=== PATIENT | female | born 1980 | race Caucasian/White ===

== ENCOUNTER 2017-08-13 17:07 | Emergency (ER) | payer OTHER ==
[2017-08-13] MEDS ORDERED: ONDANSETRON ODT 8 MG TAB.RAPDIS PO STA (18:54)
[2017-08-13] MEDS ORDERED: HYDROmorphone 0.5 MG/0.5 ML SYRINGE IVP STA (18:54)
[2017-08-13] MEDS ORDERED: KETOROLAC 30 MG/ML 1 ML VIAL IVP STA (18:54)
[2017-08-13] MEDS ORDERED: SODIUM CHLORIDE 0.9% 1,000 ML IV STA (18:54)
--- NOTE | 2017-08-13 19:00 | ED ---
Abdominal Pain HPI - General Chief Complaint: Abdominal Pain Stated Complaint: Left Flank Pain Time Seen by Provider: 08/13/17 18:44 Source: patient, RN notes reviewed, old records reviewed Mode of arrival: ambulatory Limitations: no limitations - History of Present Illness Initial Comments: This 37-year-old female presents emergency Department chief complaint of left flank pain. Patient ports that last week she was diagnosed with a right-sided kidney stone, she reports that the pain never seemed totally diminish over her right side, she reports that she did not ever catch the right ureteral stone while straining her urine. She reports that she's not noticed any changes in her urine, she states this seems to be clear. She states that she has no nausea or vomiting. She reports no specific abdominal pain. Denies any fever or chills. She's been taking the medication as previous a prescribed. Patient states that she try to follow-up with a primary care provider but was unable to obtain one. She did make an appointment with urologist but is unable to see him for a few weeks. - Related Data Home Medications Medication Instructions Recorded Confirmed Acetaminophen [Tylenol Extra 1,000 mg PO BID PRN 08/13/17 08/13/17 Strength] guaiFENesin [Mucinex] 1,200 mg PO BID PRN 08/13/17 08/13/17 Previous Rx's Medication Instructions Recorded Acetaminophen-Codeine 300-30mg 1 tab PO Q8H PRN #12 tablet 08/13/17 [Tylenol #3] Ketorolac [Toradol] 10 mg PO Q6HR #15 tab 08/13/17 Tamsulosin [Flomax] 0.4 mg PO DAILY #7 cap 08/13/17 Allergies Allergy/AdvReac Type Severity Reaction Status Date / Time tramadol AdvReac SEIZURE Verified 08/13/17 19:19 Review of Systems ROS Statement: Those systems with pertinent positive or pertinent negative responses have been documented in the HPI. ROS Other: All systems not noted in ROS Statement are negative. Past Medical History Past Medical History: No Reported History Additional Past Medical History / Comment(s): migraines, kidney stones History of Any Multi-Drug Resistant Organisms: None Reported Past Surgical History: Section, Hysterectomy, Orthopedic Surgery Additional Past Surgical History / Comment(s): laproscopy Past Psychological History: Anxiety Smoking Status: Current every day smoker Past Alcohol Use History: None Reported Past Drug Use History: None Reported General Exam - General Exam Comments Initial Comments: This is a 37-year-old female. Patient does not appear to be in any acute distress. She does appear to be somewhat anxious. Limitations: no limitations General appearance: alert, in no apparent distress Head exam: Present: atraumatic, normocephalic, normal inspection Eye exam: Present: normal appearance, PERRL, EOMI. Absent: scleral icterus, conjunctival injection, periorbital swelling ENT exam: Present: normal exam, mucous membranes moist Neck exam: Present: normal inspection. Absent: tenderness, meningismus, lymphadenopathy Respiratory exam: Present: normal lung sounds bilaterally. Absent: respiratory distress, wheezes, rales, rhonchi, stridor Cardiovascular Exam: Present: regular rate, normal rhythm, normal heart sounds. Absent: systolic murmur, diastolic murmur, rubs, gallop, clicks GI/Abdominal exam: Present: soft, tenderness (Left-sided flank and CVA tenderness.), normal bowel sounds. Absent: distended, guarding, rebound, rigid Extremities exam: Present: normal inspection, full ROM, normal capillary refill. Absent: tenderness, pedal edema, joint swelling, calf tenderness Back exam: Present: normal inspection Neurological exam: Present: alert, oriented X3, CN II-XII intact Psychiatric exam: Present: normal affect, normal mood Skin exam: Present: warm, dry, intact, normal color. Absent: rash Course Vital Signs 08/13/17 08/13/17 08/13/17 18:10 19:26 20:28 Temperature 97.8 F 97.3 F L Pulse Rate 87 78 69 Respiratory 20 18 18 Rate Blood Pressure 121/83 132/76 135/83 O2 Sat by Pulse 98 98 100 Oximetry Medical Decision Making - Medical Decision Making Patient refused computed tomography scan. All her lab work was reviewed and within normal limits. KUB chest x-ray showed no abnormalities. Patient continues to complain of pain. Scars that her previous CAT scan did show some signs of left-sided flank stones. All measuring less than 0.4 cm. Patient elects to not have a CT at this time. Discussed risks and benefits. Discussed close follow-up with primary care provider Reddy discharged with Toradol and Flomax for questionable further case to him. Patient agrees to treatment plan will comply. Return parameters were discussed. - Lab Data Result diagrams: 08/13/17 19:10 08/13/17 19:10 Lab Results 08/13/17 08/13/17 08/13/17 Range/Units 19:10 19:10 19:10 WBC 10.0 (3.8-10.6) k/uL RBC 4.86 (3.80-5.40) m/uL Hgb 14.4 (11.4-16.0) gm/dL Hct 43.6 (34.0-46.0) % MCV 89.8 (80.0-100.0) fL MCH 29.6 (25.0-35.0) pg MCHC 33.0 (31.0-37.0) g/dL RDW 12.8 (11.5-15.5) % Plt Count 321 (150-450) k/uL Neutrophils % 60 % Lymphocytes % 35 % Monocytes % 3 % Eosinophils % 1 % Basophils % 1 % Neutrophils # 6.0 (1.3-7.7) k/uL Lymphocytes # 3.5 (1.0-4.8) k/uL Monocytes # 0.3 (0-1.0) k/uL Eosinophils # 0.1 (0-0.7) k/uL Basophils # 0.1 (0-0.2) k/uL Sodium 142 (137-145) mmol/L Potassium 4.5 (3.5-5.1) mmol/L Chloride 107 (98-107) mmol/L Carbon Dioxide 27 (22-30) mmol/L Anion Gap 8 mmol/L BUN 16 (7-17) mg/dL Creatinine 0.65 (0.52-1.04) mg/dL Est GFR (MDRD) Af Amer >60 (>60 ml/min/1.73 sqM) Est GFR (MDRD) Non-Af >60 (>60 ml/min/1.73 sqM) Glucose 80 (74-99) mg/dL Calcium 9.6 (8.4-10.2) mg/dL Total Bilirubin 0.2 (0.2-1.3) mg/dL AST 44 H (14-36) U/L ALT 79 H (9-52) U/L Alkaline Phosphatase 68 (38-126) U/L Total Protein 7.3 (6.3-8.2) g/dL Albumin 4.2 (3.5-5.0) g/dL Amylase 36 (30-110) U/L Lipase 90 (23-300) U/L Urine Color Yellow Urine Appearance Clear (Clear) Urine pH 7.0 (5.0-8.0) Ur Specific [place] 1.009 (1.001-1.035) Urine Protein Negative (Negative) Urine Glucose (UA) Negative (Negative) Urine Ketones Negative (Negative) Urine Blood Negative (Negative) Urine Nitrite Negative (Negative) Urine Bilirubin Negative (Negative) Urine Urobilinogen <2.0 (<2.0) mg/dL Ur Leukocyte Esterase Negative (Negative) Urine Opiates Screen (NotDetected) Ur Oxycodone Screen (NotDetected) Urine Methadone Screen (NotDetected) Ur Propoxyphene Screen (NotDetected) Ur Barbiturates Screen (NotDetected) U Tricyclic Antidepress (NotDetected) Ur Phencyclidine Scrn (NotDetected) Ur Amphetamines Screen (NotDetected) U Methamphetamines Scrn (NotDetected) U Benzodiazepines Scrn (NotDetected) Urine Cocaine Screen (NotDetected) U Marijuana (THC) Screen (NotDetected) 08/13/17 Range/Units 19:10 WBC (3.8-10.6) k/uL RBC (3.80-5.40) m/uL Hgb (11.4-16.0) gm/dL Hct (34.0-46.0) % MCV (80.0-100.0) fL MCH (25.0-35.0) pg MCHC (31.0-37.0) g/dL RDW (11.5-15.5) % Plt Count (150-450) k/uL Neutrophils % % Lymphocytes % % Monocytes % % Eosinophils % % Basophils % % Neutrophils # (1.3-7.7) k/uL Lymphocytes # (1.0-4.8) k/uL Monocytes # (0-1.0) k/uL Eosinophils # (0-0.7) k/uL Basophils # (0-0.2) k/uL Sodium (137-145) mmol/L Potassium (3.5-5.1) mmol/L Chloride (98-107) mmol/L Carbon Dioxide (22-30) mmol/L Anion Gap mmol/L BUN (7-17) mg/dL Creatinine (0.52-1.04) mg/dL Est GFR (MDRD) Af Amer (>60 ml/min/1.73 sqM) Est GFR (MDRD) Non-Af (>60 ml/min/1.73 sqM) Glucose (74-99) mg/dL Calcium (8.4-10.2) mg/dL Total Bilirubin (0.2-1.3) mg/dL AST (14-36) U/L ALT (9-52) U/L Alkaline Phosphatase (38-126) U/L Total Protein (6.3-8.2) g/dL Albumin (3.5-5.0) g/dL Amylase (30-110) U/L Lipase (23-300) U/L Urine Color Urine Appearance (Clear) Urine pH (5.0-8.0) Ur Specific [place] (1.001-1.035) Urine Protein (Negative) Urine Glucose (UA) (Negative) Urine Ketones (Negative) Urine Blood (Negative) Urine Nitrite (Negative) Urine Bilirubin (Negative) Urine Urobilinogen (<2.0) mg/dL Ur Leukocyte Esterase (Negative) Urine Opiates Screen Not Detected (NotDetected) Ur Oxycodone Screen Not Detected (NotDetected) Urine Methadone Screen Not Detected (NotDetected) Ur Propoxyphene Screen Not Detected (NotDetected) Ur Barbiturates Screen Detected H (NotDetected) U Tricyclic Antidepress Not Detected (NotDetected) Ur Phencyclidine Scrn Not Detected (NotDetected) Ur Amphetamines Screen Detected H (NotDetected) U Methamphetamines Scrn Not Detected (NotDetected) U Benzodiazepines Scrn Not Detected (NotDetected) Urine Cocaine Screen Not Detected (NotDetected) U Marijuana (THC) Screen Not Detected (NotDetected) - Radiology Data Radiology results: report reviewed Chest x-ray and KUB x-ray negative for any acute abdomen or maladies. Disposition Clinical Impression: Left flank pain Disposition: HOME SELF-CARE Condition: Good Instructions: Abdominal Pain (ED) Additional Instructions: Patient advised to take stool softeners associated with taking pain medication. Recommended follow-up with primary care provider and urologist. Take the medicines as prescribed. Return to emergency department if any alarming signs or symptoms occur. Prescriptions: Acetaminophen-Codeine 300-30mg [Tylenol #3] 1 tab PO Q8H PRN #12 tablet PRN Reason: Pain Ketorolac [Toradol] 10 mg PO Q6HR #15 tab Tamsulosin [Flomax] 0.4 mg PO DAILY #7 cap Referrals: None,Stated [Primary Care Provider] - 1-2 days Lin Serrato MD [STAFF PHYSICIAN] - 1-2 days Time of Disposition: 20:30
[2017-08-13 19:20] LABS: Basophils # (A) 0.1 k/uL (0-0.2); Basophils % (A) 1 %; CH 29.8; CHCM 33.4; Eosinophils # (A) 0.1 k/uL (0-0.7); Eosinophils % (A) 1 %; HCT 43.6 % (34.0-46.0); HDW 2.54; HGB 14.4 gm/dL (11.4-16.0); Luc # (Auto) 0.12; Luc % (Auto) 1; Lymphocytes # (A) 3.5 k/uL (1.0-4.8); Lymphocytes % (A) 35 %; MCH 29.6 pg (25.0-35.0); MCV 89.8 fL (80.0-100.0); Mean Platelet Volume 6.6; Monocytes # (A) 0.3 k/uL (0-1.0); Monocytes % (A) 3 %; Neutrophils % (A) 60 %; RBC 4.86 m/uL (3.80-5.40); RDW 12.8 % (11.5-15.5); WBC (Perox) 9.92
[2017-08-13 19:21] LABS: Appearance,Urine Clear (Clear); Bilirubin,Urine Negative (Negative); Glucose,Urine (UA) Negative (Negative); Ketones,Urine Negative (Negative); Leukocyte Esterase,Urine Negative (Negative); Nitrite,Urine Negative (Negative); Protein,Urine Negative (Negative); Specific Gravity,Urine 1.009 (1.001-1.035); UA Billing (MACRO vs. MICRO) CHEM; Urobilinogen,Urine <2.0 mg/dL (<2.0)
[2017-08-13 19:29] VITALS: RESP 18
[2017-08-13 19:31] LABS: ALT 79 U/L (9-52); AST 44 U/L (14-36); Alkaline Phosphatase 68 U/L (38-126); Amylase 36 U/L (30-110); Anion Gap 8 mmol/L; Blood Urea Nitrogen 16 mg/dL (7-17); Calcium 9.6 mg/dL (8.4-10.2); Carbon Dioxide 27 mmol/L (22-30); Chloride 107 mmol/L (98-107); Glucose 80 mg/dL (74-99); Non-African American GFR(MDRD) >60 (>60 ml/min/1.73 sqM); Potassium 4.5 mmol/L (3.5-5.1); Sodium 142 mmol/L (137-145); Total Bilirubin 0.2 mg/dL (0.2-1.3); Total Protein 7.3 g/dL (6.3-8.2)
--- NOTE | 2017-08-13 19:50 | XR ---
EXAMINATION TYPE: XR chest 2V DATE OF EXAM: 08/13/2017 COMPARISON: 06/27/2014 HISTORY: Flank pain TECHNIQUE: Frontal and lateral views of the chest are obtained. FINDINGS: Heart and mediastinum are normal. Lungs are clear. Diaphragm is normal. Bony thorax is int act. IMPRESSION: Normal chest. No change.
--- NOTE | 2017-08-13 19:52 | XR ---
EXAMINATION TYPE: XR KUB DATE OF EXAM: 08/13/2017 COMPARISON: 07/06/2014 HISTORY: Flank pain 2 views Bowel gas pattern is normal. There is no sign of intestinal obstruction or pneumoperitoneum. Fecal pa ttern is normal. There are no pathologic calcifications over the kidneys. There is no sign of a mass. Conclusion Nonacute abdomen
[2017-08-13 20:29] VITALS: BP 135/83; PULSE 69; TEMP 97.3
[2017-08-13] MEDS ORDERED: ORPHENADRINE 30 MG/ML 2 ML VIAL IVP STA (20:46)
[2017-08-13] MEDS ORDERED: ACET/COD 300 MG/30 MG STARTER PACK 6 TAB BTL PO STA (20:52)
== END 2017-08-13 21:03 | disposition home or self-care (01) ==
LOC: EC 17:07
DX: R10.9 Unspecified abdominal pain (principal); F17.200 Nicotine dependence, unspecified, uncomplicated; Z53.20 Procedure and treatment not carried out because of patient's decision for unspecified reasons; Z87.442 Personal history of urinary calculi; Z88.6 Allergy status to analgesic agent
CPT/HCPCS: 36415; 80053; 82150; 83690; 85025; 81003; 80306; 71020; 74000; 99284; 96374; 96375; 96361 ×2; J1885; J1170

== ENCOUNTER → 2017-08-25 | Outpatient (CLI) | payer OTHER ==
--- NOTE | 2017-08-25 18:06 | XR ---
EXAMINATION TYPE: XR KUB DATE OF EXAM: 08/25/2017 COMPARISON: 08/13/2017 HISTORY: Bilateral stones TECHNIQUE: 2 views FINDINGS: There is no sign of intestinal obstruction or pneumoperitoneum. Fecal pattern is normal. Th ere are no pathologic calcifications over the kidneys. Lung bases are clear. IMPRESSION: Nonacute abdomen. No definite renal calcification seen.
== END | disposition home or self-care (01) ==
LOC: RADXRMAIN 17:02
PROVIDERS: ATTEND Urology
DX: N20.0 Calculus of kidney (principal)
CPT/HCPCS: 74000

== ENCOUNTER 2018-10-08 21:16 | Emergency (ER) | payer OTHER ==
[2018-10-08] MEDS ORDERED: SODIUM CHLORIDE 0.9% 1,000 ML IV STA (21:36)
[2018-10-08] MEDS ORDERED: ONDANSETRON 4 MG/2 ML VIAL IVP STA (21:36)
[2018-10-08] MEDS ORDERED: KETOROLAC 30 MG/ML 1 ML VIAL IVP STA (21:36)
--- NOTE | 2018-10-08 21:39 | ED ---
Abdominal Pain HPI - General Chief Complaint: Abdominal Pain Stated Complaint: R side pain Time Seen by Provider: 10/08/18 21:35 Source: patient, RN notes reviewed, old records reviewed Mode of arrival: ambulatory Limitations: no limitations - History of Present Illness Initial Comments: This is a 38-year-old female the ER for evaluation. She presents today for evaluation of abdominal pain significant right flank, right upper quadrant abdominal pain, history of a palpation. Patient has significant symptoms. Started tonight and progressively worsening. Denies fever. Mild nausea no vomiting, no recent diarrheal illness. No significant injury medical history. Patient has had a hysterectomy. Patient also has a history of kidney stones patient does admit to pain radiates for back MD Complaint: abdominal pain, flank pain (right-sided) -: hour(s) Location: RUQ Radiation: R flank, back Migration to: R flank Severity: moderate Severity scale (1-10): 7 Quality: stabbing, aching Consistency: constant Improves With: nothing Worsens With: nothing Associated Symptoms: nausea Treatments Prior to Arrival: other - Related Data Home Medications Medication Instructions Recorded Confirmed Ibuprofen [Motrin] 800 mg PO Q6HR PRN 09/19/17 10/08/18 Acetaminophen Tab [Tylenol Tab] 650 mg PO Q6H PRN 10/08/18 10/08/18 Cider Vinegar [Apple Cider Vinegar] 300 mg PO DAILY 10/08/18 10/08/18 Cranberry Fruit Extract [Cranberry] 200 mg PO DAILY 10/08/18 10/08/18 Cyanocobalamin [Vitamin B-12] 500 mcg PO DAILY 10/08/18 10/08/18 Allergies Allergy/AdvReac Type Severity Reaction Status Date / Time tramadol AdvReac SEIZURE Verified 10/08/18 21:59 Review of Systems ROS Statement: Those systems with pertinent positive or pertinent negative responses have been documented in the HPI. ROS Other: All systems not noted in ROS Statement are negative. Past Medical History Past Medical History: No Reported History Additional Past Medical History / Comment(s): migraines, kidney stones History of Any Multi-Drug Resistant Organisms: None Reported Past Surgical History: Section, Hysterectomy, Orthopedic Surgery Additional Past Surgical History / Comment(s): laproscopy Past Psychological History: Anxiety Smoking Status: Current every day smoker Past Alcohol Use History: None Reported Past Drug Use History: None Reported General Exam Limitations: no limitations General appearance: alert, in no apparent distress Head exam: Present: atraumatic, normocephalic, normal inspection Eye exam: Present: normal appearance, PERRL, EOMI. Absent: scleral icterus, conjunctival injection, periorbital swelling ENT exam: Present: normal exam, mucous membranes moist Neck exam: Present: normal inspection. Absent: tenderness, meningismus, lymphadenopathy Respiratory exam: Present: normal lung sounds bilaterally. Absent: respiratory distress, wheezes, rales, rhonchi, stridor Cardiovascular Exam: Present: regular rate, normal rhythm, normal heart sounds. Absent: systolic murmur, diastolic murmur, rubs, gallop, clicks GI/Abdominal exam: Present: soft, tenderness (ruq), normal bowel sounds. Absent : distended, guarding, rebound, rigid Extremities exam: Present: normal inspection, full ROM, normal capillary refill. Absent: tenderness, pedal edema, joint swelling, calf tenderness Back exam: Present: normal inspection Neurological exam: Present: alert, oriented X3, CN II-XII intact Psychiatric exam: Present: normal affect, normal mood Skin exam: Present: warm, dry, intact, normal color. Absent: rash Course Vital Signs 10/08/18 10/08/18 10/09/18 21:29 23:03 00:15 Temperature 98.3 F Pulse Rate 106 H 93 93 Respiratory 16 19 19 Rate Blood Pressure 141/84 121/68 136/58 O2 Sat by Pulse 100 98 96 Oximetry 10/09/18 00:59 Temperature 98.5 F Pulse Rate 95 Respiratory 16 Rate Blood Pressure 135/76 O2 Sat by Pulse 96 Oximetry - Reevaluation(s) Reevaluation #1: 10/08/18 23:40 Medical records reviewed Reevaluation #2: 10/08/18 23:40 Patient does have pain control Medical Decision Making - Medical Decision Making 38 female the ER for evaluation for nonspecific bowel pain, CT and ultrasound gallbladder negative labwork is normal patient has pain control can be discharged home - Lab Data Result diagrams: 10/08/18 21:55 10/08/18 21:55 Lab Results 10/08/18 10/08/18 10/08/18 Range/Units 21:55 21:55 21:55 WBC 9.0 (3.8-10.6) k/uL RBC 4.61 (3.80-5.40) m/uL Hgb 13.0 (11.4-16.0) gm/dL Hct 40.4 (34.0-46.0) % MCV 87.7 (80.0-100.0) fL MCH 28.2 (25.0-35.0) pg MCHC 32.1 (31.0-37.0) g/dL RDW 13.4 (11.5-15.5) % Plt Count 353 (150-450) k/uL Neutrophils % 47 % Lymphocytes % 43 % Monocytes % 5 % Eosinophils % 1 % Basophils % 1 % Neutrophils # 4.3 (1.3-7.7) k/uL Lymphocytes # 3.9 (1.0-4.8) k/uL Monocytes # 0.4 (0-1.0) k/uL Eosinophils # 0.1 (0-0.7) k/uL Basophils # 0.1 (0-0.2) k/uL Sodium 144 (137-145) mmol/L Potassium 4.3 (3.5-5.1) mmol/L Chloride 111 H (98-107) mmol/L Carbon Dioxide 26 (22-30) mmol/L Anion Gap 7 mmol/L BUN 25 H (7-17) mg/dL Creatinine 0.79 (0.52-1.04) mg/dL Est GFR (CKD-EPI)AfAm >90 (>60 ml/min/1.73 sqM) Est GFR (CKD-EPI)NonAf >90 (>60 ml/min/1.73 sqM) Glucose 100 H (74-99) mg/dL Calcium 10.1 (8.4-10.2) mg/dL Total Bilirubin 0.5 (0.2-1.3) mg/dL AST 28 (14-36) U/L ALT 70 H (9-52) U/L Alkaline Phosphatase 49 (38-126) U/L Total Protein 7.5 (6.3-8.2) g/dL Albumin 4.4 (3.5-5.0) g/dL Amylase 52 (30-110) U/L Lipase 85 (23-300) U/L Urine Color Urine Appearance (Clear) Urine pH (5.0-8.0) Ur Specific [place] (1.001-1.035) Urine Protein (Negative) Urine Glucose (UA) (Negative) Urine Ketones (Negative) Urine Blood (Negative) Urine Nitrite (Negative) Urine Bilirubin (Negative) Urine Urobilinogen (<2.0) mg/dL Ur Leukocyte Esterase (Negative) Urine RBC (0-5) /hpf Urine WBC (0-5) /hpf Ur Squamous Epith Cells (0-4) /hpf Urine Mucus (None) /hpf Urine Yeast (Budding) (None) /hpf Urine HCG, Qual Not Detected (Not Detectd) 10/08/18 Range/Units 21:55 WBC (3.8-10.6) k/uL RBC (3.80-5.40) m/uL Hgb (11.4-16.0) gm/dL Hct (34.0-46.0) % MCV (80.0-100.0) fL MCH (25.0-35.0) pg MCHC (31.0-37.0) g/dL RDW (11.5-15.5) % Plt Count (150-450) k/uL Neutrophils % % Lymphocytes % % Monocytes % % Eosinophils % % Basophils % % Neutrophils # (1.3-7.7) k/uL Lymphocytes # (1.0-4.8) k/uL Monocytes # (0-1.0) k/uL Eosinophils # (0-0.7) k/uL Basophils # (0-0.2) k/uL Sodium (137-145) mmol/L Potassium (3.5-5.1) mmol/L Chloride (98-107) mmol/L Carbon Dioxide (22-30) mmol/L Anion Gap mmol/L BUN (7-17) mg/dL Creatinine (0.52-1.04) mg/dL Est GFR (CKD-EPI)AfAm (>60 ml/min/1.73 sqM) Est GFR (CKD-EPI)NonAf (>60 ml/min/1.73 sqM) Glucose (74-99) mg/dL Calcium (8.4-10.2) mg/dL Total Bilirubin (0.2-1.3) mg/dL AST (14-36) U/L ALT (9-52) U/L Alkaline Phosphatase (38-126) U/L Total Protein (6.3-8.2) g/dL Albumin (3.5-5.0) g/dL Amylase (30-110) U/L Lipase (23-300) U/L Urine Color Yellow Urine Appearance Clear (Clear) Urine pH 6.5 (5.0-8.0) Ur Specific [place] 1.021 (1.001-1.035) Urine Protein Negative (Negative) Urine Glucose (UA) Negative (Negative) Urine Ketones Negative (Negative) Urine Blood Negative (Negative) Urine Nitrite Negative (Negative) Urine Bilirubin Negative (Negative) Urine Urobilinogen 2.0 (<2.0) mg/dL Ur Leukocyte Esterase Trace H (Negative) Urine RBC 4 (0-5) /hpf Urine WBC 2 (0-5) /hpf Ur Squamous Epith Cells 2 (0-4) /hpf Urine Mucus Rare H (None) /hpf Urine Yeast (Budding) Occasional H (None) /hpf Urine HCG, Qual (Not Detectd) - Radiology Data Radiology results: report reviewed (Ultrasound gallbladder is negative for acute disease), image reviewed Disposition Clinical Impression: Abdominal pain Disposition: HOME SELF-CARE Condition: Good Instructions: Abdominal Pain (ED) Is patient prescribed a controlled substance at d/c from ED?: No Referrals: None,Stated [Primary Care Provider] - 1-2 days
[2018-10-08] MEDS ORDERED: MORPHINE SULFATE 4 MG/ML SYRINGE IVP STA (22:08)
[2018-10-08 22:23] LABS: ALT 70 U/L (9-52); AST 28 U/L (14-36); Albumin 4.4 g/dL (3.5-5.0); Alkaline Phosphatase 49 U/L (38-126); Amylase 52 U/L (30-110); Anion Gap 7 mmol/L; Appearance,Urine Clear (Clear); Bilirubin,Urine Negative (Negative); Blood Urea Nitrogen 25 mg/dL (7-17); Blood,Urine Negative (Negative); Budding Yeast,Urine Occasional /hpf; Calcium 10.1 mg/dL (8.4-10.2); Carbon Dioxide 26 mmol/L (22-30); Chloride 111 mmol/L (98-107); Color,Urine Yellow; Glucose 100 mg/dL (74-99); Glucose,Urine (UA) Negative (Negative); Ketones,Urine Negative (Negative); Leukocyte Esterase,Urine Trace (Negative); Lipase 85 U/L (23-300); Mucus,Urine Rare /hpf; Nitrite,Urine Negative (Negative); PH, Urine 6.5 (5.0-8.0); Potassium 4.3 mmol/L (3.5-5.1); Protein,Urine Negative (Negative); RBC,Urine 4 /hpf (0-5); Sodium 144 mmol/L (137-145); Specific Gravity,Urine 1.021 (1.001-1.035); Squamous Epithelial Cell,Urine 2 /hpf (0-4); Total Bilirubin 0.5 mg/dL (0.2-1.3); Total Protein 7.5 g/dL (6.3-8.2); WBC,Urine 2 /hpf (0-5)
[2018-10-08 22:33] LABS: Basophils # (A) 0.1 k/uL (0-0.2); Basophils % (A) 1 %; Eosinophils # (A) 0.1 k/uL (0-0.7); Eosinophils % (A) 1 %; HCT 40.4 % (34.0-46.0); Lymphocytes # (A) 3.9 k/uL (1.0-4.8); Lymphocytes % (A) 43 %; MCH 28.2 pg (25.0-35.0); MCHC 32.1 g/dL (31.0-37.0); MCV 87.7 fL (80.0-100.0); Mean Platelet Volume 6.6; Monocytes # (A) 0.4 k/uL (0-1.0); Monocytes % (A) 5 %; Neutrophils # (A) 4.3 k/uL (1.3-7.7); Neutrophils % (A) 47 %; Platelet Count 353 k/uL (150-450); RBC 4.61 m/uL (3.80-5.40); RDW 13.4 % (11.5-15.5)
--- NOTE | 2018-10-08 23:33 | US ---
EXAMINATION TYPE: US gallbladder DATE OF EXAM: 10/08/2018 COMPARISON: NONE CLINICAL HISTORY: Pain. Pain EXAM MEASUREMENTS: Liver Length: 15.3 cm Gallbladder Wall: 0.2 cm CBD: 0.9 cm Right Kidney: 9.5 x 4.3 x 4.2 cm Pancreas: Obscured by bowel gas Liver: wnl Gallbladder: wnl Evidence for sonographic Jones's sign: No CBD: Dilated Right Kidney: wnl IMPRESSION: No gallstones seen. Common bile duct is enlarged but no dilation of the intrahepatic bile ducts. This could relate to gallbladder dysfunction.
[2018-10-09] MEDS ORDERED: MORPHINE SULFATE 4 MG/ML SYRINGE IVP STA (00:21)
--- NOTE | 2018-10-09 00:51 | CT ---
EXAMINATION TYPE: CT abdomen pelvis w con DATE OF EXAM: 10/09/2018 COMPARISON: 09/19/2017 HISTORY: Patient presents with right sided abdominal/flank pain. Prior on pacs. CT DLP: 590.8 mGycm Automated exposure control for dose reduction was used. TECHNIQUE: Helical acquisition of images was performed from the lung bases through the pelvis. CONTRAST: Performed without Oral Contrast and with IV Contrast, patient injected with 100mL mL of Isovue 300. FINDINGS: The lung bases are clear. There is no pleural effusion. Heart size is normal. There is no pericardial effusion. Liver spleen pancreas gallbladder appear normal. Bile ducts are not dilated. There is no adrenal mass . There is 4 mm calculus lateral left kidney. There is 5 mm calculus lower pole left kidney. There is no hydronephrosis. There is no retroperitoneal adenopathy. Ureters are not dilated. The bladder dist ends smoothly. There is no inguinal hernia. There is no free fluid in the pelvis. There is no mesente corey edema. There is no evidence of free air in the abdomen. There are loops of jejunum with wall thic kening. The distal ileum appears normal. There is no evidence of a bowel obstruction. Lumbar spine is intact. I see no bony destructive process. IMPRESSION: COMPARED TO LAST EXAM THERE ARE SOME JEJUNAL LOOPS WITH MILD WALL THICKENING THAT COULD RELATE TO GAS TROENTERITIS. NONOBSTRUCTING LEFT RENAL CALCULI. Unchanged.
[2018-10-09 01:00] VITALS: BP 135/76; PULSE 95; RESP 16; TEMP 98.5
== END 2018-10-09 01:25 | disposition home or self-care (01) ==
LOC: EC 21:16
DX: R10.11 Right upper quadrant pain (principal); R11.0 Nausea; Z32.02 Encounter for pregnancy test, result negative; F17.200 Nicotine dependence, unspecified, uncomplicated; Z88.5 Allergy status to narcotic agent; Z90.710 Acquired absence of both cervix and uterus
CPT/HCPCS: 36415; 80053; 82150; 83690; 85025; 81001; 81025; 87086; 76705; 74177; 99284; 96374; 96375 ×2; 96376; 96361; J2270 ×2; J2405; J1885; Q9967

== ENCOUNTER 2018-11-22 11:59 | Emergency (ER) | payer OTHER ==
[2018-11-22 12:23] VITALS: BP 145/78; PULSE 92; RESP 18; TEMP 98.5
--- NOTE | 2018-11-22 12:38 | ED ---
Wound/Laceration HPI - General Chief Complaint: Wound/Laceration Stated Complaint: fall/knee lac Time Seen by Provider: 11/22/18 12:19 Source: patient Mode of arrival: ambulatory Limitations: no limitations - History of Present Illness Initial Comments: 38-year-old female presenting today for chief complaint of right knee laceration. Patient states she was walking on ice just prior to arrival when she slipped kneeling at her right knee into a sharp piece of ice. She denies noting any pieces ice stuck in the wound. She states she was able to fully ambulate and weight-bear, ranging fully at the right knee. She states it only hurts to palpation of the laceration. Patient thought that the laceration was deep enough for repair and presented [facility] Nguyen for evaluation. She denies any numbness, tingling, loss sensation of the right lower extremity, she denies a fall head injury or injury to the back or neck. Remaining review of systems negative, patient denies any recent fever, chills, shortness of breath, chest pain, back pain, abdominal pain, nausea or vomiting, numbness or tingling, dysuria or hematuria, constipation or diarrhea, headaches or visual changes, or any other complaints. Patient appears well, she is smiling and pleasant. Vital signs within normal limits. - Related Data Previous Rx's Medication Instructions Recorded Cephalexin [Keflex] 500 mg PO Q8HR 5 Days #15 cap 11/22/18 Allergies Allergy/AdvReac Type Severity Reaction Status Date / Time tramadol AdvReac SEIZURE Verified 11/22/18 12:23 Review of Systems ROS Statement: Those systems with pertinent positive or pertinent negative responses have been documented in the HPI. ROS Other: All systems not noted in ROS Statement are negative. Past Medical History Past Medical History: No Reported History Additional Past Medical History / Comment(s): migraines, kidney stones History of Any Multi-Drug Resistant Organisms: None Reported Past Surgical History: Section, Hysterectomy, Orthopedic Surgery Additional Past Surgical History / Comment(s): laproscopy Past Psychological History: Anxiety Smoking Status: Current every day smoker Past Alcohol Use History: None Reported Past Drug Use History: None Reported General Exam - General Exam Comments Initial Comments: General: The patient is awake and alert, in no distress, and does not appear acutely ill. Eye: Pupils are equal, round and reactive to light, extra-ocular movements are intact. No nystagmus. There is normal conjunctiva bilaterally. No signs of icterus. Ears, nose, mouth and throat: There are moist mucous membranes and no oral lesions. Neck: The neck is supple, there is no tenderness or JVD. Cardiovascular: There is a regular rate and rhythm. No murmur, rub or gallop is appreciated. Respiratory: Lungs are clear to auscultation, respirations are non-labored, breath sounds are equal. No wheezes, stridor, rales, or rhonchi. Musculoskeletal: Upon inspection of the right knee there is obvious laceration. There is no soft tissue swelling or ecchymosis. Patient is able to fully range at the right knee without difficulty or complaints of pain. Extensor mechanism intact Strength 5/5. Sensation intact. DP pulses equal bilaterally 2+. Neurological: A&O x 3. CN II-XII intact, There are no obvious motor or sensory deficits. Coordination appears grossly intact. Speech is normal. Skin: Skin is warm and dry and no rashes. Semicircular laceration involving full dermis, of the right anterior knee. No evidence of foreign body, no evidence of exposure of underlying structures. No evidence of tendon injury. Psychiatric: Cooperative, appropriate mood & affect, normal judgment. Limitations: no limitations Course Vital Signs 11/22/18 12:20 Temperature 98.5 F Pulse Rate 92 Respiratory 18 Rate Blood Pressure 145/78 O2 Sat by Pulse 97 Oximetry Procedures - Laceration Laceration #1 Consent Obtained: verbal consent Indication: laceration Site: lower extremity (anterior right knee) Size (cm): 2 Description: linear Depth: simple, single layer Anesthetic Used: lidocaine 1% Anesthesia Technique: local infiltration Amount (mls): 2 Pre-repair: wound explored, irrigated extensively, deep structures intact Type of Sutures: nylon Size of Sutures: 4-0 Number of Sutures: 3 Technique: simple, interrupted Patient Tolerated Procedure: well, no complications Additional Comments: No pain, extensively irrigated, wound edges approximated well, these were done in partial flexion given area of hypertension. Patient had a procedure well. Patient given suture care instructions. Sterile bandage applied with bacitracin. Patient given prophylactic antibiotic. Medical Decision Making - Medical Decision Making 2-year-old female presenting today for knee laceration, wound was appeared, patient high procedure well. Suture care as well as return for suture removal was discussed with patient. She verbalizes understanding. The patient was discharged to condition appearing well. Primary is discussed with patient who verbalized understanding. Disposition Clinical Impression: Laceration of right knee Disposition: HOME SELF-CARE Condition: Good Instructions (If sedation given, give patient instructions): Care For Your Stitches (ED), Laceration (ED) Additional Instructions: Please use medication as discussed. Please follow-up here in the emergency department for suture removal in 7-10 days. Please return to emergency room if the symptoms increase or worsen or for any other concerns. Prescriptions: Cephalexin [Keflex] 500 mg PO Q8HR 5 Days #15 cap Is patient prescribed a controlled substance at d/c from ED?: No Referrals: None,Stated [Primary Care Provider] - 1-2 days Time of Disposition: 12:46
[2018-11-22] MEDS ORDERED: LIDOCAINE 1% INJ 10MG/ML (20 ML MDV) SQ ONE (12:41)
[2018-11-22] MEDS ORDERED: DIPH,PERTUS(ACELL)TETVAC-LF 0.5 ML VIAL IM ONE (12:41)
== END 2018-11-22 13:52 | disposition home or self-care (01) ==
LOC: EC 11:59
DX: S81.011A Laceration without foreign body, right knee, initial encounter (principal); F17.200 Nicotine dependence, unspecified, uncomplicated; Z88.5 Allergy status to narcotic agent; Z23 Encounter for immunization; W00.0XXA Fall on same level due to ice and snow, initial encounter; Y93.01 Activity, walking, marching and hiking
CPT/HCPCS: 90715; 99282; 12001; 90471; J2001

== ENCOUNTER 2018-12-16 13:41 | Emergency (ER) | payer OTHER ==
[2018-12-16 13:45] VITALS: RESP 16
[2018-12-16] MEDS ORDERED: KETOROLAC 30 MG/ML 1 ML VIAL IVP STA (14:02)
[2018-12-16] MEDS ORDERED: ONDANSETRON 4 MG/2 ML VIAL IVP STA (14:02)
[2018-12-16] MEDS ORDERED: SODIUM CHLORIDE 0.9% 1,000 ML IV STA (14:02)
--- NOTE | 2018-12-16 14:03 | ED ---
General Adult HPI - General Chief complaint: Abdominal Pain Stated complaint: side & back pain Time Seen by Provider: 12/16/18 13:47 Source: patient, RN notes reviewed Mode of arrival: ambulatory Limitations: no limitations - History of Present Illness Initial comments: 38-year-old female presents to the emergency department for a chief complaint of left-sided lower back pain for the past 2-3 weeks. Patient states she is concerned she may have a kidney stone as she has had these before. She also admits to some radiating pain to the left lower quadrant as well as the left lower leg. Patient does believe she saw blood in her urine when she wiped. Patient denies fevers or chills. Patient is having normal bowel movements. No dysuria. Patient has no other complaints at this time including shortness of breath, chest pain, nausea or vomiting, headache, or visual changes. - Related Data Home Medications Medication Instructions Recorded Confirmed Aspirin 325 mg PO DAILY 12/16/18 12/16/18 Cider Vinegar [Apple Cider Vinegar] 300 mg PO DAILY 12/16/18 12/16/18 Cranberry Fruit Extract [Cranberry] 500 mg PO DAILY 12/16/18 12/16/18 Ibuprofen [Motrin Ib] 600 mg PO Q8H 12/16/18 12/16/18 Previous Rx's Medication Instructions Recorded Ibuprofen [Motrin] 600 mg PO Q8HR PRN #20 tab 12/16/18 predniSONE 50 mg PO DAILY #5 tablet 12/16/18 Allergies Allergy/AdvReac Type Severity Reaction Status Date / Time tramadol AdvReac SEIZURE Verified 12/16/18 13:52 Review of Systems ROS Statement: Those systems with pertinent positive or pertinent negative responses have been documented in the HPI. ROS Other: All systems not noted in ROS Statement are negative. Past Medical History Past Medical History: No Reported History Additional Past Medical History / Comment(s): migraines, kidney stones History of Any Multi-Drug Resistant Organisms: None Reported Past Surgical History: Section, Hysterectomy, Orthopedic Surgery Additional Past Surgical History / Comment(s): laproscopy Past Psychological History: Anxiety Smoking Status: Current every day smoker Past Alcohol Use History: None Reported Past Drug Use History: None Reported General Exam Limitations: no limitations General appearance: alert, in no apparent distress Head exam: Present: atraumatic, normocephalic, normal inspection Eye exam: Present: normal appearance, PERRL, EOMI. Absent: scleral icterus, conjunctival injection, periorbital swelling ENT exam: Present: normal exam, mucous membranes moist Neck exam: Present: normal inspection, full ROM. Absent: tenderness, meningismus, lymphadenopathy Respiratory exam: Present: normal lung sounds bilaterally. Absent: respiratory distress, wheezes, rales, rhonchi, stridor Cardiovascular Exam: Present: regular rate, normal rhythm, normal heart sounds. Absent: systolic murmur, diastolic murmur, rubs, gallop, clicks GI/Abdominal exam: Present: soft, tenderness (Mild tenderness noted in the left lower quadrant without guarding), normal bowel sounds. Absent: distended, guarding, rebound, rigid Extremities exam: Present: full ROM (in BLE), normal capillary refill (Capillary refill less than 2 seconds in lower extremities bilaterally, DP pulse 2+.), other (sensation intact in BLE). Absent: tenderness, calf tenderness (neg [place], no erythema or edema noted) Back exam: Present: tenderness (mild left sided Si joint tenderness). Absent: CVA tenderness (R), CVA tenderness (L), vertebral tenderness (no lumbar psine tendenress) Neurological exam: Present: alert, oriented X3, CN II-XII intact Psychiatric exam: Present: normal affect, normal mood Course Vital Signs 12/16/18 12/16/18 13:42 15:23 Temperature 99 F Pulse Rate 90 81 Respiratory 16 16 Rate Blood Pressure 175/101 122/87 O2 Sat by Pulse 100 99 Oximetry Medical Decision Making - Medical Decision Making 38-year-old female presents to the emergency department for a chief complaint of left-sided low back pain for 2-3 weeks. Patient states this feels a kidney stone. Patient has had kidney stones before. However she is also linear some left lower quadrant abdominal pain. She does have some tenderness noted of the low back. Also some pain radiating into the left thigh. CBC CMP unremarkable. Mild elevations in AST ALT which are consistent with patient's past lab work. Urine is negative. CT with contrast shows stable to left-sided renal calculi without hydronephrosis or obstructing calculi identified. There is stable mild to moderate disc space narrowing of the lumbosacral junction which could be contributing to patient's pain. It is likely that the symptoms are more musculoskeletal in nature. The fact the patient is also complaining of left lower extremity pain could be related to sciatic pain. Patient will be started on steroids for this. No numbness in the groin or buttock. No difficulty urinating or changes in bowel movements. Patient is to follow up with primary care and orthopedics and return here if she has any worsening symptoms. - Lab Data Result diagrams: 12/16/18 14:38 12/16/18 14:38 Lab Results 12/16/18 12/16/18 12/16/18 Range/Units 13:55 13:55 14:38 WBC (3.8-10.6) k/uL RBC (3.80-5.40) m/uL Hgb (11.4-16.0) gm/dL Hct (34.0-46.0) % MCV (80.0-100.0) fL MCH (25.0-35.0) pg MCHC (31.0-37.0) g/dL RDW (11.5-15.5) % Plt Count (150-450) k/uL Neutrophils % % Lymphocytes % % Monocytes % % Eosinophils % % Basophils % % Neutrophils # (1.3-7.7) k/uL Lymphocytes # (1.0-4.8) k/uL Monocytes # (0-1.0) k/uL Eosinophils # (0-0.7) k/uL Basophils # (0-0.2) k/uL Sodium 140 (137-145) mmol/L Potassium 4.0 (3.5-5.1) mmol/L Chloride 108 H (98-107) mmol/L Carbon Dioxide 26 (22-30) mmol/L Anion Gap 6 mmol/L BUN 18 H (7-17) mg/dL Creatinine 0.63 (0.52-1.04) mg/dL Est GFR (CKD-EPI)AfAm >90 (>60 ml/min/1.73 sqM) Est GFR (CKD-EPI)NonAf >90 (>60 ml/min/1.73 sqM) Glucose 91 (74-99) mg/dL Calcium 9.8 (8.4-10.2) mg/dL Total Bilirubin 0.4 (0.2-1.3) mg/dL AST 43 H (14-36) U/L ALT 62 H (9-52) U/L Alkaline Phosphatase 53 (38-126) U/L Total Protein 7.2 (6.3-8.2) g/dL Albumin 4.4 (3.5-5.0) g/dL Amylase 44 (30-110) U/L Lipase 77 (23-300) U/L Urine Color Light Yellow Urine Appearance Clear (Clear) Urine pH 7.0 (5.0-8.0) Ur Specific [place] 1.004 (1.001-1.035) Urine Protein Negative (Negative) Urine Glucose (UA) Negative (Negative) Urine Ketones Negative (Negative) Urine Blood Negative (Negative) Urine Nitrite Negative (Negative) Urine Bilirubin Negative (Negative) Urine Urobilinogen <2.0 (<2.0) mg/dL Ur Leukocyte Esterase Negative (Negative) Urine HCG, Qual Not Detected (Not Detectd) 12/16/18 Range/Units 14:38 WBC 6.2 (3.8-10.6) k/uL RBC 4.44 (3.80-5.40) m/uL Hgb 13.6 (11.4-16.0) gm/dL Hct 39.8 (34.0-46.0) % MCV 89.6 (80.0-100.0) fL MCH 30.5 (25.0-35.0) pg MCHC 34.1 (31.0-37.0) g/dL RDW 13.5 (11.5-15.5) % Plt Count 110 L (150-450) k/uL Neutrophils % 50 % Lymphocytes % 44 % Monocytes % 3 % Eosinophils % 1 % Basophils % 1 % Neutrophils # 3.1 (1.3-7.7) k/uL Lymphocytes # 2.7 (1.0-4.8) k/uL Monocytes # 0.2 (0-1.0) k/uL Eosinophils # 0.1 (0-0.7) k/uL Basophils # 0.0 (0-0.2) k/uL Sodium (137-145) mmol/L Potassium (3.5-5.1) mmol/L Chloride (98-107) mmol/L Carbon Dioxide (22-30) mmol/L Anion Gap mmol/L BUN (7-17) mg/dL Creatinine (0.52-1.04) mg/dL Est GFR (CKD-EPI)AfAm (>60 ml/min/1.73 sqM) Est GFR (CKD-EPI)NonAf (>60 ml/min/1.73 sqM) Glucose (74-99) mg/dL Calcium (8.4-10.2) mg/dL Total Bilirubin (0.2-1.3) mg/dL AST (14-36) U/L ALT (9-52) U/L Alkaline Phosphatase (38-126) U/L Total Protein (6.3-8.2) g/dL Albumin (3.5-5.0) g/dL Amylase (30-110) U/L Lipase (23-300) U/L Urine Color Urine Appearance (Clear) Urine pH (5.0-8.0) Ur Specific [place] (1.001-1.035) Urine Protein (Negative) Urine Glucose (UA) (Negative) Urine Ketones (Negative) Urine Blood (Negative) Urine Nitrite (Negative) Urine Bilirubin (Negative) Urine Urobilinogen (<2.0) mg/dL Ur Leukocyte Esterase (Negative) Urine HCG, Qual (Not Detectd) Disposition Clinical Impression: Back pain Disposition: HOME SELF-CARE Condition: Good Instructions (If sedation given, give patient instructions): Renal Colic (ED), Back Pain (ED) Additional Instructions: Please take Motrin for pain. If pain is severe take Tylenol 3. Take steroids as directed. Take these medications with food. Follow up with primary care as well as orthopedics. Return to the emergency department if you have any worsening symptoms. Prescriptions: Ibuprofen [Motrin] 600 mg PO Q8HR PRN #20 tab PRN Reason: Pain predniSONE 50 mg PO DAILY #5 tablet Is patient prescribed a controlled substance at d/c from ED?: No Referrals: Teo Dhillon MD [STAFF PHYSICIAN] - 1-2 days Time of Disposition: 15:42
[2018-12-16 14:16] LABS: Appearance,Urine Clear (Clear); Bilirubin,Urine Negative (Negative); Blood,Urine Negative (Negative); Color,Urine Light Yellow; Glucose,Urine (UA) Negative (Negative); Ketones,Urine Negative (Negative); Leukocyte Esterase,Urine Negative (Negative); Nitrite,Urine Negative (Negative); Protein,Urine Negative (Negative); Specific Gravity,Urine 1.004 (1.001-1.035); Urobilinogen,Urine <2.0 mg/dL (<2.0)
[2018-12-16 15:05] LABS: Basophils % (A) 1 %; Eosinophils # (A) 0.1 k/uL (0-0.7); Eosinophils % (A) 1 %; HCT 39.8 % (34.0-46.0); HGB 13.6 gm/dL (11.4-16.0); Lymphocytes # (A) 2.7 k/uL (1.0-4.8); Lymphocytes % (A) 44 %; MCH 30.5 pg (25.0-35.0); MCHC 34.1 g/dL (31.0-37.0); MCV 89.6 fL (80.0-100.0); Mean Platelet Volume 7.2; Monocytes # (A) 0.2 k/uL (0-1.0); Monocytes % (A) 3 %; Neutrophils # (A) 3.1 k/uL (1.3-7.7); Neutrophils % (A) 50 %; Platelet Count 110 k/uL (150-450); RBC 4.44 m/uL (3.80-5.40); RDW 13.5 % (11.5-15.5); WBC 6.2 k/uL (3.8-10.6)
[2018-12-16 15:09] LABS: ALT 62 U/L (9-52); AST 43 U/L (14-36); Albumin 4.4 g/dL (3.5-5.0); Alkaline Phosphatase 53 U/L (38-126); Amylase 44 U/L (30-110); Anion Gap 6 mmol/L; Blood Urea Nitrogen 18 mg/dL (7-17); Calcium 9.8 mg/dL (8.4-10.2); Carbon Dioxide 26 mmol/L (22-30); Chloride 108 mmol/L (98-107); Glucose 91 mg/dL (74-99); Lipase 77 U/L (23-300); Sodium 140 mmol/L (137-145); Total Bilirubin 0.4 mg/dL (0.2-1.3); Total Protein 7.2 g/dL (6.3-8.2)
--- NOTE | 2018-12-16 15:20 | CT ---
EXAMINATION TYPE: CT abdomen pelvis w con DATE OF EXAM: 12/16/2018 HISTORY: lt flank pain/hx bilateral kid stones CT DLP: 704.9mGycm Automated Exposure Control for Dose Reduction was Utilized. CONTRAST: CT scan of the abdomen and pelvis is performed without oral but with IV Contrast, patient injected wi th 100 mL of Isovue 300. COMPARISON: CT abdomen and pelvis October 09, 2018 and older [address]s. FINDINGS: LUNG BASES: No significant abnormality is appreciated. LIVER/GB: Contracted gallbladder is present. PANCREAS: No significant abnormality is seen. SPLEEN: No significant abnormality is seen. ADRENALS: Low dense thickening to left adrenal gland favors benign hyperplasia. KIDNEYS: Redemonstration of 2 calculi scattered throughout left kidney measuring up to 3 mm in size f elt stable. No right-sided nephrolithiasis on current study. There is symmetric cortical medullary up take and excretion from both kidneys without hydronephrosis seen bilaterally. No intraluminal calculu s in the bladder is present. BOWEL: Evaluation bowel suboptimal secondary to lack of enteric contrast. No suspicious small or larg e bowel dilatation seen. UTERUS/ADNEXA: Uterus is surgically absent or markedly atrophic. LYMPH NODES: No greater than 1cm abdominal or pelvic lymph nodes are appreciated. OSSEOUS STRUCTURES: Stable mild to moderate disc space narrowing lumbosacral junction with transition al L5 vertebra. Mild facet arthropathy lower lumbar spine is present. OTHER: No significant additional abnormality is seen. IMPRESSION: Stable 2 left-sided renal calculi. No hydronephrosis or obstructing ureter calculi identi fied. No new or acute finding seen to account for patient's symptoms.
[2018-12-16] MEDS ORDERED: MORPHINE SULFATE 4 MG/ML SYRINGE IVP STA (15:40)
[2018-12-16] MEDS ORDERED: ACET/COD 300 MG/30 MG STARTER PACK 6 TAB BTL PO STA (16:31)
[2018-12-16 16:49] VITALS: BP 136/84; PULSE 73; TEMP 98.8
== END 2018-12-16 16:53 | disposition home or self-care (01) ==
LOC: EC 13:41
DX: N20.0 Calculus of kidney (principal); M48.061 Spinal stenosis, lumbar region without neurogenic claudication; R74.8 Abnormal levels of other serum enzymes; F17.200 Nicotine dependence, unspecified, uncomplicated; Z79.82 Long term (current) use of aspirin; Z79.1 Long term (current) use of non-steroidal anti-inflammatories (NSAID); Z79.899 Other long term (current) drug therapy; Z88.5 Allergy status to narcotic agent
CPT/HCPCS: 36415; 80053; 82150; 83690; 85025; 81003; 81025; 74177; 99284; 96374; 96375 ×2; 96361 ×2; J2270; J2405; J1885; Q9967

== ENCOUNTER 2020-03-02 15:32 | Emergency (ER) | payer OTHER ==
[2020-03-02 15:42] VITALS: RESP 18; TEMP 98.6
[2020-03-02] MEDS ORDERED: SODIUM CHLORIDE 0.9% 1,000 ML IV STA (15:58)
[2020-03-02] MEDS ORDERED: diphenhydrAMINE 50 MG/ML 1 ML VIAL IVP STA (15:58)
[2020-03-02] MEDS ORDERED: METOCLOPRAMIDE 5 MG/ML 2 ML VIAL IVP STA (15:58)
--- NOTE | 2020-03-02 16:00 | ED ---
Headache HPI - General Chief Complaint: Headache Stated Complaint: Headache Time Seen by Provider: 03/02/20 15:51 Mode of arrival: ambulatory Limitations: no limitations - History of Present Illness Initial Comments: Patient is a 40-year-old female with history of migraines presenting to emergency Department with chief complaint of migraine. States this is an ongoing migraine for the past 4 days. Patient states she tried taking [id number] analgesics with improvement. States she also tried caffeine with no significant improvement in his symptoms. She does report nausea with one episode of nonbilious, nonbloody vomiting. She does report photophobia. Patient states there is some visual disturbances but nothing today. Denies any one-sided weakness or paresthesias. He states is not the worst headache of her life and it was a gradual onset. States the headache is located in the frontal region of her head and wraps around. She does report a family history of migraines. - Related Data Home Medications Medication Instructions Recorded Confirmed Aspirin 325 mg PO DAILY 12/16/18 12/16/18 Cider Vinegar [Apple Cider Vinegar] 300 mg PO DAILY 12/16/18 12/16/18 Cranberry Fruit Extract [Cranberry] 500 mg PO DAILY 12/16/18 12/16/18 Ibuprofen [Motrin Ib] 600 mg PO Q8H 12/16/18 12/16/18 Previous Rx's Medication Instructions Recorded Ibuprofen [Motrin] 600 mg PO Q8HR PRN #20 tab 12/16/18 predniSONE 50 mg PO DAILY #5 tablet 12/16/18 Allergies Allergy/AdvReac Type Severity Reaction Status Date / Time tramadol AdvReac SEIZURE Verified 03/02/20 15:42 Review of Systems ROS Statement: Those systems with pertinent positive or pertinent negative responses have been documented in the HPI. ROS Other: All systems not noted in ROS Statement are negative. Past Medical History Past Medical History: No Reported History Additional Past Medical History / Comment(s): migraines, kidney stones, History of Any Multi-Drug Resistant Organisms: None Reported Past Surgical History: Section, Hysterectomy, Orthopedic Surgery Additional Past Surgical History / Comment(s): laproscopy Past Psychological History: Anxiety Smoking Status: Current every day smoker Past Alcohol Use History: None Reported Past Drug Use History: None Reported General Exam Limitations: no limitations General appearance: alert, in no apparent distress Head exam: Present: atraumatic, normocephalic, normal inspection Eye exam: Present: normal appearance, PERRL, EOMI Pupils: Present: normal accommodation ENT exam: Present: normal exam, normal oropharynx, mucous membranes moist Neck exam: Present: normal inspection, full ROM Respiratory exam: Present: normal lung sounds bilaterally. Absent: respiratory distress, wheezes, rales Cardiovascular Exam: Present: regular rate, normal rhythm, normal heart sounds Extremities exam: Present: normal inspection, full ROM Back exam: Present: normal inspection, full ROM Neurological exam: Present: alert, oriented X3 Psychiatric exam: Present: normal affect, normal mood Skin exam: Present: warm, dry, intact, normal color Course Vital Signs 03/02/20 15:39 Temperature 98.6 F Pulse Rate 91 Respiratory 18 Rate Blood Pressure 124/75 O2 Sat by Pulse 100 Oximetry Medical Decision Making - Medical Decision Making patient is a 40-year-old female with history of migraines presents emergency Department with chief complaint of migraine. This is a slow onset, global headache with nausea, vomiting and photophobia. Neurological examination is unremarkable. Patient was given fluids, Benadryl, Toradol, Reglan and steroids. Reevaluation patient reports the pain continues to be persistent only with slight improvement in symptoms. Patient was given 0.5 mg of Dilaudid. On reevaluation patient reports improvement in symptoms. Patient will be discharged with Zofran. Return parameters were thoroughly discussed with patient is understanding and agreeable. She was advised to follow-up with a neurologist. Case discussed with physician. Disposition Clinical Impression: Headache, Migraine, Photophobia of both eyes, Nausea & vomiting Disposition: HOME SELF-CARE Condition: Stable Instructions (If sedation given, give patient instructions): Acute Headache (ED) Additional Instructions: Take prescribed medication as directed. Follow up with a neurologist. Return to emergency department if symptoms worsen. Is patient prescribed a controlled substance at d/c from ED?: No Referrals: Demi Godwin MD [Primary Care Provider] - 1-2 days Meghann Hernandez MD [Medical Doctor] - 1-2 days Time of Disposition: 17:24
[2020-03-02] MEDS ORDERED: KETOROLAC 30 MG/ML 1 ML VIAL IVP STA (16:03)
[2020-03-02] MEDS ORDERED: HYDROmorphone 0.5 MG/0.5 ML SYRINGE IVP STA (16:53)
[2020-03-02] MEDS ORDERED: DEXAMETHASONE SOD PHOSPHATE 10 MG/ML 1 ML VIAL IV STA (17:24)
[2020-03-02] MEDS ORDERED: ONDANSETRON 4 MG ODT STARTER PACK 2 TAB BTL PO STA (17:24)
[2020-03-02 18:06] VITALS: BP 121/82; PULSE 81
== END 2020-03-02 18:06 | disposition home or self-care (01) ==
LOC: EC 15:32
DX: G43.909 Migraine, unspecified, not intractable, without status migrainosus (principal); H53.143 Visual discomfort, bilateral; F17.200 Nicotine dependence, unspecified, uncomplicated; Z79.82 Long term (current) use of aspirin; Z88.5 Allergy status to narcotic agent
CPT/HCPCS: 99283; 96374; 96375 ×4; 96361; J1200; J1100; J2765; J1885; S0119; J1170

== ENCOUNTER 2020-03-08 16:29 | Emergency (ER) | payer OTHER ==
[2020-03-08] MEDS ORDERED: SODIUM CHLORIDE 0.9% 1,000 ML IV ONE (17:27)
[2020-03-08] MEDS ORDERED: METOCLOPRAMIDE 5 MG/ML 2 ML VIAL IVP STA (17:27)
[2020-03-08] MEDS ORDERED: diphenhydrAMINE 50 MG/ML 1 ML VIAL IVP STA (17:27)
[2020-03-08] MEDS ORDERED: KETOROLAC 30 MG/ML 1 ML VIAL IVP STA (17:27)
--- NOTE | 2020-03-08 18:02 | ED ---
Headache HPI - General Mode of arrival: ambulatory Limitations: no limitations <Sharmila Kevin - Last Filed: 03/08/20 20:11> <Karla Perez - Last Filed: 03/09/20 02:13> - General Chief Complaint: Headache Stated Complaint: headache Time Seen by Provider: 03/08/20 16:38 - History of Present Illness Initial Comments: 40-year-old female patient with past medical history significant for migraine headache presents to the emergency department today for evaluation of headache for the last 7 days. Patient states the pain has been constant. Patient states is consistent with her usual migraines was lasted longer and is more painful. She states she does have blurred vision but denies any double vision. States she does feel some dizziness like the room is spinning around her especially when she stands up. She has been nauseated but denies vomiting. States she is having some tingling in her bilateral fingertips. Denies any unilateral weakness. Denies any recent head injury. States she does take Topamax for prevention, she has taken Excedrin Migraine and has used ice packs without relief. Patient denies any recent rash, fever, chills, cough, shortness of breath, chest pain, abdominal pain, diarrhea, constipation, back pain, hematuria, dysuria, urinary urgency, urinary frequency, or any other complaints. (Sharmial Kevin) - Related Data Home Medications Medication Instructions Recorded Confirmed Aspirin 325 mg PO DAILY 12/16/18 12/16/18 Cider Vinegar [Apple Cider Vinegar] 300 mg PO DAILY 12/16/18 12/16/18 Cranberry Fruit Extract [Cranberry] 500 mg PO DAILY 12/16/18 12/16/18 Ibuprofen [Motrin Ib] 600 mg PO Q8H 12/16/18 12/16/18 Previous Rx's Medication Instructions Recorded Ibuprofen [Motrin] 600 mg PO Q8HR PRN #20 tab 12/16/18 predniSONE 50 mg PO DAILY #5 tablet 12/16/18 Allergies Allergy/AdvReac Type Severity Reaction Status Date / Time tramadol AdvReac SEIZURE Verified 03/08/20 16:32 Review of Systems ROS Other: All systems not noted in ROS Statement are negative. <Sharmila Kevin - Last Filed: 03/08/20 20:11> ROS Other: All systems not noted in ROS Statement are negative. <Karla Perez - Last Filed: 03/09/20 02:13> ROS Statement: Those systems with pertinent positive or pertinent negative responses have been documented in the HPI. Past Medical History Past Medical History: No Reported History Additional Past Medical History / Comment(s): migraines, kidney stones, History of Any Multi-Drug Resistant Organisms: None Reported Past Surgical History: Section, Hysterectomy, Orthopedic Surgery Additional Past Surgical History / Comment(s): laproscopy Past Psychological History: Anxiety Smoking Status: Current every day smoker Past Alcohol Use History: None Reported Past Drug Use History: None Reported <Sharmila Kevin - Last Filed: 03/08/20 20:11> General Exam Limitations: no limitations General appearance: alert, in no apparent distress, other (This is a well- developed, well-nourished adult female patient in no acute distress. Vital signs upon presentation are temperature 98.4F, pulse 90, respirations 18, blood pressure 122/82, pulse ox 100% on room air) Eye exam: Present: normal appearance, PERRL, EOMI. Absent: scleral icterus, conjunctival injection, nystagmus, periorbital swelling ENT exam: Present: normal exam, normal oropharynx, mucous membranes moist Neck exam: Present: normal inspection. Absent: tenderness, meningismus, lymphadenopathy Respiratory exam: Present: normal lung sounds bilaterally. Absent: respiratory distress, wheezes, rales, rhonchi, stridor Cardiovascular Exam: Present: regular rate, normal rhythm, normal heart sounds. Absent: systolic murmur, diastolic murmur, rubs, gallop, clicks GI/Abdominal exam: Present: soft, normal bowel sounds. Absent: distended, tenderness, guarding, rebound, rigid Neurological exam: Present: alert, oriented X3, CN II-XII intact, other (Strength in all 4 extremities is 5/5.) Psychiatric exam: Present: normal affect, normal mood Skin exam: Present: warm, dry, intact, normal color. Absent: rash <Sharmila Kevin - Last Filed: 03/08/20 20:11> Course <Sharmila Kevin - Last Filed: 03/08/20 20:11> Vital Signs 03/08/20 03/08/20 16:30 21:38 Temperature 98.4 F 98.2 F Pulse Rate 90 88 Respiratory 18 16 Rate Blood Pressure 122/82 124/80 O2 Sat by Pulse 100 99 Oximetry - Reevaluation(s) Reevaluation #1: 03/08/20 18:43 Upon reevaluation patient states that headache has not changed. She still reports pain and nausea. 700ml fluid remaining of bolus. We will try adding steroid and DHE 45. Will reevaluate. (Sharmila Kevin) Reevaluation #2: 03/08/20 20:12 Patient reevaluated. States that her headache is no better. Again she reports concern that this headache has lasted longer than usual. She states that Dilaudid has worked for her pain in the past. I discussed concern for rebound headache. She will be given a dose of dilaudid, we will add CT scan. Dr. Perez will take over care of patient at 2013. (Sharmila Kevin) Medical Decision Making <Karla Perez - Last Filed: 03/09/20 02:13> - Medical Decision Making The patient was signed out to me by Sharmila. The patient was sent for CT of her brain was provided with a milligram of Dilaudid. Review the CT demonstrates no acute injury or hemorrhage or midline shift. The patient is reevaluated and reports to resolution of her headache at this time. I did discuss diagnosis, differential options. At this time the patient does feel comfortable going home. She does not demonstrate any focal neurologic deficits. She is instructed to follow up with neurologist in regards to recurrent migraines. Return to the emergency room for any new or worsening symptoms. Patient was in agreement with the treatment plan she is discharged home in stable condition (Karla Perez) Disposition <Sharmila Kevin - Last Filed: 03/08/20 20:11> Is patient prescribed a controlled substance at d/c from ED?: No Time of Disposition: 21:21 <Karla Perez - Last Filed: 03/09/20 02:13> Clinical Impression: Headache Disposition: HOME SELF-CARE Condition: Stable Instructions (If sedation given, give patient instructions): Acute Headache (ED) Additional Instructions: Please follow-up with a neurologist in regards to your symptoms. I also recommended you see your primary care doctor within 2-4 days. Return to the emergency room for any new or worsening symptoms Referrals: Demi Godwin MD [Primary Care Provider] - 1-2 days
[2020-03-08] MEDS ORDERED: DIHYDROERGOTAMINE MESYLATE 1 MG/ML 1 ML AMP IVP STA (18:40)
[2020-03-08] MEDS ORDERED: DEXAMETHASONE SOD PHOSPHATE 10 MG/ML 1 ML VIAL IV STA (18:40)
[2020-03-08] MEDS ORDERED: HYDROmorphone 1 MG/ML 1 ML SYRINGE IVP STA (20:07)
--- NOTE | 2020-03-08 20:40 | CT ---
EXAMINATION TYPE: CT brain wo con DATE OF EXAM: 03/08/2020 COMPARISON: CT brain September 22, 2016 HISTORY: PEDRAAZ X7 DAYS CT DLP: 1005.4 mGycm. Automated Exposure Control for Dose Reduction was Utilized. TECHNIQUE: CT scan of the head is performed without contrast. FINDINGS: There is no acute intracranial hemorrhage, mass effect, or midline shift identified. The ventricles and sulci are within normal limits in size. Che-white matter differentiation is preserve d. The globes are intact and the visualized sinuses are clear. IMPRESSION: No acute intracranial hemorrhage or midline shift is seen. Unremarkable study.
[2020-03-08 21:40] VITALS: BP 124/80; PULSE 88; RESP 16; TEMP 98.2
== END 2020-03-08 21:39 | disposition home or self-care (01) ==
LOC: EC 16:29
DX: G43.909 Migraine, unspecified, not intractable, without status migrainosus (principal); R42 Dizziness and giddiness; F17.200 Nicotine dependence, unspecified, uncomplicated; Z88.6 Allergy status to analgesic agent; Z86.69 Personal history of other diseases of the nervous system and sense organs
CPT/HCPCS: 70450; 99284; 96374; 96375 ×5; 96361; J1110; J1200; J1100; J2765; J1885; J1170

== ENCOUNTER 2020-03-09 14:46 | Observation (INO) | payer OTHER ==
[2020-03-09] MEDS ORDERED: diphenhydrAMINE 50 MG/ML 1 ML VIAL IVP STA (16:06)
[2020-03-09] MEDS ORDERED: DEXAMETHASONE SOD PHOSPHATE 10 MG/ML 1 ML VIAL IV STA (16:06)
[2020-03-09] MEDS ORDERED: SODIUM CHLORIDE 0.9% 1,000 ML IV STA (16:06)
[2020-03-09] MEDS ORDERED: METOCLOPRAMIDE 5 MG/ML 2 ML VIAL IVP STA (16:06)
[2020-03-09] MEDS ORDERED: KETOROLAC 30 MG/ML 1 ML VIAL IVP STA (16:06)
[2020-03-09] MEDS ORDERED: MAGNESIUM SULFATE-D5W PMX 1 GM in DEXTROSE/WATER 1 100ML.BAG IVPB ONE (16:07)
[2020-03-09 16:51] LABS: Basophils % (A) 0 %; Eosinophils # (A) 0.1 k/uL (0-0.7); Eosinophils % (A) 0 %; Lymphocytes # (A) 2.6 k/uL (1.0-4.8); Lymphocytes % (A) 17 %; MCH 29.4 pg (25.0-35.0); MCHC 32.7 g/dL (31.0-37.0); Mean Platelet Volume 7.8; Monocytes # (A) 0.5 k/uL (0-1.0); Monocytes % (A) 3 %; Neutrophils # (A) 12.3 k/uL (1.3-7.7); Neutrophils % (A) 79 %; Platelet Count 262 k/uL (150-450); RBC 5.11 m/uL (3.80-5.40); RDW 12.8 % (11.5-15.5); WBC 15.6 k/uL (3.8-10.6)
[2020-03-09 17:00] LABS: Appearance,Urine Clear (Clear); Bacteria,Urine Many /hpf; Bilirubin,Urine Negative (Negative); Blood,Urine Negative (Negative); Color,Urine Light Yellow; Glucose,Urine (UA) Negative (Negative); Hyaline Casts,Urine 1 /lpf (0-2); Ketones,Urine Negative (Negative); Leukocyte Esterase,Urine Small (Negative); Mucus,Urine Rare /hpf; Nitrite,Urine Negative (Negative); PH, Urine 6.5 (5.0-8.0); Protein,Urine Negative (Negative); RBC,Urine 1 /hpf (0-5); Specific Gravity,Urine 1.014 (1.001-1.035); Squamous Epithelial Cell,Urine 5 /hpf (0-4); Urobilinogen,Urine <2.0 mg/dL (<2.0); WBC,Urine 3 /hpf (0-5)
[2020-03-09 17:01] LABS: INR 0.9 (<1.2)
[2020-03-09 17:02] LABS: Prothrombin Time 9.7 sec (9.0-12.0)
[2020-03-09 17:03] LABS: ALT 125 U/L (4-34); AST 64 U/L (14-36); African American GFR (CKD) >90 (>60 ml/min/1.73 sqM); Albumin 4.8 g/dL (3.5-5.0); Alkaline Phosphatase 62 U/L (38-126); Anion Gap 8 mmol/L; Blood Urea Nitrogen 17 mg/dL (7-17); Calcium 9.8 mg/dL (8.4-10.2); Carbon Dioxide 23 mmol/L (22-30); Chloride 111 mmol/L (98-107); Glucose 100 mg/dL (74-99); Non-African American GFR(CKD) >90 (>60 ml/min/1.73 sqM); Sodium 142 mmol/L (137-145); Total Bilirubin 0.3 mg/dL (0.2-1.3); Total Protein 7.8 g/dL (6.3-8.2)
[2020-03-09 17:16] LABS: Partial Thromboplastin Time 21.5 sec (22.0-30.0)
[2020-03-09] MEDS ORDERED: SUMAtriptan SUCCINATE 6 MG/0.5 ML VIAL SQ STA (17:40)
[2020-03-09] MEDS ORDERED: KETOROLAC 30 MG/ML 1 ML VIAL IVP PRN (17:40)
[2020-03-09] MEDS ORDERED: NALOXONE 0.4 MG/ML 1 ML VIAL IV PRN (17:48)
--- NOTE | 2020-03-09 17:48 | ED ---
Headache HPI - General Chief Complaint: Headache Stated Complaint: Headache Time Seen by Provider: 03/09/20 15:05 Mode of arrival: ambulatory Limitations: no limitations - History of Present Illness Initial Comments: Patient is a 40-year-old female past history of migraine headaches presents emergency department with continued migraine. Patient was seen in the emergency room yesterday for similar complaint. She was given a migraine cocktail. Did have improvement in her headache and therefore went home. She states that when she woke this morning pain had returned. She states it's been present for the past 8 days. Has a history of migraines however none have lasted this long. Admits to photophobia. No neck pain or stiffness. No fevers or chills. No recent blunt head trauma. She does follow with Dr. Godwin in office who has her on Topamax for her migraines. This medication is not working at all. Patient was given a migraine cocktail yesterday. She denies any chest pain, shortness of breath, nausea, vomiting. No visual changes. No unilateral numbness or weakness. No concern for . There are no other alleviating, precipitating or modifying factors - Related Data Home Medications Medication Instructions Recorded Confirmed Brexpiprazole [Rexulti] 2 mg PO DAILY 03/09/20 03/09/20 Diazepam 2 mg PO HS PRN 03/09/20 03/09/20 Pregabalin [Lyrica] 150 mg PO BID 03/09/20 03/09/20 Topiramate [Topamax] 25 mg PO BID 03/09/20 03/09/20 buPROPion HCL [Wellbutrin XL] 300 mg PO DAILY 03/09/20 03/09/20 Previous Rx's Medication Instructions Recorded Famotidine [Pepcid] 20 mg PO BID #30 tablet 03/11/20 Ibuprofen [Motrin] 400 mg PO Q6HR PRN #30 tab 03/11/20 Prochlorperazine [Compazine] 10 mg PO Q6H PRN #30 tab 03/11/20 acetaZOLAMIDE [Diamox] 250 mg PO BID #20 tablet 03/11/20 diphenhydrAMINE [Benadryl] 25 mg PO TID PRN #30 capsule 03/11/20 Allergies Allergy/AdvReac Type Severity Reaction Status Date / Time tramadol AdvReac SEIZURE Verified 03/09/20 19:40 Review of Systems ROS Statement: Those systems with pertinent positive or pertinent negative responses have been documented in the HPI. ROS Other: All systems not noted in ROS Statement are negative. Past Medical History Past Medical History: No Reported History Additional Past Medical History / Comment(s): migraines, kidney stones, History of Any Multi-Drug Resistant Organisms: None Reported Past Surgical History: Section, Hysterectomy, Orthopedic Surgery Additional Past Surgical History / Comment(s): laproscopy Past Psychological History: Anxiety Smoking Status: Current every day smoker Past Alcohol Use History: None Reported Past Drug Use History: None Reported - Past Family History Father Family Medical History: CVA/TIA, Hypertension Mother Family Medical History: Hypertension General Exam Limitations: no limitations General appearance: alert, in no apparent distress Head exam: Present: atraumatic, normocephalic, normal inspection Eye exam: Present: normal appearance, PERRL, EOMI. Absent: scleral icterus, conjunctival injection, periorbital swelling ENT exam: Present: normal exam, mucous membranes moist Neck exam: Present: normal inspection. Absent: tenderness, meningismus, lymp hadenopathy Respiratory exam: Present: normal lung sounds bilaterally. Absent: respiratory distress, wheezes, rales, rhonchi, stridor Cardiovascular Exam: Present: regular rate, normal rhythm, normal heart sounds. Absent: systolic murmur, diastolic murmur, rubs, gallop, clicks GI/Abdominal exam: Present: soft, normal bowel sounds. Absent: distended, tenderness, guarding, rebound, rigid Extremities exam: Present: normal inspection, full ROM, normal capillary refill. Absent: tenderness, pedal edema, joint swelling, calf tenderness Back exam: Present: normal inspection Neurological exam: Present: alert, oriented X3, CN II-XII intact, other (finger to nose symmetric bilaterally. No ataxia with ambulation) Psychiatric exam: Present: normal affect, normal mood Skin exam: Present: warm, dry, intact, normal color. Absent: rash Course Vital Signs 03/09/20 03/09/20 15:04 17:58 Temperature 98.5 F 98 F Pulse Rate 96 89 Respiratory 18 16 Rate Blood Pressure 138/83 139/81 O2 Sat by Pulse 99 98 Oximetry Medical Decision Making - Medical Decision Making Upon arrival the patient was placed into room 23. A thorough history and physical exam was performed. Peripheral IV was established. Laboratory studies were conducted once again. White blood count 16.6 likely secondary to steroid administration yesterday. The patient did have a CT of her brain yesterday which was reviewed. The patient was given migraine cocktail today. If reevaluated and continues to have headache. He did recommend hospital admission for intractable cephalgia for 2 patient did agree. I discussed the case with Dr. Martinez who accepted the admission. Dr. Nice will be placed on consult. Patient transferred floor in stable condition - Lab Data Result diagrams: 03/09/20 16:40 03/11/20 08:34 Lab Results 03/09/20 03/09/20 03/09/20 Range/Units 16:40 16:40 16:40 WBC 15.6 H (3.8-10.6) k/uL RBC 5.11 (3.80-5.40) m/uL Hgb 15.0 (11.4-16.0) gm/dL Hct 46.0 (34.0-46.0) % MCV 90.0 (80.0-100.0) fL MCH 29.4 (25.0-35.0) pg MCHC 32.7 (31.0-37.0) g/dL RDW 12.8 (11.5-15.5) % Plt Count 262 (150-450) k/uL Neutrophils % 79 % Lymphocytes % 17 % Monocytes % 3 % Eosinophils % 0 % Basophils % 0 % Neutrophils # 12.3 H (1.3-7.7) k/uL Lymphocytes # 2.6 (1.0-4.8) k/uL Monocytes # 0.5 (0-1.0) k/uL Eosinophils # 0.1 (0-0.7) k/uL Basophils # 0.0 (0-0.2) k/uL PT 9.7 (9.0-12.0) sec INR 0.9 (<1.2) APTT 21.5 L (22.0-30.0) sec Sodium (137-145) mmol/L Potassium (3.5-5.1) mmol/L Chloride (98-107) mmol/L Carbon Dioxide (22-30) mmol/L Anion Gap mmol/L BUN (7-17) mg/dL Creatinine (0.52-1.04) mg/dL Est GFR (CKD-EPI)AfAm (>60 ml/min/1.73 sqM) Est GFR (CKD-EPI)NonAf (>60 ml/min/1.73 sqM) Glucose (74-99) mg/dL Calcium (8.4-10.2) mg/dL Total Bilirubin (0.2-1.3) mg/dL AST (14-36) U/L ALT (4-34) U/L Alkaline Phosphatase (38-126) U/L Total Protein (6.3-8.2) g/dL Albumin (3.5-5.0) g/dL Urine Color Light Yellow Urine Appearance Clear (Clear) Urine pH 6.5 (5.0-8.0) Ur Specific Colbert 1.014 (1.001-1.035) Urine Protein Negative (Negative) Urine Glucose (UA) Negative (Negative) Urine Ketones Negative (Negative) Urine Blood Negative (Negative) Urine Nitrite Negative (Negative) Urine Bilirubin Negative (Negative) Urine Urobilinogen <2.0 (<2.0) mg/dL Ur Leukocyte Esterase Small H (Negative) Urine RBC 1 (0-5) /hpf Urine WBC 3 (0-5) /hpf Ur Squamous Epith Cells 5 H (0-4) /hpf Urine Bacteria Many H (None) /hpf Hyaline Casts 1 (0-2) /lpf Urine Mucus Rare H (None) /hpf Urine HCG, Qual (Not Detectd) 03/09/20 03/09/20 Range/Units 16:40 16:40 WBC (3.8-10.6) k/uL RBC (3.80-5.40) m/uL Hgb (11.4-16.0) gm/dL Hct (34.0-46.0) % MCV (80.0-100.0) fL MCH (25.0-35.0) pg MCHC (31.0-37.0) g/dL RDW (11.5-15.5) % Plt Count (150-450) k/uL Neutrophils % % Lymphocytes % % Monocytes % % Eosinophils % % Basophils % % Neutrophils # (1.3-7.7) k/uL Lymphocytes # (1.0-4.8) k/uL Monocytes # (0-1.0) k/uL Eosinophils # (0-0.7) k/uL Basophils # (0-0.2) k/uL PT (9.0-12.0) sec INR (<1.2) APTT (22.0-30.0) sec Sodium 142 (137-145) mmol/L Potassium 4.0 (3.5-5.1) mmol/L Chloride 111 H (98-107) mmol/L Carbon Dioxide 23 (22-30) mmol/L Anion Gap 8 mmol/L BUN 17 (7-17) mg/dL Creatinine 0.77 (0.52-1.04) mg/dL Est GFR (CKD-EPI)AfAm >90 (>60 ml/min/1.73 sqM) Est GFR (CKD-EPI)NonAf >90 (>60 ml/min/1.73 sqM) Glucose 100 H (74-99) mg/dL Calcium 9.8 (8.4-10.2) mg/dL Total Bilirubin 0.3 (0.2-1.3) mg/dL AST 64 H (14-36) U/L ALT 125 H (4-34) U/L Alkaline Phosphatase 62 (38-126) U/L Total Protein 7.8 (6.3-8.2) g/dL Albumin 4.8 (3.5-5.0) g/dL Urine Color Urine Appearance (Clear) Urine pH (5.0-8.0) Ur Specific Colbert (1.001-1.035) Urine Protein (Negative) Urine Glucose (UA) (Negative) Urine Ketones (Negative) Urine Blood (Negative) Urine Nitrite (Negative) Urine Bilirubin (Negative) Urine Urobilinogen (<2.0) mg/dL Ur Leukocyte Esterase (Negative) Urine RBC (0-5) /hpf Urine WBC (0-5) /hpf Ur Squamous Epith Cells (0-4) /hpf Urine Bacteria (None) /hpf Hyaline Casts (0-2) /lpf Urine Mucus (None) /hpf Urine HCG, Qual Not Detected (Not Detectd) Disposition Clinical Impression: Migraine Disposition: ADMITTED IP TO THIS [facility] Condition: Stable Is patient prescribed a controlled substance at d/c from ED?: No Decision to Admit Reason: Admit from EC Decision Date: 03/09/20 Decision Time: 17:48
[2020-03-09] MEDS: SODIUM CHLORIDE 0.9% 1,000 ML IV SCH (18:21)
--- NOTE | 2020-03-09 19:22 | P.HPIM ---
History of Present Illness [age]-year-old female with known history of migraine with aura without any weakness came in with complains of headache patient was seen in ER yesterday was given Fioricet was discharged home comes back again with severe headache frontal bilateral 10/10 in severity with photophobia but denied any photophobia patient is mostly visual blurred vision. Patient denied any focal weakness patient denied any seizure-like activity. Patient denied any double vision at this time. Patient headache is constant. Denied any short of breath fever chills nausea vomiting.. Patient here received Reglan Decadron, and the Toradol for pain today. Review of Systems REVIEW OF SYSTEMS: CONSTITUTIONAL: No fever, no malaise, no fatigue. HEENT: No recent visual problems or hearing problems. Denied any sore throat. CARDIOVASCULAR: No chest pain, orthopnea, PND, no palpitations, no syncope. PULMONARY: No shortness of breath, no cough, no hemoptysis. GASTROINTESTINAL: No diarrhea, no nausea, no vomiting, no abdominal pain. NEUROLOGICAL: no weakness, no numbness. HEMATOLOGICAL: Denies any bleeding or petechiae. GENITOURINARY: Denies any burning micturition, frequency, or urgency. MUSCULOSKELETAL/RHEUMATOLOGICAL: Denies any joint pain, swelling, or any muscle pain. ENDOCRINE: Denies any polyuria or polydipsia. The rest of the 14-point review of systems is negative. Past Medical History Past Medical History: No Reported History Additional Past Medical History / Comment(s): migraines, kidney stones, History of Any Multi-Drug Resistant Organisms: None Reported Past Surgical History: Section, Hysterectomy, Orthopedic Surgery Additional Past Surgical History / Comment(s): laproscopy Past Psychological History: Anxiety Smoking Status: Current every day smoker Past Alcohol Use History: None Reported Past Drug Use History: None Reported Medications and Allergies Home Medications Medication Instructions Recorded Confirmed Type Aspirin 325 mg PO DAILY 12/16/18 12/16/18 History Cider Vinegar [Apple Cider Vinegar] 300 mg PO DAILY 12/16/18 12/16/18 History Cranberry Fruit Extract [Cranberry] 500 mg PO DAILY 12/16/18 12/16/18 History Ibuprofen [Motrin Ib] 600 mg PO Q8H 12/16/18 12/16/18 History Ibuprofen [Motrin] 600 mg PO Q8HR PRN #20 tab 12/16/18 Rx predniSONE 50 mg PO DAILY #5 tablet 12/16/18 Rx Allergies Allergy/AdvReac Type Severity Reaction Status Date / Time tramadol AdvReac SEIZURE Verified 03/09/20 15:06 Physical Exam Vitals: Vital Signs Temp Pulse Pulse Resp BP BP BP 03/09/20 18:57 99.0 F 67 20 141/91 150/93 03/09/20 17:58 98 F 89 16 139/81 03/09/20 15:04 98.5 F 96 18 138/83 Pulse Ox 03/09/20 18:57 100 03/09/20 17:58 98 03/09/20 15:04 99 Intake and Output 03/09/20 03/09/20 03/09/20 06:59 14:59 22:59 Other: Weight 70.307 kg PHYSICAL EXAMINATION: GENERAL: The patient is alert and oriented x3, not in any acute distress. Well developed, well nourished. HEENT: Pupils are round and equally reacting to light. EOMI. No scleral icterus. No conjunctival pallor. Normocephalic, atraumatic. No pharyngeal erythema. No thyromegaly. CARDIOVASCULAR: S1 and S2 present. No murmurs, rubs, or gallops. PULMONARY: Chest is clear to auscultation, no wheezing or crackles. ABDOMEN: Soft, nontender, nondistended, normoactive bowel sounds. No palpable organomegaly. MUSCULOSKELETAL: No joint swelling or deformity. EXTREMITIES: No cyanosis, clubbing, or pedal edema. NEUROLOGICAL: Gross neurological examination did not reveal any focal deficits. SKIN: No rashes. Results CBC & Chem 7: 03/09/20 16:40 03/09/20 16:40 Labs: Abnormal Lab Results - Last 24 Hours (Table) 03/09/20 03/09/20 03/09/20 Range/Units 16:40 16:40 16:40 WBC 15.6 H (3.8-10.6) k/uL Neutrophils # 12.3 H (1.3-7.7) k/uL APTT 21.5 L (22.0-30.0) sec Chloride (98-107) mmol/L Glucose (74-99) mg/dL AST (14-36) U/L ALT (4-34) U/L Ur Leukocyte Esterase Small H (Negative) Ur Squamous Epith Cells 5 H (0-4) /hpf Urine Bacteria Many H (None) /hpf Urine Mucus Rare H (None) /hpf 03/09/20 Range/Units 16:40 WBC (3.8-10.6) k/uL Neutrophils # (1.3-7.7) k/uL APTT (22.0-30.0) sec Chloride 111 H (98-107) mmol/L Glucose 100 H (74-99) mg/dL AST 64 H (14-36) U/L ALT 125 H (4-34) U/L Ur Leukocyte Esterase (Negative) Ur Squamous Epith Cells (0-4) /hpf Urine Bacteria (None) /hpf Urine Mucus (None) /hpf Assessment and Plan Plan: Severe migraine: I ordered SGOT alkaloids subcutaneous 1 dose and patient will be admitted on not Decadron along with Reglan with Benadryl with each Reglan dose and Toradol for pain neurology was consulted. -Anxiety disorder -Nicotine abuse nicotine cessation counseling was provided nicotine most commonly precipitates severe migraine. -GI prophylaxis with Pepcid and DVT prophylaxis early ambulation
[2020-03-09] MEDS ORDERED: DIAZEPAM 2 MG TAB PO PRN (20:59)
[2020-03-09] MEDS: TOPIRAMATE 25 MG TAB PO SCH (21:18)
[2020-03-09] MEDS: FAMOTIDINE 20 MG TAB PO SCH (21:18)
[2020-03-09] MEDS: diphenhydrAMINE 25 MG CAP PO SCH (21:18)
[2020-03-09] MEDS: NICOTINE 14MG/24HR PATCH TRANSDERM SCH (21:18)
[2020-03-09] MEDS: PREGABALIN 75 MG CAP PO SCH (21:18)
[2020-03-09] MEDS: BUTALB/APAP/CAFF 50-325-40MG TAB PO PRN (21:48)
[2020-03-10] MEDS: METOCLOPRAMIDE 5 MG/ML 2 ML VIAL IVP SCH ×4 (00:40→17:45)
[2020-03-10] MEDS: DEXAMETHASONE SOD PHOSPHATE 4 MG/ML 1 ML VIAL IV SCH ×4 (00:40→20:28)
[2020-03-10] MEDS: SODIUM CHLORIDE 0.9% 1,000 ML IV SCH ×3 (06:04→18:03)
[2020-03-10] MEDS: BUTALB/APAP/CAFF 50-325-40MG TAB PO PRN (06:17)
[2020-03-10] MEDS: FAMOTIDINE 20 MG TAB PO SCH ×2 (08:54→20:42)
[2020-03-10] MEDS: diphenhydrAMINE 25 MG CAP PO SCH ×2 (08:55→17:45)
[2020-03-10] MEDS: TOPIRAMATE 25 MG TAB PO SCH ×2 (08:55→20:42)
[2020-03-10] MEDS: PREGABALIN 75 MG CAP PO SCH ×2 (08:55→20:42)
[2020-03-10] MEDS ORDERED: HYDROcodone/APAP 5-325MG 1 EACH TAB PO PRN (16:44)
--- NOTE | 2020-03-10 16:49 | P.CNNES ---
History of Present Illness Consult date: 03/10/20 Requesting physician: Randi Martinez Reason for Consult: Headache History of Present Illness: Patient is a 40-year-old female, who started having migraine headaches about 1- 1/2 years ago. She would get migraines couple times a week, lasting for 1-2 days. Patient would take Excedrin, or Fioricet or tough it out. Patient started having a migraine 9 days ago, which has persisted. She has been to ER couple times, and had computed tomography scan of the head which was negative. The headache is bifrontal, goes to the back. She rates it 10/10 at this time with nausea. She has vomited before but not since yesterday. She is very noise sensitive and also light sensitive. Patient denies any recent head or neck injury. Patient does not take any hormonal contraceptives. Patient states that her paternal grandfather of cerebral aneurysm in his middle ear of age. Her vitals on arrival was 138/83 pulse rate 96 temperature 98.5. Her blood pressure continues to be normal, as well as her temperature. Patient was started on Topamax 25 mg twice a day about couple weeks ago. She has tried Imitrex, Fioricet, Decadron 10 mg IV, currently on 4 mg every 6 hours without any improvement. Also while in the hospital has received Benadryl, Toradol 30 mg IV push, magnesium, Reglan as well as Imitrex 6 mg subcu without any improvement. Patient states that she did feel Dilaudid did help and took the edge off, but once the medication wore off, the headache came back. CT head showed no acute intracranial hemorrhage or midline shift. Blood tests shows WBC 15.6 with mild left shift, which could be possibly from steroids. Hemoglobin is normal 15. Chem-7 normal, liver functions with AST 64, ALT 125, UA showed small amount of leukocyte Estrace and many bacteria. Review of Systems As above in detail. Denies any chest pain shortness of breath wheezing or cough. Denies double vision. All other review of systems unremarkable. Past Medical History Past Medical History: No Reported History Additional Past Medical History / Comment(s): migraines, kidney stones, History of Any Multi-Drug Resistant Organisms: None Reported Past Surgical History: Section, Hysterectomy, Orthopedic Surgery Additional Past Surgical History / Comment(s): laproscopy Past Anesthesia/Blood Transfusion Reactions: No Reported Reaction Past Psychological History: Anxiety Smoking Status: Current every day smoker Past Alcohol Use History: None Reported Past Drug Use History: None Reported - Past Family History Father Family Medical History: CVA/TIA, Hypertension Mother Family Medical History: Hypertension Medications and Allergies Home Medications Medication Instructions Recorded Confirmed Type Brexpiprazole [Rexulti] 2 mg PO DAILY 03/09/20 03/09/20 History [place]/APAP/Caf/Cod 73-546-71-30 1 cap PO DAILY PRN 03/09/20 03/09/20 History [Fioricet w/Cod 25-380-85-30MG] Diazepam 2 mg PO HS PRN 03/09/20 03/09/20 History Pregabalin [Lyrica] 150 mg PO BID 03/09/20 03/09/20 History Topiramate [Topamax] 25 mg PO BID 03/09/20 03/09/20 History buPROPion HCL [Wellbutrin XL] 300 mg PO DAILY 03/09/20 03/09/20 History Allergies Allergy/AdvReac Type Severity Reaction Status Date / Time tramadol AdvReac SEIZURE Verified 03/09/20 19:40 Physical Examination - Vital Signs Vital Signs: Vital Signs Temp Pulse Pulse Pulse Resp BP BP 03/10/20 12:00 98.7 F 69 16 123/79 03/10/20 08:15 98.2 F 69 16 128/70 03/10/20 00:00 98.1 F 59 L 18 101/62 03/09/20 19:57 111/70 03/09/20 18:57 99.0 F 67 20 141/91 03/09/20 17:58 98 F 89 16 139/81 BP Pulse Ox 03/10/20 12:00 97 03/10/20 08:15 98 03/10/20 00:00 98 03/09/20 19:57 03/09/20 18:57 150/93 100 03/09/20 17:58 98 Intake and Output 03/10/20 03/10/20 03/10/20 06:59 14:59 22:59 Intake Total 1200 Balance 1200 Intake: Intake, IV Titration 1000 Amount Sodium Chloride 0.9% 1, 1000 000 ml @ 100 mls/hr IV . Q10H [facility], 1928–1983 Rx#:[id number] Oral 200 Other: # Voids 1 2 On examination patient is a young female, who appears obviously in distress because of headache. She is otherwise alert and awake oriented to time place and person. Speech and language functions are normal. Attention and concentration fund of knowledge is adequate. On cranial nerve examination pupils are round and reacting, visual donato appears full. Extraocular muscles are intact. She is very photosensitive. Face is symmetric, tongue protrudes the midline. Palatal elevation and sensation normal. Hearing and shoulder shrug normal. On muscle strength testing there is no pronator drift and the strength is normal in arms and legs are flaccid are 2-2+ and plantars downgoing. Sensory touch is equal. No ataxia for [id number] testing. Tone and bulk of muscles normal. Gait deferred. No obvious bruit, S1 and S2 audible. Peripheral pulses present. Abdomen soft nontender. Results - Laboratory Findings CBC and BMP: 03/09/20 16:40 03/09/20 16:40 Abnormal Lab Findings: Abnormal Labs 03/09/20 03/09/20 03/09/20 16:40 16:40 16:40 WBC 15.6 H Neutrophils # 12.3 H APTT 21.5 L Chloride Glucose AST ALT Ur Leukocyte Esterase Small H Ur Squamous Epith Cells 5 H Urine Bacteria Many H Urine Mucus Rare H 03/09/20 16:40 WBC Neutrophils # APTT Chloride 111 H Glucose 100 H AST 64 H ALT 125 H Ur Leukocyte Esterase Ur Squamous Epith Cells Urine Bacteria Urine Mucus Assessment and Plan Assessment: * 40-year-old female with recent onset of migraine headaches for the last 1-1/2 years, has presented with persistent migraine for the last 9 days. At present patient appears obviously sick, with a headache that she rates 10/10. Patient has significant vascular features. Patient has not responded to multiple medications for migraines as listed above. Rule out secondary causes. * Tobacco user * Family history of cerebral aneurysm. Plan: * MRI of the brain with and without contrast, MRA and MRV of head. * Increase Topamax to 50 mg twice a day. * Dahinda 7.5, as needed for now. Addendum: Discussed with Dr. Cervantes. MRI not able to be completed until tomorrow. We will check CTA of head to rule out cerebral aneurysm. If negative, then lumbar puncture to rule out pseudotumor cerebri/viral meningitis. Follow-up with ophthalmology as outpatient to rule out ocular cause of headache. Neurology coverage not available on the weekend. Please perfect serve if any concerns over the weeke
[2020-03-10] MEDS: HYDROcodone/APAP 7.5-325MG 1 EACH TAB PO PRN ×2 (18:01→23:21)
--- NOTE | 2020-03-10 18:40 | CT ---
EXAMINATION TYPE: CT angio head neck DATE OF EXAM: 03/10/2020 HISTORY: Headache for 9 days with leg numbness. COMPARISON: None CT DLP: 331.9 mGycm. Automated Exposure Control for Dose Reduction was Utilized. TECHNIQUE: CTA scan of the neck is performed with IV Contrast, patient injected with 65 mL of Isovue 370, axial images are obtained, coronal and sagittal reformatted images are reviewed. Three-D recons tructed images are created on an independent workstation and reviewed. Source images are reviewed. FINDINGS: Carotid/Vascular Structures: There is a three-vessel arch. Vertebral arteries are codominant. The com mon carotid arteries bifurcate normally into internal and external carotid arteries. Internal carotid arteries are patent to the level of the skull base. Cervical of [place]: Vertebral basilar system appears normal. Posterior cerebral vasculature is unrema rkable. Internal carotid arteries bifurcate normally into A1 and M1 segments. A2 segments are normal. The anterior communicating artery is patent. Left Posterior communicating artery is patent. Right po sterior communicating artery is patent. IMPRESSION: 1. No flow-limiting stenosis bilateral carotid bifurcations. 2. Normal [place] of [place]
--- NOTE | 2020-03-10 19:01 | P.PN ---
Subjective Progress Note Date: 03/10/20 Principal diagnosis: 70 pleasant 38-year-old female with known history of migraine with aura without any weakness came in with complains of headache patient was seen in ER yesterday was given Fioricet was discharged home comes back again with severe headache frontal bilateral 10/10 in severity with photophobia but denied any photophobia patient is mostly visual blurred vision. Patient denied any focal weakness patient denied any seizure-like activity. Patient denied any double vision at this time. Patient headache is constant. Denied any short of breath fever chills nausea vomiting.. Patient here received Reglan Decadron, and the Toradol for pain today. 03/10/2020 Patient is seen and evaluated in follow up today and continues to have a headache rating the pain 10/10 with no relief of current medications. Patient is requesting Dilaudid. Patient states the steroids have not helped at all. Neurology following recommending stat MRI and CTA along with lumbar puncture to rule out pseudotumor cerebri or viral meningitis. Patient has no reports of chest pain, shortness of breath, or palpitations. Patient is afebrile. Patient denies any nausea or vomiting and is tolerating diet. Objective - Vital Signs Vital signs: Vital Signs Temp 98.1 F 03/10/20 16:10 Pulse 86 03/10/20 16:10 Resp 18 03/10/20 16:10 BP 146/90 03/10/20 16:10 Pulse Ox 99 03/10/20 16:10 Intake & Output 03/09/20 03/10/20 03/10/20 18:59 06:59 18:59 Intake Total 1680 Balance 1680 Weight 70.307 kg 70.307 kg Intake: Intake, IV Titration 1000 Amount Sodium Chloride 0.9% 1, 1000 000 ml @ 100 mls/hr IV . Q10H [facility] Rx#:[id number] Oral 680 Other: # Voids 1 2 - Exam GENERAL: The patient is alert and oriented x3, not in any acute distress. Well developed, well nourished. HEENT: Pupils are round and equally reacting to light. EOMI. No scleral icterus. No conjunctival pallor. Normocephalic, atraumatic. No pharyngeal erythema. No thyromegaly. CARDIOVASCULAR: S1 and S2 present. No murmurs, rubs, or gallops. PULMONARY: Chest is clear to auscultation, no wheezing or crackles. ABDOMEN: Soft, nontender, nondistended, normoactive bowel sounds. No palpable organomegaly. MUSCULOSKELETAL: No joint swelling or deformity. EXTREMITIES: No cyanosis, clubbing, or pedal edema. NEUROLOGICAL: Gross neurological examination did not reveal any focal deficits. SKIN: No rashes. - Labs CBC & Chem 7: 03/09/20 16:40 03/09/20 16:40 Assessment and Plan Assessment: -Severe migraine: attempts at Migraine cocktail of Reglan, benadryl, decadron, and toradol with no relief. Home medications of topamax resumed. Patient contin ues to request dilaudid. Patient will be given [place]. Neurology evaluated the patient recommending MRI, MRA, CTA, along with lumbar puncture to rule out pseudotumor cerebri or viral meningitis. -Anxiety disorder -Nicotine abuse nicotine cessation counseling was provided nicotine most commonly precipitates severe migraine. Nicotine patch given. -GI prophylaxis with Pepcid -DVT prophylaxis early ambulation
[2020-03-10] MEDS: NICOTINE 14MG/24HR PATCH TRANSDERM SCH (20:41)
[2020-03-11 01:03] LABS: Glucose,CSF 78 mg/dL (40-70); Total Protein,CSF 40 mg/dL (12-60)
[2020-03-11] MEDS: DEXAMETHASONE SOD PHOSPHATE 4 MG/ML 1 ML VIAL IV SCH ×3 (01:27→15:25)
[2020-03-11] MEDS: SODIUM CHLORIDE 0.9% 1,000 ML IV SCH (01:31)
[2020-03-11 01:35] LABS: Appearance,CSF Clear; CSF Tube Number 4; CSF Tube Volume 3.5; Nucleated Cells, CSF 3 u/L (0-5); Red Blood Cell, CSF Crenated 0 %; Red Blood Cell, CSF Fresh 100 %; Red Blood Cell,CSF 11 u/L (0-10)
[2020-03-11] MEDS: HYDROcodone/APAP 7.5-325MG 1 EACH TAB PO PRN ×3 (04:16→15:42)
[2020-03-11] MEDS: diphenhydrAMINE 25 MG CAP PO SCH ×2 (06:29→10:14)
[2020-03-11] MEDS: METOCLOPRAMIDE 5 MG/ML 2 ML VIAL IVP SCH ×3 (06:29→14:42)
--- NOTE | 2020-03-11 07:19 | P.PCN ---
Date of Procedure: 03/11/20 Procedure(s) Performed: Preoperative diagnosis: Pseudotumor cerebri Post operative diagnoses: Pseudotumor cerebri Procedure= lumbar puncture Anesthesia local infiltration with lidocaine 1% 2 mL. Condition: stable Complication: none. Description of the procedure procedure risk and benefits discussed with the patient and family, consent signed. Patient and the procedure area placed in lateral position ( right side down ), back prepped with chlorhexidine 3 times been local infiltration of the skin and subcutaneous tissue with lidocaine 1% 2 mL for skin and subcu interstitial infiltration at L4 5 levels then 22-gauge Quincke-type needle advanced slowly at L4- 5 interlaminar space there was positive cerebrospinal fluid which was clear, no heme, no paresthesia ,total of 20 ML of clear cerebrospinal fluid collected in 4 different tubes , then the needle removed and a Band-Aid applied and patient tolerated the procedure well without any complications. Opening pressure 32 cm of water. Closing pressure 18 cm of water. Total volume removed 20 ML
--- NOTE | 2020-03-11 09:00 | MR ---
EXAMINATION TYPE: MR brain wo/w con DATE OF EXAM: 03/11/2020 8:49 AM COMPARISON: Previous CT scan of the brain dated 03/08/2020. HISTORY: Intractable cephalgia TECHNIQUE: Multiplanar, multiecho imaging of the brain was obtained with and without intravenous adm inistration of 7 mL intravenous Gadavist. FINDINGS: Midline structures are unremarkable. There is a normal craniocervical junction. Echoplanar diffusion imaging shows no areas of decreased diffusion. There are normal vascular flow voids. The orbits appear normal. There is no evidence of a CP angle mass lesion. There are no acute focal lesions, mass effect or midline shift identified. I do not see evidence of i ntracranial blood. Following the intravenous administration of gadolinium, I do not see evidence of abnormal enhancement . The pituitary stalk is mildly shifted towards the left but no definite pituitary lesion is seen. IMPRESSION: NORMAL MRI OF THE BRAIN.
[2020-03-11 09:05] LABS: ALT 69 U/L (4-34); AST 22 U/L (14-36); African American GFR (CKD) >90 (>60 ml/min/1.73 sqM); Albumin 4.5 g/dL (3.5-5.0); Alkaline Phosphatase 47 U/L (38-126); Anion Gap 11 mmol/L; Blood Urea Nitrogen 17 mg/dL (7-17); Calcium 9.3 mg/dL (8.4-10.2); Carbon Dioxide 19 mmol/L (22-30); Chloride 112 mmol/L (98-107); Glucose 227 mg/dL (74-99); Non-African American GFR(CKD) >90 (>60 ml/min/1.73 sqM); Potassium 3.8 mmol/L (3.5-5.1); Sodium 142 mmol/L (137-145); Total Bilirubin 0.2 mg/dL (0.2-1.3); Total Protein 7.4 g/dL (6.3-8.2)
[2020-03-11] MEDS: FAMOTIDINE 20 MG TAB PO SCH (10:10)
[2020-03-11] MEDS: TOPIRAMATE 25 MG TAB PO SCH (10:10)
[2020-03-11] MEDS: PREGABALIN 75 MG CAP PO SCH (10:10)
--- NOTE | 2020-03-11 11:41 | MR ---
EXAMINATION TYPE: MR MRA/MRV head wo con DATE OF EXAM: 03/11/2020 COMPARISON: Previous MRI of the brain from earlier today, previous CT scan of the brain from yesterda y and a previous CTA of the head and neck from yesterday. HISTORY: Intractable cephalgia, R/O venous thrombosis TECHNIQUE: Time of flight images focusing on the [place] of [place] were performed without contrast.. 2-D and 3-D postprocessing imaging is performed. FINDINGS: Left vertebral artery is dominant. Both posterior communicating arteries are patent. Both ophthalmic arteries are patent. There are 2 an terior cerebral arteries. There is normal arborization of the middle cerebral arteries. The posterior circulation is unremarkable. No sizable aneurysm is identified. MRV of the brain shows a normal sagittal sinus as well as straight sinus. The transverse sinuses and sigmoid sinuses are patent. No thrombus is identified. IMPRESSION: NORMAL MRA AND MRV OF THE BRAIN.
[2020-03-11 12:30] VITALS: BP 140/88; PULSE 57; RESP 20; TEMP 98.9
--- NOTE | 2020-03-14 12:28 | P.DS ---
Providers Date of admission: 03/09/20 17:49 Attending physician: Randi Martinez Consults: 03/09/20 17:42 Consult Physician Routine Consulting Provider: Kyle Chavez Consult Reason/Comments: headache Do you want consulting provider notified?: Yes 03/10/20 16:54 Consult to Anesthesia Routine Consulting Provider: Anesthesia,Services Consult Reason/Comments: Lumbar puncture to rule out pseudotumor cerebri, viral meningitis [facility]: 38-year-old female with known history of migraine with aura without any weakness came in with complains of headache patient was seen in ER yesterday was given Fioricet was discharged home comes back again with severe headache frontal bilateral 10/10 in severity with photophobia but denied any photophobia patient is mostly visual blurred vision. Patient denied any focal weakness patient denied any seizure-like activity. Patient denied any double vision at this time. Patient headache is constant. Denied any short of breath fever chills nausea vomiting.. Patient here received Reglan Decadron, and the Toradol for pain today. 03/10/2020 Patient is seen and evaluated in follow up today and continues to have a headache rating the pain 10/10 with no relief of current medications. Patient is requesting Dilaudid. Patient states the steroids have not helped at all. Neurology following recommending stat MRI and CTA along with lumbar puncture to rule out pseudotumor cerebri or viral meningitis. Patient has no reports of chest pain, shortness of breath, or palpitations. Patient is afebrile. Patient denies any nausea or vomiting and is tolerating diet. 03/11/2020 Patient underwent lumbar puncture showed mildly increased pressure but suspicion for pseudotumor cerebri is still low patient's opening pressure at that time was 30 mm removed about 10 mL and the closing pressure is around 18. Patient had an MRA which did not show any sinus venous thrombosis, CT angios did not show any aneurysms in the brain. Patient was subsequently discharged home for with migraine medications. Reassess is not consistent with meningitis. Referred to neurology. PHYSICAL EXAMINATION: GENERAL: The patient is alert and oriented x3, not in any acute distress. Well developed, well nourished. HEENT: Pupils are round and equally reacting to light. EOMI. No scleral icterus. No conjunctival pallor. Normocephalic, atraumatic. No pharyngeal erythema. No thyromegaly. CARDIOVASCULAR: S1 and S2 present. No murmurs, rubs, or gallops. PULMONARY: Chest is clear to auscultation, no wheezing or crackles. ABDOMEN: Soft, nontender, nondistended, normoactive bowel sounds. No palpable organomegaly. MUSCULOSKELETAL: No joint swelling or deformity. EXTREMITIES: No cyanosis, clubbing, or pedal edema. NEUROLOGICAL: Gross neurological examination did not reveal any focal deficits. SKIN: No rashes. Assessment and Plan Assessment: -Severe migraine: . -Anxiety disorder -Nicotine abuse nicotine cessation counseling was provided nicotine most commonly precipitates severe migraine. Nicotine patch given. -GI prophylaxis with Pepcid Patient Condition at Discharge: Stable Plan - Discharge Summary Discharge Rx Participant: Yes New Discharge Prescriptions: New Famotidine [Pepcid] 20 mg PO BID #30 tablet diphenhydrAMINE [Benadryl] 25 mg PO TID PRN #30 capsule PRN Reason: with compazine Prochlorperazine [Compazine] 10 mg PO Q6H PRN #30 tab PRN Reason: Migraine Headache Ibuprofen [Motrin] 400 mg PO Q6HR PRN #30 tab PRN Reason: Headache acetaZOLAMIDE [Diamox] 250 mg PO BID #20 tablet Continue Brexpiprazole [Rexulti] 2 mg PO DAILY buPROPion HCL [Wellbutrin XL] 300 mg PO DAILY Pregabalin [Lyrica] 150 mg PO BID Diazepam 2 mg PO HS PRN PRN Reason: Insomnia Topiramate [Topamax] 25 mg PO BID Discontinued [place]/APAP/Caf/Cod 22-531-71-30 [Fioricet w/Cod 58-598-15-30MG] 1 cap PO DAILY PRN PRN Reason: Headache Discharge Medication List Brexpiprazole [Rexulti] 2 mg PO DAILY 03/09/20 [History] Diazepam 2 mg PO HS PRN 03/09/20 [History] Pregabalin [Lyrica] 150 mg PO BID 03/09/20 [History] Topiramate [Topamax] 25 mg PO BID 03/09/20 [History] buPROPion HCL [Wellbutrin XL] 300 mg PO DAILY 03/09/20 [History] Famotidine [Pepcid] 20 mg PO BID #30 tablet 03/11/20 [Rx] Ibuprofen [Motrin] 400 mg PO Q6HR PRN #30 tab 03/11/20 [Rx] Prochlorperazine [Compazine] 10 mg PO Q6H PRN #30 tab 03/11/20 [Rx] acetaZOLAMIDE [Diamox] 250 mg PO BID #20 tablet 03/11/20 [Rx] diphenhydrAMINE [Benadryl] 25 mg PO TID PRN #30 capsule 03/11/20 [Rx] Follow up Appointment(s)/Referral(s): Demi Godwin MD [Primary Care Provider] - 3 Days (Please call office when open) Meghann Hernandez MD [Medical Doctor] - 1 Week (FOLLOW UP NEXT WEEK, CALL FOR APPT) Ambulatory/Diagnostic Orders: Basic Metabolic Panel [LAB.AMB] Time Frame: 3 Days, Location: None Selected Patient Instructions/Handouts: Migraine Headache (ED), Migraine Headache (GEN) Activity/Diet/Wound Care/Special Instructions: Activity Limited until follow-up Follow-up with primary care provider Continue current diet Continue to avoid tobacco use FOLLOW UP WITH [facility] NEXT WEEK. CALL FOR APPT Discharge Disposition: HOME SELF-CARE
[2020-03-15 14:38] LABS: IgG - CSF 1.3 mg/dL (0.0 - 3.4); IgG/Albumin Index (CSF) 0.45 (0.00 - 0.77); Immunoglobulin G 907 mg/dL (700 - 1600)
== END 2020-03-11 16:06 | disposition home or self-care (01) ==
LOC: EC 14:46 → 6PED 17:49
PROVIDERS: ADMIT Internal Medicine; ATTEND Internal Medicine
DX: G43.519 Persistent migraine aura without cerebral infarction, intractable, without status migrainosus (principal); F41.9 Anxiety disorder, unspecified; F17.200 Nicotine dependence, unspecified, uncomplicated; Z79.899 Other long term (current) drug therapy; Z88.5 Allergy status to narcotic agent; Z87.442 Personal history of urinary calculi; Z79.82 Long term (current) use of aspirin; Z79.1 Long term (current) use of non-steroidal anti-inflammatories (NSAID); Z90.710 Acquired absence of both cervix and uterus; Z82.49 Family history of ischemic heart disease and other diseases of the circulatory system; Z03.818 Encounter for observation for suspected exposure to other biological agents ruled out
CPT/HCPCS: 62270; 96361 ×2; 96376 ×2; 96365; 96372; 96375; 99285; 36415; 87496; 87498; 87529; 87798 ×2; 87327; 84157; 80053 ×2; 82945; 82040; 82042; 82784; 83916; 85025; 85610; 85730; 89050; 81001; 81025; 87252; 87070; 87205; 87801; 70496; 70498; 70553; 70544; G0378 ×3; U0003; S4990 ×2; J3030; J1200; J1100 ×3; J2765 ×2; J1885; J3475; A9585; Q9967

== ENCOUNTER 2020-10-28 10:02 | Emergency (ER) | payer OTHER ==
[2020-10-28 10:08] VITALS: RESP 18
--- NOTE | 2020-10-28 10:28 | ED ---
General Adult HPI - General Chief complaint: Chest Pain Stated complaint: rib pain Time Seen by Provider: 10/28/20 10:13 Source: patient Mode of arrival: ambulatory Limitations: no limitations - History of Present Illness Initial comments: Patient is a 40-year-old female presenting to the emergency Department with complaints of left-sided rib pain that started 2 days ago. Patient states she was messing with her son and her dog when her son accidentally kneed her in the left ribs. Patient states she thought it was just a small bruise at the time bu t over the past 2 days the pain has increased, she has pain when taking in a deep breath and with movement. She is concerned that her fracture. She denies any chest pain, shortness of breath, nausea or vomiting. She denies any other injuries at this time. She has no further complaints. - Related Data Home Medications Medication Instructions Recorded Confirmed Brexpiprazole [Rexulti] 2 mg PO DAILY 03/09/20 03/09/20 Pregabalin [Lyrica] 150 mg PO BID 03/09/20 03/09/20 Topiramate [Topamax] 25 mg PO BID 03/09/20 03/09/20 buPROPion HCL [Wellbutrin XL] 300 mg PO DAILY 03/09/20 03/09/20 diazePAM [Diazepam] 2 mg PO HS PRN 03/09/20 03/09/20 Previous Rx's Medication Instructions Recorded Famotidine [Pepcid] 20 mg PO BID #30 tablet 03/11/20 Ibuprofen [Motrin] 400 mg PO Q6HR PRN #30 tab 03/11/20 Prochlorperazine [Compazine] 10 mg PO Q6H PRN #30 tab 03/11/20 acetaZOLAMIDE [Diamox] 250 mg PO BID #20 tablet 03/11/20 diphenhydrAMINE [Benadryl] 25 mg PO TID PRN #30 capsule 03/11/20 Allergies Allergy/AdvReac Type Severity Reaction Status Date / Time tramadol AdvReac SEIZURE Verified 10/28/20 10:05 Review of Systems ROS Statement: Those systems with pertinent positive or pertinent negative responses have been documented in the HPI. ROS Other: All systems not noted in ROS Statement are negative. Past Medical History Past Medical History: No Reported History Additional Past Medical History / Comment(s): migraines, kidney stones, History of Any Multi-Drug Resistant Organisms: None Reported Past Surgical History: Section, Hysterectomy, Orthopedic Surgery Additional Past Surgical History / Comment(s): laproscopy Past Anesthesia/Blood Transfusion Reactions: No Reported Reaction Past Psychological History: Anxiety Smoking Status: Current some day smoker Past Alcohol Use History: None Reported Past Drug Use History: None Reported - Past Family History Father Family Medical History: CVA/TIA, Hypertension Mother Family Medical History: Hypertension General Exam - General Exam Comments Initial Comments: GENERAL: Patient is well-developed and well-nourished. Patient is nontoxic and in no acute distress. HEAD: Atraumatic, normocephalic. EYES: Pupils equal round and reactive to light, extraocular movements intact, sclera anicteric, conjunctiva are normal. Eyelids were unremarkable. ENT: TMs normal, nares patent, oropharynx clear without exudates. Moist mucous membranes. NECK: Normal range of motion, supple without lymphadenopathy or JVD. LUNGS: Unlabored respirations. Breath sounds clear to auscultation bilaterally and equal. No wheezes rales or rhonchi. HEART: Regular rate and rhythm without murmurs, rubs or gallops. ABDOMEN: Soft, nontender, normoactive bowel sounds. No guarding, no rebound. No masses appreciated. : Deferred MUSCULOSKELETAL: Normal extremities with adequate strength and normal range of motion, no pitting or edema. No clubbing or cyanosis. Patient has pain to palpation on the left anterior ribs, #7-8 rib. No obvious deformity seen or felt, no obvious bruising. NEUROLOGICAL: Patient is alert and oriented x 3. Motor and sensory are also intact. Cranial nerves II through XII grossly intact. Symmetrical smile. Normal speech, normal gait. PSYCH: Normal mood, normal affect. SKIN: Warm, Dry, normal turgor, no rashes or lesions noted. Limitations: no limitations Course Vital Signs 10/28/20 10/28/20 10:05 10:13 Temperature 98.4 F Pulse Rate 71 Respiratory 18 18 Rate Medical Decision Making - Medical Decision Making Patient is a 40-year-old female here for left rib pain after her son accidentally kneed her in the left ribs 2 days ago. Her vitals are stable, no chest pain or shortness of breath. X-rays reveal a possible occult fracture of the lateral left fifth rib. Patient is painful in this area. I discussed these findings with her. I will give her 1 tablet [place] in the ER for discomfort and Tylenol 3 to be discharged with asthma recommend continuing with ibuprofen at home for inflammatory changes. She'll follow up with her PCP. She is in agreement with this plan of care and is stable for discharge. He is discussed with Dr. Montgomery. Disposition Clinical Impression: Left rib fracture Disposition: HOME SELF-CARE Condition: Stable Instructions (If sedation given, give patient instructions): Rib Fracture (ED) Additional Instructions: Please return to the Emergency Department if symptoms worsen or any other concerns. Continue to take anti-inflammatories such as Aleve or Motrin for any discomfort. May take Tylenol threes for severe pain. Follow-up with your regular doctor. Is patient prescribed a controlled substance at d/c from ED?: No Referrals: Demi Godwin MD [Primary Care Provider] - 1-2 days
--- NOTE | 2020-10-28 11:15 | XR ---
EXAMINATION TYPE: XR chest 2V DATE OF EXAM: 10/28/2020 COMPARISON: None INDICATION: Chest pain left side TECHNIQUE: Frontal and lateral views of the chest are obtained. FINDINGS: The heart size is normal. The pulmonary vasculature is normal. The lungs are clear. No pneumothorax is evident. Displaced rib fractures are not identified. IMPRESSION: 1. No acute pulmonary process.
--- NOTE | 2020-10-28 11:17 | XR ---
EXAMINATION TYPE: XR ribs LT DATE OF EXAM: 10/28/2020 COMPARISON: Chest x-ray same date HISTORY: Pain left side ribs TECHNIQUE: Two-view left RIBS FINDINGS: Best visualized on the lower rib AP view a subtle fracture at the lateral fifth rib may be present. Vague change may be present on the upper AP view of the same level. Correlate with location of the patient's pain. Additional areas suspicious for rib fracture are not identified. No pneumothorax is evident. IMPRESSION: 1. An occult fracture of the lateral fifth rib is suspected. Correlate with location of the patient' s pain.
[2020-10-28] MEDS ORDERED: HYDROcodone/APAP 5-325MG 1 EACH TAB PO STA (11:31)
[2020-10-28] MEDS ORDERED: ACET/COD 300 MG/30 MG STARTER PACK 6 TAB BTL PO STA (11:34)
[2020-10-28 11:44] VITALS: BP 138/79; PULSE 77; TEMP 98.3
== END 2020-10-28 11:44 | disposition home or self-care (01) ==
LOC: EC 10:02
DX: S22.32XA Fracture of one rib, left side, initial encounter for closed fracture (principal); F41.9 Anxiety disorder, unspecified; F17.200 Nicotine dependence, unspecified, uncomplicated; Z90.710 Acquired absence of both cervix and uterus; Z88.5 Allergy status to narcotic agent; W51.XXXA Accidental striking against or bumped into by another person, initial encounter; Y93.89 Activity, other specified; Y92.009 Unspecified place in unspecified non-institutional (private) residence as the place of occurrence of the external cause
CPT/HCPCS: 71046; 99285

== ENCOUNTER 2021-02-08 23:44 | Emergency (ER) | payer OTHER ==
[2021-02-08 23:48] VITALS: TEMP 98.2
--- NOTE | 2021-02-09 00:27 | ED ---
Fall HPI - General Chief Complaint: Fall Stated Complaint: Fall, Head injury Time Seen by Provider: 02/08/21 23:55 Source: patient Mode of arrival: ambulatory - History of Present Illness Initial Comments: 41-year-old female presents emergency Department with a chief complaint of fall or head injury. States this occurred about 2 hours prior to arrival. Patient reports she was a work in the office when her dog wasn't tingling in her feet, she tripped and fell on the left frontotemporal region. She denies any loss of consciousness but reports feeling slightly disoriented when she got home. She denies any nausea or vomiting visual changes, one-sided weakness or paresthesias. She denies any gait instability at this time. Not on blood thinners. - Related Data Home Medications Medication Instructions Recorded Confirmed Brexpiprazole [Rexulti] 2 mg PO DAILY 03/09/20 03/09/20 Pregabalin [Lyrica] 150 mg PO BID 03/09/20 03/09/20 Topiramate [Topamax] 25 mg PO BID 03/09/20 03/09/20 buPROPion HCL [Wellbutrin XL] 300 mg PO DAILY 03/09/20 03/09/20 diazePAM [Diazepam] 2 mg PO HS PRN 03/09/20 03/09/20 Previous Rx's Medication Instructions Recorded Famotidine [Pepcid] 20 mg PO BID #30 tablet 03/11/20 Ibuprofen [Motrin] 400 mg PO Q6HR PRN #30 tab 03/11/20 Prochlorperazine [Compazine] 10 mg PO Q6H PRN #30 tab 03/11/20 acetaZOLAMIDE [Diamox] 250 mg PO BID #20 tablet 03/11/20 diphenhydrAMINE [Benadryl] 25 mg PO TID PRN #30 capsule 03/11/20 Allergies Allergy/AdvReac Type Severity Reaction Status Date / Time tramadol AdvReac SEIZURE Verified 02/08/21 23:48 Review of Systems ROS Statement: Those systems with pertinent positive or pertinent negative responses have been documented in the HPI. ROS Other: All systems not noted in ROS Statement are negative. Past Medical History Past Medical History: No Reported History Additional Past Medical History / Comment(s): migraines, kidney stones, History of Any Multi-Drug Resistant Organisms: None Reported Past Surgical History: Section, Hysterectomy, Orthopedic Surgery Additional Past Surgical History / Comment(s): laproscopy Past Anesthesia/Blood Transfusion Reactions: No Reported Reaction Past Psychological History: Anxiety Smoking Status: Current some day smoker, Vaper Past Alcohol Use History: None Reported Past Drug Use History: None Reported - Past Family History Father Family Medical History: CVA/TIA, Hypertension Mother Family Medical History: Hypertension General Exam Limitations: no limitations General appearance: alert, in no apparent distress Head exam: Present: atraumatic, normocephalic, normal inspection. Absent: other (Negative Beverly sign, raccoon eyes, and attempting.) Eye exam: Present: normal appearance, PERRL, EOMI Pupils: Present: normal accommodation ENT exam: Present: normal exam, normal oropharynx, mucous membranes moist, TM's normal bilaterally, normal external ear exam Neck exam: Present: normal inspection, full ROM. Absent: tenderness Respiratory exam: Present: normal lung sounds bilaterally. Absent: respiratory distress, wheezes, rales, rhonchi, stridor, chest wall tenderness, accessory muscle use Cardiovascular Exam: Present: regular rate, normal rhythm, normal heart sounds. Absent: systolic murmur GI/Abdominal exam: Present: soft. Absent: distended, tenderness, guarding, rebound Extremities exam: Present: normal inspection, full ROM, normal capillary refill. Absent: tenderness, pedal edema, joint swelling Back exam: Present: normal inspection, full ROM. Absent: tenderness, CVA tenderness (R), CVA tenderness (L) Neurological exam: Present: alert, oriented X3, normal gait Psychiatric exam: Present: normal affect, normal mood Skin exam: Present: warm, dry, intact, normal color Course Vital Signs 02/08/21 02/09/21 02/09/21 23:45 00:06 01:25 Temperature 98.2 F Pulse Rate 103 H 71 Respiratory 20 16 Rate Blood Pressure 161/102 166/106 155/97 O2 Sat by Pulse 98 95 Oximetry Medical Decision Making - Medical Decision Making 41-year-old female presents emergency Department with chief complaint of fall and head injury. Physical examination, no focal deficits. Patient was given Tylenol [address] imaging her brain and C-spine is unremarkable. I suspect the patient suffered a concussion from the fall. She was advised to have mental physical rest over the next couple days. Advised to follow with the primary care physician. Return parameters were discussed with patient is am sending agreeable. Case is discussed with Disposition Clinical Impression: Fall, Head injury, Concussion Disposition: HOME SELF-CARE Condition: Stable Instructions (If sedation given, give patient instructions): Fall Prevention (ED) Additional Instructions: Please return to the Emergency Department if symptoms worsen or any other concerns. Is patient prescribed a controlled substance at d/c from ED?: No Referrals: None,Stated [Primary Care Provider] - 1-2 days Time of Disposition: 00:59
--- NOTE | 2021-02-09 00:42 | CT ---
EXAMINATION TYPE: CT brain cspine wo con DATE OF EXAM: 02/09/2021 COMPARISON: CT brain 03/08/2020 HISTORY: Fall Headache. Neck pain CT DLP: 1295 mGycm Automated exposure control for dose reduction was used. Ventricles have normal size. There is no mass effect nor midline shift. There is no sign of intracran ial hemorrhage. The calvarium is intact. There is mucosal thickening right maxillary sinus. The cervical vertebra have fairly normal alignment. There is a minimal C4-5 retrolisthesis. There is slight narrowing of the C4-5 disc space. Posterior elements are intact. Facet joints are intact. The skull base is intact. There is normal aeration of the mastoid sinuses. IMPRESSION: Mild degenerative disc changes at C4-5. No fracture. Negative CT scan of the brain. No acute intracranial abnormality. Brain unchanged compared to old olivia m.
[2021-02-09] MEDS ORDERED: KETOROLAC 15 MG/ML 1 ML VIAL IM STA (01:06)
[2021-02-09] MEDS ORDERED: Acetaminophen-Codeine 300-30mg TAB PO STA (01:17)
[2021-02-09 01:27] VITALS: BP 155/97; PULSE 71; RESP 16
== END 2021-02-09 01:26 | disposition home or self-care (01) ==
LOC: EC 23:44
DX: S06.0X0A Concussion without loss of consciousness, initial encounter (principal); G43.909 Migraine, unspecified, not intractable, without status migrainosus; F41.9 Anxiety disorder, unspecified; F17.290 Nicotine dependence, other tobacco product, uncomplicated; Z79.1 Long term (current) use of non-steroidal anti-inflammatories (NSAID); W01.0XXA Fall on same level from slipping, tripping and stumbling without subsequent striking against object, initial encounter; Y99.0 Civilian activity done for income or pay
CPT/HCPCS: 70450; 72125; 99284

== ENCOUNTER → 2021-02-12 | Outpatient (CLI) | payer OTHER ==
--- NOTE | 2021-02-12 21:17 | MR ---
EXAMINATION TYPE: MR lumbar spine wo con DATE OF EXAM: 02/12/2021 COMPARISON: Plain film 11/30/2013 HISTORY: LBP, BLE radiculopathy TECHNIQUE: Multiplanar, multisequence images of the lumbar spine were acquired. There is motion on the exam. Anterolisthesis grade 1 L3-4, there is some associated loss of disc heig ht signal at L3-4. No significant spinal stenosis. L1-L2: Normal disc appearance without desiccation. No herniation, protrusion or disc bulging. No ca nal stenosis is present. Foramina are patent bilaterally. L2-L3: Normal disc appearance without desiccation. No herniation, protrusion or disc bulging. No ca nal stenosis is present. Foramina are patent bilaterally. L3-L4: Posterior broad-based disc bulge causes mild anterior mass effect on the thecal sac. There is facet arthropathy change with hypertrophy ligamentum flavum. L4-L5: Normal disc appearance without desiccation. No herniation, protrusion or disc bulging. No ca nal stenosis is present. Foramina are patent bilaterally. There is facet arthropathy change present. L5-S1: Normal disc appearance without desiccation. No herniation, protrusion or disc bulging. No ca nal stenosis is present. Foramina are patent bilaterally. Lumbar segments are intact. No paraspinal masses are identified. Conus medullaris has a normal appe arance. IMPRESSION: Motion on exam. Degenerative disc disease. Spondylolisthesis L3-4. Multilevel facet arthropathy.
== END | disposition home or self-care (01) ==
LOC: RADMRIMAIN 18:52
PROVIDERS: ATTEND Psychiatry & Neurology Neurology
DX: M51.16 Intervertebral disc disorders with radiculopathy, lumbar region (principal); M43.16 Spondylolisthesis, lumbar region; M46.96 Unspecified inflammatory spondylopathy, lumbar region
CPT/HCPCS: 72148

== ENCOUNTER 2021-04-09 19:40 | Emergency (ER) | payer OTHER ==
[2021-04-09 19:51] VITALS: TEMP 98.1
[2021-04-09] MEDS ORDERED: KETOROLAC 15 MG/ML 1 ML VIAL IVP STA (20:03)
[2021-04-09] MEDS ORDERED: MORPHINE SULFATE 4 MG/ML SYRINGE IV STA (20:03)
[2021-04-09] MEDS ORDERED: SODIUM CHLORIDE 0.9% 1,000 ML IV STA (20:03)
--- NOTE | 2021-04-09 20:09 | ED ---
General Adult HPI - General Chief complaint: Urogenital Stated complaint: Poss UTI Source: patient, RN notes reviewed, old records reviewed Mode of arrival: ambulatory Limitations: no limitations - History of Present Illness Initial comments: 41-year-old female presents to the emergency room with complaints of bilateral lower back pain, dysuria and right and left upper abdominal pain with nausea. Patient states that this is been ongoing constantly for one week. She also now has a headache. She states that she had a low-grade fever but is unable to give me a specific temperature. Patient states that she has had kidney stones in the past and she is not sure if this is a kidney stone or urinary tract infection or there is something else going on. Patient has a history of migraine headaches and kidney stones surgical history of and hysterectomy. -: week(s) (1) Location: abdomen Radiation: back Severity scale (1-10): 10 Quality: burning, sharp, constant Consistency: constant Improves with: none Worsens with: movement (Palpation), other Associated Symptoms: headaches, other (Dysuria) - Related Data Home Medications Medication Instructions Recorded Confirmed Brexpiprazole [Rexulti] 2 mg PO DAILY 03/09/20 03/09/20 Pregabalin [Lyrica] 150 mg PO BID 03/09/20 03/09/20 Topiramate [Topamax] 25 mg PO BID 03/09/20 03/09/20 buPROPion HCL [Wellbutrin XL] 300 mg PO DAILY 03/09/20 03/09/20 diazePAM [Diazepam] 2 mg PO HS PRN 03/09/20 03/09/20 Previous Rx's Medication Instructions Recorded Famotidine [Pepcid] 20 mg PO BID #30 tablet 03/11/20 Ibuprofen [Motrin] 400 mg PO Q6HR PRN #30 tab 03/11/20 Prochlorperazine [Compazine] 10 mg PO Q6H PRN #30 tab 03/11/20 acetaZOLAMIDE [Diamox] 250 mg PO BID #20 tablet 03/11/20 diphenhydrAMINE [Benadryl] 25 mg PO TID PRN #30 capsule 03/11/20 Ibuprofen [Motrin] 600 mg PO Q8HR PRN #30 tab 04/09/21 Tamsulosin [Flomax] 0.4 mg PO DAILY #7 cap 04/09/21 Allergies Allergy/AdvReac Type Severity Reaction Status Date / Time tramadol AdvReac SEIZURE Verified 04/09/21 19:51 Review of Systems ROS Statement: Those systems with pertinent positive or pertinent negative responses have been documented in the HPI. ROS Other: All systems not noted in ROS Statement are negative. Past Medical History Past Medical History: No Reported History Additional Past Medical History / Comment(s): migraines, kidney stones, History of Any Multi-Drug Resistant Organisms: None Reported Past Surgical History: Section, Hysterectomy, Orthopedic Surgery Additional Past Surgical History / Comment(s): laproscopy Past Anesthesia/Blood Transfusion Reactions: No Reported Reaction Past Psychological History: Anxiety Smoking Status: Current some day smoker, Vaper Past Alcohol Use History: None Reported Past Drug Use History: None Reported - Past Family History Father Family Medical History: CVA/TIA, Hypertension Mother Family Medical History: Hypertension General Exam Limitations: no limitations General appearance: alert, in no apparent distress Head exam: Present: atraumatic, normocephalic, normal inspection Eye exam: Present: normal appearance, PERRL, EOMI. Absent: scleral icterus, conjunctival injection, nystagmus, periorbital swelling, periorbital tenderness ENT exam: Present: normal exam, normal oropharynx, mucous membranes moist (Sticky) Neck exam: Present: normal inspection, full ROM. Absent: tenderness, meningismus, lymphadenopathy, thyromegaly Respiratory exam: Present: normal lung sounds bilaterally. Absent: respiratory distress, wheezes, rales, rhonchi, stridor, chest wall tenderness, accessory muscle use, decreased breath sounds, prolonged expiratory Cardiovascular Exam: Present: regular rate, normal heart sounds. Absent: JVD GI/Abdominal exam: Present: soft, tenderness (Right upper and lower). Absent: rigid, mass, hernia Extremities exam: Present: normal inspection, full ROM, normal capillary refill. Absent: tenderness, pedal edema, joint swelling, calf tenderness Back exam: Present: normal inspection, full ROM, tenderness (Low back), CVA tenderness (R), CVA tenderness (L). Absent: muscle spasm, paraspinal tenderness, vertebral tenderness, rash noted Neurological exam: Present: alert, oriented X3, CN II-XII intact Psychiatric exam: Present: normal affect, normal mood Skin exam: Present: warm, dry, intact, normal color. Absent: rash, cyanosis, diaphoretic, erythema, petechiae, pallor, mottled Course Vital Signs 04/09/21 04/09/21 19:48 20:34 Temperature 98.1 F Pulse Rate 86 83 Respiratory 18 20 Rate Blood Pressure 125/73 146/87 O2 Sat by Pulse 98 98 Oximetry EKG Findings - EKG Results: EKG: sinus rhythm (Ventricular rate of 79, WV interval 0.134, QRS of 0.80, QTC of 0.438) Medical Decision Making - Medical Decision Making CT the abdomen and pelvis without contrast shows an obstructing calculus at the left UPJ with mild hydronephrosis measuring 6mm. Multiple bilateral renal's calculi. Patient does have a history of renal stones. Patient will be disc harged home with Tylenol #3, Flomax and directions to follow up with urology. Case discussed with Dr Brito who is agreeable to this plan. - Lab Data Result diagrams: 04/09/21 20:12 04/09/21 20:12 Lab Results 04/09/21 04/09/21 04/09/21 Range/Units 20:12 20:12 20:12 WBC 5.9 (3.8-10.6) k/uL RBC 3.78 L (3.80-5.40) m/uL Hgb 11.8 (11.4-16.0) gm/dL Hct 33.9 L (34.0-46.0) % MCV 89.6 (80.0-100.0) fL MCH 31.1 (25.0-35.0) pg MCHC 34.7 (31.0-37.0) g/dL RDW 13.5 (11.5-15.5) % Plt Count 238 (150-450) k/uL MPV 7.7 Neutrophils % 45 % Lymphocytes % 48 % Monocytes % 3 % Eosinophils % 3 % Basophils % 1 % Neutrophils # 2.6 (1.3-7.7) k/uL Lymphocytes # 2.8 (1.0-4.8) k/uL Monocytes # 0.2 (0-1.0) k/uL Eosinophils # 0.2 (0-0.7) k/uL Basophils # 0.1 (0-0.2) k/uL PT 9.8 (9.0-12.0) sec INR 0.9 (<1.2) APTT 22.2 (22.0-30.0) sec Sodium (137-145) mmol/L Potassium (3.5-5.1) mmol/L Chloride (98-107) mmol/L Carbon Dioxide (22-30) mmol/L Anion Gap mmol/L BUN (7-17) mg/dL Creatinine (0.52-1.04) mg/dL Est GFR (CKD-EPI)AfAm (>60 ml/min/1.73 sqM) Est GFR (CKD-EPI)NonAf (>60 ml/min/1.73 sqM) Glucose (74-99) mg/dL Calcium (8.4-10.2) mg/dL Total Bilirubin (0.2-1.3) mg/dL AST (14-36) U/L ALT (4-34) U/L Alkaline Phosphatase (38-126) U/L Troponin I (0.000-0.034) ng/mL Total Protein (6.3-8.2) g/dL Albumin (3.5-5.0) g/dL Amylase (30-110) U/L Lipase (23-300) U/L Urine Color Light Yellow Urine Appearance Clear (Clear) Urine pH 6.5 (5.0-8.0) Ur Specific [place] 1.017 (1.001-1.035) Urine Protein Negative (Negative) Urine Glucose (UA) Negative (Negative) Urine Ketones Negative (Negative) Urine Blood Negative (Negative) Urine Nitrite Negative (Negative) Urine Bilirubin Negative (Negative) Urine Urobilinogen <2.0 (<2.0) mg/dL Ur Leukocyte Esterase Small H (Negative) Urine RBC 1 (0-5) /hpf Urine WBC 6 H (0-5) /hpf Ur Squamous Epith Cells <1 (0-4) /hpf Urine Mucus Rare H (None) /hpf 04/09/21 04/09/21 Range/Units 20:12 20:12 WBC (3.8-10.6) k/uL RBC (3.80-5.40) m/uL Hgb (11.4-16.0) gm/dL Hct (34.0-46.0) % MCV (80.0-100.0) fL MCH (25.0-35.0) pg MCHC (31.0-37.0) g/dL RDW (11.5-15.5) % Plt Count (150-450) k/uL MPV Neutrophils % % Lymphocytes % % Monocytes % % Eosinophils % % Basophils % % Neutrophils # (1.3-7.7) k/uL Lymphocytes # (1.0-4.8) k/uL Monocytes # (0-1.0) k/uL Eosinophils # (0-0.7) k/uL Basophils # (0-0.2) k/uL PT (9.0-12.0) sec INR (<1.2) APTT (22.0-30.0) sec Sodium 143 (137-145) mmol/L Potassium 3.9 (3.5-5.1) mmol/L Chloride 114 H (98-107) mmol/L Carbon Dioxide 22 (22-30) mmol/L Anion Gap 7 mmol/L BUN 22 H (7-17) mg/dL Creatinine 0.81 (0.52-1.04) mg/dL Est GFR (CKD-EPI)AfAm >90 (>60 ml/min/1.73 sqM) Est GFR (CKD-EPI)NonAf 90 (>60 ml/min/1.73 sqM) Glucose 106 H (74-99) mg/dL Calcium 9.0 (8.4-10.2) mg/dL Total Bilirubin <0.1 L (0.2-1.3) mg/dL AST 28 (14-36) U/L ALT 23 (4-34) U/L Alkaline Phosphatase 46 (38-126) U/L Troponin I <0.012 (0.000-0.034) ng/mL Total Protein 6.3 (6.3-8.2) g/dL Albumin 4.0 (3.5-5.0) g/dL Amylase 50 (30-110) U/L Lipase 108 (23-300) U/L Urine Color Urine Appearance (Clear) Urine pH (5.0-8.0) Ur Specific [place] (1.001-1.035) Urine Protein (Negative) Urine Glucose (UA) (Negative) Urine Ketones (Negative) Urine Blood (Negative) Urine Nitrite (Negative) Urine Bilirubin (Negative) Urine Urobilinogen (<2.0) mg/dL Ur Leukocyte Esterase (Negative) Urine RBC (0-5) /hpf Urine WBC (0-5) /hpf Ur Squamous Epith Cells (0-4) /hpf Urine Mucus (None) /hpf Disposition Clinical Impression: Kidney stones Disposition: HOME SELF-CARE Condition: Fair Instructions (If sedation given, give patient instructions): Kidney Stones (ED) Additional Instructions: Take the Flomax and Motrin in addition to Tylenol threes as needed for pain. Follow-up with urology this week. Return to the emergency room with inability urinate increasing pain or fevers. Prescriptions: Tamsulosin [Flomax] 0.4 mg PO DAILY #7 cap Ibuprofen [Motrin] 600 mg PO Q8HR PRN #30 tab PRN Reason: Pain Is patient prescribed a controlled substance at d/c from ED?: No Referrals: None,Stated [Primary Care Provider] - 1-2 days Chaparro Bro MD [STAFF PHYSICIAN] - 1-2 days Time of Disposition: 21:41
[2021-04-09 20:29] LABS: Basophils # (A) 0.1 k/uL (0-0.2); Basophils % (A) 1 %; Eosinophils # (A) 0.2 k/uL (0-0.7); Eosinophils % (A) 3 %; HCT 33.9 % (34.0-46.0); HGB 11.8 gm/dL (11.4-16.0); Lymphocytes # (A) 2.8 k/uL (1.0-4.8); Lymphocytes % (A) 48 %; MCH 31.1 pg (25.0-35.0); MCHC 34.7 g/dL (31.0-37.0); MCV 89.6 fL (80.0-100.0); Mean Platelet Volume 7.7; Monocytes # (A) 0.2 k/uL (0-1.0); Monocytes % (A) 3 %; Neutrophils # (A) 2.6 k/uL (1.3-7.7); Neutrophils % (A) 45 %; Platelet Count 238 k/uL (150-450); RBC 3.78 m/uL (3.80-5.40); RDW 13.5 % (11.5-15.5); WBC 5.9 k/uL (3.8-10.6)
[2021-04-09 20:34] LABS: Appearance,Urine Clear (Clear); Bilirubin,Urine Negative (Negative); Blood,Urine Negative (Negative); Color,Urine Light Yellow; Glucose,Urine (UA) Negative (Negative); Ketones,Urine Negative (Negative); Leukocyte Esterase,Urine Small (Negative); Mucus,Urine Rare /hpf; Nitrite,Urine Negative (Negative); PH, Urine 6.5 (5.0-8.0); Protein,Urine Negative (Negative); RBC,Urine 1 /hpf (0-5); Specific Gravity,Urine 1.017 (1.001-1.035); Squamous Epithelial Cell,Urine <1 /hpf (0-4); Urobilinogen,Urine <2.0 mg/dL (<2.0); WBC,Urine 6 /hpf (0-5)
[2021-04-09 20:35] VITALS: RESP 20
[2021-04-09 20:39] LABS: ALT 23 U/L (4-34); AST 28 U/L (14-36); African American GFR (CKD) >90 (>60 ml/min/1.73 sqM); Alkaline Phosphatase 46 U/L (38-126); Amylase 50 U/L (30-110); Anion Gap 7 mmol/L; Blood Urea Nitrogen 22 mg/dL (7-17); Carbon Dioxide 22 mmol/L (22-30); Chloride 114 mmol/L (98-107); Glucose 106 mg/dL (74-99); Lipase 108 U/L (23-300); Non-African American GFR(CKD) 90 (>60 ml/min/1.73 sqM); Potassium 3.9 mmol/L (3.5-5.1); Sodium 143 mmol/L (137-145); Total Bilirubin <0.1 mg/dL (0.2-1.3); Total Protein 6.3 g/dL (6.3-8.2)
[2021-04-09 20:41] LABS: INR 0.9 (<1.2); Partial Thromboplastin Time 22.2 sec (22.0-30.0); Prothrombin Time 9.8 sec (9.0-12.0)
--- NOTE | 2021-04-09 21:18 | CT ---
EXAMINATION TYPE: CT abdomen pelvis wo con DATE OF EXAM: 04/09/2021 COMPARISON: 12/16/2018 HISTORY: abd pain x1 week CT DLP: 514.1 mGycm Automated exposure control for dose reduction was used. Images obtained from the diaphragm to the floor the pelvis with no contrast. Lung bases are clear. There is no pleural effusion. Heart size is normal. There is no pericardial eff usion. Liver spleen stomach pancreas gallbladder appear normal. The bile ducts are not dilated. There is no adrenal mass. Kidneys have normal size. There are numerous bilateral renal calculi that m easure up to 6 mm. There is left-sided hydronephrosis. There is 6 mm obstructing calculus at the left ureteral pelvic junction. There is no sign of obstruction on the right side. The ureters are not dil ated. There is no retroperitoneal adenopathy. The bladder distends smoothly. There is no inguinal her yudelka. There is no free fluid in the pelvis. There is no mesenteric edema. There is no ascites or free air. There is no bowel obstruction. Appendi x is not seen. There is no sign of thickened appendix. The lumbar vertebra have fairly normal alignment. There is a few millimeter subluxation at L3-4. Ther e is no spondylolysis. There is no compression fracture. Disc spaces are fairly normal. Posterior lincoln ments are intact. Bony pelvis is intact. Hip joints are intact. There is apparent hysterectomy. IMPRESSION: Obstructing calculus at the left ureteropelvic junction with mild hydronephrosis. Multiple bilateral renal calculi. Obstruction is new compared to old exam. Calculi increased in size and number compared to old exam.
[2021-04-09] MEDS ORDERED: ACET/COD 300 MG/30 MG STARTER PACK 6 TAB BTL PO STA (21:47)
[2021-04-09] MEDS ORDERED: MORPHINE SULFATE 4 MG/ML SYRINGE IVP STA (21:48)
[2021-04-09 22:07] VITALS: BP 128/82; PULSE 87
== END 2021-04-09 22:05 | disposition home or self-care (01) ==
LOC: EC 19:40
DX: N13.2 Hydronephrosis with renal and ureteral calculous obstruction (principal); F41.9 Anxiety disorder, unspecified; F17.290 Nicotine dependence, other tobacco product, uncomplicated; Z82.49 Family history of ischemic heart disease and other diseases of the circulatory system
CPT/HCPCS: 36415; 93005; 80053; 82150; 83690; 84484; 85025; 85610; 85730; 81001; 74176; 96374; 96375; 96376; 96361; 99284; J2270; J1885

== ENCOUNTER 2021-04-17 12:00 | Day surgery (SDC) | payer OTHER ==
[2021-04-16 11:29] VITALS: BMI 26.4
--- NOTE | 2021-04-16 13:01 | P.GSHP ---
History of Present Illness H&P Date: 04/16/21 Chief Complaint: Left flank pain The patient is a 41-year-old white female with a history of kidney stones. In late March,, she began to experience lower back and upper abdominal pain. CT scan showed evidence of left hydronephrosis due to a 6 mm left UPJ calculus. Numerous bilateral renal calculi up to 6 mm were also seen. The patient was scheduled to undergo ureteroscopic removal of the calculus on April [address] Bro, but she has developed intractable symptoms and has thus requested that the procedure be performed sooner. - Constitutional Constitutional: Reports chills, Reports fever - Gastrointestinal Gastrointestinal: Reports nausea, Reports vomiting - Genitourinary (Female) Genitourinary: Reports flank pain, Reports kidney stones, Denies hematuria Past Medical History Past Medical History: No Reported History Additional Past Medical History / Comment(s): migraines, kidney stones, back pain. History of Any Multi-Drug Resistant Organisms: None Reported Past Surgical History: Appendectomy, Section, Hysterectomy, Orthopedic Surgery Additional Past Surgical History / Comment(s): carpal tunnel Past Anesthesia/Blood Transfusion Reactions: No Reported Reaction Smoking Status: Current every day smoker, Vaper - Past Family History Father Family Medical History: CVA/TIA, Hypertension Mother Family Medical History: Hypertension Medications and Allergies Home Medications Medication Instructions Recorded Confirmed Type Topiramate [Topamax] 25 mg PO BID 03/09/20 04/16/21 History Acetaminophen-Codeine 300-30mg 1 - 2 tab PO Q4-6H PRN 04/16/21 04/16/21 History [Tylenol w/codeine #3] Allergies Allergy/AdvReac Type Severity Reaction Status Date / Time tramadol AdvReac SEIZURE Verified 04/16/21 11:15 Surgical - Exam - General well developed, well nourished, moderate pain - Respiratory normal respiratory effort - Psychiatric oriented to time, oriented to person, oriented to place, speech is normal, memory intact Results - Imaging CT scan - abdomen: report reviewed, image reviewed Assessment and Plan (1) Calculus of ureter Status: Acute Code(s): N20.1 - CALCULUS OF URETER SNOMED Code(s): 17112812 Plan: Cystoscopy, left ureteroscopy with Holmium laser lithotripsy and possible stone basketing, left ureteral stent insertion. The procedure has been reviewed in detail with the patient. She is aware of potential risks, which include anesthesia, infection, and ureteral injury. In addition to the 6 mm left UPJ calculus, there are 3 left renal calculi and an attempt will be made to remove these as well.
[~2021-04-17 12:00] MED LIST: DEXAMETHASONE SOD PHOSPHATE 4 MG/ML 1 ML VIAL IV ONE; HYDROmorphone 0.5 MG/0.5 ML SYRINGE IVP PRN; LACTATED RINGERS 1,000 ML IV SCH; LIDOCAINE 1% (10MG/ML) FOR IV START INTRADERMA PRN; ONDANSETRON 4 MG/2 ML VIAL IVP ONE; SCOPOLAMINE 1.5MG/72HR PATCH TRANSDERM ONE
--- NOTE | 2021-04-17 12:16 | XR ---
EXAMINATION TYPE: XR KUB DATE OF EXAM: 04/17/2021 12:10 PM CLINICAL HISTORY: Surgery for left renal stone TECHNIQUE: Single supine KUB image of the abdomen is obtained. COMPARISON: 04/09/2021. FINDINGS: Scattered gas is seen in non-distended small bowel loops. Gas and fecal material is seen in non-distended colon. There are 2 radiopaque densities overlying the left renal shadow, consistent with nephrolithiasis see n to better advantage on recent CT. IMPRESSION: There are 2 radiopaque densities overlying the left renal shadow, consistent with nephrolithiasis see n to better advantage on recent CT. Overall nonobstructive bowel gas pattern.
[2021-04-17] MEDS ORDERED: PHENYLEPHRINE-0.9% NACL SYG 1,000 MCG/10 ML SYRINGE ONE (13:45)
[2021-04-17] MEDS ORDERED: PROPOFOL 10 MG/ML 20 ML VIAL IV ONE (13:45)
[2021-04-17] MEDS ORDERED: fentaNYL (PF) 50 MCG/ML 2 ML AMP ONE (13:45)
[2021-04-17] MEDS ORDERED: MIDAZOLAM 2 MG/2 ML VIAL ONE (13:45)
[2021-04-17] MEDS ORDERED: ePHEDrine SULFATE/0.9% NACL/PF 50 MG/5 ML SYRINGE IV ONE (13:45)
[2021-04-17] MEDS ORDERED: IOPAMIDOL-370 50ML BTL IRRIGATION ONE (14:39)
[2021-04-17] MEDS ORDERED: LACTATED RINGERS 1,000 ML IV ONE (15:07)
--- NOTE | 2021-04-17 15:23 | P.OP ---
Date of Procedure: 04/17/21 Preoperative Diagnosis: Left ureteral calculus, left renal calculi Postoperative Diagnosis: Same Procedure(s) Performed: Cystoscopy, left retrograde pyelogram, left ureteroscopy with Holmium laser lithotripsy, left ureteral stent insertion Anesthesia: KEVIN Surgeon: Nayan Lomeli Estimated Blood Loss (ml): 5 IV fluids (ml): 900 Pathology: none sent Condition: stable Disposition: PACU Indications for Procedure: The patient is a 41-year-old white female with a history of kidney stones. In late March,, she began to experience lower back and upper abdominal pain. CT scan showed evidence of left hydronephrosis due to a 6 mm left UPJ calculus. Numerous bilateral renal calculi up to 6 mm were also seen. The patient now comes for ureteroscopic removal of the calculi. Operative Findings: Left proximal ureteral calculus, 4 left renal calculi, all fragmented completely. Description of Procedure: The patient was taken to the operating room and placed in the dorsolithotomy position, with legs supported in Marco stirrups. The external genitalia was prepped and draped sterilely. The 30 lens was used to introduce the 21-[place] Nelson cystoscopic sheath through the urethra and into the bladder under direct vision. The bladder was examined in its entirety. Both ureteral orifices were normal anatomic location and configuration. No tumors or foreign bodies were seen. Using a 10-[place] cone-tipped catheter, a left retrograde pyelogram was performed in the standard fashion. The ureter appeared normal other than the presence of a calculus within the left proximal ureter. A 0.038 inch Glidewire was passed through the cystoscope. The ureteral orifice was cannulated, and the Glidewire was advanced up to the renal pelvis. The cystoscope was removed, and an 11/13-[place] Island[place] ureteral access catheter was passed over the wire, up to the mid-ureter. The flexible ureteroscope was then passed through the ureteral access catheter sheath, up to the stone. The 200 micron Holmium laser probe was passed through the ureteroscope, and lithotripsy was performed. The calculus refluxed into the kidney, and the ureteroscope was advanced to follow the calculus. Lithotripsy was completed within the renal pelvis. Each calyx was then examined. A calculus was identified within an upper pole calyx, and other within a lower pole calyx, and 2 immediately adjacent to one another within a mid pole calyx which could not be accessed due to a narrowed infundibulum. The laser was used to incise the infundibulum, allowing passage of the ureteroscope into that calyx, and all calculi were treated until there were no residual calculus fragments exceeding the size of the laser fiber tip. The calculi are presumed to be composed of calcium oxalate monohydrate based upon the way the fractured. The ureteroscope was slowly withdrawn under direct vision. There was evidence of edema at the site of the calculus impaction, but the ureter was otherwise normal. The cystoscope was passed into the bladder. The Glidewire was advanced up to the left renal pelvis, and a 22 cm, 6-[place] Island[place] double-J ureteral stent was placed over the wire. Proper stent positioning was verified fluoroscopically and endoscopically. The bladder was emptied and the cystoscope removed. The patient tolerated the procedure well and was taken to the recovery room in stable condition. [facility] [place] Report: Procedure Acuity: Urgent Stone Size and Location: 6 mm, left proximal ureter. Left renal calculi up to 6 mm in size. Ureteral Dilation: No Ureteral Access Sheath Used: Yes Stone Sent for Analysis: No All Stones/Fragments Were Removed with a Basket: No Complications: No Preoperative Antibiotics Given: Yes Stent Placed: Yes If Stent Placed, Was String Left Attached: No If Stent Placed, When is it to be Removed: 1 week Discharge Medications: [place], tamsulosin, oxybutynin chloride
[2021-04-17 15:31] VITALS: TEMP 96.9
--- NOTE | 2021-04-17 16:06 | FL ---
Fluoroscopy HISTORY: Stent placement 53 seconds fluoroscopy time supplied to the referring clinician. 2 intraoperative C-arm images docum ent the procedure. See dictated report from urology.
[2021-04-17 16:11] VITALS: BP 123/78; PULSE 78; RESP 18
== END 2021-04-17 16:34 | disposition home or self-care (01) ==
LOC: OR 12:00
PROVIDERS: ATTEND Urology
DX: Z87.442 Personal history of urinary calculi (principal); G43.909 Migraine, unspecified, not intractable, without status migrainosus; Z90.89 Acquired absence of other organs; Z98.891 History of uterine scar from previous surgery; Z90.710 Acquired absence of both cervix and uterus; Z98.890 Other specified postprocedural states; F17.290 Nicotine dependence, other tobacco product, uncomplicated; Z82.49 Family history of ischemic heart disease and other diseases of the circulatory system; Z82.3 Family history of stroke; Z79.899 Other long term (current) drug therapy; Z88.8 Allergy status to other drugs, medicaments and biological substances; Z88.5 Allergy status to narcotic agent
CPT/HCPCS: 52356; 74420; 74018; C1758; C1769; C2625; J2250; J1100; J0690; J2405; J3010; J2370; J2704; Q9967

== ENCOUNTER 2021-04-28 19:12 | Emergency (ER) | payer OTHER ==
[2021-04-28 19:19] VITALS: TEMP 98.3
[2021-04-28] MEDS ORDERED: SODIUM CHLORIDE 0.9% 1,000 ML IV STA (19:27)
[2021-04-28] MEDS ORDERED: MORPHINE SULFATE 2 MG/ML SYRINGE IVP STA (19:33)
--- NOTE | 2021-04-28 19:38 | ED ---
Female Urogenital HPI - General Chief complaint: Urogenital Stated complaint: post kidney surgery issue Source: patient, RN notes reviewed, old records reviewed Mode of arrival: ambulatory - History of Present Illness Initial comments: 41-year-old white female, alert and oriented 4, presents to the emergency room suprapubic and bilateral flank pain. Patient states that he had a urethral stent after kidney stone surgery 2 weeks ago. The stent was removed on Friday she has had increasing pain with urination and bilateral flank pain since. Patient states that she is nauseated at times but denies any vomiting or diarrhea. She denies any fevers. No hematuria. She states that when the stent was removed the doctor did state that he had to cut her ureter. Patient states he's been taking Toradol with no relief at home. MD Complaint: dysuria -: days(s) (5) Location: suprapubic Radiation: L flank, R flank Severity scale (1-10): 10 Quality: cramping Consistency: constant Improves with: none Worsens with: none - Related Data Home Medications Medication Instructions Recorded Confirmed Topiramate [Topamax] 25 mg PO BID 03/09/20 04/17/21 Acetaminophen-Codeine 300-30mg 1 - 2 tab PO Q4-6H PRN 04/16/21 04/17/21 [Tylenol w/codeine #3] Previous Rx's Medication Instructions Recorded HYDROcodone/APAP 5-325MG [[place] 1 - 2 tab PO Q4HR PRN #10 tab 04/17/21 5-325] Oxybutynin Chloride [Oxybutynin 10 mg PO DAILY #10 tab.er.24 04/17/21 Chloride ER] Phenazopyridine [Pyridium] 200 mg PO TID #6 tablet 04/28/21 Allergies Allergy/AdvReac Type Severity Reaction Status Date / Time tramadol AdvReac SEIZURE Verified 04/28/21 19:19 Review of Systems ROS Statement: Those systems with pertinent positive or pertinent negative responses have been documented in the HPI. ROS Other: All systems not noted in ROS Statement are negative. Past Medical History Past Medical History: No Reported History Additional Past Medical History / Comment(s): migraines, kidney stones, back pain. History of Any Multi-Drug Resistant Organisms: None Reported Past Surgical History: Appendectomy, Section, Hysterectomy, Orthopedic Surgery Additional Past Surgical History / Comment(s): carpal tunnel, stent for kidney stones which has been removed. Past Anesthesia/Blood Transfusion Reactions: No Reported Reaction Past Psychological History: Anxiety Smoking Status: Current every day smoker, Vaper Past Alcohol Use History: None Reported Past Drug Use History: None Reported - Past Family History Father Family Medical History: CVA/TIA, Hypertension Mother Family Medical History: Hypertension General Exam General appearance: alert, in no apparent distress Head exam: Present: atraumatic, normocephalic, normal inspection Eye exam: Present: normal appearance, PERRL, EOMI. Absent: scleral icterus, conjunctival injection, periorbital swelling ENT exam: Present: normal exam, normal oropharynx, mucous membranes moist Neck exam: Present: normal inspection, full ROM. Absent: tenderness, meningismus, lymphadenopathy, thyromegaly Respiratory exam: Present: normal lung sounds bilaterally. Absent: respiratory distress, wheezes, rales, rhonchi, stridor, chest wall tenderness, accessory muscle use, decreased breath sounds, prolonged expiratory Cardiovascular Exam: Present: regular rate, normal rhythm, normal heart sounds. Absent: systolic murmur, diastolic murmur, rubs, gallop, clicks GI/Abdominal exam: Present: soft, tenderness (Suprapubic), normal bowel sounds. Absent: distended, guarding, rebound, rigid Extremities exam: Present: normal inspection, full ROM, normal capillary refill. Absent: tenderness, pedal edema, joint swelling, calf tenderness Back exam: Present: full ROM, CVA tenderness (R), CVA tenderness (L). Absent: tenderness, muscle spasm, paraspinal tenderness, vertebral tenderness, rash noted Neurological exam: Present: alert, oriented X3, CN II-XII intact Psychiatric exam: Present: normal affect, normal mood Skin exam: Present: warm, dry, intact, normal color. Absent: rash, cyanosis, diaphoretic, erythema, petechiae, pallor, mottled Course Vital Signs 04/28/21 04/28/21 19:16 21:09 Temperature 98.3 F Pulse Rate 113 H 66 Respiratory 18 17 Rate Blood Pressure 164/97 133/97 O2 Sat by Pulse 98 99 Oximetry Medical Decision Making - Medical Decision Making WBC count is 8.4, BUN of 21 creatinine 0.80. Patient was given 1 L normal saline bolus. UA shows trace blood and small leukocyte esterase which is consistent with a stent removal on Friday. ultrasound of renals and bladder show no hydronephrosis or evidence of renal mass or obstruction. Patient did get some relief with IV fluids and morphine. She'll be discharged home with Pyridium and directed to avoid caffeine and to follow up with urology. Case discussed with Dr. Montgomery. - Lab Data Result diagrams: 04/28/21 19:57 04/28/21 19:57 Lab Results 04/28/21 04/28/21 04/28/21 Range/Units 19:57 19:57 19:57 WBC 8.4 (3.8-10.6) k/uL RBC 4.44 (3.80-5.40) m/uL Hgb 13.6 (11.4-16.0) gm/dL Hct 40.3 (34.0-46.0) % MCV 90.7 (80.0-100.0) fL MCH 30.5 (25.0-35.0) pg MCHC 33.6 (31.0-37.0) g/dL RDW 12.9 (11.5-15.5) % Plt Count 372 (150-450) k/uL MPV 7.8 Neutrophils % 67 % Lymphocytes % 28 % Monocytes % 2 % Eosinophils % 1 % Basophils % 1 % Neutrophils # 5.6 (1.3-7.7) k/uL Lymphocytes # 2.4 (1.0-4.8) k/uL Monocytes # 0.2 (0-1.0) k/uL Eosinophils # 0.0 (0-0.7) k/uL Basophils # 0.1 (0-0.2) k/uL Sodium (137-145) mmol/L Potassium (3.5-5.1) mmol/L Chloride (98-107) mmol/L Carbon Dioxide (22-30) mmol/L Anion Gap mmol/L BUN (7-17) mg/dL Creatinine (0.52-1.04) mg/dL Est GFR (CKD-EPI)AfAm (>60 ml/min/1.73 sqM) Est GFR (CKD-EPI)NonAf (>60 ml/min/1.73 sqM) Glucose (74-99) mg/dL Plasma Lactic Acid Omari (0.7-2.0) mmol/L Calcium (8.4-10.2) mg/dL Total Bilirubin (0.2-1.3) mg/dL AST (14-36) U/L ALT (4-34) U/L Alkaline Phosphatase (38-126) U/L Total Protein (6.3-8.2) g/dL Albumin (3.5-5.0) g/dL Amylase (30-110) U/L Lipase (23-300) U/L Urine Color Yellow Urine Appearance Clear (Clear) Urine pH 5.5 (5.0-8.0) Ur Specific Ewing 1.018 (1.001-1.035) Urine Protein Negative (Negative) Urine Glucose (UA) Negative (Negative) Urine Ketones Negative (Negative) Urine Blood Trace H (Negative) Urine Nitrite Negative (Negative) Urine Bilirubin Negative (Negative) Urine Urobilinogen <2.0 (<2.0) mg/dL Ur Leukocyte Esterase Small H (Negative) Urine RBC 7 H (0-5) /hpf Urine WBC 5 (0-5) /hpf Ur Squamous Epith Cells 1 (0-4) /hpf Urine Bacteria Rare H (None) /hpf Urine Mucus Rare H (None) /hpf Urine HCG, Qual Not Detected (Not Detectd) 04/28/21 04/28/21 Range/Units 19:57 19:57 WBC (3.8-10.6) k/uL RBC (3.80-5.40) m/uL Hgb (11.4-16.0) gm/dL Hct (34.0-46.0) % MCV (80.0-100.0) fL MCH (25.0-35.0) pg MCHC (31.0-37.0) g/dL RDW (11.5-15.5) % Plt Count (150-450) k/uL MPV Neutrophils % % Lymphocytes % % Monocytes % % Eosinophils % % Basophils % % Neutrophils # (1.3-7.7) k/uL Lymphocytes # (1.0-4.8) k/uL Monocytes # (0-1.0) k/uL Eosinophils # (0-0.7) k/uL Basophils # (0-0.2) k/uL Sodium 141 (137-145) mmol/L Potassium 3.5 (3.5-5.1) mmol/L Chloride 110 H (98-107) mmol/L Carbon Dioxide 20 L (22-30) mmol/L Anion Gap 11 mmol/L BUN 21 H (7-17) mg/dL Creatinine 0.80 (0.52-1.04) mg/dL Est GFR (CKD-EPI)AfAm >90 (>60 ml/min/1.73 sqM) Est GFR (CKD-EPI)NonAf >90 (>60 ml/min/1.73 sqM) Glucose 128 H (74-99) mg/dL Plasma Lactic Acid Omari 0.7 (0.7-2.0) mmol/L Calcium 9.8 (8.4-10.2) mg/dL Total Bilirubin 0.3 (0.2-1.3) mg/dL AST 25 (14-36) U/L ALT 22 (4-34) U/L Alkaline Phosphatase 55 (38-126) U/L Total Protein 7.3 (6.3-8.2) g/dL Albumin 4.7 (3.5-5.0) g/dL Amylase 51 (30-110) U/L Lipase 65 (23-300) U/L Urine Color Urine Appearance (Clear) Urine pH (5.0-8.0) Ur Specific Ewing (1.001-1.035) Urine Protein (Negative) Urine Glucose (UA) (Negative) Urine Ketones (Negative) Urine Blood (Negative) Urine Nitrite (Negative) Urine Bilirubin (Negative) Urine Urobilinogen (<2.0) mg/dL Ur Leukocyte Esterase (Negative) Urine RBC (0-5) /hpf Urine WBC (0-5) /hpf Ur Squamous Epith Cells (0-4) /hpf Urine Bacteria (None) /hpf Urine Mucus (None) /hpf Urine HCG, Qual (Not Detectd) Disposition Clinical Impression: Dysuria Disposition: HOME SELF-CARE Condition: Good Instructions (If sedation given, give patient instructions): Dysuria (ED) Additional Instructions: Increase your fluid intake, continue medication as prescribed. Decrease her caffeine intake. Take Pyridium as prescribed. Follow-up with urology next week. Return if worsening symptoms including fever nausea vomiting or inability to keep fluids down. Prescriptions: Phenazopyridine [Pyridium] 200 mg PO TID #6 tablet Is patient prescribed a controlled substance at d/c from ED?: No Referrals: None,Stated [Primary Care Provider] - 1-2 days Time of Disposition: 20:59
[2021-04-28 20:01] LABS: Basophils # (A) 0.1 k/uL (0-0.2); Basophils % (A) 1 %; Eosinophils % (A) 1 %; HCT 40.3 % (34.0-46.0); HGB 13.6 gm/dL (11.4-16.0); Lymphocytes # (A) 2.4 k/uL (1.0-4.8); Lymphocytes % (A) 28 %; MCH 30.5 pg (25.0-35.0); MCHC 33.6 g/dL (31.0-37.0); MCV 90.7 fL (80.0-100.0); Mean Platelet Volume 7.8; Monocytes # (A) 0.2 k/uL (0-1.0); Monocytes % (A) 2 %; Neutrophils # (A) 5.6 k/uL (1.3-7.7); Neutrophils % (A) 67 %; Platelet Count 372 k/uL (150-450); RBC 4.44 m/uL (3.80-5.40); RDW 12.9 % (11.5-15.5); WBC 8.4 k/uL (3.8-10.6)
[2021-04-28 20:10] LABS: ALT 22 U/L (4-34); AST 25 U/L (14-36); African American GFR (CKD) >90 (>60 ml/min/1.73 sqM); Albumin 4.7 g/dL (3.5-5.0); Alkaline Phosphatase 55 U/L (38-126); Amylase 51 U/L (30-110); Anion Gap 11 mmol/L; Blood Urea Nitrogen 21 mg/dL (7-17); Calcium 9.8 mg/dL (8.4-10.2); Carbon Dioxide 20 mmol/L (22-30); Chloride 110 mmol/L (98-107); Glucose 128 mg/dL (74-99); Lipase 65 U/L (23-300); Non-African American GFR(CKD) >90 (>60 ml/min/1.73 sqM); Potassium 3.5 mmol/L (3.5-5.1); Sodium 141 mmol/L (137-145); Total Bilirubin 0.3 mg/dL (0.2-1.3); Total Protein 7.3 g/dL (6.3-8.2)
[2021-04-28 20:26] LABS: Appearance,Urine Clear (Clear); Bacteria,Urine Rare /hpf; Bilirubin,Urine Negative (Negative); Blood,Urine Trace (Negative); Color,Urine Yellow; Glucose,Urine (UA) Negative (Negative); Ketones,Urine Negative (Negative); Leukocyte Esterase,Urine Small (Negative); Mucus,Urine Rare /hpf; Nitrite,Urine Negative (Negative); PH, Urine 5.5 (5.0-8.0); Protein,Urine Negative (Negative); RBC,Urine 7 /hpf (0-5); Specific Gravity,Urine 1.018 (1.001-1.035); Squamous Epithelial Cell,Urine 1 /hpf (0-4); Urobilinogen,Urine <2.0 mg/dL (<2.0); WBC,Urine 5 /hpf (0-5)
--- NOTE | 2021-04-28 20:41 | US ---
EXAMINATION TYPE: US renals and bladder DATE OF EXAM: 04/28/2021 COMPARISON: NONE CLINICAL HISTORY: uti, back pain, hx of kidney stones. left flank pain EXAM MEASUREMENTS: Right Kidney: 9.9 x 4.7 x 4.4 cm Left Kidney: 9.6 x 5.2 x 6.0 cm Right Kidney: No hydronephrosis or masses seen Left Kidney: No hydronephrosis or masses seen Bladder: wnl, anechoic, no wall thickening Bilateral Jets not seen IMPRESSION: No evidence of renal mass or obstruction. Normal urinary bladder. no ureteral jet seen during the exam.
[2021-04-28] MEDS ORDERED: PHENAZOPYRIDINE 100 MG TAB PO STA (21:09)
[2021-04-28 21:10] VITALS: BP 133/97; PULSE 66; RESP 17
== END 2021-04-28 21:39 | disposition home or self-care (01) ==
LOC: EC 19:12
DX: R30.0 Dysuria (principal); R11.0 Nausea; R10.31 Right lower quadrant pain; R10.32 Left lower quadrant pain; F41.9 Anxiety disorder, unspecified; G43.909 Migraine, unspecified, not intractable, without status migrainosus; F17.290 Nicotine dependence, other tobacco product, uncomplicated; Z87.440 Personal history of urinary (tract) infections; Z87.442 Personal history of urinary calculi; Z88.5 Allergy status to narcotic agent; Z88.8 Allergy status to other drugs, medicaments and biological substances
CPT/HCPCS: 36415; 80053; 82150; 83605; 83690; 85025; 81001; 81025; 76770; 99284; 96374; 96361; J2270

== ENCOUNTER → 2021-06-06 | Outpatient (CLI) | payer OTHER ==
[2021-06-06 09:53] VITALS: BP 163/90; PULSE 94; RESP 18; TEMP 98.7
--- NOTE | 2021-06-06 10:11 | P.PAINCN ---
History of Present Illness - Reason for Consult Consult date: 06/06/21 - History of Present Illness This is a 41 years old female with a chronic history of severe low back pain, started more than 5 years ago, intensity of the pain increased over time and currently is constant and localized in the low back area with occasional radiation to the lower extremity, he denies any motor or sensory deficit she denies any fever or night sweats but she reports some numbness and tingling sensation in the lower extremity,, has done chiropractic this without any benefit and she did physical therapy in the past without any benefit and she is currently doing home exercise, and she's been doing it for several months, any significant benefit she continue to use Motrin when necessary and Tylenol when necessary and she continued to have severe pain, and still the pain interfering with her quality of life and her ability to do activities of daily livings Past Medical History Past Medical History: No Reported History Additional Past Medical History / Comment(s): migraines, kidney stones, back pain. History of Any Multi-Drug Resistant Organisms: None Reported Past Surgical History: Appendectomy, Section, Hysterectomy, Orthopedic Surgery Additional Past Surgical History / Comment(s): carpal tunnel, stent for kidney stones which has been removed. Past Anesthesia/Blood Transfusion Reactions: No Reported Reaction Smoking Status: Current every day smoker, Vaper - Past Family History Father Family Medical History: CVA/TIA, Hypertension Mother Family Medical History: Hypertension Medications and Allergies Home Medications Medication Instructions Recorded Confirmed Type Topiramate [Topamax] 25 mg PO BID 03/09/20 06/05/21 History Ibuprofen 600 mg PO Q8H PRN 06/05/21 06/05/21 History Vortioxetine Hydrobromide 10 mg PO DAILY 06/05/21 06/05/21 History [Trintellix] lisinopriL 10 mg PO DAILY 06/05/21 06/05/21 History Allergies Allergy/AdvReac Type Severity Reaction Status Date / Time tramadol AdvReac SEIZURE Verified 06/05/21 09:26 Physical Exam Vitals: Vital Signs Temp Pulse Resp BP Pulse Ox 06/06/21 09:48 98.7 F 94 18 163/90 97 Physical Examinations : -Constitutiona : Cooperative , not in acute distress . -HEENT : nech : supple , no Lymphadenopathy , normal thyroid size . : eyes : no ptosis , no icterus, no photophobia . - neurologic : Cranial nerve II to XII intact , no focal neurological deffecit . -psychatric : alert , oriented X 3 , appropriate affect , intact judgment and insight . -Lymphatic : no Lymphadenopathy . - musculoskeltal : Lumber spine moter stegnth lower extremities ,thigh and legs 5/5 Right side , 5/5 Left side deep tendon reflexes : normal Knee Jerk , normal ankle Jerk lumber facet Loading Test =positive Right , positive Left Range of motion of the lumbar spine Flexion 30 degrees, extension 10 degrees strait leg raising test = positive at 45 degree Fabere test= positive Right , and positive LT . tenderness over the Sacroiliac joint on the Right , and Left sides Results Comments: MRI of the lumbar spine multilevel lumbar degenerative disc disease multilevel lumbar spondylosis with facet arthropathy L3 4 L4 5 Assessment and Plan Assessment: Assessment and plan=1-lumbar degenerative disc disease. 2-lumbar spondylosis with lumbar facet arthropathy she could benefit from lumbar epidural steroid injection at L4 5 x2 , and if she continued to have severe pain and consider doing diagnostic medial branch block lumbar area and possible RFA Time with Patient: Greater than 30 PQRS Measure Charge Sheet Measure #130: Documentation of Current Meds in Medical Chart: Patient's medications documented in chart Measure #226: Tobacco Use: Screen & Cessation Intervention: Pt screened for tobacco use AND intervention given Measure #111: Pneumonia Vaccination: Pneumococcal vaccine NOT administered or previously given Measure #47: Advance Care Plan: Advance care planning discussed & documented, pt chose/unable to give Measure #412: Opioid Treatment Agreement: No documentation of signed opioid treatment agreement Measure #408: Opioid Therapy Follow-up Evaluation: Patient had NO f/u eval minimum every 3 months during opioid therapy Measure #317: Preventitive Care & Scrn High Bld Press & F/U: Pre-hypertensive or hypertensive BP documented, pt will f/u with PCP Measure #128: Body Mass Index (BMI) Screening & Follow-up: BMI documented within normal parameters Measure #131: Pain Assessment & Follow-up: Pain positive & plan documented, Follow-up scheduled Measure #431: Unhealthy Alcohol Use Preventative Care & Scrn: Patient not identified as an unhealthy alcohol user PQRS Narrative: Smoking Status Current every day smoker Blood Pressure 163/90 Pain Intensity [Back] 10 Scale Used Numeric (1 - 10) Hx Alcohol Use (MH) Yes Home Medications: Ambulatory Orders Topiramate [Topamax] 25 mg PO BID 03/09/20 Ibuprofen 600 mg PO Q8H PRN 06/05/21 Vortioxetine Hydrobromide [Trintellix] 10 mg PO DAILY 06/05/21 lisinopriL 10 mg PO DAILY 06/05/21
== END ==
LOC: PNWHC3 09:39
PROVIDERS: ATTEND Specialist
DX: M51.36 Other intervertebral disc degeneration, lumbar region (principal); M47.816 Spondylosis without myelopathy or radiculopathy, lumbar region; G43.909 Migraine, unspecified, not intractable, without status migrainosus; F17.290 Nicotine dependence, other tobacco product, uncomplicated; Z88.5 Allergy status to narcotic agent
CPT/HCPCS: 99211

== ENCOUNTER 2021-07-03 12:45 | Day surgery (SDC) | payer OTHER ==
[2021-06-29 14:07] VITALS: BMI 26.8
--- NOTE | 2021-07-03 13:17 | XR ---
EXAMINATION TYPE: XR KUB DATE OF EXAM: 07/03/2021 HISTORY: Pain Comparison: 04/17/2021 Single KUB is submitted for interpretation. Findings: Right renal calculi: None Visualized. Right ureteral calculi: None Visualized. Left renal calculi: None Visualized. Left ureteral calculi: None Visualized. Pelvic calcifications: None Visualized. Bowel gas pattern is unremarkable. No free air. No mass effects. IMPRESSION: 1. No calculi seen with certainty.
[2021-07-03] MEDS ORDERED: ONDANSETRON 4 MG/2 ML VIAL ONE (14:14)
--- NOTE | 2021-07-03 14:17 | P.GSHP ---
History of Present Illness H&P Date: 07/03/21 Chief Complaint: Right flank pain The patient is a 41-year-old white female with a history of urolithiasis. She underwent ureteroscopic removal of a left proximal ureteral calculus and four left renal calculi in April 2021. A CT scan at that time showed several small right renal calculi measuring up to 3 mm in size. She now presents with a 2-3 week history of right flank pain, associated with urinary frequency and urgency. She has been advised that she might be passing a calculus. CT scan imaging was considered, but the patient has instead elected to undergo cystoscopy, right retrograde pyelogram, right ureteroscopy with holmium laser lithotripsy and/or stone basketing to remove all right-sided calculi. - Constitutional Constitutional: Denies chills, Denies fever - Genitourinary (Female) Genitourinary: Reports as per HPI Past Medical History Past Medical History: Hypertension, Skin Disorder Additional Past Medical History / Comment(s): migraines, kidney stones, seizures-last 12 yrs ago, "small heart murmer", on rx for UTI, degenerative disks History of Any Multi-Drug Resistant Organisms: None Reported Past Surgical History: Appendectomy, Section, Hysterectomy, Orthopedic Surgery Additional Past Surgical History / Comment(s): yvonne carpal tunnel, stent for kidney stones/later removed. Past Anesthesia/Blood Transfusion Reactions: No Reported Reaction Smoking Status: Current every day smoker, Vaper - Past Family History Father Family Medical History: CVA/TIA, Hypertension Mother Family Medical History: No Reported History Medications and Allergies Home Medications Medication Instructions Recorded Confirmed Type Vortioxetine Hydrobromide 10 mg PO HS 06/05/21 06/29/21 History [Trintellix] lisinopriL 10 mg PO DAILY 06/05/21 06/29/21 History Ketorolac [Toradol] 10 mg PO Q6HR PRN 06/29/21 06/29/21 History Topiramate [Topamax] 50 mg PO BID 06/29/21 06/29/21 History Allergies Allergy/AdvReac Type Severity Reaction Status Date / Time tramadol AdvReac SEIZURE Verified 07/03/21 14:11 Surgical - Exam - General well developed, well nourished, no distress - Respiratory normal respiratory effort - Abdomen Abdomen: soft, non tender, no guarding, no rigid, no rebound - Psychiatric oriented to time, oriented to person, oriented to place, speech is normal, memory intact Assessment and Plan (1) Calculus of kidney Current Visit: Yes Status: Acute Code(s): N20.0 - CALCULUS OF KIDNEY SNOMED Code(s): 36718635 Plan: Cystoscopy, right retrograde pyelogram, right ureteroscopy with Holmium laser lithotripsy, possible stone basketing, possible right ureteral stent insertion. The procedure then reviewed in detail with the patient. She is aware of potential risks, which include anesthesia, bleeding, infection, and ureteral injury.
[2021-07-03] MEDS ORDERED: LACTATED RINGERS 1,000 ML IV ONE ×2 (14:26)
[2021-07-03] MEDS ORDERED: DEXAMETHASONE SOD PHOSPHATE 4 MG/ML 1 ML VIAL IVP ONE (14:27)
[2021-07-03 14:35] LABS: HCT 42.2 % (34.0-46.0); HGB 14.2 gm/dL (11.4-16.0); MCH 31.1 pg (25.0-35.0); MCHC 33.7 g/dL (31.0-37.0); MCV 92.1 fL (80.0-100.0); Mean Platelet Volume 7.4; Platelet Count 323 k/uL (150-450); RBC 4.58 m/uL (3.80-5.40); RDW 12.7 % (11.5-15.5); WBC 10.2 k/uL (3.8-10.6)
[2021-07-03 14:47] LABS: African American GFR (CKD) >90 (>60 ml/min/1.73 sqM); Anion Gap 10 mmol/L; Blood Urea Nitrogen 18 mg/dL (7-17); Calcium 10.2 mg/dL (8.4-10.2); Carbon Dioxide 19 mmol/L (22-30); Chloride 111 mmol/L (98-107); Glucose 108 mg/dL (74-99); Non-African American GFR(CKD) 84 (>60 ml/min/1.73 sqM); Potassium 4.2 mmol/L (3.5-5.1); Sodium 140 mmol/L (137-145)
[2021-07-03] MEDS ORDERED: PHENYLEPHRINE-0.9% NACL SYG 1,000 MCG/10 ML SYRINGE ONE (14:52)
[2021-07-03] MEDS ORDERED: fentaNYL (PF) 50 MCG/ML 2 ML AMP ONE (14:52)
[2021-07-03] MEDS ORDERED: PROPOFOL 10 MG/ML 20 ML VIAL IV ONE (14:52)
[2021-07-03] MEDS ORDERED: MIDAZOLAM 2 MG/2 ML VIAL ONE (14:52)
[2021-07-03] MEDS ORDERED: HYDROmorphone (PF) 1 MG/ML ONE (14:52)
[2021-07-03] MEDS ORDERED: IOPAMIDOL-370 50ML BTL IRRIGATION ONE (15:31)
--- NOTE | 2021-07-03 16:08 | P.OP ---
Date of Procedure: 07/03/21 Preoperative Diagnosis: Right renal calculi Postoperative Diagnosis: Same Procedure(s) Performed: Cystoscopy, right retrograde pyelogram, right ureteroscopy with Holmium laser lithotripsy, right ureteral stent insertion Anesthesia: KEVIN Surgeon: Nayan Lomeli Estimated Blood Loss (ml): 0 IV fluids (ml): 700 Pathology: none sent Condition: stable Disposition: PACU Indications for Procedure: The patient is a 41-year-old white female with a history of urolithiasis. She underwent ureteroscopic removal of a left proximal ureteral calculus and four left renal calculi in April 2021. A CT scan at that time showed several small right renal calculi measuring up to 3 mm in size. She now presents with a 2-3 week history of right flank pain, associated with urinary frequency and urgency. She has been advised that she might be passing a calculus. CT scan imaging was considered, but the patient has instead elected to undergo cystoscopy, right retrograde pyelogram, right ureteroscopy with holmium laser lithotripsy and/or stone basketing to remove all right-sided calculi. Operative Findings: 4-5 right renal calculi, all fragmented completely. Description of Procedure: The patient was taken to the operating room and placed in the dorsolithotomy position, with legs supported in Marco stirrups. The external genitalia was prepped and draped sterilely. The 30 lens was used to introduce the 21-Peruvian Nelson cystoscopic sheath through the urethra and into the bladder under direct vision. The bladder was examined in its entirety. Both ureteral orifices were normal anatomic location and configuration, and clear urine effluxed from both. No tumors or foreign bodies were seen. Using a 10-Peruvian cone-tipped catheter, a right retrograde pyelogram was performed. The ureter was normal in course and caliber, and no filling defects were seen. The renal pelvis likewise appeared normal. After removing the cystoscope, the Nelson Boa flexible ureteroscope was passed into the bladder. The right ureteral orifice was cannulated, and the ureteroscope was advanced 1-2 cm. However, the caliber of the ureter there was diminished such that the ureteroscope could not be advanced further. A 0.038 inch Glidewire was passed through the ureteroscope, and the Glidewire was advanced up to the renal pelvis. The ureteroscope was removed, and an 11/13-Peruvian ureteral access catheter was passed over the wire, up to the proximal ureter. The flexible ureteroscope was then passed through the ureteral access catheter sheath, up to the right renal pelvis. The 272 micron Holmium laser probe was passed through the ureteroscope, and each calyx was examined. 4-5 calculi were seen, the largest of which measured 3-4 mm in size and was located within a mid pole calyx. The majority of the calculi were adherent to the mucosa. Lithotripsy was performed, fragmenting each calculus, and was continued until all calculi were dusted and there were no residual calculi adherent to the mucosa. There were no residual calculus fragments exceeding the size of the laser fiber tip. The Glidewire was passed through the ureteroscope, which was withdrawn along with the access catheter sheath. The Glidewire was backloaded into the cystoscope, which was passed into the bladder. A 24 cm, 4.8-Peruvian double-J ureteral stent was placed over the wire. Proper stent positioning was verified fluoroscopically and endoscopically. The bladder was emptied and the cystoscope removed. The patient tolerated the procedure well and was taken to the recovery room in stable condition. MUSIC ROCKS Report: Procedure Acuity: Semi-Urgent Stone Size and Location: Multiple right renal calculi measuring up to 3-4 mm in diameter Ureteral Dilation: No Ureteral Access Sheath Used: Yes Stone Sent for Analysis: No All Stones/Fragments Were Removed with a Basket: No Complications: No Preoperative Antibiotics Given: Yes Stent Placed: Yes If Stent Placed, Was String Left Attached: No If Stent Placed, When is it to be Removed: 1 week Discharge Medications: None
[2021-07-03 16:11] VITALS: RESP 16; TEMP 96.8
--- NOTE | 2021-07-03 16:20 | FL ---
EXAMINATION TYPE: FL urography retrograde DATE OF EXAM: 07/03/2021 COMPARISON: NONE HISTORY: RT RENAL STONE. TECHNIQUE: Fluoroscopy. RT RENAL STONE. 53 SECS FL. 2 IMAGES SCANNED.
[2021-07-03 16:40] VITALS: PULSE 85
[2021-07-03 16:56] VITALS: BP 105/73
== END 2021-07-03 17:12 | disposition home or self-care (01) ==
LOC: OR 12:45
PROVIDERS: ATTEND Urology
DX: N20.0 Calculus of kidney (principal); I10 Essential (primary) hypertension; G43.909 Migraine, unspecified, not intractable, without status migrainosus; Z87.442 Personal history of urinary calculi; F17.210 Nicotine dependence, cigarettes, uncomplicated; Z79.1 Long term (current) use of non-steroidal anti-inflammatories (NSAID); Z82.49 Family history of ischemic heart disease and other diseases of the circulatory system; Z88.5 Allergy status to narcotic agent; Z88.8 Allergy status to other drugs, medicaments and biological substances; Z90.49 Acquired absence of other specified parts of digestive tract; Z87.440 Personal history of urinary (tract) infections
CPT/HCPCS: 52356; 80048; 85027; 74420; 74018; C2625; C1758; C1769; J2250; J1100; J0690; J2405; J3010; J1170; J2370; J2704; Q9967

== ENCOUNTER 2021-07-10 11:35 | Day surgery (SDC) | payer OTHER ==
[2021-07-09 09:12] VITALS: BMI 26.2
[2021-07-10 12:17] VITALS: RESP 16; TEMP 97.9
[2021-07-10] MEDS ORDERED: LIDOCAINE 1% (10MG/ML) FOR IV START INTRADERMA ONE (12:21)
[2021-07-10] MEDS ORDERED: LACTATED RINGERS 1,000 ML IV ONE ×2 (12:21)
[2021-07-10] MEDS ORDERED: MIDAZOLAM 2 MG/2 ML VIAL ONE (13:08)
[2021-07-10] MEDS ORDERED: IOPAMIDOL M200 10 ML VIAL ONE (13:08)
[2021-07-10] MEDS ORDERED: methylPREDNISolone ACETATE 40 MG/ML 1 ML VIAL ONE (13:08)
[2021-07-10] MEDS ORDERED: fentaNYL (PF) 50 MCG/ML 2 ML AMP ONE (13:08)
--- NOTE | 2021-07-10 13:26 | P.PCN ---
Date of Procedure: 07/10/21 Description of Procedure: Procedure: 1 L4-L5 Epidural steroid injection under fluoroscopic guidance #1, 2. Lumbar epidurogram PREOPERATIVE DIAGNOSIS: Lumbar degenerative disc disease, and Lumbar radiculopathy. POSTOPERATIVE DIAGNOSIS: Lumbar degenerative disc disease, and Lumbar radiculopathy. SURGEON: Christoph Stevens ANESTHESIA: Local with 1% lidocaine, and IV sedation as per anesthesia record EBL: None. Specimen removed: None Fluoroscopic image: saved to electronic medical records PROCEDURE INDICATION: The patient had history of Lumbar degenerative disc disease and Lumbar radiculopathy. Failed to conservative therapy. Presented for epidural steroid injection. PROCEDURE DESCRIPTION: The patient was seen and identified in the preoperative area. Risks, benefits, complications, and alternatives were discussed with the patient. The patient agreed to proceed with the procedure and signed the consent. IV was started, and vital signs were stable. Patient was taken to the procedure area, and time out was completed. The patient was placed in the prone position on procedure table and a pillow was placed under the abdomen to reduce lumbar lordosis. The lumbosacral area was prepped and draped in the usual sterile fashion. Critical pause was taken. Vital signs were closely monitored during the procedure. Using anterior-posterior fluoroscopy, the L4-L5 interlaminar space was identified, and skin and deeper tissues were localized with 1% lidocaine. Using anterior-posterior fluoroscopy, lateral fluoroscopy, and usjl-ir-lbzfirbwyi technique, a 20 gauge 3.5 Tuohy epidural needle entered the epidural space. After negative aspiration of CSF and blood with no paresthesias, 1 ml of [id number] contrast dye was injected and an excellent epidurogram was seen. Again after negative aspiration of CSF and blood with no paresthesias, 10 mL of block solution was injected into the epidural space. Block solution contained 80 mg of Depo-Medrol, and 9 mL of preservative-free normal saline. Needle was withdrawn intact, skin was cleansed, and bandages were applied. COMPLICATIONS: None. DISPOSITION / PLANS: The patient was placed in a supine position and transferred to the recovery area in a stable condition for observation. Patient was discharged from the recovery room after meeting discharge criteria. Home discharge instructions given to the patient by the staff. The patient was reexamined prior to discharge. The patient will schedule a follow up in the clinic in 4 weeks.
[2021-07-10 13:30] VITALS: PULSE 67
[2021-07-10] MEDS ORDERED: LACTATED RINGERS 1,000 ML IV SCH (13:30)
[2021-07-10 13:44] VITALS: BP 151/93
[2021-07-10] MEDS ORDERED: IV FLUID CONTINUATION 1,000 ML IV ONE (13:51)
--- NOTE | 2021-07-10 14:05 | FL ---
Fluoroscopy INDICATION: Pain FINDINGS: Fluoroscopy time: 5 seconds. Images obtained: 2. IMPRESSIONS: 1. Documentation of fluoroscopy.
== END 2021-07-10 13:53 | disposition home or self-care (01) ==
LOC: ORPAIN 11:35
DX: M51.16 Intervertebral disc disorders with radiculopathy, lumbar region (principal)
CPT/HCPCS: 62323; J2250; J1030; J3010; Q9966; 99152

== ENCOUNTER 2021-07-15 22:05 | Emergency (ER) | payer OTHER ==
[2021-07-15 22:18] VITALS: RESP 18
[2021-07-15] MEDS ORDERED: ONDANSETRON 4 MG/2 ML VIAL IVP STA (23:05)
[2021-07-15] MEDS ORDERED: HYDROmorphone 1 MG/ML 1 ML SYRINGE IVP STA (23:05)
[2021-07-15] MEDS ORDERED: SODIUM CHLORIDE 0.9% 1,000 ML IV STA (23:05)
[2021-07-15 23:38] LABS: Basophils # (A) 0.1 k/uL (0-0.2); Basophils % (A) 1 %; Eosinophils # (A) 0.1 k/uL (0-0.7); Eosinophils % (A) 1 %; HCT 36.8 % (34.0-46.0); HGB 12.3 gm/dL (11.4-16.0); Lymphocytes # (A) 2.9 k/uL (1.0-4.8); Lymphocytes % (A) 31 %; MCH 30.8 pg (25.0-35.0); MCHC 33.4 g/dL (31.0-37.0); MCV 92.3 fL (80.0-100.0); Mean Platelet Volume 7.5; Monocytes # (A) 0.3 k/uL (0-1.0); Monocytes % (A) 3 %; Neutrophils # (A) 5.8 k/uL (1.3-7.7); Neutrophils % (A) 62 %; Platelet Count 283 k/uL (150-450); RBC 3.98 m/uL (3.80-5.40); RDW 12.8 % (11.5-15.5); WBC 9.3 k/uL (3.8-10.6)
[2021-07-15 23:43] LABS: Albumin 3.8 g/dL (3.5-5.0); Calcium 10.2 mg/dL (8.4-10.2); Potassium 4.1 mmol/L (3.5-5.1); Total Bilirubin 0.3 mg/dL (0.2-1.3); Total Protein 6.3 g/dL (6.3-8.2)
--- NOTE | 2021-07-15 23:47 | CT ---
EXAMINATION TYPE: CT abdomen pelvis w con DATE OF EXAM: 07/15/2021 COMPARISON: 04/09/2021 HISTORY: Right urinary stent removal CT DLP: 763.1 mGycm Automated exposure control for dose reduction was used. CONTRAST: Performed with IV Contrast, patient injected with 100 mL of Isovue 300. The lung bases are clear. There is no pleural effusion. Heart size is normal. There is no pericardial effusion. Liver spleen stomach pancreas gallbladder appear intact. The bile ducts are not dilated. There is no adrenal mass. Kidneys have normal size. There is some fullness of the right renal collect ing system. There is mild ectasia of the right ureter. I see no ureteral calculus. Bladder distends s moothly. There is no inguinal hernia. There is no free fluid in the pelvis. There is no mesenteric edema. There is no ascites or free air. There is no bowel obstruction. Lumbar vertebra have normal alignment. Posterior elements are intact. The bony pelvis is intact. There is 3 mm calculus lateral left kidney. There is 3 mm calculus lower pole left kidney. There is 2 mm calculus lateral right kidney. IMPRESSION: There is mild right-sided hydronephrosis and hydroureter. No obstructing calculus seen. Bilateral mul tiple small renal calculi. Hydronephrosis appears new compared to old exam. This could relate to rece ntly passed stone or nonopaque stone. There is clearing of the left side hydronephrosis and the calculus at the left ureteropelvic junctio n compared to old exam.
[2021-07-16 00:15] LABS: Appearance,Urine Cloudy (Clear); Bacteria,Urine Rare /hpf; Bilirubin,Urine Negative (Negative); Blood,Urine Large (Negative); Color,Urine Light Yellow; Glucose,Urine (UA) Negative (Negative); Hyaline Casts,Urine 1 /lpf (0-2); Ketones,Urine Negative (Negative); Leukocyte Esterase,Urine Trace (Negative); Nitrite,Urine Negative (Negative); PH, Urine 6.5 (5.0-8.0); Protein,Urine Negative (Negative); RBC,Urine >182 /hpf (0-5); Specific Gravity,Urine 1.011 (1.001-1.035); Squamous Epithelial Cell,Urine 1 /hpf (0-4); Urobilinogen,Urine <2.0 mg/dL (<2.0); WBC,Urine 5 /hpf (0-5)
[2021-07-16] MEDS ORDERED: HYDROmorphone 1 MG/ML 1 ML SYRINGE IVP STA (01:25)
[2021-07-16] MEDS ORDERED: ACET/COD 300 MG/30 MG STARTER PACK 6 TAB BTL PO STA (01:25)
[2021-07-16] MEDS ORDERED: KETOROLAC 15 MG/ML 1 ML VIAL IVP STA (01:25)
--- NOTE | 2021-07-16 01:26 | ED ---
Abdominal Pain HPI - General Chief Complaint: Abdominal Pain Stated Complaint: Abdominal Pain Time Seen by Provider: 07/15/21 22:34 Source: patient Mode of arrival: ambulatory - History of Present Illness Initial Comments: 41-year-old female patient presents to the emergency department today for evaluation of right flank pain. Patient recently had lithotripsy, placement of stent, removal of stent with Dr. Lomeli. Patient reports frequent urination. States she has been taking toradol without relief. Denies any fever or chills. Reports discoloration and odor to the urine. She reports nausea, has not vomited. States it is painful to have a bowel movement. She does feel somewhat constipated. Patient denies any recent rash, cough, shortness of breath, chest pain, back pain, numbness, tingling, dizziness, weakness, headache, visual changes, or any other complaints. - Related Data Home Medications Medication Instructions Recorded Confirmed Vortioxetine Hydrobromide 10 mg PO HS 06/05/21 07/15/21 [Trintellix] lisinopriL 10 mg PO DAILY 06/05/21 07/15/21 Topiramate [Topamax] 50 mg PO BID 06/29/21 07/15/21 Pregabalin [Lyrica] 150 mg PO TID 07/09/21 07/15/21 buPROPion HCL [Wellbutrin XL] 300 mg PO DAILY 07/15/21 07/15/21 busPIRone HCl [Buspar] 10 mg PO BID PRN 07/15/21 07/15/21 Allergies Allergy/AdvReac Type Severity Reaction Status Date / Time tramadol AdvReac SEIZURE Verified 07/15/21 23:30 Review of Systems ROS Statement: Those systems with pertinent positive or pertinent negative responses have been documented in the HPI. ROS Other: All systems not noted in ROS Statement are negative. Past Medical History Past Medical History: Hypertension, Skin Disorder Additional Past Medical History / Comment(s): migraines, kidney stones, History of Any Multi-Drug Resistant Organisms: None Reported Past Surgical History: Appendectomy, Section, Hysterectomy, Orthopedic Surgery Additional Past Surgical History / Comment(s): carpal tunnel, stent for kidney stones /later removed, 07/03/21-lithotripsy/rt ureteral stent placed Past Anesthesia/Blood Transfusion Reactions: No Reported Reaction Past Psychological History: Anxiety Smoking Status: Current every day smoker, Vaper Past Alcohol Use History: None Reported Past Drug Use History: None Reported - Past Family History Mother Family Medical History: No Reported History General Exam General appearance: alert, in no apparent distress, other (This is a well- developed, well-nourished adult female patient in no acute distress. Vital signs upon presentation temperature 98.4F, pulse 85, respirations 18, blood pressure 145/96, pulse ox 98% on room air.) ENT exam: Present: normal exam, normal oropharynx, mucous membranes moist Respiratory exam: Present: normal lung sounds bilaterally. Absent: respiratory distress, wheezes, rales, rhonchi, stridor Cardiovascular Exam: Present: regular rate, normal rhythm, normal heart sounds. Absent: systolic murmur, diastolic murmur, rubs, gallop, clicks GI/Abdominal exam: Present: soft, tenderness (Right upper and right lower quadrant), normal bowel sounds. Absent: distended, guarding, rebound, rigid Back exam: Present: normal inspection, CVA tenderness (R). Absent: CVA tenderness (L) Neurological exam: Present: alert, oriented X3, CN II-XII intact Psychiatric exam: Present: normal affect, normal mood Skin exam: Present: warm, dry, intact, normal color. Absent: rash Course Vital Signs 07/15/21 07/15/21 07/16/21 22:15 23:55 01:43 Temperature 98.4 F Pulse Rate 85 77 72 Respiratory 18 18 18 Rate Blood Pressure 145/96 131/98 139/97 O2 Sat by Pulse 98 98 98 Oximetry 07/16/21 01:49 Temperature 98.6 F Pulse Rate Respiratory Rate Blood Pressure O2 Sat by Pulse Oximetry Medical Decision Making - Medical Decision Making 41-year-old female patient presented to the emergency department today reporting a right flank pain, right abdominal pain, painful bowel movements after having lithotripsy and stent placement and removal. Physical examination did reveal right upper right lower quadrant tenderness. Right CVA tenderness. She is afebrile, vital signs. Labs reviewed and were unremarkable. White blood cell count is normal. Urinalysis did reveal hematuria no sign of infection. She was given IV pain medications. To be discharged home with a starter pack of Tylenol with codeine. She is instructed to call Dr. Lomeli's office in the morning. Return parameters were discussed in detail. She verbalizes understanding and agrees with this plan. Case discussed with my attending Dr. Brito. - Lab Data Result diagrams: 07/15/21 23:17 07/15/21 23:17 Lab Results 07/15/21 07/15/21 07/15/21 Range/Units 23:17 23:17 23:17 WBC 9.3 (3.8-10.6) k/uL RBC 3.98 (3.80-5.40) m/uL Hgb 12.3 (11.4-16.0) gm/dL Hct 36.8 (34.0-46.0) % MCV 92.3 (80.0-100.0) fL MCH 30.8 (25.0-35.0) pg MCHC 33.4 (31.0-37.0) g/dL RDW 12.8 (11.5-15.5) % Plt Count 283 (150-450) k/uL MPV 7.5 Neutrophils % 62 % Lymphocytes % 31 % Monocytes % 3 % Eosinophils % 1 % Basophils % 1 % Neutrophils # 5.8 (1.3-7.7) k/uL Lymphocytes # 2.9 (1.0-4.8) k/uL Monocytes # 0.3 (0-1.0) k/uL Eosinophils # 0.1 (0-0.7) k/uL Basophils # 0.1 (0-0.2) k/uL Sodium 139 (137-145) mmol/L Potassium 4.1 (3.5-5.1) mmol/L Chloride 109 H (98-107) mmol/L Carbon Dioxide 23 (22-30) mmol/L Anion Gap 7 mmol/L BUN 30 H (7-17) mg/dL Creatinine 1.01 (0.52-1.04) mg/dL Est GFR (CKD-EPI)AfAm 79 (>60 ml/min/1.73 sqM) Est GFR (CKD-EPI)NonAf 69 (>60 ml/min/1.73 sqM) Glucose 98 (74-99) mg/dL Plasma Lactic Acid Omari (0.7-2.0) mmol/L Calcium 10.2 (8.4-10.2) mg/dL Total Bilirubin 0.3 (0.2-1.3) mg/dL AST 20 (14-36) U/L ALT 15 (4-34) U/L Alkaline Phosphatase 39 (38-126) U/L Total Protein 6.3 (6.3-8.2) g/dL Albumin 3.8 (3.5-5.0) g/dL Lipase 105 (23-300) U/L Urine Color Light Yellow Urine Appearance Cloudy H (Clear) Urine pH 6.5 (5.0-8.0) Ur Specific Newberry 1.011 (1.001-1.035) Urine Protein Negative (Negative) Urine Glucose (UA) Negative (Negative) Urine Ketones Negative (Negative) Urine Blood Large H (Negative) Urine Nitrite Negative (Negative) Urine Bilirubin Negative (Negative) Urine Urobilinogen <2.0 (<2.0) mg/dL Ur Leukocyte Esterase Trace H (Negative) Urine RBC >182 H (0-5) /hpf Urine WBC 5 (0-5) /hpf Ur Squamous Epith Cells 1 (0-4) /hpf Urine Bacteria Rare H (None) /hpf Hyaline Casts 1 (0-2) /lpf 07/15/21 Range/Units 23:17 WBC (3.8-10.6) k/uL RBC (3.80-5.40) m/uL Hgb (11.4-16.0) gm/dL Hct (34.0-46.0) % MCV (80.0-100.0) fL MCH (25.0-35.0) pg MCHC (31.0-37.0) g/dL RDW (11.5-15.5) % Plt Count (150-450) k/uL MPV Neutrophils % % Lymphocytes % % Monocytes % % Eosinophils % % Basophils % % Neutrophils # (1.3-7.7) k/uL Lymphocytes # (1.0-4.8) k/uL Monocytes # (0-1.0) k/uL Eosinophils # (0-0.7) k/uL Basophils # (0-0.2) k/uL Sodium (137-145) mmol/L Potassium (3.5-5.1) mmol/L Chloride (98-107) mmol/L Carbon Dioxide (22-30) mmol/L Anion Gap mmol/L BUN (7-17) mg/dL Creatinine (0.52-1.04) mg/dL Est GFR (CKD-EPI)AfAm (>60 ml/min/1.73 sqM) Est GFR (CKD-EPI)NonAf (>60 ml/min/1.73 sqM) Glucose (74-99) mg/dL Plasma Lactic Acid Omari 0.5 L (0.7-2.0) mmol/L Calcium (8.4-10.2) mg/dL Total Bilirubin (0.2-1.3) mg/dL AST (14-36) U/L ALT (4-34) U/L Alkaline Phosphatase (38-126) U/L Total Protein (6.3-8.2) g/dL Albumin (3.5-5.0) g/dL Lipase (23-300) U/L Urine Color Urine Appearance (Clear) Urine pH (5.0-8.0) Ur Specific Newberry (1.001-1.035) Urine Protein (Negative) Urine Glucose (UA) (Negative) Urine Ketones (Negative) Urine Blood (Negative) Urine Nitrite (Negative) Urine Bilirubin (Negative) Urine Urobilinogen (<2.0) mg/dL Ur Leukocyte Esterase (Negative) Urine RBC (0-5) /hpf Urine WBC (0-5) /hpf Ur Squamous Epith Cells (0-4) /hpf Urine Bacteria (None) /hpf Hyaline Casts (0-2) /lpf - Radiology Data Radiology results: report reviewed, image reviewed CT abdomen and pelvis with contrast was obtained. Report reviewed in its entirety. Impression by Dr. Gaxiola shows mild right-sided hydronephrosis and hydroureter. No obstructing calculus seen. Bilateral multiple small renal calculi. Hydronephrosis appears new compared to old exam. This could relate to recently passed stone a nonopaque stone. There is clearing of left-sided hydronephrosis and calculus at the left UPJ compared to old exam. Disposition Clinical Impression: Flank pain, Hydronephrosis, right Disposition: HOME SELF-CARE Condition: Good Instructions (If sedation given, give patient instructions): Flank Pain (ED), Hydronephrosis (ED) Additional Instructions: Call Dr. Lomeli first thing in the morning for further evaluation and instructions. Return for any new, worsening, or concerning symptoms. Is patient prescribed a controlled substance at d/c from ED?: No Referrals: Luis Enrique Arnold MD [Primary Care Provider] - 1-2 days Time of Disposition: 01:26
[2021-07-16 01:43] VITALS: BP 139/97; PULSE 72
[2021-07-16 01:50] VITALS: TEMP 98.6
== END 2021-07-16 01:50 | disposition home or self-care (01) ==
LOC: EC 22:05
DX: N13.2 Hydronephrosis with renal and ureteral calculous obstruction (principal); I10 Essential (primary) hypertension; F41.9 Anxiety disorder, unspecified; F17.200 Nicotine dependence, unspecified, uncomplicated; Z88.1 Allergy status to other antibiotic agents; Z87.442 Personal history of urinary calculi; Z90.49 Acquired absence of other specified parts of digestive tract; Z90.710 Acquired absence of both cervix and uterus
CPT/HCPCS: 99284; 96374; 96375 ×2; 96376; 96361; 36415; 80053; 83605; 83690; 85025; 81001; 74177; J2405; J1170 ×2; J1885; Q9967

== ENCOUNTER → 2021-08-08 | Outpatient (CLI) | payer OTHER ==
[2021-08-08 09:39] VITALS: BP 131/77; PULSE 89; RESP 18; TEMP 98.2
--- NOTE | 2021-08-08 12:25 | P.PN ---
Subjective Progress Note Date: 08/08/21 Elisa is a 41-year-old female presenting to clinic today for follow-up appointment after her first lumbar epidural steroid injection at L4 5. She had this procedure 07/10/2021. Since that injection she felt like she's had 75% relief over some of her pain is returning. She reports the pain is in the lower back right side equal to left. She reports that she feels like she is getting spasms in both her feet bilaterally. She reports that her pain increases with activity. Pain is relieved with procedures, rest, and medications. She has tried physical therapy in the past and now has at home exercises and stretching that she performs. He like to move forward with a repeat lumbar epidural steroid injection at L4 5. She denies any bowel or bladder dysfunction, saddle anesthesia, or any other red flag symptoms. Objective - Vital Signs Vital signs: Vital Signs Temp 98.2 F 08/08/21 09:34 Pulse 89 08/08/21 09:34 Resp 18 08/08/21 09:34 BP 131/77 08/08/21 09:34 Pulse Ox 98 08/08/21 09:34 - Exam Physical Examinations : -Constitutiona : Cooperative , not in acute distress . -HEENT : nech : supple , no Lymphadenopathy , normal th yroid size . : eyes : no ptosis , no icterus, no photophobia . - neurologic : Cranial nerve II to XII intact , no focal neurological deffecit . -psychatric : alert , oriented X 3 , appropriate affect , intact judgment and insight . -Lymphatic : no Lymphadenopathy . - musculoskeltal : Lumber spine moter stegnth lower extremities ,thigh and legs 5/5 Right side , 5/5 Left side deep tendon reflexes : normal Knee Jerk , normal ankle Jerk lumber facet Loading Test =positive Right , positive Left Range of motion of the lumbar spine Flexion 30 degrees, extension 10 degrees strait leg raising test = positive at 20 degree Assessment and Plan Assessment: Assessment and plan Assessment: 1-lumbar degenerative disc disease. 2-lumbar spondylosis with lumbar facet arthropathy Plan: She could benefit from a second lumbar epidural steroid injection at L4 5 , and if she continued to have severe pain and consider doing diagnostic medial branch block lumbar area and possible RFA - PQRS measures = - Patient's medications are documented in the chart. -Tobacco use is positive and counseling.Given. -Patient's has not received pneumococcal vaccine. -Advanced care planning discussed, patient not eligible. -Opiate contract signed. -Pain positive and follow-up visit/procedure is scheduled. -Patient's blood pressure measured [131/77 ] , and documented in the record ,and patient will follow up with the primary care. -Patient was not identified as an unhealthy alcohol user Time with Patient: Less than 30
== END ==
LOC: PNWHC3 08:57
PROVIDERS: ATTEND Student in an Organized Health Care Education/Training Program
DX: M51.36 Other intervertebral disc degeneration, lumbar region (principal); M47.816 Spondylosis without myelopathy or radiculopathy, lumbar region; F17.200 Nicotine dependence, unspecified, uncomplicated; Z88.5 Allergy status to narcotic agent
CPT/HCPCS: 99211

== ENCOUNTER → 2021-09-03 | Outpatient (CLI) | payer OTHER ==
--- NOTE | 2021-09-03 11:24 | CT ---
EXAMINATION TYPE: CT abdomen pelvis wo con DATE OF EXAM: 09/03/2021 COMPARISON: 07/15/2021 INDICATION: Right back/flank pain, h/o stones DLP: 275.3 mGycm, Automated exposure control for dose reduction was used. CONTRAST: 0 mL of Isovue 300. Study performed without Oral Contrast TECHNIQUE: Axial images were obtained from above the diaphragm to the pubic rami in the axial plane a t 5 mm thick sections. Reconstructed images are reviewed on the computer in the coronal plane. FINDINGS: Limited CT sections are obtained the lung bases. The lung bases are clear. CT ABDOMEN: Liver: Normal Spleen: Normal Pancreas: Normal Adrenal glands: The adrenal glands are normal. Gallbladder: Normal Kidneys: No masses are evident. No hydronephrosis is present. No cysts are present. There is a 0.3 cm calcification at the superior pole left kidney there are several punctate calcifications in the p osterior lateral mid left kidney. A 0.3 cm calcification is present at this level. There is a punctat e calcification at the inferior pole left kidney measuring 0.2 cm. Very faint calcification within th e right kidney is not excluded. Aorta: Normal Inferior vena cava: Normal. CT PELVIS: Loops of bowel within the abdomen and pelvis are normal. There are loops of bowel which are incom pletely distended or lack oral contrast limiting their evaluation. Appendix: Not visualized. No dilated tubular structure inflammatory changes evident. Urinary bladder: Normal. Genitourinary structures: Uterus and ovaries are not identified Osseous structures: No suspicious lytic or sclerotic lesions are evident. IMPRESSIONS: 1. Multiple small left renal stones without evidence of obstruction. Few faint calcifications may be within the right kidney.
== END | disposition home or self-care (01) ==
LOC: RADCTMAIN 09:20
PROVIDERS: ATTEND Family Medicine
DX: N20.0 Calculus of kidney (principal)
CPT/HCPCS: 74176

== ENCOUNTER 2021-09-25 08:19 | Day surgery (SDC) | payer OTHER ==
[2021-09-21 14:40] VITALS: BMI 26.4
[2021-09-25] MEDS ORDERED: LACTATED RINGERS 1,000 ML IV ONE (08:40)
[2021-09-25] MEDS ORDERED: IOPAMIDOL M200 10 ML VIAL ONE (08:44)
[2021-09-25] MEDS ORDERED: fentaNYL (PF) 50 MCG/ML 2 ML AMP ONE (08:44)
[2021-09-25] MEDS ORDERED: methylPREDNISolone ACETATE 40 MG/ML 1 ML VIAL ONE (08:44)
[2021-09-25] MEDS ORDERED: MIDAZOLAM 2 MG/2 ML VIAL ONE (08:44)
[2021-09-25 08:47] VITALS: TEMP 98.2
--- NOTE | 2021-09-25 08:56 | P.PCN ---
Date of Procedure: 09/25/21 Description of Procedure: Procedure: 1. L4-L5 Epidural steroid injection under fluoroscopic guidance #2, 2. Lumbar epidurogram PREOPERATIVE DIAGNOSIS: Lumbar degenerative disc disease, and Lumbar radiculopathy. POSTOPERATIVE DIAGNOSIS: Lumbar degenerative disc disease, and Lumbar rad iculopathy. SURGEON: Christoph Stevens ANESTHESIA: Local with 1% lidocaine, and IV sedation: Versed 2 mg, and fentanyl 100 g. EBL: None. Specimen removed: None Fluoroscopic image: saved to electronic medical records PROCEDURE INDICATION: The patient had history of Lumbar degenerative disc disease and Lumbar radiculopathy. Patient had more than 70% pain relief for more than a month duration with the previous epidural steroid injection. Failed to conservative therapy. Came here for repeat epidural steroid injection. PROCEDURE DESCRIPTION: The patient was seen and identified in the preoperative area. Risks, benefits, complications, and alternatives were discussed with the patient. The patient agreed to proceed with the procedure and signed the consent. IV was started, and vital signs were stable. Patient was taken to the procedure area, and time out was completed. The patient was placed in the prone position on procedure table and a pillow was placed under the abdomen to reduce lumbar lordosis. The lumbosacral area was prepped and draped in the usual sterile fashion. Critical pause was taken. Vital signs were closely monitored during the procedure. Using anterior-posterior fluoroscopy, the L4-L5 interlaminar space was identified, and skin and deeper tissues were localized with 1% lidocaine. Using anterior-posterior fluoroscopy, lateral fluoroscopy, and [id number] technique, a 20 gauge 3.5 Tuohy epidural needle entered the epidural space. After negative aspiration of CSF and blood with no paresthesias, 1 ml of [id number] contrast dye was injected and an excellent epidurogram was seen. Again after negative aspiration of CSF and blood with no paresthesias, 10 mL of block solution was injected into the epidural space. Block solution contained 80 mg of Depo-Medrol, and 9 mL of preservative-free normal saline. Needle was withdrawn intact, skin was cleansed, and bandages were applied. COMPLICATIONS: None. DISPOSITION / PLANS: The patient was placed in a supine position and transferred to the recovery area in a stable condition for observation. Patient was discharged from the recovery room after meeting discharge criteria. Home discharge instructions given to the patient by the staff. The patient was reexamined prior to discharge. The patient will schedule a follow up in the clinic in 4 weeks.
[2021-09-25] MEDS ORDERED: IV FLUID CONTINUATION 1,000 ML IV ONE (08:57)
[2021-09-25] MEDS ORDERED: LACTATED RINGERS 1,000 ML IV SCH (09:00)
--- NOTE | 2021-09-25 09:03 | FL ---
EXAMINATION TYPE: FL guided pain mgmt statistic DATE OF EXAM: 09/25/2021 CLINICAL HISTORY: Low back pain. TECHNIQUE: Fluoroscopy. COMPARISON: None. FINDINGS: Fluoroscopic guidance was provided during pain relief procedure performed by Dr. Stevens . A total of 2 seconds of fluoroscopic time was utilized during the procedure and two spot images are acquired. Images acquired shows needle localization at L4-L5 level. IMPRESSION: As Above.
[2021-09-25 09:19] VITALS: BP 115/78; PULSE 75; RESP 16
== END 2021-09-25 09:35 | disposition home or self-care (01) ==
LOC: ORPAIN 08:19
DX: M51.36 Other intervertebral disc degeneration, lumbar region (principal); M54.16 Radiculopathy, lumbar region
CPT/HCPCS: 62323; J2250; J1030; J3010; Q9966

== ENCOUNTER → 2021-11-14 | Outpatient (CLI) | payer OTHER ==
--- NOTE | 2021-11-14 10:10 | P.PN ---
Subjective Progress Note Date: 11/14/21 Principal diagnosis: A 41 yr old female with a history of severe and chronic low back pain secondary to lumbar degenerative disc diseases and lumbar spondylosis with facet arthropathy presents today for evaluation status post LESI of the L4-L5 #2. States she experienced 30% pain relief with the second procedure. Pain level is currently at 4-5 out of 10 in intensity, dull and achy in the lower lumbar spine "like a band" with shooting pain mostly to the buttocks and hips but also to the bilateral lower extremities. Pain is provoked by sitting for 30 minutes or standing for 20 minutes. Pain is alleviated with medication, Voltaren gel, injections, heat, physical therapy within 2020, Reactive treatments within 2020, home exercise management, massage and rest. Interventional pain procedures completed include LESI of the L4-L5 #2 and facet block injections in 2018 Patient denies any side effects of the medication(s), denies excessive drowsiness or sleepiness, denies suicidal ideation and reports that the current pain medication is helping to control the pain and improve activities of daily living. Patient denies any motor or sensory deficits. Patient denies any fever or night sweats, denies any change in the bowel movements or urination. Physical Examination: -Constitutional: Cooperative. Not in acute distress . -HEENT: Neck is supple. No lymphadenopathy. No thyromegaly. Normal thyroid size. Eyes: No ptosis , no icterus, no photophobia. ENT: No auditory deficits. Normal oropharynx. No Thrush. - Respiratory: Chest clear to auscultations bilaterally. No wheezing. No rhonchi. - Cardiovascular: Regular rate and rhythm. S1 / S2 , no S3 , no S4. - Gastrointestinal: Abdomen soft no tenderness. Bowel sounds positive in all four quadrants. No organomegaly. - Genitourinary: Deferred. - Neurologic: Cranial nerve II to XII intact. No focal neurological deficits. - Psychatric: Alert & oriented x 3. Matching mood & appropriate affect. Judgment and insight intact. - Lymphatic: No Lymphadenopathy. - Musculoskeletal: Cervical spine: Muscle bulk/ tone/ strength in the bilateral upper extremities normal. Facet loading test cervical area positive. Lumbar spine: Motor bulk/ tone/ strength lower extremities , thigh and legs : 5/5 Deep tendon reflexes : Normal Knee Jerk. Normal Ankle Jerk . Moderate vertebral body tenderness over L4 and L5 Lumbar Facet Loading Test positive over bilateral L4 to L5 and L5 to S1 with jump reflex Straight Leg Raise: positive at 30 degree right side/ left side Johnnie test: positive right side / left side Range of motion: Range of motion in flexion of the lumbar spine <60 degrees Range of motion: Extension of the lumbar spine <20 degrees Severe tenderness over the Sacroiliac joint: right side / left side Assessment and plan: Chronic low back pain secondary to lumbar degenerative disc disease , lumbar spondylosis with facet arthropathy without myelopathy Recommendation bilateral facet block of the medial branches L4 to L5 and L5 to S1 Risks, benefits of procedure discussed and patient verbalized understanding Denies aspirin to anticoagulants use All patient questions answered MAPS reviewed and it was appropriate. I have spent 31 minutes on patient care today. Dr Ivy was available by phone for the evaluation of this patient. The time was used to review the medical records including relevant urine studies and Prescription history (MAPs), review of the available imaging, evaluation and examination of the patient, coordination of care with the medical staff and if applicable referring physicians, as well as creation of the medical record Objective - Vital Signs Vital signs: Intake & Output 11/13/21 11/14/21 11/14/21 18:59 06:59 18:59 Weight 61.689 kg PQRS Measure Charge Sheet PQRS Narrative: Smoking Status Current every day smoker Pain Intensity [Lower Back] 10 Scale Used Numeric (1 - 10) Hx Alcohol Use (MH) Yes Home Medications: Ambulatory Orders Vortioxetine Hydrobromide [Trintellix] 20 mg PO DAILY 06/05/21 lisinopriL 10 mg PO DAILY 06/05/21 Topiramate [Topamax] 100 mg PO BID 06/29/21 Pregabalin [Lyrica] 150 mg PO TID 07/09/21 buPROPion HCL [Wellbutrin XL] 150 mg PO DAILY 07/15/21 busPIRone HCl [Buspar] 10 mg PO BID PRN 07/15/21 Ibuprofen 600 mg PO TID PRN 09/21/21
[2021-11-14 10:25] VITALS: BP 121/81; PULSE 79; RESP 18
== END ==
LOC: PNWHC3 09:30
PROVIDERS: ATTEND Physician Assistant Medical
DX: M51.36 Other intervertebral disc degeneration, lumbar region (principal); M47.816 Spondylosis without myelopathy or radiculopathy, lumbar region; G89.29 Other chronic pain; F17.200 Nicotine dependence, unspecified, uncomplicated; Z88.6 Allergy status to analgesic agent
CPT/HCPCS: 99211

== ENCOUNTER 2022-05-02 19:03 | Emergency (ER) | payer OTHER ==
[2022-05-02] MEDS ORDERED: KETOROLAC 15 MG/ML 1 ML VIAL IVP STA (19:54)
[2022-05-02] MEDS ORDERED: SODIUM CHLORIDE 0.9% 1,000 ML IV STA (19:54)
[2022-05-02] MEDS ORDERED: ONDANSETRON 4 MG/2 ML VIAL IVP STA (19:54)
[2022-05-02 20:19] LABS: Basophils # (A) 0.1 k/uL (0-0.2); Basophils % (A) 1 %; Eosinophils # (A) 0.1 k/uL (0-0.7); Eosinophils % (A) 2 %; HCT 38.6 % (34.0-46.0); HGB 11.8 gm/dL (11.4-16.0); Lymphocytes # (A) 3.5 k/uL (1.0-4.8); Lymphocytes % (A) 42 %; MCH 29.1 pg (25.0-35.0); MCHC 30.5 g/dL (31.0-37.0); MCV 95.2 fL (80.0-100.0); Mean Platelet Volume 7.7; Monocytes # (A) 0.4 k/uL (0-1.0); Monocytes % (A) 4 %; Neutrophils # (A) 4.1 k/uL (1.3-7.7); Neutrophils % (A) 50 %; Platelet Count 293 k/uL (150-450); RBC 4.06 m/uL (3.80-5.40); WBC 8.3 k/uL (3.8-10.6)
[2022-05-02 20:25] LABS: Appearance,Urine Cloudy (Clear); Bacteria,Urine Rare /hpf; Bilirubin,Urine Negative (Negative); Blood,Urine Small (Negative); Color,Urine Light Yellow; Glucose,Urine (UA) Negative (Negative); Ketones,Urine Negative (Negative); Leukocyte Esterase,Urine Large (Negative); Mucus,Urine Rare /hpf; Nitrite,Urine Negative (Negative); PH, Urine 6.5 (5.0-8.0); Protein,Urine Negative (Negative); RBC,Urine 4 /hpf (0-5); Specific Gravity,Urine 1.013 (1.001-1.035); Squamous Epithelial Cell,Urine 6 /hpf (0-4); Urobilinogen,Urine <2.0 mg/dL (<2.0); WBC,Urine 9 /hpf (0-5)
[2022-05-02 20:29] LABS: ALT 34 U/L (4-34); AST 37 U/L (14-36); African American GFR (CKD) >90 (>60 ml/min/1.73 sqM); Albumin 4.3 g/dL (3.5-5.0); Alkaline Phosphatase 68 U/L (38-126); Amylase 61 U/L (30-110); Anion Gap 7 mmol/L; Blood Urea Nitrogen 20 mg/dL (7-17); Calcium 9.3 mg/dL (8.4-10.2); Carbon Dioxide 22 mmol/L (22-30); Chloride 111 mmol/L (98-107); Glucose 105 mg/dL (74-99); Lipase 301 U/L (23-300); Non-African American GFR(CKD) >90 (>60 ml/min/1.73 sqM); Sodium 140 mmol/L (137-145); Total Bilirubin 0.2 mg/dL (0.2-1.3); Total Protein 6.7 g/dL (6.3-8.2)
--- NOTE | 2022-05-02 21:05 | ED ---
Back Pain HPI - General Chief Complaint: Back Pain/Injury Stated Complaint: kidney stones Time Seen by Provider: 05/02/22 19:42 Source: patient, RN notes reviewed Limitations: no limitations - History of Present Illness Initial Comments: This is a 42-year-old female who presents to the emergency department for mid back pain, lower abdominal pain, nausea, vomiting, and chest pain. For the last 2 months, she has had mid back pain and associated lower abdominal pain. 2 weeks ago she began to develop nausea and vomiting. She has a history of kidney stones that have often required treatment with lithotripsy. Denies any burning with urination, however she has had urgency and increased frequency. Her primary care provider referred her to urology at [facility] and she is currently awaiting an appointment. Additionally, she reports chest pain that she describes as a pressure in the center of her chest. The pain increases when she inhales. Also states that she has had some numbness and tingling going down the left arm. Today, she has had trouble catching her breath. Denies any fevers, chills, sore throat, cough, palpitations, diarrhea, or headaches. MD Complaint: back pain Onset/Timin -: month(s) Similar Symptoms Previously: Yes Associated Symptoms: chest pain, abdominal pain, nausea/vomiting, shortness of b reath - Related Data Home Medications Medication Instructions Recorded Confirmed Vortioxetine Hydrobromide 20 mg PO DAILY 06/05/21 11/14/21 [Trintellix] lisinopriL [Prinivil] 10 mg PO DAILY 06/05/21 11/14/21 Topiramate [Topamax] 100 mg PO BID 06/29/21 11/14/21 Pregabalin [Lyrica] 150 mg PO TID 07/09/21 11/14/21 buPROPion HCL [Wellbutrin XL] 150 mg PO DAILY 07/15/21 11/14/21 busPIRone HCl [Buspar] 10 mg PO BID PRN 07/15/21 11/14/21 Ibuprofen 600 mg PO TID PRN 09/21/21 11/14/21 Previous Rx's Medication Instructions Recorded Ondansetron Odt [Zofran Odt] 4 mg PO Q8HR PRN #20 tab 05/02/22 Sulfamethox-Tmp 800-160Mg [Bactrim 1 tab PO Q12HR 10 Days #20 tab 05/02/22 DS 800-160 mg] Allergies Allergy/AdvReac Type Severity Reaction Status Date / Time tramadol AdvReac SEIZURE Verified 05/02/22 19:30 Review of Systems ROS Statement: Those systems with pertinent positive or pertinent negative responses have been documented in the HPI. ROS Other: All systems not noted in ROS Statement are negative. Past Medical History Past Medical History: Hypertension Additional Past Medical History / Comment(s): Migraines, hx kidney stones, chronic back pain. History of Any Multi-Drug Resistant Organisms: None Reported Past Surgical History: Appendectomy, Section, Hysterectomy, Orthopedic Surgery Additional Past Surgical History / Comment(s): Carpal tunnel, stent for kidney stones /later removed, 07/03/21-lithotripsy/right ureteral stent placed/removed, pain clinic procedures, Angiogram. Past Anesthesia/Blood Transfusion Reactions: No Reported Reaction Past Psychological History: Anxiety Smoking Status: Current some day smoker Past Alcohol Use History: None Reported Past Drug Use History: None Reported - Past Family History Mother Family Medical History: No Reported History General Exam Limitations: no limitations General appearance: alert, in no apparent distress Head exam: Present: atraumatic, normocephalic, normal inspection Respiratory exam: Present: normal lung sounds bilaterally. Absent: respiratory distress, wheezes, rales, rhonchi, stridor Cardiovascular Exam: Present: regular rate, normal rhythm, normal heart sounds. Absent: systolic murmur, diastolic murmur, rubs, gallop, clicks Back exam: Present: CVA tenderness (R), CVA tenderness (L) Neurological exam: Present: alert, oriented X3, CN II-XII intact Psychiatric exam: Present: normal affect, normal mood Skin exam: Present: warm, dry, intact, normal color. Absent: rash Course Vital Signs 05/02/22 05/02/22 19:28 22:14 Temperature 98.7 F 98 F Pulse Rate 89 78 Respiratory 16 18 Rate Blood Pressure 164/106 164/113 O2 Sat by Pulse 99 95 Oximetry Medical Decision Making - Medical Decision Making This is a 42-year-old female presents emergency department for back pain and chest pain. Lab work was nonactionable. Urinalysis consistent with infection. Given the associated back pain, she has likely developed a pyelonephritis. Computed tomography scan of the abdomen and pelvis did not reveal any signs of a kidney stone. Cardiac workup was negative and there is no sign of ACS at this time. Patient's symptoms were managed in the emergency department. Prescription for Bactrim and Zofran sent to the pharmacy for UTI and nausea/vomiting. Return precautions reviewed in depth, the patient is instructed to return to the emergency department with any new, worsening, or concerning symptoms. Patient verbalized understanding. This case was discussed in detail with the attending ED physician. Presentation, findings, and treatment plan discussed in detail as well. - Lab Data Result diagrams: 05/02/22 20:05 05/02/22 20:05 Lab Results 05/02/22 05/02/22 05/02/22 Range/Units 20:05 20:05 20:05 WBC 8.3 (3.8-10.6) k/uL RBC 4.06 (3.80-5.40) m/uL Hgb 11.8 (11.4-16.0) gm/dL Hct 38.6 (34.0-46.0) % MCV 95.2 (80.0-100.0) fL MCH 29.1 (25.0-35.0) pg MCHC 30.5 L (31.0-37.0) g/dL RDW 14.0 (11.5-15.5) % Plt Count 293 (150-450) k/uL MPV 7.7 Neutrophils % 50 % Lymphocytes % 42 % Monocytes % 4 % Eosinophils % 2 % Basophils % 1 % Neutrophils # 4.1 (1.3-7.7) k/uL Lymphocytes # 3.5 (1.0-4.8) k/uL Monocytes # 0.4 (0-1.0) k/uL Eosinophils # 0.1 (0-0.7) k/uL Basophils # 0.1 (0-0.2) k/uL D-Dimer 0.38 (<0.60) mg/L FEU Sodium (137-145) mmol/L Potassium (3.5-5.1) mmol/L Chloride (98-107) mmol/L Carbon Dioxide (22-30) mmol/L Anion Gap mmol/L BUN (7-17) mg/dL Creatinine (0.52-1.04) mg/dL Est GFR (CKD-EPI)AfAm (>60 ml/min/1.73 sqM) Est GFR (CKD-EPI)NonAf (>60 ml/min/1.73 sqM) Glucose (74-99) mg/dL Calcium (8.4-10.2) mg/dL Total Bilirubin (0.2-1.3) mg/dL AST (14-36) U/L ALT (4-34) U/L Alkaline Phosphatase (38-126) U/L Troponin I (0.000-0.034) ng/mL Total Protein (6.3-8.2) g/dL Albumin (3.5-5.0) g/dL Amylase (30-110) U/L Lipase (23-300) U/L Urine Color Light Yellow Urine Appearance Cloudy H (Clear) Urine pH 6.5 (5.0-8.0) Ur Specific [place] 1.013 (1.001-1.035) Urine Protein Negative (Negative) Urine Glucose (UA) Negative (Negative) Urine Ketones Negative (Negative) Urine Blood Small H (Negative) Urine Nitrite Negative (Negative) Urine Bilirubin Negative (Negative) Urine Urobilinogen <2.0 (<2.0) mg/dL Ur Leukocyte Esterase Large H (Negative) Urine RBC 4 (0-5) /hpf Urine WBC 9 H (0-5) /hpf Ur Squamous Epith Cells 6 H (0-4) /hpf Urine Bacteria Rare H (None) /hpf Urine Mucus Rare H (None) /hpf 05/02/22 05/02/22 Range/Units 20:05 20:05 WBC (3.8-10.6) k/uL RBC (3.80-5.40) m/uL Hgb (11.4-16.0) gm/dL Hct (34.0-46.0) % MCV (80.0-100.0) fL MCH (25.0-35.0) pg MCHC (31.0-37.0) g/dL RDW (11.5-15.5) % Plt Count (150-450) k/uL MPV Neutrophils % % Lymphocytes % % Monocytes % % Eosinophils % % Basophils % % Neutrophils # (1.3-7.7) k/uL Lymphocytes # (1.0-4.8) k/uL Monocytes # (0-1.0) k/uL Eosinophils # (0-0.7) k/uL Basophils # (0-0.2) k/uL D-Dimer (<0.60) mg/L FEU Sodium 140 (137-145) mmol/L Potassium 4.0 (3.5-5.1) mmol/L Chloride 111 H (98-107) mmol/L Carbon Dioxide 22 (22-30) mmol/L Anion Gap 7 mmol/L BUN 20 H (7-17) mg/dL Creatinine 0.77 (0.52-1.04) mg/dL Est GFR (CKD-EPI)AfAm >90 (>60 ml/min/1.73 sqM) Est GFR (CKD-EPI)NonAf >90 (>60 ml/min/1.73 sqM) Glucose 105 H (74-99) mg/dL Calcium 9.3 (8.4-10.2) mg/dL Total Bilirubin 0.2 (0.2-1.3) mg/dL AST 37 H (14-36) U/L ALT 34 (4-34) U/L Alkaline Phosphatase 68 (38-126) U/L Troponin I <0.012 (0.000-0.034) ng/mL Total Protein 6.7 (6.3-8.2) g/dL Albumin 4.3 (3.5-5.0) g/dL Amylase 61 (30-110) U/L Lipase 301 H (23-300) U/L Urine Color Urine Appearance (Clear) Urine pH (5.0-8.0) Ur Specific [place] (1.001-1.035) Urine Protein (Negative) Urine Glucose (UA) (Negative) Urine Ketones (Negative) Urine Blood (Negative) Urine Nitrite (Negative) Urine Bilirubin (Negative) Urine Urobilinogen (<2.0) mg/dL Ur Leukocyte Esterase (Negative) Urine RBC (0-5) /hpf Urine WBC (0-5) /hpf Ur Squamous Epith Cells (0-4) /hpf Urine Bacteria (None) /hpf Urine Mucus (None) /hpf - EKG Data EKG Comments: Sinus rhythm. Ventricular rate 76 bpm, NJ interval 133 ms, QRS duration 90 ms, QTC 408 ms. - Radiology Data Radiology results: report reviewed, image reviewed Disposition Clinical Impression: Pyelonephritis, Neck muscle strain, Atypical chest pain Disposition: HOME SELF-CARE Instructions (If sedation given, give patient instructions): Cervical Strain (ED), Muscle Strain (ED), Urinary Tract Infection in Women (ED), Kidney Infection (ED), Noncardiac Chest Pain (ED) Additional Instructions: Return to the emergency department with any new, worsening, or concerning symptoms. Take the antibiotic as prescribed for 10 days. Take the Zofran up to every 8 hours as needed for nausea and vomiting. Apply heat to the back of the neck and shoulder area for the muscle tightness. Also make sure to follow up with your chiropractor. Alternate with Tylenol and ibuprofen as needed for pain relief. Prescriptions: Sulfamethox-Tmp 800-160Mg [Bactrim DS 800-160 mg] 1 tab PO Q12HR 10 Days #20 tab Ondansetron Odt [Zofran Odt] 4 mg PO Q8HR PRN #20 tab PRN Reason: Nausea And Vomiting Is patient prescribed a controlled substance at d/c from ED?: No Referrals: Luis Enrique Arnold MD [Primary Care Provider] - 1-2 days
--- NOTE | 2022-05-02 21:32 | XR ---
EXAMINATION: XR chest 2V DATE AND TIME: 05/02/2022 8:27 PM CLINICAL INDICATION: chest pain TECHNIQUE: Departmental protocol COMPARISON: None FINDINGS: The lungs are clear. The pleural spaces are negative. The cardiac silhouette is not enlarged. The remainder of the mediastinal silhouette is unremarkable. The skeletal structures and soft tissues are negative for acute findings. IMPRESSION: NO ACUTE PROCESS.
--- NOTE | 2022-05-02 21:44 | CT ---
EXAMINATION TYPE: CT abdomen pelvis wo con DATE OF EXAM: 05/02/2022 HISTORY: Bilateral flank pain with microhematuria. History of renal stones CT DLP: 542.3 mGycm. Automated Exposure Control for Dose Reduction was Utilized. TECHNIQUE: CT scan of the abdomen and pelvis is performed without oral or IV contrast. COMPARISON: 09/03/2021 FINDINGS: Within the limitations of a non-contrast study, the following observations are made. LUNG BASES: No significant abnormality is appreciated. LIVER/GB: No significant abnormality is appreciated. PANCREAS: No significant abnormality is seen. SPLEEN: No significant abnormality is seen. ADRENALS: No significant abnormality is seen. KIDNEYS: No hydronephrosis or hydroureter. There are a few bilateral 1 mm and 2 mm nonobstructing yvonne ateral renal calcifications. BOWEL: No significant abnormality is seen. Colonic stool volume is mildly prominent. GENITAL ORGANS: No gross abnormality seen. LYMPH NODES: No greater than 1cm abdominal or pelvic lymph nodes are appreciated. OSSEOUS STRUCTURES: No significant abnormality is seen. OTHER: No significant additional abnormality is seen. IMPRESSION: NO ACUTE PROCESS. Colonic stool volume mildly prominent.
[2022-05-02] MEDS ORDERED: cefTRIAXone IN SWFI 1,000 MG/10 ML SYRINGE IVP STA (22:05)
[2022-05-02] MEDS ORDERED: HYDROmorphone 0.5 MG/0.5 ML SYRINGE IVP STA (22:06)
[2022-05-02 22:18] VITALS: BP 164/113; PULSE 78; RESP 18; TEMP 98
[2022-05-02] MEDS ORDERED: IBUPROFEN 600 MG STARTER PACK 4 TAB BTL PO STA (22:19)
[2022-05-02] MEDS ORDERED: ACET/COD 300 MG/30 MG STARTER PACK 6 TAB BTL PO STA (22:19)
[2022-05-02] MEDS ORDERED: ONDANSETRON 4 MG ODT STARTER PACK 2 TAB BTL PO STA (22:19)
== END 2022-05-02 22:32 | disposition home or self-care (01) ==
LOC: EC 19:03
DX: S16.1XXA Strain of muscle, fascia and tendon at neck level, initial encounter (principal); N12 Tubulo-interstitial nephritis, not specified as acute or chronic; R07.89 Other chest pain; F17.200 Nicotine dependence, unspecified, uncomplicated; I10 Essential (primary) hypertension; Z88.6 Allergy status to analgesic agent; Z79.899 Other long term (current) drug therapy; X58.XXXA Exposure to other specified factors, initial encounter
CPT/HCPCS: 36415; 93005; 85379; 80053; 82150; 83690; 84484; 85025; 81001; 71046; 74176; 99285; 96374; 96375; J2405; J0696; J1885; S0119; J1170

== ENCOUNTER → 2022-07-09 | Outpatient (CLI) | payer OTHER ==
[2022-07-09 16:13] LABS: Basophils # (A) 0.04 X 10*3/uL (0.00-0.10); Basophils % (A) 0.6 %; Eosinophils # (A) 0.02 X 10*3/uL (0.04-0.35); Eosinophils % (A) 0.3 %; HCT 39.5 % (37.2-46.3); HGB 13.3 g/dL (12.0-15.0); Immature Grans, Automated 0.3 %; Lymphocytes # (A) 1.12 X 10*3/uL (0.90-5.00); Lymphocytes % (A) 16.5 %; MCH 31.5 pg (27.0-32.0); MCHC 33.7 g/dL (32.0-37.0); MCV 93.6 fL (80.0-97.0); Mean Platelet Volume 11.4 fL (9.5-12.2); Monocytes # (A) 0.35 X 10*3/uL (0.20-1.00); Monocytes % (A) 5.2 %; NRBC Per 100 WBC 0 /100 WBCS (0.0-0.0); Neutrophils # (A) 5.22 X 10*3/uL (1.80-7.70); Neutrophils % (A) 77.1 %; Platelet Count 311 X 10*3/uL (140-440); RBC 4.22 X 10*6/uL (4.10-5.20); RDW 12.6 % (11.5-14.5); WBC 6.77 X 10*3/uL (4.50-10.00)
[2022-07-09 16:36] LABS: Anion Gap 12.4 mmol/L (10.00-18.00); BUN/Creat Ratio 25.37 Ratio (12.00-20.00); Blood Urea Nitrogen 18.8 mg/dL (9.0-27.0); Calcium 9.6 mg/dL (8.7-10.3); Carbon Dioxide 25.5 mmol/L (20.0-27.5); Non-African American GFR(CKD) 98.4 (60.0-200.0); Potassium 4.2 mmol/L (3.5-5.5)
== END | disposition home or self-care (01) ==
LOC: LABPAT 10:10
PROVIDERS: ATTEND Urology
DX: Z01.812 Encounter for preprocedural laboratory examination (principal); N20.0 Calculus of kidney
CPT/HCPCS: 80048; 81025; 85025

== ENCOUNTER 2022-07-11 08:17 | Day surgery (SDC) | payer OTHER ==
[2022-07-09 08:27] VITALS: BMI 28.3
--- NOTE | 2022-07-10 07:06 | P.GSHP ---
History of Present Illness H&P Date: 07/10/22 Chief Complaint: Flank pain The patient is a 42-year-old white female with a history of urolithiasis. She underwent ureteroscopic removal of a left proximal ureteral calculus and four left renal calculi in April 2021. A CT scan at that time showed several small right renal calculi measuring up to 3 mm in size. She then underwent right ureteroscopy with Holmium laser lithotripsy to treat right renal calculi in June 2021. She has recently experienced lower back pain, gross hematuria, urinary frequency and urgency. Her back pain is predominantly left-sided, but she also reports suprapubic pain. A CT scan in May showed no right renal calculi. 4 non-obstructing left renal calculi were seen measuring up to 4 mm in size. - Gastrointestinal Gastrointestinal: Reports nausea, Reports vomiting - Genitourinary (Female) Genitourinary: Reports as per HPI Past Medical History Past Medical History: GERD/Reflux, Hypertension Additional Past Medical History / Comment(s): Migraines, hx kidney stones, chronic back pain. History of Any Multi-Drug Resistant Organisms: None Reported Past Surgical History: Appendectomy, Section, Hysterectomy, Orthopedic Surgery Additional Past Surgical History / Comment(s): Carpal tunnel, stent for kidney stones /later removed, 07/03/21-lithotripsy/right ureteral stent placed/removed, pain clinic procedures, Angiogram. Past Anesthesia/Blood Transfusion Reactions: No Reported Reaction Smoking Status: Current every day smoker - Past Family History Father Family Medical History: CVA/TIA, Hypertension Mother Family Medical History: No Reported History Medications and Allergies Home Medications Medication Instructions Recorded Confirmed Type Vortioxetine Hydrobromide 20 mg PO DAILY 06/05/21 07/09/22 History [Trintellix] lisinopriL [Prinivil] 10 mg PO DAILY 06/05/21 07/09/22 History Pregabalin [Lyrica] 150 mg PO TID 07/09/21 07/09/22 History buPROPion HCL [Wellbutrin XL] 150 mg PO DAILY 07/15/21 07/09/22 History Naproxen Sodium [Aleve] 220 mg PO DAILY PRN 07/09/22 07/09/22 History Omeprazole 40 mg PO DAILY 07/09/22 07/09/22 History Allergies Allergy/AdvReac Type Severity Reaction Status Date / Time tramadol AdvReac SEIZURE Verified 07/09/22 08:12 Surgical - Exam - General well developed, well nourished, no distress - Respiratory normal respiratory effort - Abdomen Abdomen: soft, non tender, no guarding, no rigid, no rebound - Psychiatric oriented to time, oriented to person, oriented to place, speech is normal, memory intact Results - Imaging CT scan - abdomen: report reviewed, image reviewed Assessment and Plan (1) Calculus of kidney Status: Acute Code(s): N20.0 - CALCULUS OF KIDNEY SNOMED Code(s): 87448426 Plan: Cystoscopy, left ureteroscopy with Holmium laser lithotripsy and stone basketing, left ureteral stent insertion. The patient is aware of potential risks, which include anesthesia, bleeding, infection, and ureteral injury. She is also aware that her symptoms may persist despite successful removal of her left renal calculi.
[~2022-07-11 08:17] MED LIST changes: +MIDAZOLAM 2 MG/2 ML VIAL IV PRN; -SCOPOLAMINE 1.5MG/72HR PATCH TRANSDERM ONE
--- NOTE | 2022-07-11 08:43 | XR ---
EXAMINATION TYPE: XR KUB DATE OF EXAM: 07/11/2022 8:35 AM CLINICAL HISTORY: Kidney stone. TECHNIQUE: Single supine KUB image of the abdomen is obtained. COMPARISON: CT abdomen and pelvis May 30, 2022. FINDINGS: Scattered small left-sided renal calculi on CT less well seen on ultrasound, there are 2 sm all calculi up to 4 mm in size that can be seen below left 12th rib. No right-sided nephrolithiasis. Overall nonobstructive bowel gas pattern. Visualized osseous structures are intact. IMPRESSION: As above.
[2022-07-11] MEDS ORDERED: ROCURONIUM 10 MG/ML (5 ML VIAL) IV ONE (12:20)
[2022-07-11] MEDS ORDERED: NEOSTIGMINE 1 MG/ML 10 ML VIAL ONE (12:20)
[2022-07-11] MEDS ORDERED: LIDOCAINE 2% INJ 20 MG/ML (2 ML VIAL) ONE (12:20)
[2022-07-11] MEDS ORDERED: MIDAZOLAM 2 MG/2 ML VIAL ONE (12:20)
[2022-07-11] MEDS ORDERED: PROPOFOL 10 MG/ML 20 ML VIAL IV ONE (12:20)
[2022-07-11] MEDS ORDERED: fentaNYL (PF) 50 MCG/ML 2 ML AMP ONE (12:20)
[2022-07-11] MEDS ORDERED: GLYCOPYRROLATE 0.2 MG/ML 2 ML VIAL ONE (12:20)
[2022-07-11] MEDS ORDERED: SUCCINYLCHOLINE CHLORIDE 200 MG/10 ML VIAL IV ONE (12:20)
[2022-07-11] MEDS ORDERED: LACTATED RINGERS 1,000 ML IV ONE ×2 (13:21)
--- NOTE | 2022-07-11 13:21 | P.OP ---
Date of Procedure: 07/11/22 Preoperative Diagnosis: Left renal calculi Postoperative Diagnosis: Same Procedure(s) Performed: Cystoscopy, left ureteroscopy with stone basketing, left ureteral stent insertion Anesthesia: KEVIN Surgeon: Nayan Lomeli Estimated Blood Loss (ml): 5 IV fluids (ml): 700 Pathology: other (Calculus fragments, sent for chemical analysis) Condition: stable Disposition: PACU Indications for Procedure: The patient is a 42-year-old white female with a history of urolithiasis. She underwent ureteroscopic removal of a left proximal ureteral calculus and four left renal calculi in April 2021. A CT scan at that time showed several small right renal calculi measuring up to 3 mm in size. She then underwent right ureteroscopy with Holmium laser lithotripsy to treat right renal calculi in June 2021. She has recently experienced lower back pain, gross hematuria, urinary frequency and urgency. Her back pain is predominantly left-sided, but she also reports suprapubic pain. A CT scan in May showed no right renal calculi. 4 non-obstructing left renal calculi were seen measuring up to 4 mm in size. Operative Findings: Several small left renal calculi removed via stone basketing. Patchy erythema is seen within the bladder. Description of Procedure: The patient was taken to the operating room and placed in the dorsolithotomy position, with legs supported in Marco stirrups. The external genitalia was prepped and draped sterilely. The 30 lens was used to introduce the 21-Somali Nelson cystoscopic sheath through the urethra and into the bladder under direct vision. The bladder was examined in its entirety. Both ureteral orifices were normal anatomic location and configuration, and clear urine effluxed from both. No tumors or foreign bodies were seen. However, the bladder showed evidence of patchy erythema that actually resembled achymosis. A 0.038 inch Glidewire was passed through the cystoscope. The ureteral orifice was cannulated, and the Glidewire was advanced up to the renal pelvis. The cystoscope was removed, and an 11/13-Somali ureteral access catheter was passed over the wire, up to the proximal ureter. The flexible ureteroscope was then passed through the ureteral access catheter sheath, up to the stone. Each calyx was examined. Several calculi were removed via stone basketing using a 1.9-Somali nitinol basket, the largest measuring approximately 4 mm. The only residual calculi (2) were so tiny that they could not be successfully removed via stone basketing. After successfully removing the left renal calculi, the Glidewire was passed through the ureteral access catheter sheath, which was removed. The Glidewire was backloaded into the cystoscope, which was passed into the bladder. A 24 cm, 4.8-Somali double-J ureteral stent was placed over the wire. Proper stent positioning was verified fluoroscopically and endoscopically. The bladder was emptied and the cystoscope removed. The patient tolerated the procedure well and was taken to the recovery room in stable condition. [facility] [place] Report: Procedure Acuity: Semi-Urgent Stone Size and Location: Several left renal calculi measuring up to 4 mm in size Ureteral Dilation: No Ureteral Access Sheath Used: Yes Stone Sent for Analysis: Yes All Stones/Fragments Were Removed with a Basket: Yes Complications: No Preoperative Antibiotics Given: Yes Stent Placed: Yes If Stent Placed, Was String Left Attached: No If Stent Placed, When is it to be Removed: 1 week Discharge Medications: Ibuprofen, ciprofloxacin, tamsulosin, tolterodine
--- NOTE | 2022-07-11 13:27 | FL ---
EXAMINATION TYPE: FL guidance operating room DATE OF EXAM: 07/11/2022 CLINICAL HISTORY: Left-sided kidney stone. TECHNIQUE: Fluoroscopy. COMPARISON: None. FINDINGS: Fluoroscopic guidance was provided during left kidney stone treatment procedure performed by Dr. Lomeli. A total of 23 seconds of fluoroscopic time was utilized during the procedure and 3 sp ot images was acquired. Intraoperative images acquired show placement of guidewire and through for st one treatment and stent insertion procedure. IMPRESSION: As Above.
[2022-07-11 13:42] VITALS: TEMP 96.8
[2022-07-11] MEDS ORDERED: HYDROcodone/APAP 7.5-325MG 1 EACH TAB ONE (14:42)
[2022-07-11] MEDS ORDERED: HYDROcodone/APAP 7.5-325MG 1 EACH TAB PO ONE (14:44)
[2022-07-11 15:02] VITALS: BP 142/72; PULSE 86; RESP 20
== END 2022-07-11 15:17 | disposition home or self-care (01) ==
LOC: OR 08:17
PROVIDERS: ATTEND Urology
DX: N20.0 Calculus of kidney (principal); K21.9 Gastro-esophageal reflux disease without esophagitis; I10 Essential (primary) hypertension; G43.909 Migraine, unspecified, not intractable, without status migrainosus; M54.9 Dorsalgia, unspecified; G89.29 Other chronic pain; F17.210 Nicotine dependence, cigarettes, uncomplicated; F41.9 Anxiety disorder, unspecified; F32.A Depression, unspecified; Z90.49 Acquired absence of other specified parts of digestive tract; Z98.891 History of uterine scar from previous surgery; Z90.710 Acquired absence of both cervix and uterus; Z98.890 Other specified postprocedural states; Z82.3 Family history of stroke; Z82.49 Family history of ischemic heart disease and other diseases of the circulatory system; Z79.1 Long term (current) use of non-steroidal anti-inflammatories (NSAID); Z79.899 Other long term (current) drug therapy; Z88.5 Allergy status to narcotic agent
CPT/HCPCS: 52356; 82365; 74018; C2625; C1769; J2250; J0330; J1100; J2710; J0690; J2405; J3010; J2704; J1170; J2001

== ENCOUNTER 2022-07-20 12:34 | Observation (INO) | payer OTHER ==
[2022-07-20] MEDS ORDERED: SODIUM CHLORIDE 0.9% 1,000 ML IV STA ×2 (13:01)
--- NOTE | 2022-07-20 13:06 | ED ---
Neuro HPI - General Chief Complaint: Neuro Symptoms/Deficit Stated Complaint: poss stroke Time Seen by Provider: 07/20/22 12:45 Source: patient, family, RN notes reviewed Mode of arrival: wheelchair Limitations: no limitations - History of Present Illness Is the patient presenting with stroke symptoms?: No Last Known Well Date: 07/19/22 Last Known Well Time: 16:00 Initial Comments: 42-year-old female history of hypertension a history of a seizure many years ago states supposedly secondary to medication reaction who had the onset yesterday around 5 PM of some left-sided facial numbness as well as left arm numbness. Per her she seemed to be low but often starts her cognition. This morning he continued apparently. Patient's state he came over long she was talking to her want to bring her to the hospital she then had a full body tonic-clonic seizure lasting about a minute with one or 2 minutes of postictal unconsciousness. Patient's currently awake and alert she is only to the day of the week. No focal deficits per her her cognition is still not normal. No recent fevers chills nausea vomiting sweats she did have a ureteral stent removed 1 week ago after having lithotripsy prior. Other complaints or modifying factors this time no pain anywhere at this time other than her back - Related Data Home Medications: Home Medications Medication Instructions Recorded Confirmed Vortioxetine Hydrobromide 20 mg PO DAILY 06/05/21 07/11/22 [Trintellix] lisinopriL [Prinivil] 10 mg PO DAILY 06/05/21 07/11/22 Pregabalin [Lyrica] 150 mg PO TID 07/09/21 07/11/22 buPROPion HCL [Wellbutrin XL] 150 mg PO DAILY 07/15/21 07/11/22 Naproxen Sodium [Aleve] 220 mg PO DAILY PRN 07/09/22 07/11/22 Omeprazole 40 mg PO DAILY 07/09/22 07/11/22 Previous Rx's Medication Instructions Recorded Ciprofloxacin HCl [Cipro] 250 mg PO Q12HR #14 tablet 07/11/22 Ibuprofen 600 mg PO Q8H #30 tab 07/11/22 Tamsulosin [Flomax] 0.4 mg PO DAILY #14 cap 07/11/22 Tolterodine ER [Detrol LA] 4 mg PO DAILY #14 cap 07/11/22 Allergies/Adverse Reactions: Allergies Allergy/AdvReac Type Severity Reaction Status Date / Time tramadol AdvReac SEIZURE Verified 07/20/22 12:39 Review of Systems ROS Statement: Those systems with pertinent positive or pertinent negative responses have been documented in the HPI. ROS Other: All systems not noted in ROS Statement are negative. General Exam - General Exam Comments Initial Comments: This is a well-developed well-nourished awake alert oriented female Limitations: no limitations General appearance: alert, in no apparent distress Head exam: Present: atraumatic, normocephalic, normal inspection Eye exam: Present: normal appearance, PERRL, EOMI. Absent: scleral icterus, conjunctival injection, periorbital swelling ENT exam: Present: mucous membranes dry Neck exam: Present: normal inspection, full ROM, other. Absent: tenderness, meningismus, lymphadenopathy Respiratory exam: Present: normal lung sounds bilaterally. Absent: respiratory distress, wheezes, rales, rhonchi, stridor Cardiovascular Exam: Present: normal rhythm, tachycardia (No stridor JVD or bruits), normal heart sounds. Absent: regular rate, systolic murmur, diastolic murmur, rubs, gallop, clicks GI/Abdominal exam: Present: soft, normal bowel sounds. Absent: distended, tenderness, guarding, rebound, rigid Extremities exam: Present: normal inspection, full ROM, normal capillary refill. Absent: tenderness, pedal edema, joint swelling, calf tenderness Back exam: Present: normal inspection Neurological exam: Present: alert, oriented X3, CN II-XII intact Psychiatric exam: Present: normal affect, anxious Skin exam: Present: warm, dry, intact, normal color. Absent: rash Stroke MDM - Lab Data Result diagrams: 07/20/22 13:04 07/20/22 13:04 Lab Results 07/20/22 07/20/22 07/20/22 Range/Units 13:04 13:04 13:04 WBC 8.5 (3.8-10.6) k/uL RBC 4.19 (3.80-5.40) m/uL Hgb 13.4 (11.4-16.0) gm/dL Hct 39.5 (34.0-46.0) % MCV 94.3 (80.0-100.0) fL MCH 31.9 (25.0-35.0) pg MCHC 33.8 (31.0-37.0) g/dL RDW 12.7 (11.5-15.5) % Plt Count 327 (150-450) k/uL MPV 8.0 Neutrophils % 71 % Lymphocytes % 20 % Monocytes % 4 % Eosinophils % 2 % Basophils % 0 % Neutrophils # 6.1 (1.3-7.7) k/uL Lymphocytes # 1.7 (1.0-4.8) k/uL Monocytes # 0.3 (0-1.0) k/uL Eosinophils # 0.1 (0-0.7) k/uL Basophils # 0.0 (0-0.2) k/uL D-Dimer 0.55 (<0.60) mg/L FEU Sodium 141 (137-145) mmol/L Potassium 4.0 (3.5-5.1) mmol/L Chloride 100 (98-107) mmol/L Carbon Dioxide 27 (22-30) mmol/L Anion Gap 14 mmol/L BUN 12 (7-17) mg/dL Creatinine 0.66 (0.52-1.04) mg/dL Est GFR (CKD-EPI)AfAm >90 (>60 ml/min/1.73 sqM) Est GFR (CKD-EPI)NonAf >90 (>60 ml/min/1.73 sqM) Glucose 124 H (74-99) mg/dL Calcium 9.3 (8.4-10.2) mg/dL Magnesium 1.9 (1.6-2.3) mg/dL Total Bilirubin 0.4 (0.2-1.3) mg/dL AST 34 (14-36) U/L ALT 37 H (4-34) U/L Alkaline Phosphatase 85 (38-126) U/L Creatine Kinase 177 H (30-135) U/L Troponin I (0.000-0.034) ng/mL Total Protein 7.1 (6.3-8.2) g/dL Albumin 4.4 (3.5-5.0) g/dL TSH 0.199 L (0.465-4.680) mIU/L Free T4 0.98 (0.78-2.19) ng/dL 07/20/22 Range/Units 13:04 WBC (3.8-10.6) k/uL RBC (3.80-5.40) m/uL Hgb (11.4-16.0) gm/dL Hct (34.0-46.0) % MCV (80.0-100.0) fL MCH (25.0-35.0) pg MCHC (31.0-37.0) g/dL RDW (11.5-15.5) % Plt Count (150-450) k/uL MPV Neutrophils % % Lymphocytes % % Monocytes % % Eosinophils % % Basophils % % Neutrophils # (1.3-7.7) k/uL Lymphocytes # (1.0-4.8) k/uL Monocytes # (0-1.0) k/uL Eosinophils # (0-0.7) k/uL Basophils # (0-0.2) k/uL D-Dimer (<0.60) mg/L FEU Sodium (137-145) mmol/L Potassium (3.5-5.1) mmol/L Chloride (98-107) mmol/L Carbon Dioxide (22-30) mmol/L Anion Gap mmol/L BUN (7-17) mg/dL Creatinine (0.52-1.04) mg/dL Est GFR (CKD-EPI)AfAm (>60 ml/min/1.73 sqM) Est GFR (CKD-EPI)NonAf (>60 ml/min/1.73 sqM) Glucose (74-99) mg/dL Calcium (8.4-10.2) mg/dL Magnesium (1.6-2.3) mg/dL Total Bilirubin (0.2-1.3) mg/dL AST (14-36) U/L ALT (4-34) U/L Alkaline Phosphatase (38-126) U/L Creatine Kinase (30-135) U/L Troponin I <0.012 (0.000-0.034) ng/mL Total Protein (6.3-8.2) g/dL Albumin (3.5-5.0) g/dL TSH (0.465-4.680) mIU/L Free T4 (0.78-2.19) ng/dL - NIH Stroke Scale 1a. Level of Consciousness: (0) alert 1b. LOC Questions: (0) answers correctly 1c. LOC Commands: (0) performs tasks correctly 2. Best Gaze: (0) normal 3. Visual: (0) no visual loss 4. Facial Palsy: (0) normal symmetrical movement 5a. Motor Arm Left: (0) no drift 5b. Motor Arm Right: (0) no drift 6a. Motor Leg Left: (0) no drift 6b. Motor Leg Right: (0) no drift 7. Limb Ataxia: (0) absent 8. Sensory: (0) normal 9. Best Language: (0) no aphasia 10. Dysarthria: (0) normal 11. Extinction/Inattention: (0) no abnormality - Medical Decision Making The patient was reevaluated several occasions no further symptoms at this time hydration is still somewhat questionable I did discuss the case with Dr. Rudd the patient will be admitted with neurology consultation. Initial CTs are negative for acute processes. - EKG Data -: EKG Interpreted by Me EKG shows normal: sinus rhythm (Sinus rhythm 84. Interval 160 QRS duration 90 QT since QTC 388/[address]-T wave changes some artifact present) Past Medical History Past Medical History: GERD/Reflux, Hypertension Additional Past Medical History / Comment(s): Migraines, hx kidney stones, chronic back pain. History of Any Multi-Drug Resistant Organisms: None Reported Past Surgical History: Appendectomy, Section, Hysterectomy, Orthopedic Surgery Additional Past Surgical History / Comment(s): Carpal tunnel, stent for kidney stones /later removed, 07/03/21-lithotripsy/right ureteral stent placed/removed, pain clinic procedures, Angiogram. Past Anesthesia/Blood Transfusion Reactions: No Reported Reaction Past Psychological History: Anxiety Smoking Status: Current every day smoker - Past Family History Father Family Medical History: CVA/TIA, Hypertension Mother Family Medical History: No Reported History Course Vital Signs 07/20/22 07/20/22 07/20/22 12:39 12:57 14:51 Temperature 98.3 F Pulse Rate 102 H 98 96 Respiratory 18 16 16 Rate Blood Pressure 206/122 205/113 171/115 O2 Sat by Pulse 96 94 L 96 Oximetry 07/20/22 15:45 Temperature Pulse Rate 75 Respiratory 16 Rate Blood Pressure 161/117 O2 Sat by Pulse 95 Oximetry Disposition Clinical Impression: Seizure, Numbness and tingling, Hypertension Disposition: ADMITTED IP TO THIS HOSP Condition: Stable Referrals: Luis Enrique Arnold MD [Primary Care Provider] - 1-2 days Decision Date: 07/20/22 Decision Time: 16:00
[2022-07-20 13:18] LABS: Basophils % (A) 0 %; Eosinophils # (A) 0.1 k/uL (0-0.7); Eosinophils % (A) 2 %; HCT 39.5 % (34.0-46.0); HGB 13.4 gm/dL (11.4-16.0); Lymphocytes # (A) 1.7 k/uL (1.0-4.8); Lymphocytes % (A) 20 %; MCH 31.9 pg (25.0-35.0); MCHC 33.8 g/dL (31.0-37.0); MCV 94.3 fL (80.0-100.0); Monocytes # (A) 0.3 k/uL (0-1.0); Monocytes % (A) 4 %; Neutrophils # (A) 6.1 k/uL (1.3-7.7); Neutrophils % (A) 71 %; Platelet Count 327 k/uL (150-450); RBC 4.19 m/uL (3.80-5.40); RDW 12.7 % (11.5-15.5); WBC 8.5 k/uL (3.8-10.6)
[2022-07-20 13:35] LABS: ALT 37 U/L (4-34); AST 34 U/L (14-36); African American GFR (CKD) >90 (>60 ml/min/1.73 sqM); Albumin 4.4 g/dL (3.5-5.0); Alkaline Phosphatase 85 U/L (38-126); Anion Gap 14 mmol/L; Blood Urea Nitrogen 12 mg/dL (7-17); Calcium 9.3 mg/dL (8.4-10.2); Carbon Dioxide 27 mmol/L (22-30); Chloride 100 mmol/L (98-107); Creatine Kinase 177 U/L (30-135); Glucose 124 mg/dL (74-99); Magnesium 1.9 mg/dL (1.6-2.3); Non-African American GFR(CKD) >90 (>60 ml/min/1.73 sqM); Sodium 141 mmol/L (137-145); Total Bilirubin 0.4 mg/dL (0.2-1.3); Total Protein 7.1 g/dL (6.3-8.2)
--- NOTE | 2022-07-20 13:52 | CT ---
EXAMINATION TYPE: CT brain wo con DATE OF EXAM: 07/20/2022 COMPARISON: CT brain 02/09/2021 HISTORY: Altered mental status and seizure CT DLP: 1096.5 mGycm. Automated Exposure Control for Dose Reduction was Utilized. TECHNIQUE: CT scan of the head is performed without contrast. FINDINGS: There is no acute intracranial hemorrhage, mass effect, or midline shift identified. The ventricles and sulci are within normal limits in size. The globes are intact and the visualized sin uses are remarkable for inflammatory change in the maxillary sinus on the right, ethmoid air cells. D ental caries noted incidentally posterior right molar. The deviation of the nasal septum is noted. Os tiomeatal unit is obstructed with soft tissue in the right. IMPRESSION: No acute intracranial hemorrhage, mass effect, or midline shift is seen. Sinus disease.
--- NOTE | 2022-07-20 13:53 | XR ---
EXAMINATION TYPE: XR chest 2V DATE OF EXAM: 07/20/2022 COMPARISON: Chest x-ray 05/02/2022 HISTORY: Seizures, altered mental status TECHNIQUE: Frontal and lateral views of the chest are obtained. FINDINGS: There is no focal air space opacity, pleural effusion, or pneumothorax seen. The cardiac silhouette size is within normal limits. Stable elevation of right hemidiaphragm. The osseous struct ures are intact. IMPRESSION: No acute cardiopulmonary process.
[2022-07-20 14:40] LABS: T4, Free (Free Thyroxine) 0.98 ng/dL (0.78-2.19)
--- NOTE | 2022-07-20 14:41 | CT ---
EXAMINATION TYPE: CT angio head neck CT DLP: 413 mGycm, Automated exposure control for dose reduction was used. DATE OF EXAM: 07/20/2022 2:11 PM COMPARISON: CT brain and 2021. CLINICAL INDICATION:Female, 42 years old with history of Neuro deficit, acute, stroke suspected; PHH, Neuro deficit, acute, stroke suspected TECHNIQUE: Axially acquired helical CT angiogram of the head and neck was obtained with contrast. Axi al images are supplemented with 3D reconstructions [facility] NASCET criteria used. Contrast used:65 ml mL of Isovue 370 without and with IV Contrast, Oral contrast used: None. FINDINGS: CTA HEAD: No evidence of acute intracranial hemorrhage, mass effect, or midline shift. The ventricles, sulci, a nd cisterns are unremarkable. The visualized portions of the internal carotid arteries, middle cerebral arteries, anterior cerebral arteries, and posterior cerebral arteries are patent. The basilar and vertebral arteries are patent. CTA NECK: Right Carotid System: The common carotid artery and external carotid artery are patent. The carotid bifurcation demonstrate s no evidence of hemodynamically significant stenosis. The remaining portions of the internal carotid artery demonstrate normal size without significant narrowing. Left Carotid System: The common carotid artery and external carotid artery are patent. The carotid bifurcation demonstrate s no evidence of hemodynamically significant stenosis. The remaining portions of the internal carotid artery demonstrate normal size without significant narrowing. Vertebral arteries are patent without evidence hemodynamically significant stenosis. There is a three-vessel aortic arch. The origins of the great vessels are patent. No evidence of hemo dynamically significant stenosis. IMPRESSION: 1. No evidence of dissection of the cervical internal carotid arteries or vertebral arteries or any e vidence of significant stenosis at the carotid bifurcations. 2. No evidence of intracranial high-grade stenosis or intracranial aneurysm.
[2022-07-20] MEDS ORDERED: LABETALOL 5 MG/ML VIAL MDV IVP STA (14:51)
[2022-07-20] MEDS ORDERED: NALOXONE 0.4 MG/ML 1 ML VIAL IV PRN (16:35)
[2022-07-20] MEDS ORDERED: NAPROXEN 250 MG TAB PO PRN (16:39)
[2022-07-20] MEDS: IBUPROFEN 600 MG TAB PO SCH (18:34)
[2022-07-20] MEDS ORDERED: hydrALAZINE HCL 20 MG/ML 1 ML VIAL IVP STA (18:53)
[2022-07-20] MEDS: HYDROcodone/APAP 7.5-325MG 1 EACH TAB PO PRN (19:56)
[2022-07-20] MEDS: PREGABALIN 75 MG CAP PO SCH (19:57)
[2022-07-21] MEDS: IBUPROFEN 600 MG TAB PO SCH ×3 (01:11→17:28)
[2022-07-21] MEDS: PANTOPRAZOLE 40 MG TABLET PO SCH (06:45)
[2022-07-21] MEDS: TAMSULOSIN 0.4 MG CAP.ER.24H PO SCH (08:44)
[2022-07-21] MEDS: HYDROcodone/APAP 7.5-325MG 1 EACH TAB PO PRN ×2 (08:44→18:27)
[2022-07-21] MEDS: PREGABALIN 75 MG CAP PO SCH ×3 (08:45→20:43)
[2022-07-21] MEDS: VORTIOXETINE HYDROBROMIDE 20 MG TABLET PO SCH (08:45)
[2022-07-21] MEDS: lisinopriL 10 MG TAB PO SCH (08:46)
[2022-07-21] MEDS: OXYBUTYNIN 10 MG TAB.ER.24 PO SCH (08:48)
[2022-07-21] MEDS ORDERED: HYDROcodone/APAP 5-325MG 1 EACH TAB PO STA (11:15)
--- NOTE | 2022-07-21 11:21 | P.HPIM ---
History of Present Illness This is a pleasant 42 years old female with past medical history of GERD/Reflux, Hypertension,Migraines, hx kidney stones, chronic back pain. She is status post hysterectomy Presents with left arm numbness tingling and left sides face numbness of one-day duration Patient says she's been having numbness in her left side of the face and left arm 2 days ago on Friday, also her noticed some stuttering in her speech and she was dropping things in her left hand. Friday morning patient developed LIKE seizure. She worked her doctor outside and came back to the house and sitting in the chair the next thing she remembers she is in the hospital. Patient says that her witnessed her seizing and it was tonic-clonic s eizure. Patient also that her tongue and had urine incontinence. Patient states that she had a seizure last time about 15-20 years ago, she is not on seizure medication. She's follow up with neurologist Dr. bonds for migraine, also for her back pain and carpal tunnel syndrome. She says that headache she had it on Friday is similar to her migraine headache but was more severe. An average she got one attack of migraine every week. She was on Topamax which was stopped about 2 months ago and placed on soma tripped on as needed for migraine headache. She smokes about 2 cigarettes a day and she was counseled to quit and she agrees. She wants the nicotine patch. She denies alcohol. She uses marijuana comes for her back pain for short term. Currently she is complaining of from headache and she wants Clayton, she'll stress other medication with Fioricet. Currently blood pressure improved 151/82. Patient is afebrile. Patient has normal labs of CBC and BMP and liver enzymes. D-dimer is normal at 0.55. Glucose 124 which is slightly elevated. TSH is 0.19 which is low but normal free T4 0.9. EKG showing normal sinus rhythm at this [address]-T changes CT of brain: No acute process CT of the head and neck: No evidence of dissection of the cervical internal carotid arteries with vertebral arteries are any evidence of significant stenosis at the carotid bifurcations. No evidence of intracranial high grade stenosis or intracranial aneurysm Chest x-ray: No acute process. In the emergency room patient received normal saline and hydralazine 10 mg IV 1 and labetalol 20 mg 1 She was admitted with neurology consults Review of Systems Review of systems CONSTITUTIONAL: No fever, no malaise, no fatigue. HEENT: No recent visual problems or hearing problems. Denied any sore throat. CARDIOVASCULAR: No orthopnea, PND, no palpitations, no syncope. PULMONARY: No shortness of breath, no cough, no hemoptysis. GASTROINTESTINAL: No diarrhea, no nausea, no vomiting, no abdominal pain. Normoactive bowel sounds. NEUROLOGICAL: No headaches, no weakness, no numbness. HEMATOLOGICAL: Denies any bleeding or petechiae. GENITOURINARY: Denies any burning micturition, frequency, or urgency. MUSCULOSKELETAL/RHEUMATOLOGICAL: Denies any joint pain, swelling, or any muscle pain. ENDOCRINE: Denies any polyuria or polydipsia. Past Medical History Past Medical History: GERD/Reflux, Hypertension Additional Past Medical History / Comment(s): Migraines, hx kidney stones, chronic back pain. History of Any Multi-Drug Resistant Organisms: None Reported Past Surgical History: Appendectomy, Section, Hysterectomy, Orthopedic Surgery Additional Past Surgical History / Comment(s): Carpal tunnel, stent for kidney stones /later removed, 07/03/21-lithotripsy/right ureteral stent placed/removed, pain clinic procedures, Angiogram. Past Anesthesia/Blood Transfusion Reactions: No Reported Reaction Past Psychological History: Anxiety Additional Psychological History / Comment(s): Seasonal depression. Smoking Status: Current every day smoker Past Alcohol Use History: None Reported Additional Past Alcohol Use History / Comment(s): Smokes 5-6 cigarettes per day, along w/ vape use - trying to quit, has been smoking since 13 yrs old, up to 1ppd. Past Drug Use History: Marijuana - Past Family History Father Family Medical History: CVA/TIA, Hypertension Mother Family Medical History: No Reported History Medications and Allergies Home Medications Medication Instructions Recorded Confirmed Type lisinopriL [Prinivil] 10 mg PO DAILY 06/05/21 07/20/22 History Pregabalin [Lyrica] 150 mg PO TID 07/09/21 07/20/22 History buPROPion HCL [Wellbutrin XL] 300 mg PO DAILY 07/15/21 07/20/22 History Omeprazole 40 mg PO DAILY 07/09/22 07/20/22 History Diclofenac Sodium [Voltaren 4 gm TOPICAL QID PRN 07/20/22 07/20/22 History Arthritis Pain 1% Gel] HYDROcodone/APAP 7.5-325MG [[place] 1 tab PO BID PRN 07/20/22 07/20/22 History 7.5-325] Ibuprofen [Motrin] 600 mg PO TID PRN 07/20/22 07/20/22 History Ketorolac [Toradol] 10 mg PO Q6HR PRN 07/20/22 07/20/22 History Vortioxetine Hydrobromide 20 mg PO DAILY 07/20/22 07/20/22 History [Trintellix] Allergies Allergy/AdvReac Type Severity Reaction Status Date / Time tramadol AdvReac SEIZURE Verified 07/20/22 18:10 Physical Exam Vitals: Vital Signs Temp Pulse Pulse Resp BP BP Pulse Ox 07/21/22 08:00 98.1 F 81 18 151/82 99 07/21/22 04:00 95 18 147/81 98 07/20/22 23:39 97 19 141/79 97 07/20/22 19:58 90 18 163/85 95 07/20/22 18:20 97 F L 82 18 184/95 95 07/20/22 15:45 75 16 161/117 95 07/20/22 14:51 96 16 171/115 96 07/20/22 12:57 98 16 205/113 94 L 07/20/22 12:39 98.3 F 102 H 18 206/122 96 Intake and Output 07/20/22 07/21/22 07/21/22 22:59 06:59 14:59 Intake Total 118 Balance 118 Intake: Oral 118 Other: Voiding Method Toilet # Voids 2 Weight 65.771 kg GENERAL: The patient is alert and oriented x3, not in any acute distress. Well developed, well nourished. HEENT: Pupils are round and equally reacting to light. EOMI. No scleral icterus. No conjunctival pallor. Normocephalic, atraumatic. No pharyngeal erythema. No thyromegaly. CARDIOVASCULAR: S1 and S2 present. No murmurs, rubs, or gallops. PULMONARY: Chest is clear to auscultation, no wheezing or crackles. ABDOMEN: Soft, nontender, nondistended, normoactive bowel sounds. No palpable organomegaly. MUSCULOSKELETAL: No joint swelling or deformity. EXTREMITIES: No cyanosis, clubbing, or pedal edema. NEUROLOGICAL: Gross neurological examination did not reveal any focal deficits. SKIN: No rashes. no petechiae. Results CBC & Chem 7: 07/20/22 13:04 07/20/22 13:04 Labs: Abnormal Lab Results - Last 24 Hours (Table) 07/20/22 Range/Units 13:04 Glucose 124 H (74-99) mg/dL ALT 37 H (4-34) U/L Creatine Kinase 177 H (30-135) U/L TSH 0.199 L (0.465-4.680) mIU/L Assessment and Plan Assessment: new tonic-clonic seizure, rule out possibility of complex migraine Left side facial and upper extremity numbness and the distal weakness, resolved. Possible Todds paralysis versus stroke/TIA Hypertension, uncontrolled on admission History of GERD History of migraine History of kidney stones Chronic back pain History of hysterectomy Plan: This is a pleasant 42 years old female who presents with possible stroke Neurology consult Follow-up MRI of the brain Follow-up EEG recommended by neurologist Physical/occupational therapy consult and speech therapy consult Labs and medication were reviewed.. Continue same treatment. Continue with symptomatic treatment. Resume home medication. Monitor lytes and vitals. DVT and GI prophylaxis. Further recommendations as per clinical course of the patient DVT prophylaxis: Subcutaneous heparin GI Prophylaxis: Ppi PT/OT: Pending Prognosis is guarded
[2022-07-21] MEDS: NICOTINE 14MG/24HR PATCH TRANSDERM SCH (11:41)
[2022-07-21 13:57] LABS: Appearance,Urine Clear (Clear); Bilirubin,Urine Negative (Negative); Blood,Urine Small (Negative); Color,Urine Yellow; Glucose,Urine (UA) Negative (Negative); Hyaline Casts,Urine 1 /lpf (0-2); Ketones,Urine Negative (Negative); Leukocyte Esterase,Urine Small (Negative); Mucus,Urine Rare /hpf; Nitrite,Urine Negative (Negative); Protein,Urine Trace (Negative); RBC,Urine 4 /hpf (0-5); Specific Gravity,Urine 1.019 (1.001-1.035); Squamous Epithelial Cell,Urine 2 /hpf (0-4); Urobilinogen,Urine <2.0 mg/dL (<2.0); WBC,Urine 7 /hpf (0-5)
--- NOTE | 2022-07-21 15:44 | P.CNNES ---
History of Present Illness Consult date: 07/21/22 Reason for Consult: Seizure and left-sided numbness History of Present Illness: The patient is a 42-year-old female who is seen in neurologic consultation on July 21, 2022, via teleneurology. History is obtained from the patient as well as from the chart. The patient reports that she came into the emergency department because she had a "seizure". She says that the last thing she remembers is sitting in her recliner at home. The next thing she recalls is being in the emergency department. She said she thinks she remembers someone putting on her shoes. She recalls some of the ride in the ambulance. She believes she didn't bite her tongue. She indicates that the tip of her tongue is sore. She says that her reported that she was "foaming at the mouth and her eyes were rolled back". There was no reported loss of bowel control. The patient does state that she lost control of her bladder while she was in the emergency department, getting her CT scan of the brain. The patient reports headache and blurred vision. In addition to these symptoms the patient incidentally notes that she has been having left hand numbness, tingling and dropping things. The patient reports a history of a seizure approximately 15 years ago which was thought to be secondary to medication effect. The patient denies changes in medications other than an increase in her Wellbutrin dosing from 150-[address] scan of the brain was performed in the emergency department. There is no evidence of acute hemorrhage or infarct. CT angiogram of the head and neck revealed no significant stenosis or large vessel occlusion. Total CK is elevated at 177. Lactic acid was not assessed. Urine drug screen was not assessed. Urinalysis revealed small leukocyte esterase and 7 white cells. Past Medical History Past Medical History: GERD/Reflux, Hypertension Additional Past Medical History / Comment(s): Migraines, hx kidney stones, chronic back pain. History of Any Multi-Drug Resistant Organisms: None Reported Past Surgical History: Appendectomy, Section, Hysterectomy, Orthopedic Surgery Additional Past Surgical History / Comment(s): Carpal tunnel, stent for kidney stones /later removed, 07/03/21-lithotripsy/right ureteral stent placed/removed, pain clinic procedures, Angiogram. Past Anesthesia/Blood Transfusion Reactions: No Reported Reaction Past Psychological History: Anxiety Additional Psychological History / Comment(s): Seasonal depression. Smoking Status: Current every day smoker Past Alcohol Use History: None Reported Additional Past Alcohol Use History / Comment(s): Smokes 5-6 cigarettes per day, along w/ vape use - trying to quit, has been smoking since 13 yrs old, up to 1ppd. Past Drug Use History: Marijuana - Past Family History Father Family Medical History: CVA/TIA, Hypertension Mother Family Medical History: No Reported History Medications and Allergies Home Medications Medication Instructions Recorded Confirmed Type lisinopriL [Prinivil] 10 mg PO DAILY 06/05/21 07/20/22 History Pregabalin [Lyrica] 150 mg PO TID 07/09/21 07/20/22 History buPROPion HCL [Wellbutrin XL] 300 mg PO DAILY 07/15/21 07/20/22 History Omeprazole 40 mg PO DAILY 07/09/22 07/20/22 History Diclofenac Sodium [Voltaren 4 gm TOPICAL QID PRN 07/20/22 07/20/22 History Arthritis Pain 1% Gel] HYDROcodone/APAP 7.5-325MG [[place] 1 tab PO BID PRN 07/20/22 07/20/22 History 7.5-325] Ibuprofen [Motrin] 600 mg PO TID PRN 07/20/22 07/20/22 History Ketorolac [Toradol] 10 mg PO Q6HR PRN 07/20/22 07/20/22 History Vortioxetine Hydrobromide 20 mg PO DAILY 07/20/22 07/20/22 History [Trintellix] Allergies Allergy/AdvReac Type Severity Reaction Status Date / Time tramadol AdvReac SEIZURE Verified 07/20/22 18:10 Physical Examination - Vital Signs Vital Signs: Vital Signs Temp Pulse Pulse Resp BP BP Pulse Ox 07/21/22 08:00 98.1 F 81 18 151/82 99 07/21/22 04:00 95 18 147/81 98 07/20/22 23:39 97 19 141/79 97 07/20/22 19:58 90 18 163/85 95 07/20/22 18:20 97 F L 82 18 184/95 95 07/20/22 15:45 75 16 161/117 95 07/20/22 14:51 96 16 171/115 96 07/20/22 12:57 98 16 205/113 94 L 07/20/22 12:39 98.3 F 102 H 18 206/122 96 Intake and Output 07/20/22 07/21/22 07/21/22 22:59 06:59 14:59 Intake Total 118 Balance 118 Intake: Oral 118 Other: Voiding Method Toilet # Voids 2 Weight 65.771 kg Gen.: The patient is reclining in the bed. She is well-nourished, well-develo ped and in no acute distress. HEENT: Head is atraumatic, normocephalic. Fundus not visualized. There is no scleral icterus. Mucous membranes are moist. Neck: Supple without carotid bruits Heart: Regular rate and rhythm Lungs: Clear to auscultation Extremities: Without edema Neurological examination Mental status: The patient is awake, alert and oriented 3. Her speech is clear. There is no dysarthria or aphasia. She is somewhat restless and anxious. There is inappropriate laughter. Cranial nerves: Pupils are equal at 4 mm and reactive. Visual donato are full to confrontation. Extraocular movements are intact. There is no nystagmus. Facial sensation is intact. There is no facial asymmetry. Hearing is grossly intact. Uvula and palate are midline. Shoulder shrug is symmetric. Tongue protrudes midline. There is no evidence of tongue bite. Motor: There is generalized weakness. There appears to be poor effort with strength testing. The patient's strength is deemed to be 3-/5 in the upper extremities. The patient is however, observed to use her arms, to elevate her upper body to change positions in the bed. Lower extremity strength is 5/5 at the hip flexors. There is a tremor of the chin. Sensation: The patient reports decreased touch sensation to her left arm and left neck. Touch sensation is intact in the legs bilaterally. Deep tendon reflexes: 2+/4+ in the bilateral upper extremities. 3+/4+ at the knees. Plantar responses are flexor bilaterally Coordination: Finger to nose and rapid alternating movements are intact. Gait: Not assessed Results - Laboratory Findings CBC and BMP: 07/20/22 13:04 07/20/22 13:04 Abnormal Lab Findings: Abnormal Labs 07/20/22 13:04 Glucose 124 H ALT 37 H Creatine Kinase 177 H TSH 0.199 L - Diagnostic Findings Comments: images of CT scan and CT angiogram were personally reviewed Assessment and Plan Assessment: 1. Reported generalized tonic-clonic seizure, following doubling of Wellbutrin dosing, in a patient was also taking Toradol. Neurological examination is inconsistent. 2. Anxiety/inappropriate laughter 3. Reported history of migraine 4. Reported history of back pain Plan: 1. EEG to investigate for epileptiform activity 2. MRI of brain 3. Would recommend lowering and/or tapering dose of Wellbutrin, as well as discontinuation of tramadol Thank you for allowing us to participate in the care of this patient Dr. Nice will assume neurologic coverage of this patient as of July 22, 2022 Time with Patient: Greater than 30 (Spent 50 minutes examining patient, reviewing imaging, labs, documentation and preparing a note)
[2022-07-21] MEDS: HEPARIN SODIUM,PORCINE/PF 5,000 UNIT/0.5 ML SYRINGE SQ SCH (20:43)
[2022-07-21] MEDS ORDERED: MELATONIN 5 MG TABLET PO SCH (21:00)
[2022-07-22] MEDS: HYDROcodone/APAP 7.5-325MG 1 EACH TAB PO PRN ×2 (00:50→06:15)
[2022-07-22] MEDS: IBUPROFEN 600 MG TAB PO SCH ×3 (02:17→16:57)
[2022-07-22] MEDS: PANTOPRAZOLE 40 MG TABLET PO SCH (06:15)
[2022-07-22] MEDS: PREGABALIN 75 MG CAP PO SCH ×2 (08:41→16:39)
[2022-07-22] MEDS: NICOTINE 14MG/24HR PATCH TRANSDERM SCH (08:41)
[2022-07-22] MEDS: TAMSULOSIN 0.4 MG CAP.ER.24H PO SCH (08:41)
[2022-07-22] MEDS: lisinopriL 10 MG TAB PO SCH (08:41)
[2022-07-22] MEDS: HEPARIN SODIUM,PORCINE/PF 5,000 UNIT/0.5 ML SYRINGE SQ SCH (08:41)
[2022-07-22] MEDS: VORTIOXETINE HYDROBROMIDE 20 MG TABLET PO SCH (08:42)
[2022-07-22] MEDS: OXYBUTYNIN 10 MG TAB.ER.24 PO SCH (08:42)
[2022-07-22] MEDS ORDERED: MAGNESIUM SULFATE-D5W PMX 1 GM in DEXTROSE/WATER 1 100ML.BAG IVPB ONE (09:00)
[2022-07-22 10:46] VITALS: RESP 20
[2022-07-22] MEDS ORDERED: HYDROcodone/APAP 7.5-325MG 1 EACH TAB PO PRN (12:02)
--- NOTE | 2022-07-22 14:53 | P.CN ---
Psychiatric Consult - . Consult date: 07/22/22 Consult:: 07/22/22 14:52 IDENTIFYING DATA: This patient is a 42-year-old female with significant history of anxiety and depression for the [facility] for seizure HISTORY OF PRESENT ILLNESS: The patient presented to the hospital on 07/20/2022, after experiencing a seizure-like episode. The patient was admitted to the medical floor and psychiatrist been consulted for evaluation and management of the patient's psychotropic medications as she was prescribed Wellbutrin which has been recently increased to 300 mg daily. The patient reports that this medication was increased approximately 2 weeks ago. She expressed a desire to have Wellbutrin on top of her trintellix as she felt her anxiety was undermanaged. Upon evaluation by this provider, the patient specified that she has been feeling increased anxiety however and is reporting that she is feeling overall better. She is vehemently denying any suicidal or homicidal ideation, intention, and/or plan. She is not reporting any auditory or visual halluc inations. She is denying any paranoia or other delusions. The patient is not reporting any significant symptoms of boyd or hypomania and is vehemently denying any increased goal-directed activity, grandiosity, or periods of excessive energy. The patient's primary concern at this time is anxiety. She reports that she is worrying about "anything and everything." She does report current ongoing life stressors including her son recently purchasing a motorcycle and her other son recently having a child. PAST PSYCHIATRIC HISTORY: Patient has a history of anxiety and depression. The patient is able to recall being. This he prescribed Wellbutrin and trintellix. She has also history of being precipitated prescribed Zoloft, Lexapro, Effexor, Xanax, and Ativan. Patient denies any previous psychiatric hospitalizations. Patient reports that she follows with a therapist in the outpatient setting. Patient denies any history of suicide attempts in the past. PAST MEDICAL HISTORY: Past Medical History: GERD/Reflux, Hypertension Additional Past Medical History / Comment(s): Migraines, hx kidney stones, chronic back pain. History of Any Multi-Drug Resistant Organisms: None Reported Past Surgical History: Appendectomy, Section, Hysterectomy, Orthopedic Surgery Additional Past Surgical History / Comment(s): Carpal tunnel, stent for kidney stones /later removed, 07/03/21-lithotripsy/right ureteral stent placed/removed, pain clinic procedures, Angiogram. Past Anesthesia/Blood Transfusion Reactions: No Reported Reaction Past Psychological History: Anxiety Additional Psychological History / Comment(s): Seasonal depression. Smoking Status: Current every day smoker Past Alcohol Use History: None Reported Additional Past Alcohol Use History / Comment(s): Smokes 5-6 cigarettes per day, along w/ vape use - trying to quit, has been smoking since 13 yrs old, up to 1ppd. Past Drug Use History: Marijuana ALLERGIES: Tramadol CHEMICAL DEPENDENCY HISTORY: Patient reports daily tobacco use. She denies any heavy alcohol or illicit drug use. Patient reports history of marijuana use. FAMILY PSYCHIATRIC/SUBSTANCE USE HISTORY: No reported family psychiatric history. SOCIAL HISTORY: Patient reports that she is not however has been with her partner for many years and they have children together. They're not officially . She is currently unemployed. MENTAL STATUS EXAM: General Appearance: Patient appears to be stated age is alert, pleasant, and cooperative. Patient appears to have fair hygiene and grooming wearing hospital gown with fair eye contact. Behavior: Patient displays slightly elevated psychomotor activity. Speech: Patient's speech is fluent and nonpressured. Mood/Affect: Patient reports their mood is "anxious", affect is congruent and nervous Suicidality/Homicidality: Patient denies having any suicidal or homicidal ideation intent or plan. Perceptions: Patient denies any visual hallucinations and denies any auditory hallucinations Though content/process: There is no evidence of any delusional thought content and thought process is linear and goal-directed. Memory and concentration: AOX3, grossly intact for the purposes of this session. Can spell "WORLD" backwards Judgment and insight: Fair IMPRESSIONS: Generalized anxiety disorder Seizure disorder PLAN: -At this time patient DOES NOT meet criteria for inpatient psychiatric admission. Patient is not presented with imminent risk of harm to self or others. She is denying any suicidal or homicidal ideation, intention, and/or plan. -Would recommend the following medication changes/additions: Consider medication management in the outpatient setting. May consider decreasing trintellix and starting a trial of remeron. Will defer to her outpatient provider. Agree with discontinuation of Wellbutrin as that medication lower seizure threshold. The patient reports a history of seizures even prior to being prescribed Wellbutrin. Seizures are a contraindication for the use of Wellbutrin. Furthermore, most antidepressants may lower seizure threshold and will require discussion with the patient in regards to her management. The patient will likely have to defer to outpatient psychotherapy for management of her generalized anxiety disorder. -Recommend outpatient psychiatric follow-up. Recommend outpatient therapy follow-up. -Patient is cleared psychiatrically for discharge. -Psychiatry will sign off at this point, please contact with any questions. Vital Signs Temp 97.8 F 07/22/22 12:00 Pulse 86 07/22/22 12:00 Resp 20 07/22/22 12:00 BP 140/102 07/22/22 12:00 Pulse Ox 96 07/22/22 12:00 FiO2 Intake & Output 07/21/22 07/22/22 07/22/22 18:59 06:59 18:59 Intake Total 1104 340 Balance 1104 340 Intake: Intake, IV Titration 100 Amount Magnesium Sulfate-D5w Pmx 100 1 gm In Dextrose/Water 1 100ml.bag @ 100 mls/hr IVPB ONCE ONE Rx#: [id number] Oral 1104 240 Other: Voiding Method Toilet # Voids 2 2 Laboratory Results WBC 8.5 k/uL (3.8-10.6) 07/20/22 13:04 RBC 4.19 m/uL (3.80-5.40) 07/20/22 13:04 Hgb 13.4 gm/dL (11.4-16.0) 07/20/22 13:04 Hct 39.5 % (34.0-46.0) 07/20/22 13:04 MCV 94.3 fL (80.0-100.0) 07/20/22 13:04 MCH 31.9 pg (25.0-35.0) 07/20/22 13:04 MCHC 33.8 g/dL (31.0-37.0) 07/20/22 13:04 RDW 12.7 % (11.5-15.5) 07/20/22 13:04 Plt Count 327 k/uL (150-450) 07/20/22 13:04 MPV 8.0 07/20/22 13:04 Neutrophils % 71 % 07/20/22 13:04 Lymphocytes % 20 % 07/20/22 13:04 Monocytes % 4 % 07/20/22 13:04 Eosinophils % 2 % 07/20/22 13:04 Basophils % 0 % 07/20/22 13:04 Neutrophils # 6.1 k/uL (1.3-7.7) 07/20/22 13:04 Lymphocytes # 1.7 k/uL (1.0-4.8) 07/20/22 13:04 Monocytes # 0.3 k/uL (0-1.0) 07/20/22 13:04 Eosinophils # 0.1 k/uL (0-0.7) 07/20/22 13:04 Basophils # 0.0 k/uL (0-0.2) 07/20/22 13:04 D-Dimer 0.55 mg/L FEU (<0.60) 07/20/22 13:04 Sodium 141 mmol/L (137-145) 07/20/22 13:04 Potassium 4.0 mmol/L (3.5-5.1) 07/20/22 13:04 Chloride 100 mmol/L (98-107) 07/20/22 13:04 Carbon Dioxide 27 mmol/L (22-30) 07/20/22 13:04 Anion Gap 14 mmol/L 07/20/22 13:04 BUN 12 mg/dL (7-17) 07/20/22 13:04 Creatinine 0.66 mg/dL (0.52-1.04) 07/20/22 13:04 Est GFR (CKD-EPI)AfAm >90 (>60 ml/min/1.73 sqM) 07/20/22 13:04 Est GFR (CKD-EPI)NonAf >90 (>60 ml/min/1.73 sqM) 07/20/22 13:04 Glucose 124 mg/dL (74-99) H 07/20/22 13:[address] Glu mg/dL 118 07/20/22 13:04 Hemoglobin A1c 5.7 % (0.0-6.0) 07/20/22 13:04 Calcium 9.3 mg/dL (8.4-10.2) 07/20/22 13:04 Magnesium 1.9 mg/dL (1.6-2.3) 07/20/22 13:04 Total Bilirubin 0.4 mg/dL (0.2-1.3) 07/20/22 13:04 AST 34 U/L (14-36) 07/20/22 13:04 ALT 37 U/L (4-34) H 07/20/22 13:04 Alkaline Phosphatase 85 U/L (38-126) 07/20/22 13:04 Creatine Kinase 177 U/L (30-135) H 07/20/22 13:04 Troponin I <0.012 ng/mL (0.000-0.034) 07/20/22 13:04 Total Protein 7.1 g/dL (6.3-8.2) 07/20/22 13:04 Albumin 4.4 g/dL (3.5-5.0) 07/20/22 13:04 Vitamin B12 1234.0 pg/mL (200.0-944.0) H 07/20/22 13:04 Folate 17.90 ng/mL (4.40-31.00) 07/20/22 13:04 TSH 0.199 mIU/L (0.465-4.680) L 07/20/22 13:04 Free T4 0.98 ng/dL (0.78-2.19) 07/20/22 13:04 Urine Color Yellow 07/21/22 13:24 Urine Appearance Clear (Clear) 07/21/22 13:24 Urine pH 6.0 (5.0-8.0) 07/21/22 13:24 Ur Specific [place] 1.019 (1.001-1.035) 07/21/22 13:24 Urine Protein Trace (Negative) H 07/21/22 13:24 Urine Glucose (UA) Negative (Negative) 07/21/22 13:24 Urine Ketones Negative (Negative) 07/21/22 13:24 Urine Blood Small (Negative) H 07/21/22 13:24 Urine Nitrite Negative (Negative) 07/21/22 13:24 Urine Bilirubin Negative (Negative) 07/21/22 13:24 Urine Urobilinogen <2.0 mg/dL (<2.0) 07/21/22 13:24 Ur Leukocyte Esterase Small (Negative) H 07/21/22 13:24 Urine RBC 4 /hpf (0-5) 07/21/22 13:24 Urine WBC 7 /hpf (0-5) H 07/21/22 13:24 Ur Squamous Epith Cells 2 /hpf (0-4) 07/21/22 13:24 Hyaline Casts 1 /lpf (0-2) 07/21/22 13:24 Urine Mucus Rare /hpf (None) H 07/21/22 13:24 Allergies Allergy/AdvReac Type Severity Reaction Status Date / Time tramadol AdvReac SEIZURE Verified 07/20/22 18:10 07/22/22 14:52 07/22/22 14:52
--- NOTE | 2022-07-22 15:16 | P.DS ---
Providers Date of admission: 07/20/22 16:59 Expected date of discharge: 07/22/22 Attending physician: Luis Enrique Arnold MD Consults: 07/20/22 16:35 Consult Physician Routine Consulting Provider: Shamika Miller Consult Reason/Comments: Seizure, numbness and tingling left face and upper extremity Do you want consulting provider notified?: Yes 07/22/22 05:48 Consult Physician Urgent Consulting Provider: John Calabrese Consult Reason/Comments: needs medication adjustion , wellbutrin lowers seizure threshold Do you want consulting provider notified?: Yes, Notify in am Primary care physician: Luis Enrique Arnold MD Hospital Course: Final Diagnoses: Reported generalized tonic-clonic seizure, status post doubling the Wellbutrin, in a patient on Toradol, neuro exam reported inconsistent History of seizure disorder Generalized anxiety disorder Hypertension, uncontrolled on admission Cephalgia in a patient with history of migraines Gastroesophageal reflux disease Chronic back pain Hospital course: This a 42-year-old female with past medical history of seizure, last one reported 10-15 years prior, had been on Wellbutrin with dose recently doubled and reports has been under increased stress. Evaluated by neurology, workup in progress including EEG, MRI. Complains of headache this morning. Magnesium ordered. Speech clear, does exhibit some fogginess and anxiety.Wellb utrin discontinued, contraindicated with history of seizures. Evaluated by psychiatry. Significant clinical improvement. Patient will be discharged home today in a stable condition with guarded prognosis pending completion of neurology workup, final DC recommendations and clearance for discharge. The impression and plan of care has been dictated as directed. : I performed a history and examination of this patient, discussed the same with the dictator. I agree with the dictator's note ,documented as a scribe. Any additional findings or plans will be noted. Patient Condition at Discharge: Stable Plan - Discharge Summary Discharge Rx Participant: Yes New Discharge Prescriptions: New Nicotine 14Mg/24Hr Patch [Habitrol] 1 patch TRANSDERM DAILY patch Tamsulosin [Flomax] 0.4 mg PO DAILY cap Continue Pregabalin [Lyrica] 150 mg PO TID Omeprazole 40 mg PO DAILY Ketorolac [Toradol] 10 mg PO Q6HR PRN PRN Reason: Pain Vortioxetine Hydrobromide [Trintellix] 20 mg PO DAILY HYDROcodone/APAP 7.5-325MG [[place] 7.5-325] 1 tab PO BID PRN PRN Reason: Pain lisinopriL [Prinivil] 10 mg PO DAILY Ibuprofen [Motrin] 600 mg PO TID PRN PRN Reason: Pain Or Fever > 100.5 Diclofenac Sodium [Voltaren Arthritis Pain 1% Gel] 4 gm TOPICAL QID PRN PRN Reason: Pain Discontinued buPROPion HCL [Wellbutrin XL] 300 mg PO DAILY Discharge Medication List lisinopriL [Prinivil] 10 mg PO DAILY 06/05/21 [History] Pregabalin [Lyrica] 150 mg PO TID 07/09/21 [History] Omeprazole 40 mg PO DAILY 07/09/22 [History] Diclofenac Sodium [Voltaren Arthritis Pain 1% Gel] 4 gm TOPICAL QID PRN 07/20/22 [History] HYDROcodone/APAP 7.5-325MG [[place] 7.5-325] 1 tab PO BID PRN 07/20/22 [History] Ibuprofen [Motrin] 600 mg PO TID PRN 07/20/22 [History] Ketorolac [Toradol] 10 mg PO Q6HR PRN 07/20/22 [History] Vortioxetine Hydrobromide [Trintellix] 20 mg PO DAILY 07/20/22 [History] Nicotine 14Mg/24Hr Patch [Habitrol] 1 patch TRANSDERM DAILY patch 07/22/22 [Rx] Tamsulosin [Flomax] 0.4 mg PO DAILY cap 07/22/22 [Rx] Follow up Appointment(s)/Referral(s): Luis Enrique Arnold MD [Primary Care Provider] - 1-2 days
[2022-07-22 16:19] VITALS: BP 117/92; PULSE 115; TEMP 98.5
--- NOTE | 2022-07-22 18:04 | MR ---
EXAMINATION TYPE: MR brain wo/w con DATE OF EXAM: 07/22/2022 COMPARISON: MR brain 03/11/2020 HISTORY: Altered mental status, seizure, possible stroke. TECHNIQUE: Multiplanar, multisequence images of the brain and brainstem is performed without and with IV contras t, utilizing 6.5 mL intravenous Gadavist . FINDINGS: Motion artifact limits evaluation. Diffusion weighted images demonstrate no evidence of a recent infa rct or other diffusion abnormality. There is no extra-axial fluid collection or significant white ma tter signal abnormality. The ventricular system and cisternal spaces are normal in size and appearan ce. The brain volume is age appropriate. Midline structures demonstrate normal morphology. The craniocervical junction appears within normal limits. Post contrast images demonstrate no abnormal enhancement. The dural venous sinuses appear pa tent. The visualized sinuses and straight mild paranasal mucosal thickening. IMPRESSION: No evidence of acute/subacute CVA or abnormal enhancement.
--- NOTE | 2022-07-23 03:46 | EEG ---
ELECTROENCEPHALOGRAM REPORT PREAMBLE: This is a 42-year-old female, who had a seizure. The patient has been witnessed. The patient was foaming at the mouth, and eyes were rolled back. CURRENT MEDICATIONS: 1. [place]. 2. Motrin. 3. Zestril. 4. Melatonin. 5. Naproxen. 6. Ditropan XL. 7. Lyrica. 8. Trintellix. EEG FINDINGS: This is a 21-channel digital EEG recorded with video component, utilizing 10/20 international system with referential and bipolar montages. Background consists of well-developed, but somewhat slightly disorganized mixed frequencies of 8 hertz alpha, with some 7 hertz theta activity seen in bihemispheric region. Background is posterior dominant, slightly reactive to eye opening and closing. Photic stimulation was not performed. Some drowsiness was seen with symmetric theta frequency rhythm. Deeper stages of sleep were not seen. Frequent body jerks or head twitch or mouth tremble movement were documented, but there were no associated epileptiform activity with it. No focal or generalized epileptiform activity was seen. IMPRESSION: This is a borderline abnormal EEG due to mild background disorganization and slight slowing seen intermittently. This is suggestive of mild nonspecific generalized cerebral dysfunction, may be related to encephalopathy or medication effect. No epileptiform activity was seen. MMODL / IJN: [id number] /
--- NOTE | 2022-07-23 03:46 | EEG ---
ELECTROENCEPHALOGRAM REPORT PREAMBLE: This is a 42-year-old female, who had a seizure. The patient has been witnessed. The patient was foaming at the mouth, and eyes were rolled back. CURRENT MEDICATIONS: 1. [place]. 2. Motrin. 3. Zestril. 4. Melatonin. 5. Naproxen. 6. Ditropan XL. 7. Lyrica. 8. Trintellix. EEG FINDINGS: This is a 21-channel digital EEG recorded with video component, utilizing 10/20 international system with referential and bipolar montages. Background consists of well-developed, but somewhat slightly disorganized mixed frequencies of 8 hertz alpha, with some 7 hertz theta activity seen in bihemispheric region. Background is posterior dominant, slightly reactive to eye opening and closing. Photic stimulation was not performed. Some drowsiness was seen with symmetric theta frequency rhythm. Deeper stages of sleep were not seen. Frequent body jerks or head twitch or mouth tremble movement were documented, but there were no associated epileptiform activity with it. No focal or generalized epileptiform activity was seen. IMPRESSION: This is a borderline abnormal EEG due to mild background disorganization and slight slowing seen intermittently. This is suggestive of mild nonspecific generalized cerebral dysfunction, may be related to encephalopathy or medication effect. No epileptiform activity was seen. MMODL / IJN: [id number] /
== END 2022-07-22 18:25 | disposition home or self-care (01) ==
LOC: EC 12:34 → 3SCARD 16:59
PROVIDERS: ADMIT Family Medicine; ATTEND Family Medicine
DX: G40.409 Other generalized epilepsy and epileptic syndromes, not intractable, without status epilepticus (principal); R20.0 Anesthesia of skin; G56.00 Carpal tunnel syndrome, unspecified upper limb; K21.9 Gastro-esophageal reflux disease without esophagitis; F41.1 Generalized anxiety disorder; I10 Essential (primary) hypertension; M54.9 Dorsalgia, unspecified; G89.29 Other chronic pain; R51.9 Headache, unspecified; F17.210 Nicotine dependence, cigarettes, uncomplicated; J34.2 Deviated nasal septum; F33.9 Major depressive disorder, recurrent, unspecified; F12.90 Cannabis use, unspecified, uncomplicated; Z87.442 Personal history of urinary calculi; Z88.8 Allergy status to other drugs, medicaments and biological substances; Z79.899 Other long term (current) drug therapy; Z90.710 Acquired absence of both cervix and uterus; Z82.49 Family history of ischemic heart disease and other diseases of the circulatory system; Z82.3 Family history of stroke; Z88.5 Allergy status to narcotic agent; Z56.0 Unemployment, unspecified
CPT/HCPCS: 96365; 96372 ×2; 96375 ×2; 96361; 99285; 36415; 95816; 93005; 97162; 97165; 92610; 85379; 84439; 80053; 84443; 82607; 82550; 82746; 83735; 84484; 85025; 81001; 83036; 71046; 70496; 70450; 70498; 70553; G0378 ×3; S4990 ×2; J0360; J3475; Q9967; J1644 ×2; A9585

== ENCOUNTER 2022-08-24 14:27 | Emergency (ER) | payer OTHER ==
[2022-08-24 14:48] VITALS: BP 140/93; PULSE 97; RESP 18; TEMP 98.6
[2022-08-24] MEDS ORDERED: KETOROLAC 15 MG/ML 1 ML VIAL IM STA (15:05)
--- NOTE | 2022-08-24 15:19 | XR ---
EXAMINATION TYPE: XR hand complete LT DATE OF EXAM: 08/24/2022 COMPARISON: NONE HISTORY: Fall. Pain TECHNIQUE: 3 views FINDINGS: There is soft tissue swelling on the dorsum of the hand. Metacarpals are intact. Carpal bon es are intact. The fingers are intact. IMPRESSION: Soft tissue swelling on the dorsum of the hand. No fracture. Mild soft tissue swelling around the PIP joint of the middle finger.
--- NOTE | 2022-08-24 15:21 | XR ---
EXAMINATION TYPE: XR wrist complete LT DATE OF EXAM: 08/24/2022 COMPARISON: NONE HISTORY: Pain. Fall TECHNIQUE: 4 views FINDINGS: Carpal bones are intact. There is slight irregular appearance of the radial styloid process suggestive of nondisplaced hairline fracture. There is minimal cortical buckling on the lateral radi al styloid process. The carpal bones are intact. Metacarpals are intact. IMPRESSION: There is likely a nondisplaced radial styloid process fracture. No evidence of carpal bon e fracture. Normal scaphoid bone.
[2022-08-24] MEDS ORDERED: MORPHINE SULFATE 4 MG/ML SYRINGE IM STA (15:55)
--- NOTE | 2022-08-24 15:59 | ED ---
Upper Extremity HPI - General Chief Complaint: Extremity Injury, Upper Stated Complaint: left hand swollen Time Seen by Provider: 08/24/22 15:04 Source: patient Mode of arrival: ambulatory Limitations: no limitations - History of Present Illness Initial Comments: Patient is a 42-year-old female who presents to the emergency Department chief complaint left wrist pain.Patient fell while chasing her dog yesterday and fell on her outstretched left hand. Patient reports pain and swelling over her left wrist. Pain refractory to Motrin 800. Denies numbness and tingling. Denies other injury. - Related Data Home Medications Medication Instructions Recorded Confirmed lisinopriL [Prinivil] 10 mg PO DAILY 06/05/21 07/20/22 Pregabalin [Lyrica] 150 mg PO TID 07/09/21 07/20/22 Omeprazole 40 mg PO DAILY 07/09/22 07/20/22 Diclofenac Sodium [Voltaren 4 gm TOPICAL QID PRN 07/20/22 07/20/22 Arthritis Pain 1% Gel] HYDROcodone/APAP 7.5-325MG [[place] 1 tab PO BID PRN 07/20/22 07/20/22 7.5-325] Ibuprofen [Motrin] 600 mg PO TID PRN 07/20/22 07/20/22 Ketorolac [Toradol] 10 mg PO Q6HR PRN 07/20/22 07/20/22 Vortioxetine Hydrobromide 20 mg PO DAILY 07/20/22 07/20/22 [Trintellix] Previous Rx's Medication Instructions Recorded Nicotine 14Mg/24Hr Patch [Habitrol] 1 patch TRANSDERM DAILY patch 07/22/22 Tamsulosin [Flomax] 0.4 mg PO DAILY cap 07/22/22 HYDROcodone/APAP 7.5-325MG [[place] 1 tab PO Q4HR PRN 3 Days #18 tab 08/24/22 7.5-325] Allergies Allergy/AdvReac Type Severity Reaction Status Date / Time tramadol AdvReac SEIZURE Verified 08/24/22 14:48 Review of Systems ROS Statement: Those systems with pertinent positive or pertinent negative responses have been documented in the HPI. ROS Other: All systems not noted in ROS Statement are negative. Past Medical History Past Medical History: GERD/Reflux, Hypertension Additional Past Medical History / Comment(s): Migraines, hx kidney stones, chronic back pain. History of Any Multi-Drug Resistant Organisms: None Reported Past Surgical History: Appendectomy, Section, Hysterectomy, Orthopedic Surgery Additional Past Surgical History / Comment(s): Carpal tunnel, stent for kidney stones /later removed, 07/03/21-lithotripsy/right ureteral stent placed/removed, pain clinic procedures, Angiogram. Past Anesthesia/Blood Transfusion Reactions: No Reported Reaction Past Psychological History: Anxiety Smoking Status: Current every day smoker Past Alcohol Use History: None Reported Past Drug Use History: Marijuana - Past Family History Father Family Medical History: CVA/TIA, Hypertension Mother Family Medical History: No Reported History General Exam Limitations: no limitations General appearance: alert, in no apparent distress Head exam: Present: atraumatic, normocephalic, normal inspection Respiratory exam: Present: normal lung sounds bilaterally. Absent: respiratory distress, wheezes, rales, rhonchi, stridor Cardiovascular Exam: Present: regular rate, normal rhythm, normal heart sounds. Absent: systolic murmur, diastolic murmur, rubs, gallop, clicks Extremities exam: Present: other (Mild swelling of the wrist radially with mild ecchymosis. No obvious deformity. Anatomical snuffbox tenderness. Neurovascularly intact. Full range of motion. ) Neurological exam: Present: alert, oriented X3, CN II-XII intact Psychiatric exam: Present: normal affect, normal mood Skin exam: Present: warm, dry, intact, normal color. Absent: rash Course Vital Signs 08/24/22 14:46 Temperature 98.6 F Pulse Rate 97 Respiratory 18 Rate Blood Pressure 140/93 O2 Sat by Pulse 96 Oximetry Procedures - Orthopedic Splinting/Casting Injury #1 Upper Extremity Injury Location: short arm Medical Decision Making - Medical Decision Making This is a 42-year-old female presenting with left wrist pain. Left wrist and hand x-ray obtained interpreted by me which shows a likely nondisplaced radial styloid process fracture. There is no evidence of carpal bone fracture. Normal scaphoid bone. Patient given Toradol for pain which did not touch her pain. Patient was then given a shot of morphine. She was placed in a short arm splint. Education provided in detail. Patient will be referred to orthopedics. She will be discharged with a short course of [place] for severe pain. Dr. Haddad is my attending. Disposition Clinical Impression: Radial styloid fracture, Fall Disposition: HOME SELF-CARE Condition: Good Instructions (If sedation given, give patient instructions): Arm Fracture in Adults (ED) Additional Instructions: You have been diagnosed with a nondisplaced radial styloid fracture. Take medication as directed. Take [place] for severe pain and please continue Motrin for the next 2 days to help swelling. Follow-up with insurance billing specialist in 1-2 days. Keep splint clean and dry. Ice injury for the next 24-48 hours. Prescriptions: HYDROcodone/APAP 7.5-325MG [[place] 7.5-325] 1 tab PO Q4HR PRN 3 Days #18 tab PRN Reason: Pain Is patient prescribed a controlled substance at d/c from ED?: Yes If prescribed controlled substance>3 days was MAPS reviewed?: Prescribed <3 Days Referrals: Luis Enrique Arnold MD [Primary Care Provider] - 1-2 days Mildred Claire DO [Doctor of Osteopathic Medicine] - 1-2 days
== END 2022-08-24 16:05 | disposition home or self-care (01) ==
LOC: EC 14:27
DX: S52.512A Displaced fracture of left radial styloid process, initial encounter for closed fracture (principal); I10 Essential (primary) hypertension; K21.9 Gastro-esophageal reflux disease without esophagitis; F41.9 Anxiety disorder, unspecified; F17.200 Nicotine dependence, unspecified, uncomplicated; F12.90 Cannabis use, unspecified, uncomplicated; Z79.83 Long term (current) use of bisphosphonates; Z79.899 Other long term (current) drug therapy; Z79.811 Long term (current) use of aromatase inhibitors; Z88.5 Allergy status to narcotic agent; W54.1XXA Struck by dog, initial encounter; Y92.89 Other specified places as the place of occurrence of the external cause
CPT/HCPCS: 29125 ×2; 99283 ×2; 96372 ×2; 73110; 73130; J2270; J1885

== ENCOUNTER 2022-10-22 21:53 | Emergency (ER) | payer OTHER ==
[2022-10-22 22:00] VITALS: BP 160/90; PULSE 92; RESP 20; TEMP 98.8
--- NOTE | 2022-10-22 22:15 | XR ---
EXAMINATION TYPE: XR chest 2V DATE OF EXAM: 10/22/2022 COMPARISON: 07/20/2022 HISTORY: Short of breath TECHNIQUE: FINDINGS: Heart and mediastinum are normal. Lungs are clear. Diaphragm is normal. Bony thorax is inta ct. IMPRESSION: Normal chest. No change.
[2022-10-22 22:57] LABS: Basophils # (A) 0.1 k/uL (0-0.2); Basophils % (A) 1 %; Eosinophils # (A) 0.1 k/uL (0-0.7); Eosinophils % (A) 2 %; HCT 38.7 % (34.0-46.0); HGB 13.3 gm/dL (11.4-16.0); Lymphocytes # (A) 2.3 k/uL (1.0-4.8); Lymphocytes % (A) 35 %; MCH 30.7 pg (25.0-35.0); MCHC 34.3 g/dL (31.0-37.0); MCV 89.5 fL (80.0-100.0); Mean Platelet Volume 7.6; Monocytes # (A) 0.3 k/uL (0-1.0); Monocytes % (A) 4 %; Neutrophils # (A) 3.7 k/uL (1.3-7.7); Neutrophils % (A) 56 %; Platelet Count 276 k/uL (150-450); RBC 4.32 m/uL (3.80-5.40); RDW 13.7 % (11.5-15.5); WBC 6.6 k/uL (3.8-10.6)
[2022-10-22 23:07] LABS: Albumin 4.4 g/dL (3.5-5.0); Calcium 9.6 mg/dL (8.4-10.2); Magnesium 2.1 mg/dL (1.6-2.3); Potassium 3.8 mmol/L (3.5-5.1); Total Bilirubin 0.3 mg/dL (0.2-1.3); Total Protein 6.9 g/dL (6.3-8.2)
[2022-10-22 23:13] LABS: INR 0.9 (<1.2); Partial Thromboplastin Time 23.7 sec (22.0-30.0)
== END 2022-10-22 23:00 | disposition left against medical advice (07) ==
LOC: EC 21:53
DX: Z53.21 Procedure and treatment not carried out due to patient leaving prior to being seen by health care provider (principal)
CPT/HCPCS: 36415; 71046; 80053; 83735; 84484; 85025; 85610; 85730; 93005; 99499

== ENCOUNTER 2023-01-24 11:33 | Emergency (ER) | payer OTHER ==
[2023-01-24 11:41] VITALS: TEMP 97.9
[2023-01-24] MEDS ORDERED: SODIUM CHLORIDE 0.9% 1,000 ML IV STA (12:06)
--- NOTE | 2023-01-24 12:07 | ED ---
General Adult HPI - General Chief complaint: Seizure Stated complaint: seizure Time Seen by Provider: 01/24/23 11:45 Source: patient, EMS Mode of arrival: EMS - History of Present Illness Initial comments: Patient is a 43-year-old female presenting to the emergency room via EMS for further evaluation of seizure. She reports that she has had a seizure in the past when she has taken Wellbutrin. She was weaned off Wellbutrin some time ago but states that she took the medication recently. She intentionally took 4-5 tablets of the Wellbutrin in order to "give herself energy." She had no intention of self-harm with her intentional overdose. She reports that she feels "off" but denies any focal neurological deficits. She is distracted but able to answer questions appropriately. She denies any seizure activity when she is not taking Wellbutrin. She is aware that she is not supposed to be taking the medication. She is complaining of a headache. She denies any chest pain, shortness of breath, abdominal pain, nausea, vomiting, diarrhea, dizziness, hallucinations, delusions, fevers or chills. She has a past medical history in addition to her seizure disorder of migraines, chronic back pain and hypertension. - Related Data Home Medications Medication Instructions Recorded Confirmed lisinopriL [Prinivil] 10 mg PO DAILY 06/05/21 01/24/23 Pregabalin [Lyrica] 150 mg PO TID 07/09/21 01/24/23 Omeprazole 40 mg PO DAILY 07/09/22 01/24/23 HYDROcodone/APAP 7.5-325MG [[place] 1 tab PO TID PRN 07/20/22 01/24/23 7.5-325] Vortioxetine Hydrobromide 20 mg PO DAILY 07/20/22 01/24/23 [Trintellix] Rimegepant Sulfate [Nurtec Odt] 75 mg PO DAILY PRN 11/11/22 01/24/23 Allergies Allergy/AdvReac Type Severity Reaction Status Date / Time tramadol AdvReac SEIZURE Verified 01/24/23 14:10 Review of Systems ROS Statement: Those systems with pertinent positive or pertinent negative responses have been documented in the HPI. ROS Other: All systems not noted in ROS Statement are negative. Past Medical History Past Medical History: GERD/Reflux, Hypertension, Seizure Disorder Additional Past Medical History / Comment(s): Migraines, hx kidney stones, chronic back pain. History of Any Multi-Drug Resistant Organisms: None Reported Past Surgical History: Appendectomy, Section, Hysterectomy, Orthopedic Surgery Additional Past Surgical History / Comment(s): Carpal tunnel, stent for kidney stones /later removed, 07/03/21-lithotripsy/right ureteral stent placed/removed, pain clinic procedures, Angiogram. Past Anesthesia/Blood Transfusion Reactions: No Reported Reaction Past Psychological History: Anxiety Smoking Status: Current every day smoker Past Alcohol Use History: None Reported Past Drug Use History: Marijuana - Past Family History Father Family Medical History: CVA/TIA, Hypertension Mother Family Medical History: No Reported History Occupational Seizure History - Commerical Driving History Currently uses [employer] for employment (including self-employed).: No General Exam - General Exam Comments Initial Comments: GENERAL: No acute distress, well developed, well nourished. HEENT: Normocephalic, atraumatic. Pupils equal, round, reactive to light. Moist mucous membranes. LUNGS: No respiratory distress. Clear to auscultation, no adventitious sounds, no use of accessory muscles. HEART: Regular rate and rhythm without murmur, rub, or gallop. ABDOMEN: Normal bowel sounds. Soft, non-tender, non-distended. BACK: Normal inspection. EXTREMITIES: No edema. No tenderness. Moves all extremities. NEUROLOGIC: Alert & oriented x 3. CN II-XII grossly intact. No focal weakness. PSYCHIATRIC: Bizzard affect and behavior. DERMATOLOGIC: Skin intact, without rashes or lesions noted. Course Vital Signs 01/24/23 01/24/23 01/24/23 11:33 14:30 15:00 Temperature 97.9 F Pulse Rate 101 H 82 80 Respiratory 16 16 18 Rate Blood Pressure 184/103 157/113 147/108 O2 Sat by Pulse 98 Oximetry Medical Decision Making - Medical Decision Making Was pt. sent in by a medical professional or institution (, [facility], CREW CHIEF, urgent care, hospital, or residential...) When possible be specific @ -No Did you speak to anyone other than the patient for history (EMS, parent, family, police, friend...)? What history was obtained from this source @ -No Did you review nursing and triage notes (agree or disagree)? Why? @ -I reviewed and agree with nursing and triage notes Were old charts reviewed (outside hosp., previous admission, EMS record, old EKG, old radiological studies, urgent care reports/EKG's, residential records)? Report findings @ -No old charts were reviewed Differential Diagnosis (chest pain, altered mental status, abdominal pain women, abdominal pain men, vaginal bleeding, weakness, fever, dyspnea, syncope, headache, dizziness, GI bleed, back pain, seizure, CVA, palpatations, mental health, musculoskeletal)? @ -not applicable EKG interpreted by me (3pts min.). @ -Sinus rhythm, ventricular rate 90 bpm, HI interval 138 ms, QRS duration 84 ms, QT/QTC 350/390 ms, PRT axes 45, 31, 39 X-rays interpreted by me (1pt min.). @ -None done CT interpreted by me (1pt min.). @ -None done U/S interpreted by me (1pt. min.). @ -None done What testing was considered but not performed or refused? (CT, X-rays, U/S, labs)? Why? @ -None What meds were considered but not given or refused? Why? @ -None Did you discuss the management of the patient with other professionals (professionals i.e. , PA, CREW CHIEF, lab, RT, psych nurse, criminal justice social worker, histology teacher, teacher, deportation officer, case worker)? Give summary @ -No Was smoking cessation discussed for >3mins.? @ -No Was critical care preformed (if so, how long)? @ -No Were there social determinants of health that impacted care today? How? (Homelessness, low income, unemployed, alcoholism, drug addiction, transportation, low edu. Level, literacy, decrease access to med. care, [place] [facility], rehab)? @ -No Was there de-escalation of care discussed even if they declined (Discuss DNR or withdrawal of care, Hospice)? DNR status @ -No What co-morbidities impacted this encounter? (DM, HTN, Smoking, COPD, CAD, Cancer, CVA, ARF, Chemo, Hep., AIDS, mental health diagnosis, sleep apnea, morbid obesity)? @ -None Was patient admitted / discharged? Hospital course, mention meds given and route, prescriptions, significant lab abnormalities, going to OR and other pertinent info. @ -43-year-old female presenting to the emergency room after having a seizure due to intentionally overdosing on Wellbutrin. Not currently postictal. Bizarre affect likely secondary to overdose of Wellbutrin no evidence of postictal status. Will obtain EKG, CBC, CMP, salicylates, acetaminophen and serum alcohol level. EKG shows sinus rhythm, CMP normal, toxicology on negative/normal CMP shows elevated glucose 102 elevated AST 52 elevated ALT 180, normal alkaline phosphate. No indication for further diagnostic imaging or laboratory studies will have EPS evaluate due to intentional overdose. EPS evaluation completed with safety plan in place. No indication for psychiatr ic admitted. Workup and results discussed with patient at length. Encouraged not taking medications that are not prescribed and adherence to prescribed medication regimen. Questions and concerns answered. Return parameters to the emergency room discussed. Will discharge home in stable condition after drug induced seizure advising follow-up with her primary care provider. Undiagnosed new problem with uncertain prognosis? @ -No Drug Therapy requiring intensive monitoring for toxicity (Heparin, Nitro, Insulin, Cardizem)? @ -No Were any procedures done? @ -No Diagnosis/symptom? @ -Drug-induced seizure Acute, or Chronic, or Acute on Chronic? @ -Acute Uncomplicated (without systemic symptoms) or Complicated (systemic symptoms)? @ -default Side effects of treatment? @ -No Exacerbation, Progression, or Severe Exacerbation? @ -No Poses a threat to life or bodily function? How? (Chest pain, [place], [place], pneumonia, PE, COPD, DKA, ARF, appy, cholecystitis, CVA, Diverticulitis, Homicidal, Suicidal, threat to staff... and all critical care pts) @ -No Case discussed with Dr. Jackson - Lab Data Result diagrams: 01/24/23 12:10 01/24/23 12:10 Lab Results 01/24/23 01/24/23 Range/Units 12:10 12:10 WBC 5.2 (3.8-10.6) k/uL RBC 4.27 (3.80-5.40) m/uL Hgb 13.2 (11.4-16.0) gm/dL Hct 40.0 (34.0-46.0) % MCV 93.8 (80.0-100.0) fL MCH 30.9 (25.0-35.0) pg MCHC 32.9 (31.0-37.0) g/dL RDW 14.1 (11.5-15.5) % Plt Count 265 (150-450) k/uL MPV 8.2 Neutrophils % 63 % Lymphocytes % 30 % Monocytes % 4 % Eosinophils % 1 % Basophils % 0 % Neutrophils # 3.3 (1.3-7.7) k/uL Lymphocytes # 1.5 (1.0-4.8) k/uL Monocytes # 0.2 (0-1.0) k/uL Eosinophils # 0.1 (0-0.7) k/uL Basophils # 0.0 (0-0.2) k/uL Sodium 142 (137-145) mmol/L Potassium 4.5 (3.5-5.1) mmol/L Chloride 104 (98-107) mmol/L Carbon Dioxide 29 (22-30) mmol/L Anion Gap 9 mmol/L BUN 15 (7-17) mg/dL Creatinine 0.69 (0.52-1.04) mg/dL Est GFR (CKD-EPI)AfAm >90 (>60 ml/min/1.73 sqM) Est GFR (CKD-EPI)NonAf >90 (>60 ml/min/1.73 sqM) Glucose 102 H (74-99) mg/dL Calcium 9.5 (8.4-10.2) mg/dL Magnesium 2.0 (1.6-2.3) mg/dL Total Bilirubin 0.6 (0.2-1.3) mg/dL AST 52 H (14-36) U/L ALT 180 H (4-34) U/L Alkaline Phosphatase 102 (38-126) U/L Total Protein 7.3 (6.3-8.2) g/dL Albumin 4.3 (3.5-5.0) g/dL Salicylates 5.7 mg/dL Acetaminophen <10.0 ug/mL Serum Alcohol <10 mg/dL Disposition Clinical Impression: Drug-induced seizure Disposition: HOME SELF-CARE Condition: Stable Instructions (If sedation given, give patient instructions): Recurrent Seizures in Adults (ED) Additional Instructions: Please take your medications as prescribed. Do not take medications that you have been advised to stop. Please follow-up with your primary care provider and her neurologist. Please return to the Emergency Department if symptoms worsen or any other concerns. Is patient prescribed a controlled substance at d/c from ED?: No Referrals: Luis Enrique Arnold MD [Primary Care Provider] - 1-2 days Time of Disposition: 15:30
[2023-01-24 12:46] LABS: ALT 180 U/L (4-34); AST 52 U/L (14-36); Acetaminophen <10.0 ug/mL; African American GFR (CKD) >90 (>60 ml/min/1.73 sqM); Albumin 4.3 g/dL (3.5-5.0); Alcohol <10 mg/dL; Alkaline Phosphatase 102 U/L (38-126); Anion Gap 9 mmol/L; Basophils % (A) 0 %; Blood Urea Nitrogen 15 mg/dL (7-17); Calcium 9.5 mg/dL (8.4-10.2); Carbon Dioxide 29 mmol/L (22-30); Chloride 104 mmol/L (98-107); Eosinophils # (A) 0.1 k/uL (0-0.7); Eosinophils % (A) 1 %; Glucose 102 mg/dL (74-99); HGB 13.2 gm/dL (11.4-16.0); Lymphocytes # (A) 1.5 k/uL (1.0-4.8); Lymphocytes % (A) 30 %; MCH 30.9 pg (25.0-35.0); MCHC 32.9 g/dL (31.0-37.0); MCV 93.8 fL (80.0-100.0); Mean Platelet Volume 8.2; Monocytes # (A) 0.2 k/uL (0-1.0); Monocytes % (A) 4 %; Neutrophils # (A) 3.3 k/uL (1.3-7.7); Neutrophils % (A) 63 %; Non-African American GFR(CKD) >90 (>60 ml/min/1.73 sqM); Platelet Count 265 k/uL (150-450); Potassium 4.5 mmol/L (3.5-5.1); RBC 4.27 m/uL (3.80-5.40); RDW 14.1 % (11.5-15.5); Salicylate 5.7 mg/dL; Sodium 142 mmol/L (137-145); Total Bilirubin 0.6 mg/dL (0.2-1.3); Total Protein 7.3 g/dL (6.3-8.2); WBC 5.2 k/uL (3.8-10.6)
[2023-01-24] MEDS ORDERED: KETOROLAC 15 MG/ML 1 ML VIAL IVP STA (14:55)
[2023-01-24 15:07] VITALS: BP 147/108; PULSE 80; RESP 18
== END 2023-01-24 15:54 | disposition home or self-care (01) ==
LOC: EC 11:33
DX: G40.509 Epileptic seizures related to external causes, not intractable, without status epilepticus (principal); K21.9 Gastro-esophageal reflux disease without esophagitis; I10 Essential (primary) hypertension; F41.9 Anxiety disorder, unspecified; F17.200 Nicotine dependence, unspecified, uncomplicated; F12.90 Cannabis use, unspecified, uncomplicated; Z79.899 Other long term (current) drug therapy; Z88.5 Allergy status to narcotic agent
CPT/HCPCS: 36415; 93005; 80053; 83735; 85025; 80143; 80179; 99284; 96374; 96361; G0480; J1885; 80320

== ENCOUNTER 2023-08-17 09:21 | Observation (INO) | payer OTHER ==
[2023-08-17] MEDS ORDERED: ENALAPRILAT 1.25 MG/ML 1 ML VIAL IVP STA (09:45)
[2023-08-17] MEDS ORDERED: KETOROLAC 15 MG/ML 1 ML VIAL IVP STA (09:45)
--- NOTE | 2023-08-17 09:52 | ED ---
General Adult HPI - General Chief complaint: Recheck/Abnormal Lab/Rx Stated complaint: L Rib Sharp Pain Time Seen by Provider: 08/17/23 09:29 Source: patient, RN notes reviewed Mode of arrival: ambulatory Limitations: no limitations - History of Present Illness Initial comments: 43-year-old female presents emergency Department chief complaint of left-sided rib pain. States his been present for 1 week states it is worse with deep inspiration and movement. Patient states she started having pain after coughing. She feels short of breath. She states that she was pulled by her dog denies any rashes. Patient denies any significant cardiac history other than hypertension denies fever or chills. - Related Data Home Medications Medication Instructions Recorded Confirmed lisinopriL [Prinivil] 10 mg PO DAILY 06/05/21 01/24/23 Pregabalin [Lyrica] 150 mg PO TID 07/09/21 01/24/23 Omeprazole 40 mg PO DAILY 07/09/22 01/24/23 HYDROcodone/APAP 7.5-325MG [[place] 1 tab PO TID PRN 07/20/22 01/24/23 7.5-325] Vortioxetine Hydrobromide 20 mg PO DAILY 07/20/22 01/24/23 [Trintellix] Rimegepant Sulfate [Nurtec Odt] 75 mg PO DAILY PRN 11/11/22 01/24/23 Allergies Allergy/AdvReac Type Severity Reaction Status Date / Time tramadol AdvReac SEIZURE Verified 08/17/23 09:28 Review of Systems ROS Statement: Those systems with pertinent positive or pertinent negative responses have been documented in the HPI. ROS Other: All systems not noted in ROS Statement are negative. Past Medical History Past Medical History: GERD/Reflux, Hypertension, Seizure Disorder Additional Past Medical History / Comment(s): Migraines, hx kidney stones, chron ic back pain. History of Any Multi-Drug Resistant Organisms: None Reported Past Surgical History: Appendectomy, Section, Hysterectomy, Orthopedic Surgery Additional Past Surgical History / Comment(s): Carpal tunnel, stent for kidney stones /later removed, 07/03/21-lithotripsy/right ureteral stent placed/removed, pain clinic procedures, Angiogram. Past Anesthesia/Blood Transfusion Reactions: No Reported Reaction Past Psychological History: Anxiety Smoking Status: Current every day smoker Past Alcohol Use History: Occasional Past Drug Use History: Marijuana - Past Family History Father Family Medical History: CVA/TIA, Hypertension Mother Family Medical History: No Reported History General Exam Limitations: no limitations General appearance: alert, in no apparent distress Head exam: Present: atraumatic, normocephalic, normal inspection Eye exam: Present: normal appearance, PERRL, EOMI. Absent: scleral icterus, conjunctival injection, periorbital swelling ENT exam: Present: normal exam, normal oropharynx, mucous membranes moist Neck exam: Present: normal inspection, full ROM. Absent: tenderness, meningismus, lymphadenopathy Respiratory exam: Present: normal lung sounds bilaterally, chest wall tende rness. Absent: respiratory distress, wheezes, rales, rhonchi, stridor Cardiovascular Exam: Present: regular rate, normal rhythm, normal heart sounds. Absent: systolic murmur, diastolic murmur, rubs, gallop, clicks GI/Abdominal exam: Present: soft, normal bowel sounds. Absent: distended, tenderness, guarding, rebound, rigid Course Vital Signs 08/17/23 08/17/23 08/17/23 09:24 10:10 10:36 Temperature 98.1 F Pulse Rate 92 86 Respiratory 18 18 Rate Blood Pressure 191/118 192/120 168/123 O2 Sat by Pulse 99 98 Oximetry 08/17/23 08/17/23 08/17/23 11:07 11:54 12:28 Temperature Pulse Rate 87 81 Respiratory 18 Rate Blood Pressure 192/100 180/110 172/103 O2 Sat by Pulse 98 97 Oximetry 08/17/23 12:55 Temperature Pulse Rate Respiratory Rate Blood Pressure 160/100 O2 Sat by Pulse Oximetry EKG Findings - EKG Comments: EKG Findings:: EKG performed at 9:46 hours rhythm with a rate of 78 DC 131/82 QT/ QTC 371/404 - EKG Results: EKG: interpreted by ERMD Medical Decision Making - Medical Decision Making Was pt. sent in by a medical professional or institution (, PA, SODIUM CHLORITE OPERATOR, urgent care, hospital, or [facility]...) When possible be specific @ -No Did you speak to anyone other than the patient for history (EMS, parent, family, police, friend...)? What history was obtained from this source @ -No Did you review nursing and triage notes (agree or disagree)? Why? @ -I reviewed and agree with nursing and triage notes Were old charts reviewed (outside hosp., previous admission, EMS record, old EKG, old radiological studies, urgent care reports/EKG's, [facility] records)? Report findings @ -Reviewed prior charts, x-ray studies Differential Diagnosis (chest pain, altered mental status, abdominal pain women, abdominal pain men, vaginal bleeding, weakness, fever, dyspnea, syncope, headache, dizziness, GI bleed, back pain, seizure, CVA, palpatations, mental health, musculoskeletal)? @ -Differential Chest Pain: Stable Angina, Unstable Angina, STEMI, NSTEMI Aortic Dissection, Pneumothorax, Musculoskeletal, Esophageal Spasm GERD, Cholecystitis, Pancreatitis, Zoster, t his is not meant to be an all-inclusive list. EKG interpreted by me (3pts min.). @ -As above X-rays interpreted by me (1pt min.). @ -Chest x-ray with rib series no acute fracture, pneumothorax CT interpreted by me (1pt min.). @ -None done U/S interpreted by me (1pt. min.). @ -None done What testing was considered but not performed or refused? (CT, X-rays, U/S, labs)? Why? @ -None What meds were considered but not given or refused? Why? @ -None Did you discuss the management of the patient with other professionals (professionals i.e. , PA, SODIUM CHLORITE OPERATOR, lab, RT, psych nurse, psychosocial rehabilitation counselor, customs compliance specialist, teacher, staff command and control officer, assistant case manager)? Give summary @ - sheet for admission secondary to hypertensive urgency, atypical chest pain. Was smoking cessation discussed for >3mins.? @ -No Was critical care preformed (if so, how long)? @ -No Were there social determinants of health that impacted care today? How? (Homelessness, low income, unemployed, alcoholism, drug addiction, transportation, low edu. Level, literacy, decrease access to med. care, [facility] [facility], rehab)? @ -No Was there de-escalation of care discussed even if they declined (Discuss DNR or withdrawal of care, Hospice)? DNR status @ -No What co-morbidities impacted this encounter? (DM, HTN, Smoking, COPD, CAD, Cancer, CVA, ARF, Chemo, Hep., AIDS, mental health diagnosis, sleep apnea, morbid obesity)? @ -Hypertension Was patient admitted / discharged? Hospital course, mention meds given and route, prescriptions, significant lab abnormalities, going to OR and other pertinent info. @ -Admitted patient has persistent hypertension after multiple doses of medications. Patient will be admitted for further monitoring, evaluation patient's initial laboratory studies, x-ray is negative for acute process. ] Undiagnosed new problem with uncertain prognosis? @ -[o] Drug Therapy requiring intensive monitoring for toxicity (Heparin, Nitro, Insulin, Cardizem)? @ -[o] Were any procedures done? @ -[o] Diagnosis/symptom? @ Hypertensive urgency, chest paint] Acute, or Chronic, or Acute on Chronic? @ Acute] Uncomplicated (without systemic symptoms) or Complicated (systemic symptoms)? @ Uncomplicated] Side effects of treatment? @ -[o] Exacerbation, Progression, or Severe Exacerbation? @ -[o] Poses a threat to life or bodily function? How? (Chest pain, [place], [place], pneumonia, PE, COPD, DKA, ARF, appy, cholecystitis, CVA, Diverticulitis, Homicidal, Suicidal, threat to staff... and all critical care pts) @ -[yes patient has hypertension, chest pain concern for ACS - Lab Data Result diagrams: 08/17/23 09:46 08/17/23 09:46 Lab Results 08/17/23 08/17/23 08/17/23 Range/Units 09:46 09:46 09:46 WBC 5.7 (3.8-10.6) k/uL RBC 3.77 L (3.80-5.40) m/uL Hgb 12.4 (11.4-16.0) gm/dL Hct 37.0 (34.0-46.0) % MCV 98.2 (80.0-100.0) fL MCH 33.0 (25.0-35.0) pg MCHC 33.6 (31.0-37.0) g/dL RDW 13.8 (11.5-15.5) % Plt Count 230 (150-450) k/uL MPV 7.8 Neutrophils % 61 % Lymphocytes % 30 % Monocytes % 5 % Eosinophils % 2 % Basophils % 1 % Neutrophils # 3.5 (1.3-7.7) k/uL Lymphocytes # 1.7 (1.0-4.8) k/uL Monocytes # 0.3 (0-1.0) k/uL Eosinophils # 0.1 (0-0.7) k/uL Basophils # 0.0 (0-0.2) k/uL PT 9.8 L (10.0-12.5) sec INR 0.9 (<1.2) APTT 22.7 (22.0-30.0) sec D-Dimer 0.34 (<0.60) mg/L FEU Sodium 140 (137-145) mmol/L Potassium 4.2 (3.5-5.1) mmol/L Chloride 105 (98-107) mmol/L Carbon Dioxide 23 (22-30) mmol/L Anion Gap 12 mmol/L BUN 23 H (7-17) mg/dL Creatinine 0.61 (0.52-1.04) mg/dL Est GFR (CKD-EPI)AfAm >90 (>60 ml/min/1.73 sqM) Est GFR (CKD-EPI)NonAf >90 (>60 ml/min/1.73 sqM) Glucose 103 H (74-99) mg/dL Calcium 9.4 (8.4-10.2) mg/dL Magnesium 2.0 (1.6-2.3) mg/dL Total Bilirubin 0.4 (0.2-1.3) mg/dL AST 59 H (14-36) U/L ALT 72 H (4-34) U/L Alkaline Phosphatase 100 (38-126) U/L Troponin I (0.000-0.034) ng/mL Total Protein 7.2 (6.3-8.2) g/dL Albumin 4.4 (3.5-5.0) g/dL 08/17/23 Range/Units 09:46 WBC (3.8-10.6) k/uL RBC (3.80-5.40) m/uL Hgb (11.4-16.0) gm/dL Hct (34.0-46.0) % MCV (80.0-100.0) fL MCH (25.0-35.0) pg MCHC (31.0-37.0) g/dL RDW (11.5-15.5) % Plt Count (150-450) k/uL MPV Neutrophils % % Lymphocytes % % Monocytes % % Eosinophils % % Basophils % % Neutrophils # (1.3-7.7) k/uL Lymphocytes # (1.0-4.8) k/uL Monocytes # (0-1.0) k/uL Eosinophils # (0-0.7) k/uL Basophils # (0-0.2) k/uL PT (10.0-12.5) sec INR (<1.2) APTT (22.0-30.0) sec D-Dimer (<0.60) mg/L FEU Sodium (137-145) mmol/L Potassium (3.5-5.1) mmol/L Chloride (98-107) mmol/L Carbon Dioxide (22-30) mmol/L Anion Gap mmol/L BUN (7-17) mg/dL Creatinine (0.52-1.04) mg/dL Est GFR (CKD-EPI)AfAm (>60 ml/min/1.73 sqM) Est GFR (CKD-EPI)NonAf (>60 ml/min/1.73 sqM) Glucose (74-99) mg/dL Calcium (8.4-10.2) mg/dL Magnesium (1.6-2.3) mg/dL Total Bilirubin (0.2-1.3) mg/dL AST (14-36) U/L ALT (4-34) U/L Alkaline Phosphatase (38-126) U/L Troponin I <0.012 (0.000-0.034) ng/mL Total Protein (6.3-8.2) g/dL Albumin (3.5-5.0) g/dL Disposition Clinical Impression: Chest wall pain, Hypertension Disposition: ADMITTED IP TO THIS HOSP Condition: Fair Referrals: Luis Enrique Arnold MD [Primary Care Provider] - 1-2 days Time of Disposition: 13:49
[2023-08-17 10:06] LABS: Basophils % (A) 1 %; Eosinophils # (A) 0.1 k/uL (0-0.7); Eosinophils % (A) 2 %; HGB 12.4 gm/dL (11.4-16.0); Lymphocytes # (A) 1.7 k/uL (1.0-4.8); Lymphocytes % (A) 30 %; MCHC 33.6 g/dL (31.0-37.0); MCV 98.2 fL (80.0-100.0); Mean Platelet Volume 7.8; Monocytes # (A) 0.3 k/uL (0-1.0); Monocytes % (A) 5 %; Neutrophils # (A) 3.5 k/uL (1.3-7.7); Neutrophils % (A) 61 %; Platelet Count 230 k/uL (150-450); RBC 3.77 m/uL (3.80-5.40); RDW 13.8 % (11.5-15.5); WBC 5.7 k/uL (3.8-10.6)
[2023-08-17 10:21] LABS: INR 0.9 (<1.2); Partial Thromboplastin Time 22.7 sec (22.0-30.0); Prothrombin Time 9.8 sec (10.0-12.5)
[2023-08-17 10:22] LABS: ALT 72 U/L (4-34); AST 59 U/L (14-36); African American GFR (CKD) >90 (>60 ml/min/1.73 sqM); Albumin 4.4 g/dL (3.5-5.0); Alkaline Phosphatase 100 U/L (38-126); Anion Gap 12 mmol/L; Blood Urea Nitrogen 23 mg/dL (7-17); Calcium 9.4 mg/dL (8.4-10.2); Carbon Dioxide 23 mmol/L (22-30); Chloride 105 mmol/L (98-107); Glucose 103 mg/dL (74-99); Non-African American GFR(CKD) >90 (>60 ml/min/1.73 sqM); Potassium 4.2 mmol/L (3.5-5.1); Sodium 140 mmol/L (137-145); Total Bilirubin 0.4 mg/dL (0.2-1.3); Total Protein 7.2 g/dL (6.3-8.2)
[2023-08-17] MEDS ORDERED: MORPHINE SULFATE 4 MG/ML SYRINGE IVP STA ×2 (10:39→11:12)
--- NOTE | 2023-08-17 10:44 | XR ---
EXAMINATION TYPE: XR ribs LT w pa chest xray DATE OF EXAM: 08/17/2023 10:11 AM CLINICAL INDICATION:Female, 43 years old with history of pain; COMPARISON: 11/11/2022 TECHNIQUE: XR ribs LT w pa chest xray; Frontal and oblique views of the ribs with frontal chest radio graph. FINDINGS: The ribs have a normal appearance. No evidence of fracture. Overall, the lungs are clear. The cardiac silhouette is normal in size. The remaining osseous structures are intact. IMPRESSION: No acute osseous pathology.
[2023-08-17] MEDS ORDERED: hydrALAZINE HCL 20 MG/ML 1 ML VIAL IVP STA ×2 (11:12→11:59)
[2023-08-17] MEDS ORDERED: KETOROLAC 15 MG/ML 1 ML VIAL IVP PRN (13:42)
[2023-08-17] MEDS ORDERED: ONDANSETRON 4 MG/2 ML VIAL IVP PRN (13:42)
[2023-08-17] MEDS ORDERED: NALOXONE 0.4 MG/ML 1 ML VIAL IV PRN (13:42)
[2023-08-17] MEDS ORDERED: hydrALAZINE HCL 20 MG/ML 1 ML VIAL IVP PRN (13:44)
[2023-08-17] MEDS ORDERED: amLODIPine 10 MG TAB PO SCH (13:45)
--- NOTE | 2023-08-17 13:46 | P.HPIM ---
History of Present Illness This is a pleasant 43 years old female with past medical history of hypertension, GERD and seizure disorder, migraine Presents because of chest pain on the left lateral side for about one week, associated with significant tenderness, no significant dyspnea or coughing. No change in urine or bowel habits. No fever. She smokes about 2 cigarettes per day and was counseled to quit and she agrees. She agrees to the nicotine patch. No alcohol or illicit drugs. On admission her blood pressure was elevated 191/118, after several medication is still elevated 180/100 therefore patient would be admitted. She is afebrile. Labs are unremarkable including CBC BMP and INR. Troponin is negative. liver enzymes mildly elevated D-dimer negative at 0.34 Review of Systems Review of systems CONSTITUTIONAL: No fever, no malaise, no fatigue. HEENT: No recent visual problems or hearing problems. Denied any sore throat. CARDIOVASCULAR: No orthopnea, PND, no palpitations, no syncope. PULMONARY: No shortness of breath, no cough, no hemoptysis. GASTROINTESTINAL: No diarrhea, no nausea, no vomiting, no abdominal pain. Normoactive bowel sounds. NEUROLOGICAL: No headaches, no weakness, no numbness. HEMATOLOGICAL: Denies any bleeding or petechiae. GENITOURINARY: Denies any burning micturition, frequency, or urgency. MUSCULOSKELETAL/RHEUMATOLOGICAL: Denies any joint pain, swelling, or any muscle pain. ENDOCRINE: Denies any polyuria or polydipsia. Past Medical History Past Medical History: GERD/Reflux, Hypertension, Seizure Disorder Additional Past Medical History / Comment(s): Migraines, hx kidney stones, chronic back pain. History of Any Multi-Drug Resistant Organisms: None Reported Past Surgical History: Appendectomy, Section, Hysterectomy, Orthopedic Surgery Additional Past Surgical History / Comment(s): Carpal tunnel, stent for kidney stones /later removed, 07/03/21-lithotripsy/right ureteral stent placed/removed, pain clinic procedures, Angiogram. Past Anesthesia/Blood Transfusion Reactions: No Reported Reaction Past Psychological History: Anxiety Smoking Status: Current every day smoker Past Alcohol Use History: Occasional Past Drug Use History: Marijuana - Past Family History Father Family Medical History: CVA/TIA, Hypertension Mother Family Medical History: No Reported History Medications and Allergies Home Medications Medication Instructions Recorded Confirmed Type lisinopriL [Prinivil] 10 mg PO DAILY 06/05/21 01/24/23 History Pregabalin [Lyrica] 150 mg PO TID 07/09/21 01/24/23 History Omeprazole 40 mg PO DAILY 07/09/22 01/24/23 History HYDROcodone/APAP 7.5-325MG [[place] 1 tab PO TID PRN 07/20/22 01/24/23 History 7.5-325] Vortioxetine Hydrobromide 20 mg PO DAILY 07/20/22 01/24/23 History [Trintellix] Rimegepant Sulfate [Nurtec Odt] 75 mg PO DAILY PRN 11/11/22 01/24/23 History Allergies Allergy/AdvReac Type Severity Reaction Status Date / Time tramadol AdvReac SEIZURE Verified 08/17/23 09:28 Physical Exam Vitals: Vital Signs Temp Pulse Resp BP Pulse Ox 08/17/23 12:55 160/100 08/17/23 12:28 81 172/103 97 08/17/23 11:54 87 18 180/110 98 08/17/23 11:07 192/100 08/17/23 10:36 86 18 168/123 98 08/17/23 10:10 192/120 08/17/23 09:24 98.1 F 92 18 191/118 99 Intake and Output 08/16/23 08/17/23 08/17/23 22:59 06:59 14:59 Other: Weight 65.771 kg GENERAL: The patient is alert and oriented x3, not in any acute distress. Well developed, well nourished. HEENT: Pupils are round and equally reacting to light. EOMI. No scleral icterus. No conjunctival pallor. Normocephalic, atraumatic. No pharyngeal erythema. No thyromegaly. -CARDIOVASCULAR: S1 and S2 present. No murmurs, rubs, or gallops. Left lateral chest wall tenderness PULMONARY: Chest is clear to auscultation, no wheezing , no crackles. ABDOMEN: Soft, nontender, nondistended, normoactive bowel sounds. No palpable organomegaly. MUSCULOSKELETAL: No joint swelling or deformity. EXTREMITIES: No cyanosis, clubbing, or pedal edema. NEUROLOGICAL: Gross neurological examination did not reveal any focal deficits. SKIN: No rashes. no petechiae. Results CBC & Chem 7: 08/17/23 09:46 08/17/23 09:46 Labs: Abnormal Lab Results - Last 24 Hours (Table) 08/17/23 08/17/23 08/17/23 Range/Units 09:46 09:46 09:46 RBC 3.77 L (3.80-5.40) m/uL PT 9.8 L (10.0-12.5) sec BUN 23 H (7-17) mg/dL Glucose 103 H (74-99) mg/dL AST 59 H (14-36) U/L ALT 72 H (4-34) U/L Assessment and Plan Assessment: Hypertension with urgency, present on admission Chest pain most , musculoskeletal associated with significant tenderness. Repeat x-rays negative Nicotine dependence History of GERD History of seizure History of migraine Plan: Continue with antihypertensive medication1. Resume lisinopril 20 mg, add Norvasc 10 mg daily. Hydralazine IV when necessary Pain medication Cardiology consult Labs and medication were reviewed.. Continue same treatment. Continue with symptomatic treatment. Resume home medication. Monitor labs and vitals. DVT and GI prophylaxis. Further recommendations as per clinical course of the patient DVT prophylaxis: Subcutaneous heparin GI Prophylaxis: Lon Arnold resume the care of the patient tomorrow
[2023-08-17] MEDS: HYDROcodone/APAP 5-325MG 1 EACH TAB PO PRN ×2 (14:28→18:26)
[2023-08-17] MEDS: lisinopriL 20 MG TAB PO SCH (15:59)
[2023-08-17] MEDS: MORPHINE SULFATE 4 MG/ML SYRINGE IV PRN ×2 (16:00→20:12)
[2023-08-17] MEDS ORDERED: NON FORMULARY DRUG (Rimegepant Sulfate [Nurtec Odt] 75 MG Tablet) PO PRN (16:58)
[2023-08-17] MEDS: NICOTINE 21MG/24HR PATCH TRANSDERM SCH (17:07)
[2023-08-17 20:09] VITALS: RESP 18
[2023-08-17] MEDS ORDERED: HYDROcodone/APAP 7.5-325MG 1 EACH TAB PO PRN (20:20)
[2023-08-17] MEDS: PREGABALIN 75 MG CAP PO SCH (22:32)
[2023-08-17] MEDS: HYDROcodone/APAP 7.5-325MG 1 EACH TAB PO PRN (22:33)
[2023-08-18] MEDS: MORPHINE SULFATE 4 MG/ML SYRINGE IV PRN ×3 (00:37→08:55)
[2023-08-18] MEDS: HYDROcodone/APAP 7.5-325MG 1 EACH TAB PO PRN ×3 (02:40→11:08)
[2023-08-18] MEDS ORDERED: PANTOPRAZOLE 40 MG TABLET PO SCH (07:30)
[2023-08-18] MEDS: PREGABALIN 75 MG CAP PO SCH (08:54)
[2023-08-18] MEDS: lisinopriL 20 MG TAB PO SCH (08:55)
[2023-08-18] MEDS: NICOTINE 21MG/24HR PATCH TRANSDERM SCH (08:55)
[2023-08-18 09:00] VITALS: BP 134/92; PULSE 79; TEMP 98
[2023-08-18] MEDS ORDERED: amLODIPine 5 MG TAB PO SCH (09:00)
[2023-08-18] MEDS ORDERED: VORTIOXETINE HYDROBROMIDE 20 MG TABLET PO SCH (09:00)
--- NOTE | 2023-08-18 10:48 | P.CRDCN ---
History of Present Illness History of present illness: HISTORY OF PRESENT ILLNESS: This is a 43-year-old female with a past medical history significant for hypertension, anxiety, and nicotine dependence. Patient does not follow with a admin assistant. We have been asked to see the patient in consultation for elevated blood pressure and chest pain. Patient examined at the bedside. The patient reports she has been having chest pain for the past week. She states that she was hospitalized about a week ago at [facility] and was diagnosed with rib fracture secondary to coughing. She reports the pain is worse with deep inspiration and any movement. Chest reports the pain is worse with chest wall palpation. She denies any radiation of the pain. Denies any shortness of breath. Denies any dizziness or lightheadedness. The patient had elevated blood pressure upon admission to the hospital with a systolic in the 190s. Her blood pressure is currently well controlled this morning. She has been started on amlodipine. * EKG reveals sinus mechanism with no signs of acute ischemia * Laboratory data: Troponin negative 3 * Current home cardiac medications include lisinopril 10 mg twice a day * Patient underwent stress test in November 2022 which was negative for ischemia * Most recent echocardiogram obtained in November 2022 revealing ejection fraction 55-60% with mild TR REVIEW OF SYSTEMS: At the time of my exam: CONSTITUTIONAL: Denies fever or chills. HEENT: Denies blurred vision, vision changes, or eye pain. Denies hemoptysis CARDIOVASCULAR: Denies chest pain. Denies orthopnea. Denies PND. Denies palpitations RESPIRATORY: Denies shortness of breath. GASTROINTESTINAL: Denies abdominal pain. Denies nausea or vomiting. HEMATOLOGIC: Denies bleeding disorders. GENITOURINARY: Denies any blood in urine. SKIN: Denies pruitis. Denies rash. PHYSICAL EXAM: VITAL SIGNS: Reviewed. GENERAL: Well-developed in no acute distress. HEENT: Head is normocephalic. Pupils are equal, round. Sclerae anicteric. Mucous membranes of the mouth are moist. Neck supple. No JVD or thyromegaly LUNGS: Respirations even and unlabored. Lungs essentially clear to auscultation bilaterally. HEART: Regular rate and rhythm. S1 and S2 heard. ABDOMEN: Soft. Nondistended. Nontender. EXTREMITIES: Normal range of motion. No clubbing or cyanosis. Peripheral pu lses intact. No lower extremity edema NEUROLOGIC: Awake and alert. Oriented x 3. ASSESSMENT: Chest pain, noncardiac, troponin negative 3 Recent diagnosis of rib fractures, per patient Hypertensive urgency, resolved Anxiety Nicotine dependence PLAN: An acute coronary event has been ruled out No need to repeat echocardiogram at this time secondary to chest wall pain Continue current cardiac medications Decrease amlodipine to 5 mg daily Continue to monitor blood pressure Patient is stable for discharge home today from a cardiac standpoint We will sign off. Please reconsult if needed. Nurse practitioner note has been reviewed by physician. Signing provider agrees with the documented findings, assessment, and plan of care. Past Medical History Past Medical History: GERD/Reflux, Hypertension, Seizure Disorder Additional Past Medical History / Comment(s): Migraines, kidney stones, chronic back pain, seizures related to tramadol interaction with medication, right rib fractures History of Any Multi-Drug Resistant Organisms: None Reported Past Surgical History: Appendectomy, Section, Hysterectomy, Orthopedic Surgery Additional Past Surgical History / Comment(s): Carpal tunnel sx, stent for kidney stones/later removed, 07/03/21-lithotripsy/right ureteral stent place d/removed, pain clinic procedures, angiogram. Past Anesthesia/Blood Transfusion Reactions: No Reported Reaction Past Psychological History: Anxiety Additional Psychological History / Comment(s): Seasonal depression. Smoking Status: Current every day smoker Past Alcohol Use History: Occasional Additional Past Alcohol Use History / Comment(s): Smokes 5-6 cigarettes per day, along w/ vape use - trying to quit, has been smoking since 13 yrs old, up to 1ppd. Past Drug Use History: Marijuana Additional Drug Use History / Comment(s): Uses marijuana sometimes for chronic back pain per pt. - Past Family History Father Family Medical History: CVA/TIA, Hypertension Mother Family Medical History: No Reported History Medications and Allergies Home Medications Medication Instructions Recorded Confirmed Type Pregabalin [Lyrica] 150 mg PO TID 07/09/21 08/17/23 History Omeprazole 40 mg PO DAILY 07/09/22 08/17/23 History HYDROcodone/APAP 7.5-325MG [[place] 1 tab PO BID PRN 07/20/22 08/17/23 History 7.5-325] Vortioxetine Hydrobromide 20 mg PO DAILY 07/20/22 08/17/23 History [Trintellix] Rimegepant Sulfate [Nurtec Odt] 75 mg PO Q2D PRN 11/11/22 08/17/23 History busPIRone HCl [Buspar] 10 mg PO BID PRN 08/17/23 08/17/23 History Nicotine 21Mg/24Hr Patch [Habitrol] 1 patch TRANSDERM DAILY patch 08/18/23 Rx amLODIPine [Norvasc] 5 mg PO DAILY #30 tab 08/18/23 Rx lisinopriL [Zestril] 20 mg PO DAILY #30 tab 08/18/23 Rx Allergies Allergy/AdvReac Type Severity Reaction Status Date / Time tramadol AdvReac SEIZURE Verified 08/17/23 14:27 Physical Exam Vitals: Vital Signs Temp Pulse Pulse Resp BP BP Pulse Ox 08/18/23 04:56 97.5 F L 78 18 125/86 100 08/18/23 02:00 89 08/18/23 00:42 89 18 132/81 96 08/17/23 20:00 98.4 F 90 18 159/95 99 08/17/23 15:45 69 08/17/23 15:36 97.8 F 69 20 144/74 99 08/17/23 14:50 98.1 F 86 18 138/72 97 08/17/23 13:53 159/93 08/17/23 12:55 160/100 08/17/23 12:28 81 172/103 97 08/17/23 11:54 87 18 180/110 98 08/17/23 11:07 192/100 08/17/23 10:36 86 18 168/123 98 08/17/23 10:10 192/120 08/17/23 09:24 98.1 F 92 18 191/118 99 Intake and Output 08/17/23 08/18/23 08/18/23 22:59 06:59 14:59 Intake Total 1620 Balance 1620 Intake: Oral 1620 Other: Voiding Method Toilet Toilet # Voids 1 Weight 65.771 kg Results 08/17/23 09:46 08/17/23 09:46 Cardiac Enzymes 08/17/23 08/17/23 08/17/23 Range/Units 09:46 09:46 16:18 AST 59 H (14-36) U/L Troponin I <0.012 <0.012 (0.000-0.034) ng/mL 08/17/23 Range/Units 18:53 AST (14-36) U/L Troponin I <0.012 (0.000-0.034) ng/mL Coagulation 08/17/23 Range/Units 09:46 PT 9.8 L (10.0-12.5) sec APTT 22.7 (22.0-30.0) sec CBC 08/17/23 Range/Units 09:46 WBC 5.7 (3.8-10.6) k/uL RBC 3.77 L (3.80-5.40) m/uL Hgb 12.4 (11.4-16.0) gm/dL Hct 37.0 (34.0-46.0) % Plt Count 230 (150-450) k/uL Comprehensive Metabolic Panel 08/17/23 Range/Units 09:46 Sodium 140 (137-145) mmol/L Potassium 4.2 (3.5-5.1) mmol/L Chloride 105 (98-107) mmol/L Carbon Dioxide 23 (22-30) mmol/L BUN 23 H (7-17) mg/dL Creatinine 0.61 (0.52-1.04) mg/dL Glucose 103 H (74-99) mg/dL Calcium 9.4 (8.4-10.2) mg/dL AST 59 H (14-36) U/L ALT 72 H (4-34) U/L Alkaline Phosphatase 100 (38-126) U/L Total Protein 7.2 (6.3-8.2) g/dL Albumin 4.4 (3.5-5.0) g/dL Current Medications Generic Name Dose Route Start Last Admin Trade Name Freq PRN Reason Stop Dose Admin Hydrocodone Bitart/Acetaminophen 1 each 08/17/23 20:47 08/18/23 06:38 Hydrocodone/Apap 7.5-325mg 1 Each Tab PO 1 each Q4HR PRN Administration Pain Amlodipine Besylate 10 mg 08/17/23 13:45 08/17/23 16:00 Amlodipine 10 Mg Tab PO 10 mg DAILY GENTRY Administration Ketorolac Tromethamine 15 mg 08/17/23 13:42 08/17/23 16:51 Ketorolac 15 Mg/Ml 1 Ml Vial IVP 08/20/23 13:44 15 mg Q6HR PRN Administration Moderate Pain (Scale 4 to 6) Lisinopril 20 mg 08/17/23 13:45 08/17/23 15:59 Lisinopril 20 Mg Tab PO 20 mg DAILY GENTRY Administration Morphine Sulfate 4 mg 08/17/23 13:42 08/18/23 04:59 Morphine Sulfate 4 Mg/Ml Syringe IV 4 mg Q4HR PRN Administration Severe Pain (Scale 7 to 10) Naloxone HCl 0.2 mg 08/17/23 13:42 Naloxone 0.4 Mg/Ml 1 Ml Vial IV Q2M PRN Opioid Reversal Nicotine 1 patch 08/17/23 17:00 08/17/23 17:07 Nicotine 21mg/24hr Patch TRANSDERM 1 patch DAILY GENTRY Administration Non-Formulary Medication 75 mg 08/17/23 16:58 Rimegepant Sulfate [Nurtec Odt] PO Q2D PRN Migraine Headache Ondansetron HCl 4 mg 08/17/23 13:42 Ondansetron 4 Mg/2 Ml Vial IVP Q8HR PRN Nausea And Vomiting Pantoprazole Sodium 40 mg 08/18/23 07:30 08/18/23 06:39 Pantoprazole 40 Mg Tablet PO 40 mg [id number] GENTRY Administration Pregabalin 150 mg 08/17/23 22:00 08/17/23 22:32 Pregabalin 75 Mg Cap PO 150 mg TID GENTRY Administration Vortioxetine 20 mg 08/18/23 09:00 Vortioxetine Hydrobromide 20 Mg Tablet PO DAILY GENTRY Intake and Output 08/17/23 08/18/23 08/18/23 22:59 06:59 14:59 Intake Total 1620 Balance 1620 Intake: Oral 1620 Other: Voiding Method Toilet Toilet # Voids 1 Weight 65.771 kg 08/17/23 09:46 08/17/23 09:46
--- NOTE | 2023-08-18 16:19 | P.DS ---
Providers Date of admission: 08/17/23 14:47 Expected date of discharge: 08/18/23 Attending physician: Luis Enrique Arnold MD Consults: 08/17/23 13:42 Consult Physician Urgent Consulting Provider: Al Hilario Consult Reason/Comments: Hypertension Do you want consulting provider notified?: Yes Primary care physician: Luis Enrique Arnold MD Hospital Course: Final diagnoses Chest pain, troponins negative 3, recent negative stress test to 11/12/22 ,acute coronary event ruled out as per cardiology Recent diagnoses of rib fractures reported per patient, secondary to cough, denies trauma. Recommend bone density testing outpatient. Hypertensive urgency, resolved Anxiety Gastroesophageal Reflux disorder Seizure disorder Migraines on nurtec PRN Chronic back pain follows with Dr. Quiroga Reported history of Pseudotumor cerebri History kidney stone with lithotripsy/stent Chronic daily nicotine use counseled on smoking cessation Hospital course: Evaluated by cardiology, antihypertensives adjusted with significant clinical improvement. Cleared by cardiology for discharge. Denies lightheadedness dizziness or focal deficits. Denies chest pain, palpitations. Complains of left rib cage pain. Voltaren gel (OTC) recommended for ribcage pain as well as using incentive spirometer. Patient currently has pain medications at home that were prescribed on [address] Quiroga. Cleared by cardiology for discharge. Patient will be discharged home today in a stable condition with guarded prognosis. The impression and plan of care has been dictated as directed. : I performed a history and examination of this patient, discussed the same with the dictator. I agree with the dictator's note ,documented as a scribe. Any additional findings or plans will be noted. Patient Condition at Discharge: Stable Plan - Discharge Summary Discharge Rx Participant: Yes New Discharge Prescriptions: New Nicotine 21Mg/24Hr Patch [Habitrol] 1 patch TRANSDERM DAILY patch lisinopriL [Zestril] 20 mg PO DAILY #30 tab amLODIPine [Norvasc] 5 mg PO DAILY #30 tab Continue Pregabalin [Lyrica] 150 mg PO TID Omeprazole 40 mg PO DAILY Vortioxetine Hydrobromide [Trintellix] 20 mg PO DAILY HYDROcodone/APAP 7.5-325MG [[place] 7.5-325] 1 tab PO BID PRN PRN Reason: Pain Rimegepant Sulfate [Nurtec Odt] 75 mg PO Q2D PRN PRN Reason: Migraine Headache busPIRone HCl [Buspar] 10 mg PO BID PRN PRN Reason: Anxiety Discontinued lisinopriL [Prinivil] 10 mg PO BID Discharge Medication List Pregabalin [Lyrica] 150 mg PO TID 07/09/21 [History] Omeprazole 40 mg PO DAILY 07/09/22 [History] HYDROcodone/APAP 7.5-325MG [[place] 7.5-325] 1 tab PO BID PRN 07/20/22 [History] Vortioxetine Hydrobromide [Trintellix] 20 mg PO DAILY 07/20/22 [History] Rimegepant Sulfate [Nurtec Odt] 75 mg PO Q2D PRN 11/11/22 [History] busPIRone HCl [Buspar] 10 mg PO BID PRN 08/17/23 [History] Nicotine 21Mg/24Hr Patch [Habitrol] 1 patch TRANSDERM DAILY patch 08/18/23 [Rx] amLODIPine [Norvasc] 5 mg PO DAILY #30 tab 08/18/23 [Rx] lisinopriL [Zestril] 20 mg PO DAILY #30 tab 08/18/23 [Rx] Follow up Appointment(s)/Referral(s): Luis Enrique Arnold MD [Primary Care Provider] - 08/21/23 10:45 am (appointment will be in [place] ) Patient Instructions/Handouts: Chest Pain (DC), Chest Wall Pain (GEN) Activity/Diet/Wound Care/Special Instructions: Patient was asking for pain medication to be prescribed at discharge. On Dr. Quiroga prescribed #45, [place] 7..5mg tabs., Therefore no new pain medications will be prescribed at discharge. Voltaren gel (OTC) recommended for ribcage pain. Incentive spirometer every hour 10 while awake. Patient also reports that she went to [facility] last week reported to have a left rib fracture. Denies trauma states it was related to a cough. Recommend outpatient bone density testing. Discharge Disposition: HOME SELF-CARE
== END 2023-08-18 11:51 | disposition home or self-care (01) ==
LOC: EC 09:21 → INTOOBSV 14:47 → 3SCARD 14:47 → UNDODISIN 08-18 11:51
PROVIDERS: ADMIT Family Medicine; ATTEND Family Medicine
DX: R07.89 Other chest pain (principal); I16.0 Hypertensive urgency; I10 Essential (primary) hypertension; K21.9 Gastro-esophageal reflux disease without esophagitis; F41.9 Anxiety disorder, unspecified; G40.909 Epilepsy, unspecified, not intractable, without status epilepticus; G43.909 Migraine, unspecified, not intractable, without status migrainosus; G93.2 Benign intracranial hypertension; F17.200 Nicotine dependence, unspecified, uncomplicated; Z87.442 Personal history of urinary calculi; Z79.899 Other long term (current) drug therapy; Z88.5 Allergy status to narcotic agent
CPT/HCPCS: 96376; 96374; 96375; 99285; 36415; 93005; 85379; 80053; 83735; 84484; 85025; 85610; 85730; 71101; G0378 ×2; S4990 ×2; J2270 ×2; J0360; J1885

== ENCOUNTER 2023-08-19 19:47 | Observation (INO) | payer OTHER ==
--- NOTE | 2023-08-19 20:12 | ED ---
General Adult HPI - General Chief complaint: Neuro Symptoms/Deficit Stated complaint: High BP - Neuro Symptoms Source: patient Mode of arrival: ambulatory Limitations: no limitations - History of Present Illness Initial comments: 43-year-old female with a past medical history significant for hypertension, obesity, and is a smoker presenting to the ED with a chief complaint of neuro symptoms. Patient states at approximately 9:30, started to experience intermittent weakness of her hands. States that she felt as if she could not use her hands lasting for seconds at a time. States that she regularly has appointments with her counselor@10 AM. States that when her counselor called her today was having difficulties picking up the phone due to this. Also notes while talking to her counselor she started to stutter which patient notes is unusual for her. Patient states after her counseling session, attempted to ambulate and felt as if she had intermittent episodes of weakness of her right leg as well lasting for seconds at a time. As of now, patient states symptoms are still ongoing and intermittent. In addition, patient notes that she has been having some left sided chest pain with a past 6 days. Pain is intermittent in nature and typically last a few seconds. Pain does not radiate. Reports that she has taken baby aspirin for this which helped provide relief. Since onset this has not been worsening. No shortness of breath. No abdominal pain. No changes in bowel or bladder habits. No other complaints. - Related Data Home Medications Medication Instructions Recorded Confirmed Pregabalin [Lyrica] 150 mg PO TID 07/09/21 08/17/23 Omeprazole 40 mg PO DAILY 07/09/22 08/17/23 HYDROcodone/APAP 7.5-325MG [[place] 1 tab PO BID PRN 07/20/22 08/17/23 7.5-325] Vortioxetine Hydrobromide 20 mg PO DAILY 07/20/22 08/17/23 [Trintellix] Rimegepant Sulfate [Nurtec Odt] 75 mg PO Q2D PRN 11/11/22 08/17/23 busPIRone HCl [Buspar] 10 mg PO BID PRN 08/17/23 08/17/23 Previous Rx's Medication Instructions Recorded Nicotine 21Mg/24Hr Patch [Habitrol] 1 patch TRANSDERM DAILY patch 08/18/23 amLODIPine [Norvasc] 5 mg PO DAILY #30 tab 08/18/23 lisinopriL [Zestril] 20 mg PO DAILY #30 tab 08/18/23 Allergies Allergy/AdvReac Type Severity Reaction Status Date / Time tramadol AdvReac SEIZURE Verified 08/19/23 19:52 Review of Systems ROS Statement: Those systems with pertinent positive or pertinent negative responses have been documented in the HPI. ROS Other: All systems not noted in ROS Statement are negative. Past Medical History Past Medical History: GERD/Reflux, Hypertension, Seizure Disorder Additional Past Medical History / Comment(s): Migraines, kidney stones, chronic back pain, seizures related to tramadol interaction with medication, right rib fractures History of Any Multi-Drug Resistant Organisms: None Reported Past Surgical History: Appendectomy, Section, Hysterectomy, Orthopedic Surgery Additional Past Surgical History / Comment(s): Carpal tunnel sx, stent for kidney stones/later removed, 07/03/21-lithotripsy/right ureteral stent placed/removed, pain clinic procedures, angiogram. Past Anesthesia/Blood Transfusion Reactions: No Reported Reaction Past Psychological History: Anxiety Smoking Status: Current every day smoker Past Alcohol Use History: Occasional Past Drug Use History: Marijuana - Past Family History Father Family Medical History: CVA/TIA, Hypertension Mother Family Medical History: No Reported History General Exam Limitations: no limitations General appearance: alert, in no apparent distress Neck exam: Present: normal inspection Respiratory exam: Present: normal lung sounds bilaterally Cardiovascular Exam: Present: regular rate, normal rhythm GI/Abdominal exam: Present: soft Extremities exam: Present: other (Strength and sensation equal and intact of bilateral upper and lower extremities.) Neurological exam: Present: alert, oriented X3, CN II-XII intact Course Vital Signs 08/19/23 08/19/23 08/19/23 19:50 20:27 22:09 Temperature 97.9 F Pulse Rate 100 100 92 Respiratory 20 18 16 Rate Blood Pressure 117/113 174/103 163/110 O2 Sat by Pulse 98 98 97 Oximetry Medical Decision Making - Medical Decision Making Was pt. sent in by a medical professional or institution (, PA, MANAGER FIELD, urgent care, hospital, or fci...) When possible be specific @ -No Did you speak to anyone other than the patient for history (EMS, parent, family, police, friend...)? What history was obtained from this source @ -No Did you review nursing and triage notes (agree or disagree)? Why? @ -I reviewed and agree with nursing and triage notes Were old charts reviewed (outside hosp., previous admission, EMS record, old EKG, old radiological studies, urgent care reports/EKG's, fci records)? Report findings @ -No old charts were reviewed Differential Diagnosis (chest pain, altered mental status, abdominal pain women, abdominal pain men, vaginal bleeding, weakness, fever, dyspnea, syncope, headache, dizziness, GI bleed, back pain, seizure, CVA, palpatations, mental health, musculoskeletal)? @ -Differential Altered Mental Status: Hypoglycemia, DKA, hypercapnia, ETOH, overdose, CO poisoning, trauma, myxedema coma, HTN encephalopathy, infection, encephalitis, psychosis, intercranial hemorrhage, hepatic encephalopathy, meningitis, CVA, this is not meant to be an all-inclusive list EKG interpreted by me (3pts min.). @ -As above X-rays interpreted by me (1pt min.). @ -None done CT interpreted by me (1pt min.). @ -CT brain, CT head and neck showed no evidence of acute finding. U/S interpreted by me (1pt. min.). @ -None done What testing was considered but not performed or refused? (CT, X-rays, U/S, labs)? Why? @ -None What meds were considered but not given or refused? Why? @ -None Did you discuss the management of the patient with other professionals (professionals i.e. , PA, MANAGER FIELD, lab, RT, psych nurse, social organization professor, manager of corporate, teacher, motorcycle police officer, casework supervisor)? Give summary @ -Spoke to Dr. Arnold, who agrees with plan of care and accepts admission. Was smoking cessation discussed for >3mins.? @ -No Was critical care preformed (if so, how long)? @ -No Were there social determinants of health that impacted care today? How? (Homelessness, low income, unemployed, alcoholism, drug addiction, transportation, low edu. Level, literacy, decrease access to med. care, usp, rehab)? @ -No Was there de-escalation of care discussed even if they declined (Discuss DNR or withdrawal of care, Hospice)? DNR status @ -No What co-morbidities impacted this encounter? (DM, HTN, Smoking, COPD, CAD, Cancer, CVA, ARF, Chemo, Hep., AIDS, mental health diagnosis, sleep apnea, morbid obesity)? @ -None Was patient admitted / discharged? Hospital course, mention meds given and route, prescriptions, significant lab abnormalities, going to OR and other pertinent info. @ -Admission 43-year-old female presenting with 1 day history of bilateral intermittent hand weakness, stuttering, and intermittent right leg weakness. CT brain and CT head and neck revealed no acute findings. Laboratory studies including CBC, CMP, UA unremarkable. Patient will be admitted to observation with consult to neurology due to her continued symptoms. Discussed plan of care with patient who is in agreement. Undiagnosed new problem with uncertain prognosis? @ -No Drug Therapy requiring intensive monitoring for toxicity (Heparin, Nitro, Insulin, Cardizem)? @ -No Were any procedures done? @ -No Diagnosis/symptom? @ -Intermittent weakness of bilateral hands and right leg, stuttering Acute, or Chronic, or Acute on Chronic? @ -Acute Uncomplicated (without systemic symptoms) or Complicated (systemic symptoms)? @ -Uncomplicated Side effects of treatment? @ -No Exacerbation, Progression, or Severe Exacerbation? @ -No Poses a threat to life or bodily function? How? (Chest pain, USA, IA, pneumonia, PE, COPD, DKA, ARF, appy, cholecystitis, CVA, Diverticulitis, Homicidal, Suicidal, threat to staff... and all critical care pts) @ -No - Lab Data Result diagrams: 08/19/23 20:11 08/19/23 20:11 Lab Results 08/19/23 08/19/23 08/19/23 Range/Units 20:11 20:11 20:11 WBC 6.9 (3.8-10.6) k/uL RBC 3.85 (3.80-5.40) m/uL Hgb 12.8 (11.4-16.0) gm/dL Hct 38.0 (34.0-46.0) % MCV 98.7 (80.0-100.0) fL MCH 33.2 (25.0-35.0) pg MCHC 33.7 (31.0-37.0) g/dL RDW 13.8 (11.5-15.5) % Plt Count 291 (150-450) k/uL MPV 8.1 Neutrophils % 65 % Lymphocytes % 26 % Monocytes % 6 % Eosinophils % 1 % Basophils % 0 % Neutrophils # 4.5 (1.3-7.7) k/uL Lymphocytes # 1.8 (1.0-4.8) k/uL Monocytes # 0.4 (0-1.0) k/uL Eosinophils # 0.1 (0-0.7) k/uL Basophils # 0.0 (0-0.2) k/uL PT (10.0-12.5) sec INR (<1.2) APTT (22.0-30.0) sec Sodium 141 (137-145) mmol/L Potassium 4.1 (3.5-5.1) mmol/L Chloride 104 (98-107) mmol/L Carbon Dioxide 27 (22-30) mmol/L Anion Gap 10 mmol/L BUN 20 H (7-17) mg/dL Creatinine 0.70 (0.52-1.04) mg/dL Est GFR (CKD-EPI)AfAm >90 (>60 ml/min/1.73 sqM) Est GFR (CKD-EPI)NonAf >90 (>60 ml/min/1.73 sqM) Glucose 127 H (74-99) mg/dL Calcium 9.9 (8.4-10.2) mg/dL Phosphorus 4.3 (2.5-4.5) mg/dL Magnesium 2.1 (1.6-2.3) mg/dL Total Bilirubin 0.4 (0.2-1.3) mg/dL AST 91 H (14-36) U/L ALT 101 H (4-34) U/L Alkaline Phosphatase 111 (38-126) U/L Ammonia (<30) umol/L Troponin I (0.000-0.034) ng/mL Total Protein 7.5 (6.3-8.2) g/dL Albumin 4.6 (3.5-5.0) g/dL Urine Color Colorless Urine Appearance Cloudy H (Clear) Urine pH 6.5 (5.0-8.0) Ur Specific [place] 1.016 (1.001-1.035) Urine Protein Negative (Negative) Urine Glucose (UA) Negative (Negative) Urine Ketones Negative (Negative) Urine Blood Trace H (Negative) Urine Nitrite Negative (Negative) Urine Bilirubin Negative (Negative) Urine Urobilinogen <2.0 (<2.0) mg/dL Ur Leukocyte Esterase Moderate H (Negative) Urine RBC 5 (0-5) /hpf Urine WBC 17 H (0-5) /hpf Ur Squamous Epith Cells 5 H (0-4) /hpf Urine Bacteria Rare H (None) /hpf Urine Mucus Rare H (None) /hpf 08/19/23 08/19/23 08/19/23 Range/Units 20:11 20:11 20:11 WBC (3.8-10.6) k/uL RBC (3.80-5.40) m/uL Hgb (11.4-16.0) gm/dL Hct (34.0-46.0) % MCV (80.0-100.0) fL MCH (25.0-35.0) pg MCHC (31.0-37.0) g/dL RDW (11.5-15.5) % Plt Count (150-450) k/uL MPV Neutrophils % % Lymphocytes % % Monocytes % % Eosinophils % % Basophils % % Neutrophils # (1.3-7.7) k/uL Lymphocytes # (1.0-4.8) k/uL Monocytes # (0-1.0) k/uL Eosinophils # (0-0.7) k/uL Basophils # (0-0.2) k/uL PT 9.5 L (10.0-12.5) sec INR 0.8 (<1.2) APTT 23.7 (22.0-30.0) sec Sodium (137-145) mmol/L Potassium (3.5-5.1) mmol/L Chloride (98-107) mmol/L Carbon Dioxide (22-30) mmol/L Anion Gap mmol/L BUN (7-17) mg/dL Creatinine (0.52-1.04) mg/dL Est GFR (CKD-EPI)AfAm (>60 ml/min/1.73 sqM) Est GFR (CKD-EPI)NonAf (>60 ml/min/1.73 sqM) Glucose (74-99) mg/dL Calcium (8.4-10.2) mg/dL Phosphorus (2.5-4.5) mg/dL Magnesium (1.6-2.3) mg/dL Total Bilirubin (0.2-1.3) mg/dL AST (14-36) U/L ALT (4-34) U/L Alkaline Phosphatase (38-126) U/L Ammonia 19 (<30) umol/L Troponin I <0.012 (0.000-0.034) ng/mL Total Protein (6.3-8.2) g/dL Albumin (3.5-5.0) g/dL Urine Color Urine Appearance (Clear) Urine pH (5.0-8.0) Ur Specific Green[place] (1.001-1.035) Urine Protein (Negative) Urine Glucose (UA) (Negative) Urine Ketones (Negative) Urine Blood (Negative) Urine Nitrite (Negative) Urine Bilirubin (Negative) Urine Urobilinogen (<2.0) mg/dL Ur Leukocyte Esterase (Negative) Urine RBC (0-5) /hpf Urine WBC (0-5) /hpf Ur Squamous Epith Cells (0-4) /hpf Urine Bacteria (None) /hpf Urine Mucus (None) /hpf - EKG Data EKG Comments: EKG shows a sinus rhythm without acute ST or T-wave changes at 91 bpm. WI 134, QRS 85, QT/QTc 350/399. Disposition Clinical Impression: Weakness Disposition: ADMITTED IP TO THIS HOSP Condition: Good Referrals: Luis Enrique Arnold MD [Primary Care Provider] - 1-2 days Time of Disposition: 23:19
[2023-08-19 20:51] LABS: Basophils % (A) 0 %; Eosinophils # (A) 0.1 k/uL (0-0.7); Eosinophils % (A) 1 %; HGB 12.8 gm/dL (11.4-16.0); Lymphocytes # (A) 1.8 k/uL (1.0-4.8); Lymphocytes % (A) 26 %; MCH 33.2 pg (25.0-35.0); MCHC 33.7 g/dL (31.0-37.0); MCV 98.7 fL (80.0-100.0); Mean Platelet Volume 8.1; Monocytes # (A) 0.4 k/uL (0-1.0); Monocytes % (A) 6 %; Neutrophils # (A) 4.5 k/uL (1.3-7.7); Neutrophils % (A) 65 %; Platelet Count 291 k/uL (150-450); RBC 3.85 m/uL (3.80-5.40); RDW 13.8 % (11.5-15.5); WBC 6.9 k/uL (3.8-10.6)
[2023-08-19] MEDS ORDERED: KETOROLAC 15 MG/ML 1 ML VIAL IVP STA (20:58)
[2023-08-19 21:00] LABS: Appearance,Urine Cloudy (Clear); Bacteria,Urine Rare /hpf; Bilirubin,Urine Negative (Negative); Blood,Urine Trace (Negative); Color,Urine Colorless; Glucose,Urine (UA) Negative (Negative); Ketones,Urine Negative (Negative); Leukocyte Esterase,Urine Moderate (Negative); Mucus,Urine Rare /hpf; Nitrite,Urine Negative (Negative); PH, Urine 6.5 (5.0-8.0); Protein,Urine Negative (Negative); RBC,Urine 5 /hpf (0-5); Specific Gravity,Urine 1.016 (1.001-1.035); Squamous Epithelial Cell,Urine 5 /hpf (0-4); Urobilinogen,Urine <2.0 mg/dL (<2.0); WBC,Urine 17 /hpf (0-5)
[2023-08-19 21:13] LABS: ALT 101 U/L (4-34); AST 91 U/L (14-36); African American GFR (CKD) >90 (>60 ml/min/1.73 sqM); Albumin 4.6 g/dL (3.5-5.0); Alkaline Phosphatase 111 U/L (38-126); Anion Gap 10 mmol/L; Blood Urea Nitrogen 20 mg/dL (7-17); Calcium 9.9 mg/dL (8.4-10.2); Carbon Dioxide 27 mmol/L (22-30); Chloride 104 mmol/L (98-107); Glucose 127 mg/dL (74-99); Magnesium 2.1 mg/dL (1.6-2.3); Non-African American GFR(CKD) >90 (>60 ml/min/1.73 sqM); Phosphorus 4.3 mg/dL (2.5-4.5); Potassium 4.1 mmol/L (3.5-5.1); Sodium 141 mmol/L (137-145); Total Bilirubin 0.4 mg/dL (0.2-1.3); Total Protein 7.5 g/dL (6.3-8.2)
[2023-08-19 21:16] LABS: INR 0.8 (<1.2); Partial Thromboplastin Time 23.7 sec (22.0-30.0); Prothrombin Time 9.5 sec (10.0-12.5)
--- NOTE | 2023-08-19 22:37 | CT ---
EXAMINATION TYPE: CT brain wo con CT DLP: 1612.3 mGycm, Automated exposure control for dose reduction was used. DATE OF EXAM: 08/19/2023 9:02 PM COMPARISON: CT head 07/20/2022. CLINICAL INDICATION:Female, 43 years old with history of r/o CVA, Left leg numbness and slurred speec h since this morning. TECHNIQUE: Brain: Axial CT images of the brain were obtained with coronal and sagittal reformats created and rev iewed. Contrast used: None. Oral contrast used: None. FINDINGS: Brain: Extra-axial spaces: No abnormal extra-axial fluid collections. Ventricular system: Within normal limits Cerebral parenchyma: No acute intraparenchymal hemorrhage or mass effect. The rai-white matter int erface appears maintained. No significant atrophy. . Cerebellum: No acute abnormality. Mass effect: No evidence of midline shift. Intracranial vasculature: Unremarkable Soft tissues: Normal. Calvarium/osseous structures: No calvarial fracture. Paranasal sinuses and mastoid air cells: Mild nasal septal deviation to the left. Mild mucosal thicke cintia of the right maxillary sinus, with some tissue apparently occluding the ostiomeatal complex. Sca ttered opacification of a few ethmoid air cells. No definite fluid accumulation. Mastoid air cells a re clear. Visualized orbits: Orbital contents appear grossly intact. MRI is more sensitive for detecting acute processes such as infarct, and may be considered if clinica lly warranted. IMPRESSION: No acute intracranial CT abnormality. Paranasal sinus disease.
--- NOTE | 2023-08-19 22:52 | CT ---
EXAMINATION TYPE: CT angio head neck CT DLP: 1612.3 mGycm, Automated exposure control for dose reduction was used. DATE OF EXAM: 08/19/2023 9:04 PM COMPARISON: None. CLINICAL INDICATION:Female, 43 years old with history of r/o CVA; PHH, Left leg numbness and slurred speech since this morning. TECHNIQUE: Axially acquired helical CT angiogram of the head and neck was obtained with contrast. Axi al images are supplemented with 3D reconstructions which were post-processed at an independent [facility]. NASCET criteria used. Contrast used:65cc with 50 cc saline mL of Isovue 370 with IV Contrast, Oral contrast used: None. FINDINGS: CTA HEAD: Slight limitation by venous contamination. Dural venous sinuses are opacified without evidence of thr ombosis. No evidence of acute intracranial hemorrhage, mass effect, or midline shift. The ventricles, sulci, a nd cisterns are unremarkable. The visualized portions of the internal carotid arteries, middle cerebral arteries, anterior cerebral arteries are patent. Patent anterior communicating artery. There appear to be small patent bilateral posterior communicating arteries. No major vascular occlusion, significant stenosis, or aneurysm det ected in the limits of CTA. The basilar and vertebral arteries are patent. Left vertebral is dominant. CTA NECK: There is a three-vessel aortic arch. The origins of the great vessels are patent. No evidence of hemo dynamically significant stenosis. Right Carotid System: The common carotid artery and external carotid artery are patent. The carotid bifurcation demonstrate s no evidence of hemodynamically significant stenosis. The remaining portions of the internal carotid artery demonstrate normal size without significant narrowing. Left Carotid System: The common carotid artery and external carotid artery are patent. The carotid bifurcation demonstrate s no evidence of hemodynamically significant stenosis. The remaining portions of the internal carotid artery demonstrate normal size without significant narrowing. Vertebral arteries are patent without evidence hemodynamically significant stenosis. Left vertebral d ominant. Other: Mild multilevel degenerative disc disease in the spine, greatest at C4-C5 where disc osteophyt e complex causes mild canal and foraminal narrowing. There is carious dentition noted. Please refer t o CT head report for further description of findings. Upper thorax: Several small patchy predominantly subpleural groundglass opacities in the right more so than left upper lobe. Mild background emphysematous changes. IMPRESSION: 1. No major vascular occlusion, significant stenosis, or aneurysm detected in the limits of CTA. 2. Biapical pulmonary groundglass opacities, likely reflect inflammatory/infectious process, includi ng atypical viral infection such as Covid 19.
[2023-08-19] MEDS ORDERED: ACETAMINOPHEN TAB 500 MG TAB PO STA (23:11)
[2023-08-19] MEDS ORDERED: NALOXONE 0.4 MG/ML 1 ML VIAL IV PRN (23:20)
[2023-08-19] MEDS ORDERED: ONDANSETRON 4 MG/2 ML VIAL IVP PRN (23:20)
[2023-08-19] MEDS ORDERED: SODIUM CHLORIDE 0.9% 1,000 ML IV SCH (23:30)
[2023-08-20] MEDS ORDERED: LABETALOL 5 MG/ML VIAL MDV IVP STA (00:26)
[2023-08-20 04:31] LABS: Glucose,Whole Blood 100 mg/dL (70-110)
[2023-08-20] MEDS ORDERED: hydrALAZINE HCL 20 MG/ML 1 ML VIAL IVP STA (07:26)
[2023-08-20] MEDS ORDERED: HYDROcodone/APAP 10-325MG 1 EACH TAB PO ONE (07:27)
[2023-08-20] MEDS ORDERED: busPIRone HCl 10 MG TAB PO PRN (08:47)
[2023-08-20] MEDS ORDERED: amLODIPine 5 MG TAB PO SCH (09:00)
[2023-08-20] MEDS: PREGABALIN 75 MG CAP PO SCH ×3 (09:38→21:03)
[2023-08-20] MEDS: PANTOPRAZOLE 40 MG TABLET PO SCH (09:39)
[2023-08-20] MEDS: lisinopriL 20 MG TAB PO SCH (09:39)
[2023-08-20] MEDS ORDERED: MAGNESIUM SULFATE-D5W PMX 1 GM in DEXTROSE/WATER 1 100ML.BAG IVPB ONE (09:50)
[2023-08-20] MEDS ORDERED: amLODIPine 10 MG TAB PO STA (09:56)
[2023-08-20] MEDS ORDERED: HYDROmorphone 0.5 MG/0.5 ML SYRINGE IM PRN (10:00)
[2023-08-20] MEDS: hydroCHLOROthiazide 25 MG TAB PO SCH (10:07)
[2023-08-20] MEDS: HYDROmorphone 0.5 MG/0.5 ML SYRINGE IVP PRN ×4 (10:07→21:17)
[2023-08-20] MEDS ORDERED: HYDROmorphone 0.5 MG/0.5 ML SYRINGE IVP STA (10:12)
--- NOTE | 2023-08-20 12:51 | P.CRDCN ---
History of Present Illness Consult date: 08/20/23 Consult reason: chest pain History of present illness: History of present illness: This is a 43-year-old female with no previous cardiac history, does not follow with a manager corporate responsibility. We have been asked to evaluate the patient for chest pain. She has a past medical history of hypertension, gastroesophageal reflux disease, tobacco use and dependence, left rib fractures. Patient states that she was seen in the emergency center at [facility] placed on prednisone recently. She is complaining of left lateral chest pain and also some midsternal chest pain worse when she takes a deep breath. She also complains of headache. Patient is seen today in the emergency center waiting for about on the observation unit. EKG sinus rhythm with no acute findings CAT scan brain: No acute abnormality CT angiogram of the neck no major vascular occlusion, stenosis, aneurysm. Biapical pulmonary groundglass opacities likely atypical viral such as Covid 19. CBC normal. INR 0.8. Electrolytes normal. BUN 20 creatinine 0.7. Blood sugar 127. Troponin negative 3. AST 91, ALT 101. Urinalysis positive for 5 epithelial cells, leukoesterase moderate, WBCs 17. Home cardiac medications: Amlodipine 5 mg daily, lisinopril 20 mg daily. Review Of Systems: At the time of my evaluation: Constitutional: No fever, no chills. No weakness, fatigue or lethargy. EENT: + headache. No dizziness. Lungs: No shortness of breath, cough, no sputum production. No wheezing. Cardiovascular: + chest pain, no lower extremity edema. No palpitations. No paroxysmal nocturnal dyspnea. No orthopnea. No lightheadedness or dizziness. No syncopal episodes. Abdominal: No abdominal pain. No nausea, vomiting. No diarrhea. No constipation. No bloody or tarry stools. Musculoskeletal: No myalgias. No muscle weakness, no frequent falls. Integumentary: No wounds. No rash. No unusual bruising. Neurologic: No aphasia. No facial droop. No change in mentation. + headache. Physical examination: Gen: This is a 43-year-old female resting in the ear surgery appears to be comfortable and in no acute distress. VS: reviewed HEENT: Head is atraumatic, normocephalic. Pupils equal, round. Sclerae is anicteric. NECK: Supple. No JVD. . LUNGS: Clear to auscultation. No wheezes or rhonchi. No intercostal retractions. HEART: Regular rate and rhythm. No murmur. Positive chest wall tenderness sternal and left lateral ABDOMEN: Soft No tenderness. EXTREMITIES: No pedal edema. No calf tenderness. NEUROLOGICAL: Patient is awake, alert and oriented x3. Assessment: Accelerated hypertension secondary to pain Hypertension Rib fractures Atypical chest pain, acute coronary syndrome ruled out Plan: Increase amlodipine to 10 mg daily Continue patient's home cardiac medications Dilaudid 0.5 mg every 4 hours 4 doses Attending to address prednisone 20 mg 3 times daily No further cardiac workup Cardiology will sign off this case and follow on an as-needed basis. Please reconsult for any new concerns. Thank you kindly for this consultation. Nurse practitioner note has been reviewed, I agree with documented findings and plan of care. Patient was seen and examined. Past Medical History Past Medical History: GERD/Reflux, Hypertension, Seizure Disorder Additional Past Medical History / Comment(s): Migraines, kidney stones, chronic back pain, seizures related to tramadol interaction with medication, right rib fractures History of Any Multi-Drug Resistant Organisms: None Reported Past Surgical History: Appendectomy, Section, Hysterectomy, Orthopedic Surgery Additional Past Surgical History / Comment(s): Carpal tunnel sx, stent for kidney stones/later removed, 07/03/21-lithotripsy/right ureteral stent placed/removed, pain clinic procedures, angiogram. Past Anesthesia/Blood Transfusion Reactions: No Reported Reaction Past Psychological History: Anxiety Smoking Status: Current every day smoker Past Alcohol Use History: Occasional Past Drug Use History: Marijuana - Past Family History Father Family Medical History: CVA/TIA, Hypertension Mother Family Medical History: No Reported History Medications and Allergies Home Medications Medication Instructions Recorded Confirmed Type Pregabalin [Lyrica] 150 mg PO TID 07/09/21 08/20/23 History Omeprazole 40 mg PO DAILY 07/09/22 08/20/23 History HYDROcodone/APAP 7.5-325MG [[place] 1 tab PO BID PRN 07/20/22 08/20/23 History 7.5-325] Vortioxetine Hydrobromide 20 mg PO DAILY 07/20/22 08/20/23 History [Trintellix] Rimegepant Sulfate [Nurtec Odt] 75 mg PO Q2D PRN 11/11/22 08/20/23 History busPIRone HCl [Buspar] 10 mg PO BID PRN 08/17/23 08/20/23 History Nicotine 21Mg/24Hr Patch [Habitrol] 1 patch TRANSDERM DAILY patch 08/18/23 08/20/23 Rx amLODIPine [Norvasc] 5 mg PO DAILY #30 tab 08/18/23 08/20/23 Rx lisinopriL [Zestril] 20 mg PO DAILY #30 tab 08/18/23 08/20/23 Rx Allergies Allergy/AdvReac Type Severity Reaction Status Date / Time tramadol AdvReac SEIZURE Verified 08/20/23 07:01 Physical Exam Vitals: Vital Signs Temp Pulse Resp BP Pulse Ox 08/20/23 09:40 87 18 167/113 97 08/20/23 09:00 86 18 150/100 99 08/20/23 08:10 92 18 147/119 97 08/20/23 06:00 74 18 167/119 96 08/20/23 02:00 76 20 172/115 98 08/20/23 01:00 73 18 154/117 97 08/19/23 23:25 99 18 147/120 98 08/19/23 22:09 92 16 163/110 97 08/19/23 20:27 100 18 174/103 98 08/19/23 19:50 97.9 F 100 20 117/113 98 Intake and Output 08/19/23 08/20/23 08/20/23 22:59 06:59 14:59 Other: Weight 65.771 kg Results 08/19/23 20:11 08/19/23 20:11 Cardiac Enzymes 08/19/23 08/19/23 08/20/23 Range/Units 20:11 20:11 00:32 AST 91 H (14-36) U/L Troponin I <0.012 <0.012 (0.000-0.034) ng/mL 08/20/23 Range/Units 03:13 AST (14-36) U/L Troponin I <0.012 (0.000-0.034) ng/mL Coagulation 08/19/23 Range/Units 20:11 PT 9.5 L (10.0-12.5) sec APTT 23.7 (22.0-30.0) sec CBC 08/19/23 Range/Units 20:11 WBC 6.9 (3.8-10.6) k/uL RBC 3.85 (3.80-5.40) m/uL Hgb 12.8 (11.4-16.0) gm/dL Hct 38.0 (34.0-46.0) % Plt Count 291 (150-450) k/uL Comprehensive Metabolic Panel 08/19/23 Range/Units 20:11 Sodium 141 (137-145) mmol/L Potassium 4.1 (3.5-5.1) mmol/L Chloride 104 (98-107) mmol/L Carbon Dioxide 27 (22-30) mmol/L BUN 20 H (7-17) mg/dL Creatinine 0.70 (0.52-1.04) mg/dL Glucose 127 H (74-99) mg/dL Calcium 9.9 (8.4-10.2) mg/dL AST 91 H (14-36) U/L ALT 101 H (4-34) U/L Alkaline Phosphatase 111 (38-126) U/L Total Protein 7.5 (6.3-8.2) g/dL Albumin 4.6 (3.5-5.0) g/dL Current Medications Generic Name Dose Route Start Last Admin Trade Name Freq PRN Reason Stop Dose Admin Amlodipine Besylate 5 mg 08/20/23 09:00 08/20/23 09:39 Amlodipine 5 Mg Tab PO 5 mg DAILY GENTRY Administration Buspirone HCl 10 mg 08/20/23 08:47 Buspirone Hcl 10 Mg Tab PO BID PRN Anxiety Lisinopril 20 mg 08/20/23 09:00 08/20/23 09:39 Lisinopril 20 Mg Tab PO 20 mg DAILY GENTRY Administration Naloxone HCl 0.2 mg 08/19/23 23:20 Naloxone 0.4 Mg/Ml 1 Ml Vial IV Q2M PRN Opioid Reversal Ondansetron HCl 4 mg 08/19/23 23:20 Ondansetron 4 Mg/2 Ml Vial IVP Q8HR PRN Nausea And Vomiting Pantoprazole Sodium 40 mg 08/20/23 09:00 08/20/23 09:39 Pantoprazole 40 Mg Tablet PO 40 mg [id number] GENTRY Administration Pregabalin 150 mg 08/20/23 09:00 08/20/23 09:38 Pregabalin 75 Mg Cap PO 150 mg TID GENTRY Administration Intake and Output 08/19/23 08/20/23 08/20/23 22:59 06:59 14:59 Other: Weight 65.771 kg 08/19/23 20:11 08/19/23 20:11
--- NOTE | 2023-08-20 16:13 | P.HPIM ---
History of Present Illness H&P Date: 08/20/23 Chief Complaint: Chest pain, weakness, stuttering This is a 43-year-old female recently discharged on 08/18/2023 with similar presentation, chest pain, prior rib fractures, hypertensive urgency. She was evaluated by cardiology, antihypertensives with significant clinical im provement. Patient's is in the midst of changing her pain specialist. She has not scheduled her appointment yet with Dr. Hernandez. Regarding her chronic back pain she has not scheduled an appointment with orthopedic spine yet. At discharge patient had requested pain RX, but none was issued as patient recently had pain medications prescribed on by Dr. Quiroga. Apparently she proceeded to [facility] with similar complaints and was placed on prednisone. This morning she reports that yesterday while talking to her counselor on the phone, she started stuttering and both her hands lost her strength and coordination , accompanied by dropping the phone. Complains of right thigh numbness, left leg numbness-lasting for seconds, positive blurry vision. Denies lightheadedness, dizziness. Denies headache. Denies difficulty swallowing, denies mouth numbness or drooping. Reports her father had a CVA at the age of 50, AL and hypertension. mother also had a history of AL. Nicotine dependent. Hypertensive on admission. Currently complains of mid sternal "stabbing "chest pain, left rib cage pain and back pain. Denies shortness of breath. Denies nausea, vomiting or diarrhea. Denies abdominal pain. Denies changes in bowel or bladder habits. Brain CT reported no acute intracranial abnormality. Angiography CT reported no major vascular occlusion, significant stenosis or aneurysm detected in the limits of CT, by apical pulmonary groundglass opacities. EKG reported sinus rhythm, reported as negative 3. Afebrile, normal WBC/hematology unremarkable. INR 0.8. Chemistry unremarkable with the exception of BUN 20, mild elevated AST and ALT. UA reported negative nitrates, moderate leukocytes. Review of Systems ROS Statement: Those systems with pertinent positive or pertinent negative responses have been documented in the HPI. ROS Other: All systems not noted in ROS Statement are negative. Past Medical History Past Medical History: GERD/Reflux, Hypertension, Seizure Disorder Additional Past Medical History / Comment(s): Migraines, kidney stones, chronic back pain, seizures related to tramadol interaction with medication, right rib fractures History of Any Multi-Drug Resistant Organisms: None Reported Past Surgical History: Appendectomy, Section, Hysterectomy, Orthopedic Surgery Additional Past Surgical History / Comment(s): Carpal tunnel sx, stent for kidney stones/later removed, 07/03/21-lithotripsy/right ureteral stent placed/removed, pain clinic procedures, angiogram. Past Anesthesia/Blood Transfusion Reactions: No Reported Reaction Past Psychological History: Anxiety Smoking Status: Current every day smoker Past Alcohol Use History: Occasional Past Drug Use History: Marijuana - Past Family History Father Family Medical History: CVA/TIA, Hypertension Mother Family Medical History: No Reported History Medications and Allergies Home Medications Medication Instructions Recorded Confirmed Type Pregabalin [Lyrica] 150 mg PO TID 07/09/21 08/20/23 History Omeprazole 40 mg PO DAILY 07/09/22 08/20/23 History HYDROcodone/APAP 7.5-325MG [[place] 1 tab PO BID PRN 07/20/22 08/20/23 History 7.5-325] Vortioxetine Hydrobromide 20 mg PO DAILY 07/20/22 08/20/23 History [Trintellix] Rimegepant Sulfate [Nurtec Odt] 75 mg PO Q2D PRN 11/11/22 08/20/23 History busPIRone HCl [Buspar] 10 mg PO BID PRN 08/17/23 08/20/23 History Nicotine 21Mg/24Hr Patch [Habitrol] 1 patch TRANSDERM DAILY patch 08/18/23 08/20/23 Rx amLODIPine [Norvasc] 5 mg PO DAILY #30 tab 08/18/23 08/20/23 Rx lisinopriL [Zestril] 20 mg PO DAILY #30 tab 08/18/23 08/20/23 Rx Allergies Allergy/AdvReac Type Severity Reaction Status Date / Time tramadol AdvReac SEIZURE Verified 08/20/23 07:01 Physical Exam Vitals: Vital Signs Temp Pulse Resp BP Pulse Ox 08/20/23 09:40 87 18 167/113 97 08/20/23 09:00 86 18 150/100 99 08/20/23 08:10 92 18 147/119 97 08/20/23 06:00 74 18 167/119 96 08/20/23 02:00 76 20 172/115 98 08/20/23 01:00 73 18 154/117 97 08/19/23 23:25 99 18 147/120 98 08/19/23 22:09 92 16 163/110 97 08/19/23 20:27 100 18 174/103 98 08/19/23 19:50 97.9 F 100 20 117/113 98 Intake and Output 08/19/23 08/20/23 08/20/23 22:59 06:59 14:59 Other: Weight 65.771 kg PHYSICAL EXAM: VITAL SIGNS: [As above] GENERAL: Sitting up in bed, no acute distress, no conversational dyspnea HEENT: Cephalic, Conjunctivae normal. eyes normal. NECK: Supple, No JVD. No thyroid enlargement. No LNs CARDIOVASCULAR: S1, S2 regular. No murmur RESPIRATION: Unlabored, equal air entry,CTA, Breath sounds diminished in the bases. No rhonchi or crackles. No bronchial breathing. Left rib cage tenderness. ABDOMEN: Soft, nontender . No guarding. no masses palpable. No ascites, No hepatosplenomegaly.Bowel sounds heard. LEGS: No edema. no swelling PSYCHIATRY: Alert and oriented X3, mood and affect normal. NERVOUS SYSTEM: Cranial N 2-12 grossly normal. Moves all 4 limbs. No focal deficits. Strength and sensation grossly intact.. Skin: Warm and dry, no rash Results CBC & Chem 7: 08/19/23 20:11 08/19/23 20:11 Labs: Abnormal Lab Results - Last 24 Hours (Table) 08/19/23 08/19/23 08/19/23 Range/Units 20:11 20:11 20:11 PT 9.5 L (10.0-12.5) sec BUN 20 H (7-17) mg/dL Glucose 127 H (74-99) mg/dL AST 91 H (14-36) U/L ALT 101 H (4-34) U/L Urine Appearance Cloudy H (Clear) Urine Blood Trace H (Negative) Ur Leukocyte Esterase Moderate H (Negative) Urine WBC 17 H (0-5) /hpf Ur Squamous Epith Cells 5 H (0-4) /hpf Urine Bacteria Rare H (None) /hpf Urine Mucus Rare H (None) /hpf Assessment and Plan Assessment: Chest pain, midsternal, left rib cage, troponins negative 3, acute coronary syndrome ruled out as per cardiology Stuttering, new onset accompanied by fluctuating bilateral lower extremity numbness,weakness Accelerated hypertension Recently admitted on 08/17/2023 with Chest pain, troponins negative 3, recent negative stress test to 11/12/22 ,acute coronary event ruled out as per cardiology/discharged on 08/18/2023. Recent diagnoses of rib fractures reported per patient, secondary to cough, denies trauma. Recommend bone density testing outpatient. Hypertensive urgency, resolved Anxiety Gastroesophageal Reflux disorder Seizure disorder Migraines on nurtec PRN Chronic back pain follows with Dr. Quiroga Reported history of Pseudotumor cerebri History kidney stone with lithotripsy/stent Chronic daily nicotine use counseled on smoking cessation Plan: Continue on current medication regime ,monitoring and symptomatic treatment. Evaluated by cardiology, antihypertensives adjusted, Dilaudid IV push pain medication ordered and they have signed off the case. Neurology consult in place with recommendations pending. Smoking cessation reinforced. Close monitoring of blood pressures. Discharge planning in progress. The impression and plan of care has been dictated as directed. : I performed a history and examination of this patient, discussed the same with the dictator. I agree with the dictator's note ,documented as a scribe. Any additional findings or plans will be noted.
[2023-08-20 18:22] VITALS: RESP 16
[2023-08-20] MEDS: HYDROcodone/APAP 7.5-325MG 1 EACH TAB PO PRN (22:48)
[2023-08-21 04:59] VITALS: TEMP 98.1
[2023-08-21] MEDS: PANTOPRAZOLE 40 MG TABLET PO SCH (06:11)
[2023-08-21] MEDS: hydroCHLOROthiazide 25 MG TAB PO SCH (08:24)
[2023-08-21] MEDS: lisinopriL 20 MG TAB PO SCH (08:24)
[2023-08-21] MEDS: PREGABALIN 75 MG CAP PO SCH (08:24)
[2023-08-21] MEDS: HYDROcodone/APAP 7.5-325MG 1 EACH TAB PO PRN (08:30)
[2023-08-21 08:44] VITALS: BP 156/100; PULSE 75
[2023-08-21] MEDS ORDERED: hydroCHLOROthiazide 25 MG TAB PO SCH (09:00)
[2023-08-21] MEDS ORDERED: amLODIPine 10 MG TAB PO SCH ×2 (09:00→11:30)
[2023-08-21] MEDS ORDERED: ASPIRIN 81 MG PO STA (09:56)
--- NOTE | 2023-08-21 09:58 | P.CNNES ---
History of Present Illness Consult date: 08/20/23 Requesting physician: Juan Estevez Reason for Consult: weakness, stuttering History of Present Illness: Patient is a 43-year-old right-handed female, with history of migraine headache, seizure disorder, hypertension, tobacco use, who came to the hospital yesterday at 7:47 PM for difficulty with walking, and stuttering speech. Patient states that lately her blood pressure has been running high. She checked her blood pressure yesterday at her home and it was 174/116. At around 2 PM she started stuttering when she was talking to her counselor. The stuttering would occur off and on, lasted all day and night. Patient states that her mouth does weird, like twitching "like lips moving". She was feeling her hands were not feeling right. She was dropping things with her hands. She tried to walk and when she stepped with her left leg, felt there was no left leg and as if she would fall. The leg kept on giving out. Patient stated that she does have long-standing history of carpal tunnel syndrome, with previous history of carpal tunnel release bilaterally. She has been having some numbness and tingling of the hands, which she attributes workup or tenderness syndrome. However in the last 1 month, she has been feeling numbness of the feet, pointing to the top of the feet bilaterally. But later said, that the bottom of the feet and also numb and the feet numbness "comes and goes". She also complains of numbness of the right lateral femoral cutaneous nerve of thigh distribution for the last 1-2 weeks. Patient states her hands are not working correctly, and her hand shakes and she drops things. Vital signs on arrival blood pressure 174/103, which came down to 163/110, pulse rate 100, temperature 97.9. Blood test shows normal CBC, PT/PTT, normal basic metabolic panel. AST is 91, ALT 101, ammonia is 19, troponin negative. UA shows moderate amount of leukocyte esterase, 17 WBC and rare bacteria. CT head revealed no acute intracranial process. Paranasal sinus disease. I personally reviewed CT and agree with the findings. EKG shows sinus rhythm. Patient had an EEG on 07/22/2022, which was mildly abnormal because of intermittent slowing and background disorganization suggestive of mild encephalopathy. Patient had another EEG on 10/23/2021, which also revealed mild encephalopathy. Patient states that today on day she was having stuttering off and on. She states her "mouth goes weird" and then she stutters. She takes baby aspirin about 4 times a week whenever she is having some chest pain. Patient states that recently she had fractured ribs, and was given prednisone. She states that she took 1 day dose about day before yesterday. She stopped taking it. Patient states she has history of seizure disorder since age 23 when she had quite a few at that time. Subsequently she used to have seizures about a few times a year. She usually drools, shakes but no tongue biting. She may have had loss of control of urine long time ago. Patient states her last seizure occurred about a month ago and she says that she does not remember what happens with her seizures. Patient has previously tried Topamax 25 mg twice a day for migraines, Imitrex, Fioricet. Patient had a normal MRI of the brain on 07/22/2022, as well as on 03/11/2020. Patient had a normal MRA and MRV of the brain also on 03/11/2020. Patient has smoked half pack per day since age 13(for last 30 years). She also has hypertension for 2 months, on blood pressure medication. Denies diabetes. She drinks alcohol socially, does not use any marijuana. Patient states her dad had history of CVA at age 50 and also MRI. Review of Systems Constitutional: Reports weight gain (10 lbs), Denies chills, Denies fever Eyes: bilateral blurred vision, denies diplopia, denies pain Ears: deny: decreased hearing, ear discharge Ears, nose, mouth and throat: Reports headache (Has Migraines, dull PEDRAZA now), Denies sore throat Cardiovascular: Reports chest pain, Reports shortness of breath Respiratory: Reports cough, Reports excessive sputum Gastrointestinal: Reports diarrhea, Reports vomiting, Denies abdominal pain, D enies nausea Genitourinary: Reports stress incontinence, Reports urge incontinence, Denies dysuria, Denies hematuria Musculoskeletal: Reports low back pain (Chronic lBP), Reports neck pain, Denies myalgias Integumentary: Denies pruritus, Denies rash Neurological: Reports as per HPI Psychiatric: Reports anxiety, Reports depression (Mom recently) Endocrine: Reports fatigue, Reports weight change Hematologic/Lymphatic: Reports easy bruising, Denies easy bleeding Past Medical History Past Medical History: GERD/Reflux, Hypertension, Seizure Disorder Additional Past Medical History / Comment(s): Migraines, kidney stones, chronic back pain, seizures related to tramadol interaction with medication, right rib fractures History of Any Multi-Drug Resistant Organisms: None Reported Past Surgical History: Appendectomy, Section, Hysterectomy, Orthopedic Surgery Additional Past Surgical History / Comment(s): Carpal tunnel sx, stent for kidney stones/later removed, 07/03/21-lithotripsy/right ureteral stent placed/removed, pain clinic procedures, angiogram. Past Anesthesia/Blood Transfusion Reactions: No Reported Reaction Past Psychological History: Anxiety Additional Psychological History / Comment(s): Seasonal depression. Smoking Status: Current every day smoker Past Alcohol Use History: Occasional Additional Past Alcohol Use History / Comment(s): Smokes 5-6 cigarettes per day, along w/ vape use - trying to quit, has been smoking since 13 yrs old, up to 1ppd. Past Drug Use History: Marijuana Additional Drug Use History / Comment(s): Uses marijuana sometimes for chronic back pain per pt. - Past Family History Father Family Medical History: CVA/TIA, Hypertension Mother Family Medical History: No Reported History Medications and Allergies Home Medications Medication Instructions Recorded Confirmed Type Pregabalin [Lyrica] 150 mg PO TID 07/09/21 08/20/23 History Omeprazole 40 mg PO DAILY 07/09/22 08/20/23 History HYDROcodone/APAP 7.5-325MG [[place] 1 tab PO BID PRN 07/20/22 08/20/23 History 7.5-325] Vortioxetine Hydrobromide 20 mg PO DAILY 07/20/22 08/20/23 History [Trintellix] Rimegepant Sulfate [Nurtec Odt] 75 mg PO Q2D PRN 11/11/22 08/20/23 History busPIRone HCl [Buspar] 10 mg PO BID PRN 08/17/23 08/20/23 History Nicotine 21Mg/24Hr Patch [Habitrol] 1 patch TRANSDERM DAILY patch 08/18/23 08/20/23 Rx amLODIPine [Norvasc] 5 mg PO DAILY #30 tab 08/18/23 08/20/23 Rx lisinopriL [Zestril] 20 mg PO DAILY #30 tab 08/18/23 08/20/23 Rx Allergies Allergy/AdvReac Type Severity Reaction Status Date / Time tramadol AdvReac SEIZURE Verified 08/20/23 07:01 Physical Examination - Vital Signs Vital Signs: Vital Signs Temp Pulse Pulse Resp BP BP Pulse Ox 08/20/23 18:05 98.0 F 61 16 169/95 93 L 08/20/23 17:30 89 153/101 97 08/20/23 17:00 82 145/100 08/20/23 16:30 78 145/100 97 08/20/23 15:00 81 20 109/92 96 08/20/23 14:30 82 20 141/107 94 L 08/20/23 14:00 86 18 128/116 97 08/20/23 13:30 86 129/101 08/20/23 13:00 152/116 08/20/23 12:30 106 H 18 148/111 97 08/20/23 12:00 162/126 97 08/20/23 11:15 82 20 168/121 97 08/20/23 09:54 90 18 184/121 98 08/20/23 09:40 87 18 167/113 97 08/20/23 09:00 86 18 150/100 99 08/20/23 08:10 92 18 147/119 97 08/20/23 06:00 74 18 167/119 96 08/20/23 02:00 76 20 172/115 98 08/20/23 01:00 73 18 154/117 97 08/19/23 23:25 99 18 147/120 98 08/19/23 22:09 92 16 163/110 97 08/19/23 20:27 100 18 174/103 98 08/19/23 19:50 97.9 F 100 20 117/113 98 Intake and Output 08/20/23 08/20/23 08/20/23 06:59 14:59 22:59 Other: Weight 65.771 kg Patient is a middle aged female, in no acute distress. She appears slightly anxious. Patient is alert awake oriented to time place and person. Speech and language functions are normal. Patient can name and repeat very well. No aphasia or dysarthria. Attention, concentration and fund of knowledge is adequate. On cranial nerve examination, pupils are equal, round and reacting to light, visual donato are full on confrontation, with no neglect on double simultaneous stimulation. Extraocular muscles are intact with no nystagmus. Face is symmetric, tongue protrudes to the midline. Palatal elevation and sensation n ormal, hearing and shoulder shrug normal, facial sensation normal. On muscle strength testing, there is no pronator drift and the strength is normal in arms and legs distally and proximally. Deep tendon reflexes are symmetric 1+ to 2 at the biceps, and brachioradialis, 2+ at the knees, 1 ankles and plantars downgoing bilaterally. Sensory to touch is equal with no neglect on double simultaneous stimulation. Cerebellar function showed no ataxia for [id number] testing. No dysdiadochokinesia. No ataxia for [id number] testing on either side. Tone and bulk of muscles normal. Gait deferred.. On general examination, there is no carotid bruit or murmur, S1-S2 audible. Chest is clear on consultation. Abdomen is soft nontender. No organomegaly, bowel sounds present. Peripheral pulses are present. No peripheral edema. Results - Laboratory Findings CBC and BMP: 08/19/23 20:11 08/19/23 20:11 Abnormal Lab Findings: Abnormal Labs 08/19/23 08/19/23 08/19/23 20:11 20:11 20:11 PT 9.5 L BUN 20 H Glucose 127 H AST 91 H ALT 101 H Urine Appearance Cloudy H Urine Blood Trace H Ur Leukocyte Esterase Moderate H Urine WBC 17 H Ur Squamous Epith Cells 5 H Urine Bacteria Rare H Urine Mucus Rare H Assessment and Plan Assessment: * Episodes of stuttering, paresthesias, difficulty walking with left leg, off and on since yesterday, unclear etiology. Her examination is nonfocal. Rule out TIA, rule out focal seizures versus peripheral process. * Hypertension * Tobacco use * Dyslipidemia * Seizure disorder, currently not on any seizure medication * History of migraine headache * Chronic back pain Plan: * Patient will undergo EEG to evaluate for epileptiform activity. She claims she has history of seizure disorder since age 23, but currently not on any seizure medication. The last seizure was about a month ago. * Patient has presented with some stuttering speech, paresthesias, difficulty with walking with the left leg. We will check MRI of the brain to rule out any signs of CVA. * CTA of head and neck revealed no major vascular occlusion, significant stenosis or aneurysm detected in the limits of CTA. Biapical pulmonary groundglass opacities likely reflect inflammatory/infectious process, including atypical viral infection such as Covid 19. * Check Covid-19 * Patient's 2-D echo on 11/12/2022 revealed normal left ventricular size and sys tolic function with EF 55-60%, normal left atrial size, mild TR * Patient had a normal hemoglobin A1c 5.7 on 07/20/2022. Her B12 level was 1234.0 and folate 17.90 on 07/20/2022, no need to repeat. We will check TSH as it was abnormal before. * Start aspirin regimen * Recommend complete tobacco cessation. * Internal medicine to address abnormal CTA with possibility of by apical pulmonary groundglass opacities, if antibiotics is needed. * Neurology will follow. Thank you for the consult. Time with Patient: Greater than 30
[2023-08-21] MEDS ORDERED: HYDROcodone/APAP 7.5-325MG 1 EACH TAB PO PRN (11:19)
[2023-08-21] MEDS ORDERED: lisinopriL 20 MG TAB PO SCH (11:30)
--- NOTE | 2023-08-21 11:40 | P.DS ---
Providers Date of admission: 08/19/23 23:45 Expected date of discharge: 08/21/23 Attending physician: Luis Enrique Arnold MD Consults: 08/19/23 23:20 Consult Physician Urgent Consulting Provider: [facility] Consult Reason/Comments: chest pain Do you want consulting provider notified?: Yes Consult Physician Urgent Consulting Provider: Kyle Chavez Consult Reason/Comments: weakness, stuttering Do you want consulting provider notified?: Yes Primary care physician: Luis Enrique Arnold MD Hospital Course: Patient left AMA Plan - Discharge Summary New Discharge Prescriptions: Discontinued predniSONE [Deltasone] 20 mg PO TID No Action Pregabalin [Lyrica] 150 mg PO TID Omeprazole 40 mg PO DAILY Vortioxetine Hydrobromide [Trintellix] 20 mg PO DAILY HYDROcodone/APAP 7.5-325MG [[place] 7.5-325] 1 tab PO BID PRN PRN Reason: Pain Rimegepant Sulfate [Nurtec Odt] 75 mg PO Q2D PRN PRN Reason: Migraine Headache Nicotine 21Mg/24Hr Patch [Habitrol] 1 patch TRANSDERM DAILY patch lisinopriL [Zestril] 20 mg PO DAILY #30 tab busPIRone HCl [Buspar] 10 mg PO BID PRN PRN Reason: Anxiety amLODIPine [Norvasc] 5 mg PO DAILY #30 tab Discharge Medication List Pregabalin [Lyrica] 150 mg PO TID 07/09/21 [History] Omeprazole 40 mg PO DAILY 07/09/22 [History] HYDROcodone/APAP 7.5-325MG [[place] 7.5-325] 1 tab PO BID PRN 07/20/22 [History] Vortioxetine Hydrobromide [Trintellix] 20 mg PO DAILY 07/20/22 [History] Rimegepant Sulfate [Nurtec Odt] 75 mg PO Q2D PRN 11/11/22 [History] busPIRone HCl [Buspar] 10 mg PO BID PRN 08/17/23 [History] Nicotine 21Mg/24Hr Patch [Habitrol] 1 patch TRANSDERM DAILY patch 08/18/23 [Rx] amLODIPine [Norvasc] 5 mg PO DAILY #30 tab 08/18/23 [Rx] lisinopriL [Zestril] 20 mg PO DAILY #30 tab 08/18/23 [Rx] Follow up Appointment(s)/Referral(s): Luis Enrique Arnold MD [Primary Care Provider] - 3 Days Activity/Diet/Wound Care/Special Instructions: Patient has been advised to follow up /schedule a appt. with her pain specialist Discharge Disposition: LEFT AGAINST MEDICAL ADVICE
[2023-08-21] MEDS ORDERED: amLODIPine 5 MG TAB PO SCH (11:45)
[2023-08-22] MEDS ORDERED: ASPIRIN 81 MG PO SCH (09:00)
[2023-08-22] MEDS ORDERED: amLODIPine 10 MG TAB PO SCH (09:00)
== END 2023-08-21 10:58 | disposition left against medical advice (07) ==
LOC: EC 19:47 → 6NMEDSUR 23:45
PROVIDERS: ADMIT Family Medicine; ATTEND Family Medicine
DX: R53.1 Weakness (principal); F80.81 Childhood onset fluency disorder; R20.2 Paresthesia of skin; R07.2 Precordial pain; S22.32XA Fracture of one rib, left side, initial encounter for closed fracture; X58.XXXA Exposure to other specified factors, initial encounter; Z53.29 Procedure and treatment not carried out because of patient's decision for other reasons; I16.0 Hypertensive urgency; I10 Essential (primary) hypertension; K21.9 Gastro-esophageal reflux disease without esophagitis; G89.29 Other chronic pain; M54.9 Dorsalgia, unspecified; F41.9 Anxiety disorder, unspecified; E78.5 Hyperlipidemia, unspecified; G40.909 Epilepsy, unspecified, not intractable, without status epilepticus; E66.9 Obesity, unspecified; Z68.27 Body mass index [BMI] 27.0-27.9, adult; F17.200 Nicotine dependence, unspecified, uncomplicated; Z79.899 Other long term (current) drug therapy; Z88.5 Allergy status to narcotic agent; Z82.49 Family history of ischemic heart disease and other diseases of the circulatory system
CPT/HCPCS: 96376 ×2; 96361; 96365; 96374; 96375; 99285; 36415; 93005; 80053; 82140; 83735; 84100; 84484 ×2; 85025; 85610; 85730; 81001; 70496; 70450; 70498; G0378 ×3; J0360; J3475; J1885; J1170; Q9967; J1920

== ENCOUNTER 2023-08-31 17:30 | Observation (INO) | payer OTHER ==
[2023-08-31] MEDS ORDERED: LORazepam 2 MG/ML INJ IV STA (18:49)
[2023-08-31] MEDS ORDERED: SODIUM CHLORIDE 0.9% 1,000 ML IV STA (18:49)
--- NOTE | 2023-08-31 18:53 | ED ---
General Adult HPI - General Chief complaint: Seizure Stated complaint: seizure Time Seen by Provider: 08/31/23 18:44 Source: patient, RN notes reviewed, old records reviewed Mode of arrival: ambulatory Limitations: no limitations - History of Present Illness Initial comments: 43-year-old female presents status post seizure. Patient was in the grocery s tore when she had tonic-clonic seizure lasting approximately 3 minutes. This history is obtained from the son who was with her at the time. She had head trauma and was postictal for approximately 10 minutes. She has history of seizure disorder and also is a daily drinker. She states her last drink was 2 days prior. - Related Data Home Medications Medication Instructions Recorded Confirmed Pregabalin [Lyrica] 150 mg PO TID 07/09/21 08/20/23 Omeprazole 40 mg PO DAILY 07/09/22 08/20/23 HYDROcodone/APAP 7.5-325MG [[place] 1 tab PO BID PRN 07/20/22 08/20/23 7.5-325] Vortioxetine Hydrobromide 20 mg PO DAILY 07/20/22 08/20/23 [Trintellix] Rimegepant Sulfate [Nurtec Odt] 75 mg PO Q2D PRN 11/11/22 08/20/23 busPIRone HCl [Buspar] 10 mg PO BID PRN 08/17/23 08/20/23 Previous Rx's Medication Instructions Recorded Nicotine 21Mg/24Hr Patch [Habitrol] 1 patch TRANSDERM DAILY patch 08/18/23 amLODIPine [Norvasc] 5 mg PO DAILY #30 tab 08/18/23 lisinopriL [Zestril] 20 mg PO DAILY #30 tab 08/18/23 Allergies Allergy/AdvReac Type Severity Reaction Status Date / Time tramadol AdvReac SEIZURE Verified 08/31/23 17:37 Review of Systems ROS Statement: Those systems with pertinent positive or pertinent negative responses have been documented in the HPI. ROS Other: All systems not noted in ROS Statement are negative. Past Medical History Past Medical History: GERD/Reflux, Hypertension, Seizure Disorder Additional Past Medical History / Comment(s): Migraines, kidney stones, chronic back pain, seizures related to tramadol interaction with medication, right rib fractures History of Any Multi-Drug Resistant Organisms: None Reported Past Surgical History: Appendectomy, Section, Hysterectomy, Orthopedic Surgery Additional Past Surgical History / Comment(s): Carpal tunnel sx, stent for kidney stones/later removed, 07/03/21-lithotripsy/right ureteral stent placed/removed, pain clinic procedures, angiogram. Past Anesthesia/Blood Transfusion Reactions: No Reported Reaction Past Psychological History: Anxiety Smoking Status: Current every day smoker Past Alcohol Use History: Occasional Past Drug Use History: Marijuana - Past Family History Father Family Medical History: CVA/TIA, Hypertension Mother Family Medical History: No Reported History General Exam Limitations: no limitations General appearance: alert, in no apparent distress, anxious Head exam: Present: atraumatic, normocephalic Eye exam: Present: normal appearance, PERRL ENT exam: Present: normal exam Neck exam: Present: normal inspection. Absent: tenderness, meningismus Respiratory exam: Present: normal lung sounds bilaterally. Absent: respiratory distress, wheezes Cardiovascular Exam: Present: regular rate, normal rhythm GI/Abdominal exam: Present: soft. Absent: distended, tenderness Extremities exam: Present: normal inspection Back exam: Present: vertebral tenderness (Lumbosacral region) Neurological exam: Present: alert, oriented X3, CN II-XII intact. Absent: motor sensory deficit Psychiatric exam: Present: anxious Skin exam: Present: warm, dry, intact Course Vital Signs 08/31/23 17:35 Temperature 98.4 F Pulse Rate 105 H Respiratory 20 Rate Blood Pressure 166/113 O2 Sat by Pulse 99 Oximetry Medical Decision Making - Medical Decision Making Was pt. sent in by a medical professional or institution (, PA, LICENSED CHEMICAL SPRAY TECHNICIAN, urgent care, hospital, or half-way...) When possible be specific @ -No Did you speak to anyone other than the patient for history (EMS, parent, family, police, friend...)? What history was obtained from this source @ -No Did you review nursing and triage notes (agree or disagree)? Why? @ -I reviewed and agree with nursing and triage notes Were old charts reviewed (outside hosp., previous admission, EMS record, old E KG, old radiological studies, urgent care reports/EKG's, half-way records)? Report findings @ -No old charts were reviewed Differential Diagnosis (chest pain, altered mental status, abdominal pain women, abdominal pain men, vaginal bleeding, weakness, fever, dyspnea, syncope, headache, dizziness, GI bleed, back pain, seizure, CVA, palpatations, mental hea lth, musculoskeletal)? @ Differential Seizure: Recurrent seizure disorder, febrile seizure, alcohol withdrawal, stimulants, meningitis, encephalitis, intercranial hemorrhage, intracranial tumor, stroke, eclampsia, thyrotoxicosis, hypocalcemia, hyponatremia, hypernatremia, hypoma gnesemia, psychogenic, this is not meant to be an all-inclusive list. EKG interpreted by me (3pts min.). @ -[Sinus rhythm rate of 90, PA interval 146, QRS duration 89, QTC [address] segment elevation. X-rays interpreted by me (1pt min.). @ -CT lumbosacral spine negative for displaced fracture CT interpreted by me (1pt min.). @ CT brain and cervical spine negative for intracranial hemorrhage or mass effect, no cervical fracture or subluxation U/S interpreted by me (1pt. min.). @ -None done What testing was considered but not performed or refused? (CT, X-rays, U/S, labs)? Why? @ -None What meds were considered but not given or refused? Why? @ -None Did you discuss the management of the patient with other professionals (professionals i.e. , PA, LICENSED CHEMICAL SPRAY TECHNICIAN, lab, RT, psych nurse, social media project manager, heel varnisher, teacher, environmental compliance officer, medical case worker)? Give summary @ [facility] Was smoking cessation discussed for >3mins.? @ -No Was critical care preformed (if so, how long)? @ -No Were there social determinants of health that impacted care today? How? (Homelessness, low income, unemployed, alcoholism, drug addiction, transportation, low edu. Level, literacy, decrease access to med. care, nursing home, rehab)? @ -No Was there de-escalation of care discussed even if they declined (Discuss DNR or withdrawal of care, Hospice)? DNR status @ -No What co-morbidities impacted this encounter? (DM, HTN, Smoking, COPD, CAD, Cancer, CVA, ARF, Chemo, Hep., AIDS, mental health diagnosis, sleep apnea, morbid obesity)? @ -Seizure disorder, daily EtOH, hypertension Was patient admitted / discharged? Hospital course, mention meds given and route, prescriptions, significant lab abnormalities, going to OR and other pertinent info. @43 yo female with seizure, likely related to alcohol withdrawal. Patient will be monitored, given Ativan for withdrawal symptoms. Admitted to internal medicine. Undiagnosed new problem with uncertain prognosis? @ -No Drug Therapy requiring intensive monitoring for toxicity (Heparin, Nitro, Insulin, Cardizem)? @ -No Were any procedures done? @ -No Diagnosis/symptom? @ -Seizure, Acute, or Chronic, or Acute on Chronic? @ Acute Uncomplicated (without systemic symptoms) or Complicated (systemic symptoms)? @ -default Side effects of treatment? @ -No Exacerbation, Progression, or Severe Exacerbation? @ -No Poses a threat to life or bodily function? How? (Chest pain, [place], VA, pneumonia, PE, COPD, DKA, ARF, appy, cholecystitis, CVA, Diverticulitis, Homicidal, Suicidal, threat to staff... and all critical care pts) @ -[Yes, alcohol withdrawal, seizure - Lab Data Result diagrams: 08/31/23 19:28 08/31/23 19:28 Lab Results 08/31/23 08/31/23 Range/Units 19:28 19:28 WBC 9.2 (3.8-10.6) k/uL RBC 4.24 (3.80-5.40) m/uL Hgb 13.9 (11.4-16.0) gm/dL Hct 40.3 (34.0-46.0) % MCV 95.0 (80.0-100.0) fL MCH 32.7 (25.0-35.0) pg MCHC 34.4 (31.0-37.0) g/dL RDW 13.1 (11.5-15.5) % Plt Count 326 (150-450) k/uL MPV 7.7 Neutrophils % 73 % Lymphocytes % 22 % Monocytes % 2 % Eosinophils % 2 % Basophils % 1 % Neutrophils # 6.6 (1.3-7.7) k/uL Lymphocytes # 2.0 (1.0-4.8) k/uL Monocytes # 0.2 (0-1.0) k/uL Eosinophils # 0.2 (0-0.7) k/uL Basophils # 0.1 (0-0.2) k/uL Sodium 142 (137-145) mmol/L Potassium 3.4 L (3.5-5.1) mmol/L Chloride 106 (98-107) mmol/L Carbon Dioxide 28 (22-30) mmol/L Anion Gap 8 mmol/L BUN 27 H (7-17) mg/dL Creatinine 1.01 (0.52-1.04) mg/dL Est GFR (CKD-EPI)AfAm 78 (>60 ml/min/1.73 sqM) Est GFR (CKD-EPI)NonAf 68 (>60 ml/min/1.73 sqM) Glucose 117 H (74-99) mg/dL Calcium 9.5 (8.4-10.2) mg/dL Magnesium 2.2 (1.6-2.3) mg/dL Total Bilirubin 0.4 (0.2-1.3) mg/dL AST 100 H (14-36) U/L ALT 86 H (4-34) U/L Alkaline Phosphatase 70 (38-126) U/L Total Protein 7.6 (6.3-8.2) g/dL Albumin 4.6 (3.5-5.0) g/dL Disposition Clinical Impression: Seizure Disposition: ADMITTED IP TO THIS [facility] Condition: Stable Is patient prescribed a controlled substance at d/c from ED?: No Referrals: Stacy Arnold MD [STAFF PHYSICIAN] - 1-2 days Time of Disposition: 20:27
--- NOTE | 2023-08-31 19:20 | XR ---
EXAMINATION TYPE: XR lumbosacral spine min 4V DATE OF EXAM: 08/31/2023 7:07 PM CLINICAL INDICATION:Female, 43 years old with history of fall; [facility] COMPARISON: None TECHNIQUE: XR lumbosacral spine min 4V - Frontal, lateral , bilateral oblique and coned in L5-S1 late ral views of the spine. FINDINGS: No evidence of any acute osseous pathology. No evidence of loss of vertebral body height i s seen. There is grade 1 anterolisthesis of L3 on L4 alignment of the lumbar vertebral bodies. Mild s cattered disc space narrowing. Multilevel marginal osteophyte formation throughout the visualized spi ne. There is facet joint arthropathy throughout the spine. Scattered at least mild neural foraminal s tenosis. IMPRESSION: 1. No acute fracture. 2. Mild multilevel disc degeneration. 3. Grade 1 anterolisthesis of L3 on L4.
[2023-08-31 19:35] LABS: Basophils # (A) 0.1 k/uL (0-0.2); Basophils % (A) 1 %; Eosinophils # (A) 0.2 k/uL (0-0.7); Eosinophils % (A) 2 %; HCT 40.3 % (34.0-46.0); HGB 13.9 gm/dL (11.4-16.0); Lymphocytes % (A) 22 %; MCH 32.7 pg (25.0-35.0); MCHC 34.4 g/dL (31.0-37.0); Mean Platelet Volume 7.7; Monocytes # (A) 0.2 k/uL (0-1.0); Monocytes % (A) 2 %; Neutrophils # (A) 6.6 k/uL (1.3-7.7); Neutrophils % (A) 73 %; Platelet Count 326 k/uL (150-450); RBC 4.24 m/uL (3.80-5.40); RDW 13.1 % (11.5-15.5); WBC 9.2 k/uL (3.8-10.6)
[2023-08-31] MEDS ORDERED: KETOROLAC 15 MG/ML 1 ML VIAL IVP STA (19:38)
--- NOTE | 2023-08-31 19:39 | CT ---
EXAMINATION TYPE: CT brain cspine wo con CT DLP: 1095 mGycm, Automated exposure control for dose reduction was used. DATE OF EXAM: 08/31/2023 7:30 PM COMPARISON: None. CLINICAL INDICATION:Female, 43 years old with history of seizure fall; TECHNIQUE: Brain: Multiple axial CT images of the brain were obtained without IV contrast. Cspine: Axial CT images from the skull base to the inferior aspect of T2 we obtained without intraven ous contrast. Coronal and sagittal reformatted images were also reviewed. FINDINGS: Brain: Extra-axial spaces: No abnormal extra-axial fluid collections. Ventricular system: Within normal limits Cerebral parenchyma: No acute intraparenchymal hemorrhage or mass effect. The rai-white junction is well differentiated. Cerebellum: Unremarkable. Mass effect: No evidence of midline shift. Intracranial vasculature: unremarkable Soft tissues: Normal. Calvarium/osseous structures: No depressed skull fracture. Paranasal sinuses and mastoid air cells: Clear. Visualized orbits: Orbital contents are intact. Cervical spine: Fracture: None. Osseous structures: Multilevel degenerative disc disease changes with endplate spurring and disc oste ophyte complex's. Vertebral alignment: Within normal limits. Spinal canal/Neural Foramina: No evidence of significant spinal canal narrowing. No evidence for sign ificant neural foraminal stenosis. Neck soft tissues: Prevertebral soft tissues are within normal limits. Other: The airway is patent. The lung apices are clear. IMPRESSION: No acute intracranial process. No evidence of cervical spine fracture. Mild multilevel degenerative disc disease.
[2023-08-31 20:04] LABS: ALT 86 U/L (4-34); AST 100 U/L (14-36); African American GFR (CKD) 78 (>60 ml/min/1.73 sqM); Albumin 4.6 g/dL (3.5-5.0); Alkaline Phosphatase 70 U/L (38-126); Anion Gap 8 mmol/L; Blood Urea Nitrogen 27 mg/dL (7-17); Calcium 9.5 mg/dL (8.4-10.2); Carbon Dioxide 28 mmol/L (22-30); Chloride 106 mmol/L (98-107); Glucose 117 mg/dL (74-99); Magnesium 2.2 mg/dL (1.6-2.3); Non-African American GFR(CKD) 68 (>60 ml/min/1.73 sqM); Potassium 3.4 mmol/L (3.5-5.1); Sodium 142 mmol/L (137-145); Total Bilirubin 0.4 mg/dL (0.2-1.3); Total Protein 7.6 g/dL (6.3-8.2)
[2023-08-31] MEDS ORDERED: HYDROmorphone 0.5 MG/0.5 ML SYRINGE IVP STA (20:22)
[2023-08-31] MEDS ORDERED: LORazepam 2 MG/ML INJ IV PRN ×3 (20:22)
[2023-08-31] MEDS ORDERED: THIAMINE 100 MG/ML 2 ML VIAL IM STA (20:22)
[2023-08-31] MEDS ORDERED: NALOXONE 0.4 MG/ML 1 ML VIAL IV PRN (20:23)
[2023-08-31] MEDS ORDERED: POTASSIUM CHLORIDE ER 20 MEQ TAB.ER PO STA (20:24)
[2023-08-31] MEDS ORDERED: ACETAMINOPHEN TAB 325 MG TAB PO PRN (20:26)
[2023-08-31] MEDS: SODIUM CHLORIDE 0.9% 1,000 ML IV SCH (20:59)
[2023-08-31] MEDS ORDERED: busPIRone HCl 10 MG TAB PO PRN (23:48)
[2023-09-01] MEDS: HYDROcodone/APAP 7.5-325MG 1 EACH TAB PO PRN ×3 (00:06→17:46)
[2023-09-01] MEDS: PREGABALIN 75 MG CAP PO SCH ×4 (00:06→21:00)
[2023-09-01] MEDS: NICOTINE 21MG/24HR PATCH TRANSDERM SCH ×2 (00:06→08:23)
[2023-09-01] MEDS: HYDROmorphone 0.5 MG/0.5 ML SYRINGE IVP PRN ×8 (00:19→23:54)
[2023-09-01] MEDS: THIAMINE 100 MG TAB PO SCH (08:24)
[2023-09-01] MEDS: amLODIPine 5 MG TAB PO SCH (08:24)
[2023-09-01] MEDS: VORTIOXETINE HYDROBROMIDE 20 MG TABLET PO SCH (08:24)
[2023-09-01] MEDS: PANTOPRAZOLE 40 MG TABLET PO SCH (08:24)
[2023-09-01] MEDS: lisinopriL 20 MG TAB PO SCH (08:24)
[2023-09-01 08:51] LABS: HCT 35.8 % (34.0-46.0); HGB 12.3 gm/dL (11.4-16.0); MCH 33.5 pg (25.0-35.0); MCHC 34.2 g/dL (31.0-37.0); MCV 97.9 fL (80.0-100.0); Mean Platelet Volume 8.8; Platelet Count 265 k/uL (150-450); RBC 3.66 m/uL (3.80-5.40); RDW 13.6 % (11.5-15.5); WBC 6.7 k/uL (3.8-10.6)
[2023-09-01 09:10] LABS: ALT 78 U/L (4-34); AST 89 U/L (14-36); African American GFR (CKD) >90 (>60 ml/min/1.73 sqM); Albumin 4.1 g/dL (3.5-5.0); Alkaline Phosphatase 64 U/L (38-126); Anion Gap 11 mmol/L; Blood Urea Nitrogen 23 mg/dL (7-17); Calcium 8.8 mg/dL (8.4-10.2); Carbon Dioxide 25 mmol/L (22-30); Chloride 103 mmol/L (98-107); Glucose 104 mg/dL (74-99); Non-African American GFR(CKD) 84 (>60 ml/min/1.73 sqM); Potassium 3.8 mmol/L (3.5-5.1); Sodium 139 mmol/L (137-145); Total Bilirubin 0.3 mg/dL (0.2-1.3); Total Protein 6.9 g/dL (6.3-8.2)
[2023-09-01] MEDS: SODIUM CHLORIDE 0.9% 1,000 ML IV SCH (09:18)
[2023-09-01] MEDS ORDERED: HYDROcodone/APAP 7.5-325MG 1 EACH TAB PO SCH (16:00)
[2023-09-02] MEDS: HYDROcodone/APAP 7.5-325MG 1 EACH TAB PO PRN ×2 (01:57→09:41)
[2023-09-02] MEDS: HYDROmorphone 0.5 MG/0.5 ML SYRINGE IVP PRN ×4 (03:39→15:24)
[2023-09-02] MEDS: PREGABALIN 75 MG CAP PO SCH ×2 (08:08→15:24)
[2023-09-02] MEDS: amLODIPine 5 MG TAB PO SCH (08:08)
[2023-09-02] MEDS: NICOTINE 21MG/24HR PATCH TRANSDERM SCH (08:08)
[2023-09-02] MEDS: PANTOPRAZOLE 40 MG TABLET PO SCH (08:09)
[2023-09-02] MEDS: lisinopriL 20 MG TAB PO SCH (08:09)
[2023-09-02] MEDS: THIAMINE 100 MG TAB PO SCH (08:09)
[2023-09-02] MEDS: VORTIOXETINE HYDROBROMIDE 20 MG TABLET PO SCH (08:12)
[2023-09-02] MEDS: SODIUM CHLORIDE 0.9% 1,000 ML IV SCH (08:17)
--- NOTE | 2023-09-02 08:26 | P.HPIM ---
History of Present Illness H&P Date: 09/01/23 Chief Complaint: seizure/syncope Elisa Portillo is a 43 yo F with PMH of chronic back pain, disc disease, alcohol abuse, bipolar disorder who presented to the ED after a seizure in the grocery store. She states she was walking with her son when she felt dizzy and the next thing she knew she was on the floor. She states she lost control of her bladder and her son told her she was shaking. She reports regular alcohol use but states she had not drank in a few days, she typically drinks 4-5 drinks per day. On presentation, vitals and labs are stable. AST/ALT mildly elevated at 100/86. She currently endorses ongoing low back pain, denies dizziness, headache, blurry vision. Review of Systems All systems: negative Constitutional: Reports chronic pain, Denies chills, Denies fever Eyes: denies blurred vision, denies pain Ears, nose, mouth and throat: Denies headache, Denies sore throat Cardiovascular: Denies chest pain, Denies shortness of breath Respiratory: Denies cough Gastrointestinal: Denies abdominal pain, Denies diarrhea, Denies nausea, Denies vomiting Genitourinary: Denies dysuria, Denies hematuria Musculoskeletal: Denies myalgias Integumentary: Denies pruritus, Denies rash Neurological: Denies numbness, Denies weakness Psychiatric: Denies anxiety, Denies depression Endocrine: Denies fatigue, Denies weight change Past Medical History Past Medical History: GERD/Reflux, Hypertension, Seizure Disorder Additional Past Medical History / Comment(s): Migraines, kidney stones, chronic back pain, seizures related to tramadol interaction with medication, right rib fractures History of Any Multi-Drug Resistant Organisms: None Reported Past Surgical History: Appendectomy, Section, Hysterectomy, Orthopedic Surgery Additional Past Surgical History / Comment(s): Carpal tunnel sx, stent for kidney stones/later removed, 07/03/21-lithotripsy/right ureteral stent placed/removed, pain clinic procedures, angiogram. Past Anesthesia/Blood Transfusion Reactions: No Reported Reaction Past Psychological History: Anxiety Smoking Status: Current every day smoker Past Alcohol Use History: Occasional Past Drug Use History: Marijuana - Past Family History Father Family Medical History: CVA/TIA, Hypertension Mother Family Medical History: No Reported History Medications and Allergies Home Medications Medication Instructions Recorded Confirmed Type Pregabalin [Lyrica] 150 mg PO TID 07/09/21 08/31/23 History Omeprazole 40 mg PO DAILY 07/09/22 08/31/23 History HYDROcodone/APAP 7.5-325MG [[place] 1 tab PO BID PRN 07/20/22 08/31/23 History 7.5-325] Vortioxetine Hydrobromide 20 mg PO DAILY 07/20/22 08/31/23 History [Trintellix] Rimegepant Sulfate [Nurtec Odt] 75 mg PO Q2D PRN 11/11/22 08/31/23 History busPIRone HCl [Buspar] 10 mg PO BID PRN 08/17/23 08/31/23 History Nicotine 21Mg/24Hr Patch [Habitrol] 1 patch TRANSDERM DAILY patch 08/18/23 08/31/23 Rx amLODIPine [Norvasc] 5 mg PO DAILY #30 tab 08/18/23 08/31/23 Rx lisinopriL [Zestril] 20 mg PO DAILY #30 tab 08/18/23 08/31/23 Rx Allergies Allergy/AdvReac Type Severity Reaction Status Date / Time tramadol AdvReac SEIZURE Verified 08/31/23 21:00 Physical Exam Vitals: Vital Signs Temp Pulse Pulse Resp BP BP Pulse Ox 09/02/23 08:05 98.4 F 84 16 162/101 97 09/02/23 03:42 87 18 172/113 97 09/01/23 23:44 89 18 158/102 98 09/01/23 19:56 98.0 F 81 18 164/94 96 09/01/23 17:56 98 F 97 18 148/95 96 09/01/23 15:15 77 18 141/106 98 09/01/23 12:20 98.2 F 90 18 143/108 97 09/01/23 08:22 98.2 F 84 18 148/105 97 Intake and Output 09/01/23 09/02/23 09/02/23 22:59 06:59 14:59 Intake Total 540 Balance 540 Intake: Oral 540 Other: Voiding Method Toilet Toilet # Voids 2 2 Weight 65.771 kg Gen: well developed, well nourished NAD HEENT: NC/AT, mmm Neck: supple, no JVD or thyromegaly CV: RRR Lungs: CTAB Abd: soft, nontender Neuro: AAOx3 no focal deficit Skin: warm and dry Results CBC & Chem 7: 09/01/23 07:16 09/01/23 07:16 Labs: Abnormal Lab Results - Last 24 Hours (Table) 09/01/23 09/01/23 Range/Units 07:16 07:16 RBC 3.66 L (3.80-5.40) m/uL BUN 23 H (7-17) mg/dL Glucose 104 H (74-99) mg/dL AST 89 H (14-36) U/L ALT 78 H (4-34) U/L Thrombosis Risk Factor Assmnt - Choose All That Apply Each Factor Represents 1 point: Age 41-60 years, Obesity (BMI >25) Thrombosis Risk Factor Assessment Total Risk Factor Score: 2 Thrombosis Risk Factor Assessment Level: Low Risk Assessment and Plan Plan: Witnessed seizure, alcohol abuse. Admit and consult Neurology. [place] protocol. Seizure precautions. Chronic back pain. Continue home lyrica and norco Bipolar disorder. Continue trintellix
[2023-09-02 08:31] VITALS: RESP 16
[2023-09-02] MEDS ORDERED: CALCIUM CARBONATE 500 MG CHEWABLE PO PRN (09:34)
--- NOTE | 2023-09-02 10:32 | P.CNNES ---
History of Present Illness Consult date: 09/01/23 Requesting physician: Luis Enrique Arnold Reason for Consult: Seizure History of Present Illness: Patient is a 43-year-old right-handed female, who was just recently seen in hospital consultation on 08/20/2023 for episodes of stuttering, paresthesias, difficulty walking with left leg, and long-standing history of seizure disorder, currently not on any seizure medication. Patient was recommended EEG, but patient signed out AGAINST MEDICAL ADVICE. Please refer to my note from 08/20/2023 for details. Since patient left the hospital, patient was doing well. Yesterday she went with her son to the [facility], she remembers going to the bakery and then going to the checkout. She then woke up with people around her. EMS was called, but patient declined to go in the ambulance. Patient's son brought her to the hospital. Her blood sugar was tested at the scene and was okay. Vital signs on arrival blood pressure 166/113, pulse rate 105, temperature 98.4. Patient's blood pressure has been running high. Blood pressure shows normal CBC, sodium, potassium 3.4, renal functions are normal, AST is 100, ALT 86. Troponin negative. CT head CT of the cervical spine showed no evidence of cervical spine fracture. Mild multilevel degenerative disc disease. EKG shows sinus rhythm. Review of Systems Constitutional: Denies chills, Denies fever Eyes: bilateral blurred vision (Spots in vision), denies diplopia (sometimes), denies pain Ears: deny: decreased hearing, ear discharge Ears, nose, mouth and throat: Reports headache, Denies sore throat Cardiovascular: Reports chest pain, Reports shortness of breath Respiratory: Reports cough, Denies excessive sputum Gastrointestinal: Reports diarrhea, Reports nausea, Denies abdominal pain, Denies vomiting (Sometimes) Genitourinary: Denies dysuria, Denies hematuria Musculoskeletal: Reports low back pain, Reports neck pain Integumentary: Denies pruritus, Denies rash Neurological: Reports as per HPI Psychiatric: Reports anxiety, Reports depression Past Medical History Past Medical History: GERD/Reflux, Hypertension, Seizure Disorder Additional Past Medical History / Comment(s): Migraines, kidney stones, chronic back pain, seizures related to tramadol interaction with medication, right rib fractures History of Any Multi-Drug Resistant Organisms: None Reported Past Surgical History: Appendectomy, Section, Hysterectomy, Orthopedic Surgery Additional Past Surgical History / Comment(s): Carpal tunnel sx, stent for kidney stones/later removed, 07/03/21-lithotripsy/right ureteral stent placed/removed, pain clinic procedures, angiogram. Past Anesthesia/Blood Transfusion Reactions: No Reported Reaction Past Psychological History: Anxiety Smoking Status: Current every day smoker Past Alcohol Use History: Occasional Past Drug Use History: Marijuana - Past Family History Father Family Medical History: CVA/TIA, Hypertension Mother Family Medical History: No Reported History Medications and Allergies Home Medications Medication Instructions Recorded Confirmed Type Pregabalin [Lyrica] 150 mg PO TID 07/09/21 08/31/23 History Omeprazole 40 mg PO DAILY 07/09/22 08/31/23 History HYDROcodone/APAP 7.5-325MG [[place] 1 tab PO BID PRN 07/20/22 08/31/23 History 7.5-325] Vortioxetine Hydrobromide 20 mg PO DAILY 07/20/22 08/31/23 History [Trintellix] Rimegepant Sulfate [Nurtec Odt] 75 mg PO Q2D PRN 11/11/22 08/31/23 History busPIRone HCl [Buspar] 10 mg PO BID PRN 08/17/23 08/31/23 History Nicotine 21Mg/24Hr Patch [Habitrol] 1 patch TRANSDERM DAILY patch 08/18/23 08/31/23 Rx amLODIPine [Norvasc] 5 mg PO DAILY #30 tab 08/18/23 08/31/23 Rx lisinopriL [Zestril] 20 mg PO DAILY #30 tab 08/18/23 08/31/23 Rx Allergies Allergy/AdvReac Type Severity Reaction Status Date / Time tramadol AdvReac SEIZURE Verified 08/31/23 21:00 Physical Examination - Vital Signs Vital Signs: Vital Signs Temp Pulse Resp BP Pulse Ox 09/01/23 15:15 77 18 141/106 98 09/01/23 12:20 98.2 F 90 18 143/108 97 09/01/23 08:22 98.2 F 84 18 148/105 97 09/01/23 06:33 97.9 F 90 20 129/102 97 09/01/23 03:35 91 17 139/79 96 08/31/23 23:49 88 148/97 98 08/31/23 22:18 99 17 161/89 99 08/31/23 21:13 90 19 192/105 94 L Patient is a middle aged female, in no acute distress. She appears slightly anxious, very restless, hyper attentive, distractible. Patient is alert awake oriented to time place and person. Speech and language functions are normal. Patient can name and repeat very well. No aphasia or dysarthria. Attention, concentration and fund of knowledge is adequate. On cranial nerve examination, pupils are equal, round and reacting to light, visual donato are full on confrontation, with no neglect on double simultaneous stimulation. Extraocular muscles are intact with no nystagmus. Face is symmetric, tongue protrudes to the midline. Palatal elevation and sensation normal, hearing and shoulder shrug normal, facial sensation normal. On muscle strength testing, there is no pronator drift and the strength is normal in arms and legs distally and proximally. Deep tendon reflexes are symmetric 1+ at the biceps, and brachioradialis, 2+ at the knees, 2+ ankles and plantars downgoing bilaterally. Sensory to touch is equal with no neglect on double simultaneous stimulation. Cerebellar function showed no ataxia for bsydei-zo-kwca testing. No dysdiadochokinesia. No ataxia for deoc-vp-eneh testing on either side. Tone and bulk of muscles normal. Gait deferred.. On general examination, there is no carotid bruit or murmur, S1-S2 audible. Chest is clear on consultation. Abdomen is soft nontender. No organomegaly, bowel sounds present. Peripheral pulses are present. No peripheral edema. Results - Laboratory Findings CBC and BMP: 09/01/23 07:16 09/01/23 07:16 Abnormal Lab Findings: Abnormal Labs 08/31/23 09/01/23 09/01/23 19:28 07:16 07:16 RBC 3.66 L Potassium 3.4 L BUN 27 H 23 H Glucose 117 H 104 H AST 100 H 89 H ALT 86 H 78 H Assessment and Plan Assessment: * Long-standing history of seizure disorder, but not on any seizure medication. Patient came with a breakthrough seizure. * Hypertension * Dyslipidemia * Migraine headaches * Chronic back pain * Tobacco use Plan: * Prolonged EEG for 1 hour to evaluate for interictal epileptiform activity * Patient probably will need antiepileptic medication, but will defer until EEG is completed. * CTA of head and neck 08/19/2023 revealed no major vascular occlusion, sign ificant stenosis or aneurysm detected in the limits of CTA. Biapical pulmonary groundglass opacities likely reflect inflammatory/infectious process, including atypical viral infection such as Covid 19. * Check Covid-19 * Patient's 2-D echo on 11/12/2022 revealed normal left ventricular size and systolic function with EF 55-60%, normal left atrial size, mild TR * Patient had a normal hemoglobin A1c 5.7 on 07/20/2022. Her B12 level was 1234.0 and folate 17.90 on 07/20/2022, no need to repeat. We will check TSH as it was abnormal before. * Start aspirin regimen * Recommend complete tobacco cessation. * Patient informed of [place] state law of no driving unless seizure free for 6 months, climbing ladders, operate dangerous machinery or unsupervised swimming. * Neurology will follow. Thank you for the consult.
[2023-09-02] MEDS ORDERED: ASPIRIN 81 MG PO SCH (10:45)
[2023-09-02 13:38] LABS: Amphetamine Screen,Urine Not Detected (NotDetected); Barbiturate Screen,Urine Not Detected (NotDetected); Benzodiazepines Screen,Urine Detected (NotDetected); Cocaine Screen,Urine Not Detected (NotDetected); Methadone Screen, Urine Not Detected (NotDetected); Opiate Screen,Urine Detected (NotDetected); Oxycodone Screen, Urine Not Detected (NotDetected); Phencyclidine Screen,Urine Not Detected (NotDetected); Tricyclic Antidepressant,Urine Detected (NotDetected); Urn Cannabinoid Scrn Not Detected (NotDetected)
--- NOTE | 2023-09-02 15:19 | P.PN ---
Subjective Progress Note Date: 09/02/23 Patient was seen for a follow-up. No further seizure type spells. Patient is sitting comfortably in the bed. Objective - Vital Signs Vital signs: Vital Signs Temp 98.3 F 09/02/23 12:08 Pulse 108 H 09/02/23 12:08 Resp 16 09/02/23 12:08 BP 114/73 09/02/23 12:08 Pulse Ox 97 09/02/23 12:08 FiO2 Intake & Output 09/01/23 09/02/23 09/02/23 18:59 06:59 18:59 Intake Total 540 Balance 540 Weight 65.771 kg Intake: Oral 540 Other: Voiding Method Toilet Toilet # Voids 2 - Exam Patient is alert and awake, in no distress. Speech-language function is a normal. Patient is restless. - Labs CBC & Chem 7: 09/01/23 07:16 09/01/23 07:16 Labs: Abnormal Lab Results - Last 24 Hours (Table) 09/02/23 Range/Units 12:36 Urine Opiates Screen Detected H (NotDetected) U Tricyclic Antidepress Detected H (NotDetected) U Benzodiazepines Scrn Detected H (NotDetected) Assessment and Plan Assessment: * Long-standing history of seizure disorder, but not on any seizure medication. Patient came with a breakthrough seizure. * Hypertension * Dyslipidemia * Migraine headaches * Chronic back pain * Tobacco use Plan: * Prolonged EEG for 1 hour was performed, which was abnormal due to intermittent background slowing mild degree, suggestive of encephalopathy. No epileptiform activity was seen. * Start Keppra 500 mg twice a day empirically. * Follow up with neurologist in 2-4 weeks. * Neurologically clear for discharge. Discussed with the nurse in detail. * CTA of head and neck 08/19/2023 revealed no major vascular occlusion, significant stenosis or aneurysm detected in the limits of CTA. Biapical pulmonary groundglass opacities likely reflect inflammatory/infectious process, including atypical viral infection such as Covid 19. * Covid-19 PCR negative. * Patient's 2-D echo on 11/12/2022 revealed normal left ventricular size and systolic function with EF 55-60%, normal left atrial size, mild TR * Patient had a normal hemoglobin A1c 5.7 on 07/20/2022. Her B12 level was 1234.0 and folate 17.90 on 07/20/2022, no need to repeat. We will check TSH as it was abnormal before. * Start aspirin regimen * Recommend complete tobacco cessation. Urine drug screen positive for opiates, tricyclic and benzodiazepine. * Patient requesting lumbar puncture because Dr. Quiroga, her neurologist recommended it in the past because of "fluid in the brain". I looked at the CT head, there is no evidence of hydrocephalus. Suggested patient follow-up with a neurologist to have it done as an outpatient. This is not clinically indicated at this time. * Patient informed of [place] state law of no driving unless seizure free for 6 months, climbing ladders, operate dangerous machinery or unsupervised swimming.
[2023-09-02] MEDS ORDERED: hydrALAZINE HCL 25 MG TAB PO STA (15:42)
--- NOTE | 2023-09-02 16:10 | P.DS ---
Providers Date of admission: 08/31/23 20:23 Expected date of discharge: 09/02/23 Attending physician: Luis Enrique Arnold MD Consults: 09/01/23 08:42 Consult Physician Routine Consulting Provider: Filiberto Lambert Consult Reason/Comments: seizure Do you want consulting provider notified?: Yes Primary care physician: Luis Enrique Arnold MD Hospital Course: Final Diagnoses: Witnessed seizure, alcohol abuse. Chronic back pain. Bipolar disorder Urine drug screen positive for opiates, tricyclic and benzodiazepine. Hospital course: Elisa Portillo is a 43 yo F with PMH of chronic back pain, disc disease, alcohol abuse, bipolar disorder who presented to the ED after a seizure in the grocery store. She states she was walking with her son when she felt dizzy and the next thing she knew she was on the floor. She states she lost control of her bladder and her son told her she was shaking. She reports regular alcohol use but states she had not drank in a few days, she typically drinks 4-5 drinks per day. On presentation, vitals and labs are stable. AST/ALT mildly elevated at 100/86. She currently endorses ongoing low back pain, denies dizziness, headache, blurry vision. Maintained on CIWA protocol. Seizure precautions. Continued on home Lyrica, and Kell for pain management and trintellix for bipolar disorder. No further seizure activity.Evaluated and treated by neurology;refer to their consult for specific details. Underwent prolonged EEG for 1 hour, abnormal due to intermittent background slowing mild decrease suggestive of encephalopathy with no deformity activity seen. 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 Patient sitting up at bedside, conversing appropriately, appears comfortable. Denies chest pain, palpitations or shortness of breath. Denies lightheadedness dizziness or focal deficits. Denies headache. Denies nausea, vomiting or diarrhea. Denies abdominal pain. Smoking cessation, alcohol abstinence reinforced. Patient will be discharged home today in a stable condition with guarded prognosis. The impression and plan of care has been dictated as directed. : I performed a history and examination of this patient, discussed the same with the dictator. I agree with the dictator's note ,documented as a scribe. Any additional findings or plans will be noted. Patient Condition at Discharge: Stable Plan - Discharge Summary Discharge Rx Participant: Yes New Discharge Prescriptions: New Thiamine [Vitamin B-1] 100 mg PO DAILY tab Aspirin 81 mg PO DAILY #0 tab levETIRAcetam [Keppra] 500 mg PO Q12HR #60 tab No Action Pregabalin [Lyrica] 150 mg PO TID Omeprazole 40 mg PO DAILY Vortioxetine Hydrobromide [Trintellix] 20 mg PO DAILY HYDROcodone/APAP 7.5-325MG [Kell 7.5-325] 1 tab PO BID PRN PRN Reason: Pain Rimegepant Sulfate [Nurtec Odt] 75 mg PO Q2D PRN PRN Reason: Migraine Headache Nicotine 21Mg/24Hr Patch [Habitrol] 1 patch TRANSDERM DAILY patch lisinopriL [Zestril] 20 mg PO DAILY #30 tab busPIRone HCl [Buspar] 10 mg PO BID PRN PRN Reason: Anxiety amLODIPine [Norvasc] 5 mg PO DAILY #30 tab Discharge Medication List Pregabalin [Lyrica] 150 mg PO TID 07/09/21 [History] Omeprazole 40 mg PO DAILY 07/09/22 [History] HYDROcodone/APAP 7.5-325MG [Kell 7.5-325] 1 tab PO BID PRN 07/20/22 [History] Vortioxetine Hydrobromide [Trintellix] 20 mg PO DAILY 07/20/22 [History] Rimegepant Sulfate [Nurtec Odt] 75 mg PO Q2D PRN 11/11/22 [History] busPIRone HCl [Buspar] 10 mg PO BID PRN 08/17/23 [History] Nicotine 21Mg/24Hr Patch [Habitrol] 1 patch TRANSDERM DAILY patch 08/18/23 [Rx] amLODIPine [Norvasc] 5 mg PO DAILY #30 tab 08/18/23 [Rx] lisinopriL [Zestril] 20 mg PO DAILY #30 tab 08/18/23 [Rx] Aspirin 81 mg PO DAILY #0 tab 09/02/23 [Rx] Thiamine [Vitamin B-1] 100 mg PO DAILY tab 09/02/23 [Rx] levETIRAcetam [Keppra] 500 mg PO Q12HR #60 tab 09/02/23 [Rx] Follow up Appointment(s)/Referral(s): Luis Enrique Arnold MD [Primary Care Provider] - 1 Week Meghann Hernandez MD [Medical Doctor] - 2 Weeks Activity/Diet/Wound Care/Special Instructions: Patient informed of [place] state law of no driving unless seizure free for 6 months, climbing ladders, operate dangerous machinery or unsupervised swimming. Discharge/Stand Alone Forms: AA Meetings [facility], Who Do I Call?, Community Resources, Outpatient Counseling, Inp Substance Abuse Facilities, Personal Oil Burner Repairer
[2023-09-02 17:07] VITALS: BP 176/111; PULSE 100; TEMP 98
[2023-09-02] MEDS ORDERED: levETIRAcetam 500 MG TAB PO SCH (21:00)
--- NOTE | 2023-09-02 22:58 | EEG ---
ELECTROENCEPHALOGRAM REPORT PREAMBLE: This is a 43-year-old female, with longstanding history of reported seizure disorder, currently not on any seizure medication. This study is performed to evaluate for epileptiform activity. CURRENT MEDICATIONS: 1. Tylenol. 2. Norvasc. 3. BuSpar. 4. [place]. 5. Zestril. 6. Ativan. 7. Protonix. 8. Lyrica. 9. Trintellix. EEG FINDINGS: This is a prolonged, 1-hour EEG performed on the patient utilizing 10/20 international system with referential and bipolar montages. The recording started at 10:18 a.m. on 09/02/2023 and completed at 11:25 a.m. on 09/02/2023. The background consists of well developed and fairly regulated, mixed frequencies of 9-10 hertz alpha, intermixed with some 4-6 hertz theta activity seen in bihemispheric region. Background is posterior dominant, and seems to be minimally reactive to eye opening or closing. A lot of movement and myogenic artifact was seen periodically during the study. Different stages of sleep were not seen. Photic driving response was not clearly seen. No focal or generalized epileptiform activity was seen. EKG channel showed no obvious arrhythmia. IMPRESSION: This is an abnormal EEG due to intermittent background slowing, suggestive of mild encephalopathy. No obvious epileptiform activity was seen. Normal EEG does not rule out epileptiform activity. Consider more prolonged study. MMVANDANAL / IJN: [id number] /
== END 2023-09-02 17:13 | disposition home or self-care (01) ==
LOC: EC 17:30 → 3SCARD 20:23 → INTOOBSV 20:23 → 3SCARD 22:42 → UNDODISIN 09-02 17:13
PROVIDERS: ADMIT Family Medicine; ATTEND Family Medicine
DX: G40.909 Epilepsy, unspecified, not intractable, without status epilepticus (principal); F10.10 Alcohol abuse, uncomplicated; G89.29 Other chronic pain; M54.50 Low back pain, unspecified; F31.9 Bipolar disorder, unspecified; I10 Essential (primary) hypertension; F17.200 Nicotine dependence, unspecified, uncomplicated; G43.909 Migraine, unspecified, not intractable, without status migrainosus; F41.9 Anxiety disorder, unspecified; K21.9 Gastro-esophageal reflux disease without esophagitis; E66.9 Obesity, unspecified; Z68.27 Body mass index [BMI] 27.0-27.9, adult; E78.5 Hyperlipidemia, unspecified; Z79.899 Other long term (current) drug therapy; Z88.5 Allergy status to narcotic agent; Z87.442 Personal history of urinary calculi; Z90.710 Acquired absence of both cervix and uterus; Z90.49 Acquired absence of other specified parts of digestive tract; Z82.49 Family history of ischemic heart disease and other diseases of the circulatory system; Z82.3 Family history of stroke
CPT/HCPCS: 96376 ×3; 96361; 96372; 96374; 96375; 99285; 36415; 95813; 93005; 80053 ×2; 83735; 85025; 85027; 80306; 87635; 72110; 72125; 70450; G0378 ×3; S4990 ×2; J2060 ×3; J3411; J1885; J1170 ×3

== ENCOUNTER 2023-11-17 20:17 | Emergency (ER) | payer OTHER ==
[2023-11-17 21:02] VITALS: TEMP 98.4
--- NOTE | 2023-11-17 21:04 | ED ---
Abdominal Pain HPI - General Source: patient Mode of arrival: ambulatory Limitations: no limitations <Juan Estevez - Last Filed: 11/17/23 21:05> - General Source: patient, RN notes reviewed, old records reviewed <Inocencio Parks - Last Filed: 11/18/23 00:49> - General Chief Complaint: Abdominal Pain Stated Complaint: Abd Pain Time Seen by Provider: 11/17/23 21:05 - History of Present Illness Initial Comments: 43-year-old female with past medical history significant for status post appendectomy and kidney stones presenting to the ED with a chief complaint abdominal pain. Patient states 3 days ago onset of right lower abdominal pain. Pain is constant in nature. Also notes some associated urinary frequency. (Juan Estevez) Patient is a 43-year-old female who presents for evaluation of abdominal pain. Seems to be right lower quadrant with radiation around the right flank for multiple days. Patient is also having right sided rib pain. Said she has a history of a cracked rib on the right. Rib pain started after she was jostled by her dogs. However the right lower quadrant abdominal pain she has no known palliative or provocative factors or why it started. Endorses some nausea. Denies any change in bowel movements. Denies any dysuria or hematuria. Denies being . Presents originally as a quick note. (Inocencio Parks) - Related Data Home Medications Medication Instructions Recorded Confirmed Pregabalin [Lyrica] 150 mg PO TID 07/09/21 08/31/23 Omeprazole 40 mg PO DAILY 07/09/22 08/31/23 HYDROcodone/APAP 7.5-325MG [[place] 1 tab PO BID PRN 07/20/22 08/31/23 7.5-325] Vortioxetine Hydrobromide 20 mg PO DAILY 07/20/22 08/31/23 [Trintellix] Rimegepant Sulfate [Nurtec Odt] 75 mg PO Q2D PRN 11/11/22 08/31/23 busPIRone HCl [Buspar] 10 mg PO BID PRN 08/17/23 08/31/23 Previous Rx's Medication Instructions Recorded Nicotine 21Mg/24Hr Patch [Habitrol] 1 patch TRANSDERM DAILY patch 08/18/23 amLODIPine [Norvasc] 5 mg PO DAILY #30 tab 08/18/23 lisinopriL [Zestril] 20 mg PO DAILY #30 tab 08/18/23 Aspirin 81 mg PO DAILY #0 tab 09/02/23 Thiamine [Vitamin B-1] 100 mg PO DAILY tab 09/02/23 levETIRAcetam [Keppra] 500 mg PO Q12HR #60 tab 09/02/23 Allergies Allergy/AdvReac Type Severity Reaction Status Date / Time tramadol AdvReac SEIZURE Verified 11/17/23 20:39 Review of Systems ROS Other: All systems not noted in ROS Statement are negative. <Juan Estevez - Last Filed: 11/17/23 21:05> ROS Other: All systems not noted in ROS Statement are negative. <Inocencio Parks - Last Filed: 11/18/23 00:49> ROS Statement: Those systems with pertinent positive or pertinent negative responses have been documented in the HPI. Review of Systems: CONST: Denies fever EYES: Denies blurry vision ENT: Denies nasal congestion C/V: Denies Chest pain RESP: Denies shortness of breath GI: Endorses is abdominal pain : Denies dysuria SKIN: Denies rash. MSK: Endorses rib pain NEURO: Denies headache (Inocencio Parks) Past Medical History Past Medical History: GERD/Reflux, Hypertension, Seizure Disorder Additional Past Medical History / Comment(s): Migraines, kidney stones, chronic back pain, seizures related to tramadol interaction with medication, right rib fractures History of Any Multi-Drug Resistant Organisms: None Reported Past Surgical History: Appendectomy, Section, Hysterectomy, Orthopedic Surgery Additional Past Surgical History / Comment(s): Carpal tunnel sx, stent for kidney stones/later removed, 07/03/21-lithotripsy/right ureteral stent placed/removed, pain clinic procedures, angiogram. Past Anesthesia/Blood Transfusion Reactions: No Reported Reaction Past Psychological History: Anxiety Smoking Status: Current every day smoker Past Alcohol Use History: Occasional Past Drug Use History: Marijuana - Past Family History Father Family Medical History: CVA/TIA, Hypertension Mother Family Medical History: No Reported History <Juan Estevez - Last Filed: 11/17/23 21:05> General Exam Limitations: no limitations <Juan Estevez - Last Filed: 11/17/23 21:05> <Inocencio Parks - Last Filed: 11/18/23 00:49> - General Exam Comments Initial Comments: Visual Physical Exam Vital signs reviewed General: Well-appearing, nontoxic, no acute distress. Head: Normocephalic, atraumatic Eyes: PERRLA, EOMI ENT: Airway patent Chest: Nonlabored breathing Skin: No visual rash, normal skin tone Neuro: Alert and oriented 3 Musculoskeletal: No gross abnormalities (Juan Estevez) General: Appears in mild to moderate distress secondary to abdominal pain HEAD: Normal with no signs of head trauma. EYES: PERRLA, EOMI, conjunctiva normal, no discharge. ENT: Hearing grossly intact, normal oropharynx. RESPIRATORY: Clear breath sounds bilaterally. No wheezes, rales, or rhonchi. No hypoxia. No respiratory distress. C/V: Tachycardic. S1 and S2 auscultated, no edema, peripheral pulses 2+ and intact throughout ABD: Abdomen is soft, nondistended. Patient is tender to palpation in the right flank as well as over the right ribs. EXT: Normal range of motion, no obvious deformity. Tender to palpation over the right rib anteriorly. No obvious deformity. SKIN: No rashes or lesions observed on exposed skin. NEURO: Alert and oriented x 4. (Inocencio Parks) Course Vital Signs 11/17/23 11/17/23 20:35 23:57 Temperature 98.4 F Pulse Rate 123 H 94 Respiratory 20 16 Rate Blood Pressure 132/76 155/100 O2 Sat by Pulse 96 96 Oximetry Medical Decision Making <Juan Estevez - Last Filed: 11/17/23 21:05> - Lab Data Result diagrams: 11/17/23 22:57 11/17/23 22:25 - EKG Data -: EKG Interpreted by Me <Inocencio Parks - Last Filed: 11/18/23 00:49> - Medical Decision Making Quicknote portion performed. Signed Juan Estevez PA-C (Juan Estevez) Was pt. sent in by a medical professional or institution (SHELLY Maher, A&P TECHNICIAN, urgent care, hospital, or senior care...) When possible be specific @ -No Did you speak to anyone other than the patient for history (EMS, parent, family, police, friend...)? What history was obtained from this source @ -No Did you review nursing and triage notes (agree or disagree)? Why? @ -I reviewed and agree with nursing and triage notes Were old charts reviewed (outside hosp., previous admission, EMS record, old EKG, old radiological studies, urgent care reports/EKG's, senior care records)? Report findings @ -Old charts reviewed Differential Diagnosis (chest pain, altered mental status, abdominal pain women, abdominal pain men, vaginal bleeding, weakness, fever, dyspnea, syncope, headache, dizziness, GI bleed, back pain, seizure, CVA, palpatations, mental health, musculoskeletal)? @ -Differential Abdominal Pain Women: Appendicitis, Cholecystitis, diverticulosis, ischemic bowel, pancreatitis, hepatitis, UTI, gastroenteritis, AAA, incarcerated hernia, bowel obstruction, constipation, inflammatory bowel, hepatitis, peptic ulcer disease, splenic infarction, perforated viscus, vulvitis, ovarian torsion, PID, kidney stone, placenta abruption, this is not meant to be an all-inclusive list EKG interpreted by me (3pts min.). @ -As above X-rays interpreted by me (1pt min.). @ -KUB x-ray reveals no obvious acute cardiopulmonary process. Chest x-ray reveals no obvious rib fractures. No pneumothorax. CT interpreted by me (1pt min.). @ -CT abdomen pelvis reveals a left nonobstructing intra renal calculus. No other obvious process or explanation for the right sided abdominal pain. U/S interpreted by me (1pt. min.). @ -None done What testing was considered but not performed or refused? (CT, X-rays, U/S, labs)? Why? @ -None What meds were considered but not given or refused? Why? @ -None Did you discuss the management of the patient with other professionals (professionals i.e. , PA, A&P TECHNICIAN, lab, RT, psych nurse, manager social media, vp outcomes, teacher, deportation officer, pillowcase cleaner)? Give summary @ -No Was smoking cessation discussed for >3mins.? @ -No Was critical care preformed (if so, how long)? @ -No Were there social determinants of health that impacted care today? How? (Homelessness, low income, unemployed, alcoholism, drug addiction, transportation, low edu. Level, literacy, decrease access to med. care, [facility], rehab)? @ -No Was there de-escalation of care discussed even if they declined (Discuss DNR or withdrawal of care, Hospice)? DNR status @ -No What co-morbidities impacted this encounter? (DM, HTN, Smoking, COPD, CAD, Cancer, CVA, ARF, Chemo, Hep., AIDS, mental health diagnosis, sleep apnea, morbid obesity)? @ -None Was patient admitted / discharged? Hospital course, mention meds given and route, prescriptions, significant lab abnormalities, going to OR and other pertinent info. @ -Based on the patient's presentation and physical exam, presents complaining of abdominal pain. Also has some rib pain. Symptoms have been ongoing for days. Originally evaluated see quick note and I evaluated her when she was placed in a room. Labs are still pending as is a CT without contrast to evaluate for kidney stone. KUB x-ray revealed no obvious process. We will obtain right-sided rib x-ray as well as symptomatically treat the patient with a lidocaine patch, IV morphine, Zofran, normal saline. Patient was in agreement this plan. Vital signs remarkable for tachycardia but otherwise unremarkable. Patient's laboratory studies are unremarkable. Patient's imaging unremarkable. EKG shows sinus tachycardia.Imaging only shows old healing rib fractures on the right. On reevaluation, pain is improved. I discussed the results with the patient.Patient will be discharged home at this time with analgesia medications and Zofran. Diagnosis is abdominal pain of unknown etiology and suspected rib contusion or muscle sprain. She was in agreement the plan. She expressed understanding. Strict return precautions discussed. I will provide the patient with a prescription for starter pack Tylenol 3, Zof ran. I instructed the patient to follow up with their PCP in the next 1-3 days.. I explained that the patient should return to the emergency department if they experience any worsening symptoms. Strict return precautions were discussed with the patient. The patient expressed understanding of these instructions. I answered all questions that the patient had. The patient was discharged home in good condition with their prescriptions and follow up information. Undiagnosed new problem with uncertain prognosis? @ -No Drug Therapy requiring intensive monitoring for toxicity (Heparin, Nitro, Insuli n, Cardizem)? @ -No Were any procedures done? @ -No Diagnosis/symptom? @ -Abdominal pain of unknown etiology, chest wall strain Acute, or Chronic, or Acute on Chronic? @ -Acute Uncomplicated (without systemic symptoms) or Complicated (systemic symptoms)? @ -Uncomplicated Side effects of treatment? @ -None Exacerbation, Progression, or Severe Exacerbation] @ -No Poses a threat to life or bodily function? @ -Unlikely (Inocencio Parks) - Lab Data Lab Results 11/17/23 11/17/23 11/17/23 Range/Units 20:46 21:23 22:25 WBC (3.8-10.6) k/uL RBC (3.80-5.40) m/uL Hgb (11.4-16.0) gm/dL Hct (34.0-46.0) % MCV (80.0-100.0) fL MCH (25.0-35.0) pg MCHC (31.0-37.0) g/dL RDW (11.5-15.5) % Plt Count (150-450) k/uL MPV Neutrophils % % Lymphocytes % % Monocytes % % Eosinophils % % Basophils % % Neutrophils # (1.3-7.7) k/uL Lymphocytes # (1.0-4.8) k/uL Monocytes # (0-1.0) k/uL Eosinophils # (0-0.7) k/uL Basophils # (0-0.2) k/uL Sodium 141 (137-145) mmol/L Potassium 4.4 (3.5-5.1) mmol/L Chloride 110 H (98-107) mmol/L Carbon Dioxide 20 L (22-30) mmol/L Anion Gap 11 mmol/L BUN 19 H (7-17) mg/dL Creatinine 1.05 H (0.52-1.04) mg/dL Est GFR (CKD-EPI)AfAm 74 (>60 ml/min/1.73 sqM) Est GFR (CKD-EPI)NonAf 64 (>60 ml/min/1.73 sqM) Glucose 88 (74-99) mg/dL Calcium 9.7 (8.4-10.2) mg/dL Total Bilirubin 0.3 (0.2-1.3) mg/dL AST 63 H (14-36) U/L ALT 50 H (4-34) U/L Alkaline Phosphatase 70 (38-126) U/L Total Protein 7.8 (6.3-8.2) g/dL Albumin 4.6 (3.5-5.0) g/dL Amylase 67 (30-110) U/L Lipase 137 (23-300) U/L Urine Color Colorless Urine Appearance Clear (Clear) Urine pH 5.5 (5.0-8.0) Ur Specific [place] 1.007 (1.001-1.035) Urine Protein Negative (Negative) Urine Glucose (UA) Negative (Negative) Urine Ketones Negative (Negative) Urine Blood Negative (Negative) Urine Nitrite Negative (Negative) Urine Bilirubin Negative (Negative) Urine Urobilinogen <2.0 (<2.0) mg/dL Ur Leukocyte Esterase Small H (Negative) Urine RBC 1 (0-5) /hpf Urine WBC 3 (0-5) /hpf Ur Squamous Epith Cells 2 (0-4) /hpf Urine HCG, Qual Not Detected (Not Detectd) 11/17/23 Range/Units 22:57 WBC 8.2 (3.8-10.6) k/uL RBC 4.51 (3.80-5.40) m/uL Hgb 14.2 (11.4-16.0) gm/dL Hct 43.0 (34.0-46.0) % MCV 95.2 (80.0-100.0) fL MCH 31.6 (25.0-35.0) pg MCHC 33.2 (31.0-37.0) g/dL RDW 13.8 (11.5-15.5) % Plt Count 409 (150-450) k/uL MPV 7.3 Neutrophils % 54 % Lymphocytes % 37 % Monocytes % 4 % Eosinophils % 2 % Basophils % 1 % Neutrophils # 4.4 (1.3-7.7) k/uL Lymphocytes # 3.0 (1.0-4.8) k/uL Monocytes # 0.3 (0-1.0) k/uL Eosinophils # 0.2 (0-0.7) k/uL Basophils # 0.1 (0-0.2) k/uL Sodium (137-145) mmol/L Potassium (3.5-5.1) mmol/L Chloride (98-107) mmol/L Carbon Dioxide (22-30) mmol/L Anion Gap mmol/L BUN (7-17) mg/dL Creatinine (0.52-1.04) mg/dL Est GFR (CKD-EPI)AfAm (>60 ml/min/1.73 sqM) Est GFR (CKD-EPI)NonAf (>60 ml/min/1.73 sqM) Glucose (74-99) mg/dL Calcium (8.4-10.2) mg/dL Total Bilirubin (0.2-1.3) mg/dL AST (14-36) U/L ALT (4-34) U/L Alkaline Phosphatase (38-126) U/L Total Protein (6.3-8.2) g/dL Albumin (3.5-5.0) g/dL Amylase (30-110) U/L Lipase (23-300) U/L Urine Color Urine Appearance (Clear) Urine pH (5.0-8.0) Ur Specific [place] (1.001-1.035) Urine Protein (Negative) Urine Glucose (UA) (Negative) Urine Ketones (Negative) Urine Blood (Negative) Urine Nitrite (Negative) Urine Bilirubin (Negative) Urine Urobilinogen (<2.0) mg/dL Ur Leukocyte Esterase (Negative) Urine RBC (0-5) /hpf Urine WBC (0-5) /hpf Ur Squamous Epith Cells (0-4) /hpf Urine HCG, Qual (Not Detectd) - EKG Data EKG Comments: 12-lead Electrocardiogram Interpretation Note EKG was reviewed and interpreted by myself. 12-lead ECG performed at 2053 is interpreted by me as revealing sinus tachycardia at a rate of 120 Beats per minute. Alice is normal. IN interval is 156 ms, QRS duration is 82 ms, QTc is 381 ms. . IN interval. There were no ST or T wave abnormalities to suggest myocardial ischemia or injury. R wave progression across the precordium was satisfactory. By my interpretation this EKG is non-diagnostic for acute ischemia. (Inocencio Parks) Disposition <Juan Estevez - Last Filed: 11/17/23 21:05> Is patient prescribed a controlled substance at d/c from ED?: No Time of Disposition: 00:45 <Inocencio Parks - Last Filed: 11/18/23 00:49> Clinical Impression: Chest wall muscle strain, Abdominal pain of unknown etiology Disposition: HOME SELF-CARE Condition: Good Instructions (If sedation given, give patient instructions): Abdominal Pain (ED) Referrals: Luis Enrique Arnold MD [Primary Care Provider] - 1-2 days
--- NOTE | 2023-11-17 21:30 | XR ---
KUB. HISTORY: Abdominal pain. COMPARISON: 07/11/2022 TECHNIQUE: 2 upright views of the abdomen were obtained. FINDINGS: The lung bases are clear. There is no free intraperitoneal air beneath the diaphragm. The bowel gas pattern is nonspecific and there is no evidence of obstruction. No suspicious abdominal or pelvic calcifications are seen. The osseous structures are intact. IMPRESSION: Nonspecific abdomen without evidence of free air or obstruction.
[2023-11-17 22:29] LABS: Appearance,Urine Clear (Clear); Bilirubin,Urine Negative (Negative); Blood,Urine Negative (Negative); Color,Urine Colorless; Glucose,Urine (UA) Negative (Negative); Ketones,Urine Negative (Negative); Leukocyte Esterase,Urine Small (Negative); Nitrite,Urine Negative (Negative); PH, Urine 5.5 (5.0-8.0); Protein,Urine Negative (Negative); RBC,Urine 1 /hpf (0-5); Specific Gravity,Urine 1.007 (1.001-1.035); Squamous Epithelial Cell,Urine 2 /hpf (0-4); Urobilinogen,Urine <2.0 mg/dL (<2.0); WBC,Urine 3 /hpf (0-5)
--- NOTE | 2023-11-17 22:58 | CT ---
EXAM: CT Abdomen and Pelvis Without Intravenous Contrast CLINICAL HISTORY: ITS.REASON CT Reason: r/o r stone. Right abdominal pain hx appendectomy TECHNIQUE: Axial computed tomography images of the abdomen and pelvis without intravenous contrast. CTDI is 7.8 mGy and DLP is 414.5 mGy-cm. This CT exam was performed using one or more of the following dose reduction techniques: automated exposure control, adjustment of the mA and/or kV according to patient size, and/or use of iterative reconstruction technique. COMPARISON: No relevant prior studies available. FINDINGS: Lung bases: Unremarkable. No mass. No consolidation. ABDOMEN: Liver: Unremarkable. Gallbladder and bile ducts: Contracted gallbladder. No calcified stones. No ductal dilation. Pancreas: Unremarkable. No ductal dilation. Spleen: Unremarkable. No splenomegaly. Adrenals: Unremarkable. No mass. Kidneys and ureters: Nonobstructing 3 mm LEFT lower pole renal stone. Stomach and bowel: Unremarkable. No obstruction. No mucosal thickening. PELVIS: Appendix: No findings to suggest acute appendicitis. Bladder: Unremarkable. No stones. Reproductive: Unremarkable as visualized. ABDOMEN and PELVIS: Intraperitoneal space: Unremarkable. No free air. No significant fluid collection. Bones/joints: No acute fracture. No dislocation. Soft tissues: Unremarkable. Vasculature: Unremarkable. No abdominal aortic aneurysm. Lymph nodes: Unremarkable. No enlarged lymph nodes. IMPRESSION: Nonobstructing 3 mm LEFT lower pole renal stone.
[2023-11-17 23:02] LABS: ALT 50 U/L (4-34); AST 63 U/L (14-36); African American GFR (CKD) 74 (>60 ml/min/1.73 sqM); Albumin 4.6 g/dL (3.5-5.0); Alkaline Phosphatase 70 U/L (38-126); Amylase 67 U/L (30-110); Anion Gap 11 mmol/L; Blood Urea Nitrogen 19 mg/dL (7-17); Calcium 9.7 mg/dL (8.4-10.2); Carbon Dioxide 20 mmol/L (22-30); Chloride 110 mmol/L (98-107); Glucose 88 mg/dL (74-99); Lipase 137 U/L (23-300); Non-African American GFR(CKD) 64 (>60 ml/min/1.73 sqM); Potassium 4.4 mmol/L (3.5-5.1); Sodium 141 mmol/L (137-145); Total Bilirubin 0.3 mg/dL (0.2-1.3); Total Protein 7.8 g/dL (6.3-8.2)
[2023-11-17 23:06] LABS: Basophils # (A) 0.1 k/uL (0-0.2); Basophils % (A) 1 %; Eosinophils # (A) 0.2 k/uL (0-0.7); Eosinophils % (A) 2 %; HGB 14.2 gm/dL (11.4-16.0); Lymphocytes % (A) 37 %; MCH 31.6 pg (25.0-35.0); MCHC 33.2 g/dL (31.0-37.0); MCV 95.2 fL (80.0-100.0); Mean Platelet Volume 7.3; Monocytes # (A) 0.3 k/uL (0-1.0); Monocytes % (A) 4 %; Neutrophils # (A) 4.4 k/uL (1.3-7.7); Neutrophils % (A) 54 %; Platelet Count 409 k/uL (150-450); RBC 4.51 m/uL (3.80-5.40); RDW 13.8 % (11.5-15.5); WBC 8.2 k/uL (3.8-10.6)
[2023-11-17] MEDS: SODIUM CHLORIDE 0.9% 1,000 ML IV STA (23:55)
[2023-11-17] MEDS: MORPHINE SULFATE 4 MG/ML SYRINGE IVP STA (23:56)
[2023-11-18] MEDS: LIDOCAINE 4% PATCH TOPICAL STA
[2023-11-18] MEDS: ONDANSETRON 4 MG/2 ML VIAL IVP STA
[2023-11-18 00:20] VITALS: RESP 16
--- NOTE | 2023-11-18 00:44 | XR ---
EXAM: XR Right Ribs, 2 Views CLINICAL HISTORY: ITS.REASON XR Reason: right rib pain TECHNIQUE: Frontal and oblique views of the right ribs. COMPARISON: No relevant prior studies available. FINDINGS: Gastrointestinal tract: Unremarkable. No dilation. Bones/joints: Old, healing fractures of the RIGHT sixth and seventh ribs. IMPRESSION: Old, healing fractures of the RIGHT sixth and seventh ribs.
[2023-11-18] MEDS: MORPHINE SULFATE 4 MG/ML SYRINGE IVP STA (00:55)
[2023-11-18] MEDS: ONDANSETRON 4 MG ODT STARTER PACK 2 TAB BTL PO STA (00:57)
[2023-11-18] MEDS: ACET/COD 300 MG/30 MG STARTER PACK 6 TAB BTL PO STA (00:58)
[2023-11-18 01:29] VITALS: BP 148/114; PULSE 99
== END 2023-11-18 01:03 | disposition home or self-care (01) ==
LOC: EC 20:17
DX: S29.011A Strain of muscle and tendon of front wall of thorax, initial encounter (principal); R10.31 Right lower quadrant pain; I10 Essential (primary) hypertension; K21.9 Gastro-esophageal reflux disease without esophagitis; F41.9 Anxiety disorder, unspecified; F12.90 Cannabis use, unspecified, uncomplicated; F17.200 Nicotine dependence, unspecified, uncomplicated; Z79.899 Other long term (current) drug therapy; Z88.5 Allergy status to narcotic agent; X58.XXXA Exposure to other specified factors, initial encounter
CPT/HCPCS: 36415; 93005; 80053; 82150; 83690; 85025; 81001; 81025; 71101; 74018; 74176; 99285; 96374; 96361; 96375; J2270

== ENCOUNTER 2023-11-26 18:19 | Emergency (ER) | payer OTHER ==
[2023-11-26 19:01] VITALS: RESP 18
[2023-11-26 19:17] LABS: Basophils # (A) 0.1 k/uL (0-0.2); Basophils % (A) 1 %; Eosinophils # (A) 0.1 k/uL (0-0.7); Eosinophils % (A) 2 %; HCT 42.8 % (34.0-46.0); HGB 14.7 gm/dL (11.4-16.0); Lymphocytes # (A) 2.2 k/uL (1.0-4.8); Lymphocytes % (A) 25 %; MCH 31.8 pg (25.0-35.0); MCHC 34.3 g/dL (31.0-37.0); MCV 92.8 fL (80.0-100.0); Mean Platelet Volume 7.7; Monocytes # (A) 0.2 k/uL (0-1.0); Monocytes % (A) 2 %; Neutrophils # (A) 6.3 k/uL (1.3-7.7); Neutrophils % (A) 70 %; Platelet Count 357 k/uL (150-450); RBC 4.61 m/uL (3.80-5.40); RDW 13.9 % (11.5-15.5)
--- NOTE | 2023-11-26 19:23 | ED ---
General Adult HPI - General Chief complaint: Chest Pain Stated complaint: CHEST PAIN Time Seen by Provider: 11/26/23 18:56 Source: patient, RN notes reviewed, old records reviewed Mode of arrival: ambulatory Limitations: no limitations - History of Present Illness Initial comments: 43-year-old female presenting for evaluation of right-sided chest pain. Pain has been present for the past 4 days. She states this is worse with movement, worse with deep inspiration. No central chest pain. No history of CAD. Patient is a current smoker but states she is cutting back. Denies lower extremity pain or swelling. No vomiting. States it is tender to touch. Denies any injury. - Related Data Home Medications Medication Instructions Recorded Confirmed Pregabalin [Lyrica] 150 mg PO TID 07/09/21 08/31/23 Omeprazole 40 mg PO DAILY 07/09/22 08/31/23 HYDROcodone/APAP 7.5-325MG [[place] 1 tab PO BID PRN 07/20/22 08/31/23 7.5-325] Vortioxetine Hydrobromide 20 mg PO DAILY 07/20/22 08/31/23 [Trintellix] Rimegepant Sulfate [Nurtec Odt] 75 mg PO Q2D PRN 11/11/22 08/31/23 busPIRone HCl [Buspar] 10 mg PO BID PRN 08/17/23 08/31/23 Previous Rx's Medication Instructions Recorded Nicotine 21Mg/24Hr Patch [Habitrol] 1 patch TRANSDERM DAILY patch 08/18/23 amLODIPine [Norvasc] 5 mg PO DAILY #30 tab 08/18/23 lisinopriL [Zestril] 20 mg PO DAILY #30 tab 08/18/23 Aspirin 81 mg PO DAILY #0 tab 09/02/23 Thiamine [Vitamin B-1] 100 mg PO DAILY tab 09/02/23 levETIRAcetam [Keppra] 500 mg PO Q12HR #60 tab 09/02/23 Allergies Allergy/AdvReac Type Severity Reaction Status Date / Time tramadol AdvReac SEIZURE Verified 11/26/23 18:48 Review of Systems ROS Statement: Those systems with pertinent positive or pertinent negative responses have been documented in the HPI. ROS Other: All systems not noted in ROS Statement are negative. Past Medical History Past Medical History: GERD/Reflux, Hypertension, Seizure Disorder Additional Past Medical History / Comment(s): Migraines, kidney stones, chronic back pain, seizures related to tramadol interaction with medication, right rib fractures History of Any Multi-Drug Resistant Organisms: None Reported Past Surgical History: Appendectomy, Section, Hysterectomy, Orthopedic Surgery Additional Past Surgical History / Comment(s): Carpal tunnel sx, stent for kidney stones/later removed, 07/03/21-lithotripsy/right ureteral stent placed/removed, pain clinic procedures, angiogram. Past Anesthesia/Blood Transfusion Reactions: No Reported Reaction Past Psychological History: Anxiety Smoking Status: Current every day smoker Past Alcohol Use History: Occasional Past Drug Use History: Marijuana - Past Family History Father Family Medical History: CVA/TIA, Hypertension Mother Family Medical History: No Reported History General Exam Limitations: no limitations General appearance: alert, in no apparent distress Head exam: Present: atraumatic, normocephalic Eye exam: Present: normal appearance, PERRL ENT exam: Present: normal exam Neck exam: Present: normal inspection. Absent: tenderness, meningismus Respiratory exam: Present: normal lung sounds bilaterally, chest wall tenderness. Absent: respiratory distress, wheezes Cardiovascular Exam: Present: normal rhythm, tachycardia GI/Abdominal exam: Present: soft. Absent: distended, tenderness, guarding Extremities exam: Present: normal inspection, normal capillary refill. Absent: pedal edema, calf tenderness Neurological exam: Present: alert, oriented X3 Psychiatric exam: Present: normal affect, normal mood Skin exam: Present: warm, dry, intact. Absent: cyanosis, diaphoretic Course Vital Signs 11/26/23 18:45 Temperature 98.6 F Pulse Rate 110 H Respiratory 18 Rate Blood Pressure 134/81 O2 Sat by Pulse 98 Oximetry Medical Decision Making - Medical Decision Making Was pt. sent in by a medical professional or institution (, PA, [employer], urgent care, hospital, or long-term...) When possible be specific @ -No Did you speak to anyone other than the patient for history (EMS, parent, family, police, friend...)? What history was obtained from this source @ -No Did you review nursing and triage notes (agree or disagree)? Why? @ -I reviewed and agree with nursing and triage notes Were old charts reviewed (outside hosp., previous admission, EMS record, old EKG, old radiological studies, urgent care reports/EKG's, long-term records)? Report findings @ -No old charts were reviewed Differential Diagnosis (chest pain, altered mental status, abdominal pain women, abdominal pain men, vaginal bleeding, weakness, fever, dyspnea, syncope, headache, dizziness, GI bleed, back pain, seizure, CVA, palpatations, mental health, musculoskeletal)? @ -Differential Chest Pain: Stable Angina, Unstable Angina, STEMI, NSTEMI Aortic Dissection, Pneumothorax, Musculoskeletal, Esophageal Spasm GERD, Cholecystitis, Pancreatitis, Zoster, this is not meant to be an all-inclusive list. EKG interpreted by me (3pts min.). @Sinus tachycardia rate of 109, SD interval 133, QRS duration 88, QTc [address] segment elevation. X-rays interpreted by me (1pt min.). @ -[X-ray negative for acute cardiopulmonary findings. CT interpreted by me (1pt min.). @ -None done U/S interpreted by me (1pt. min.). @ -None done What testing was considered but not performed or refused? (CT, X-rays, U/S, labs)? Why? @ -None What meds were considered but not given or refused? Why? @ -None Did you discuss the management of the patient with other professionals (professionals i.e. , PA, [employer], lab, RT, psych nurse, elementary school social worker, hospice community liaison, teacher, disbursing officer, family caseworker)? Give summary @ -No Was smoking cessation discussed for >3mins.? @ -No Was critical care preformed (if so, how long)? @ -No Were there social determinants of health that impacted care today? How? (Homelessness, low income, unemployed, alcoholism, drug addiction, transport ation, low edu. Level, literacy, decrease access to med. care, half-way, rehab)? @ -No Was there de-escalation of care discussed even if they declined (Discuss DNR or withdrawal of care, Hospice)? DNR status @ -No What co-morbidities impacted this encounter? (DM, HTN, Smoking, COPD, CAD, Cancer, CVA, ARF, Chemo, Hep., AIDS, mental health diagnosis, sleep apnea, morbid obesity)? @ -None Was patient admitted / discharged? Hospital course, mention meds given and route, prescriptions, significant lab abnormalities, going to OR and other pertinent info. @ -[43-year-old presenting with right-sided reproducible chest pain. EKG sinus rhythm without ST segment elevation. Chest x-ray is clear. Patient has normal CBC, CMP showing chronic AST and ALT elevation, hypokalemia 3.2. Negative D- dimer, negative troponin. Her pain is likely musculoskeletal in nature and has been present for the past 4 days. Patient declines Toradol for symptomatic relief. Patient states she will follow-up with her primary care provider. Undiagnosed new problem with uncertain prognosis? @ -No Drug Therapy requiring intensive monitoring for toxicity (Heparin, Nitro, Insulin, Cardizem)? @ -No Were any procedures done? @ -No Diagnosis/symptom? @ -Musculoskeletal chest pain Acute, or Chronic, or Acute on Chronic? @Acute Uncomplicated (without systemic symptoms) or Complicated (systemic symptoms)? @ -Default Side effects of treatment? @ -No Exacerbation, Progression, or Severe Exacerbation? @ -No Poses a threat to life or bodily function? How? (Chest pain, USA, PA, pneumonia, PE, COPD, DKA, ARF, appy, cholecystitis, CVA, Diverticulitis, Homicidal, Suicidal, threat to staff... and all critical care pts) @ -Low risk at this time - Lab Data Result diagrams: 11/26/23 19:06 11/26/23 19:06 Lab Results 11/26/23 11/26/23 11/26/23 Range/Units 19:06 19:06 19:06 WBC 9.0 (3.8-10.6) k/uL RBC 4.61 (3.80-5.40) m/uL Hgb 14.7 (11.4-16.0) gm/dL Hct 42.8 (34.0-46.0) % MCV 92.8 (80.0-100.0) fL MCH 31.8 (25.0-35.0) pg MCHC 34.3 (31.0-37.0) g/dL RDW 13.9 (11.5-15.5) % Plt Count 357 (150-450) k/uL MPV 7.7 Neutrophils % 70 % Lymphocytes % 25 % Monocytes % 2 % Eosinophils % 2 % Basophils % 1 % Neutrophils # 6.3 (1.3-7.7) k/uL Lymphocytes # 2.2 (1.0-4.8) k/uL Monocytes # 0.2 (0-1.0) k/uL Eosinophils # 0.1 (0-0.7) k/uL Basophils # 0.1 (0-0.2) k/uL PT 10.0 (10.0-12.5) sec INR 0.9 (<1.2) APTT 22.6 (22.0-30.0) sec D-Dimer 0.38 (<0.60) mg/L FEU Sodium 144 (137-145) mmol/L Potassium 3.2 L (3.5-5.1) mmol/L Chloride 110 H (98-107) mmol/L Carbon Dioxide 23 (22-30) mmol/L Anion Gap 11 mmol/L BUN 25 H (7-17) mg/dL Creatinine 0.91 (0.52-1.04) mg/dL Est GFR (CKD-EPI)AfAm 88 (>60 ml/min/1.73 sqM) Est GFR (CKD-EPI)NonAf 76 (>60 ml/min/1.73 sqM) Glucose 126 H (74-99) mg/dL Calcium 10.9 H (8.4-10.2) mg/dL Magnesium 1.8 (1.6-2.3) mg/dL Total Bilirubin 0.3 (0.2-1.3) mg/dL AST 83 H (14-36) U/L ALT 57 H (4-34) U/L Alkaline Phosphatase 83 (38-126) U/L Troponin I (0.000-0.034) ng/mL Total Protein 7.7 (6.3-8.2) g/dL Albumin 4.7 (3.5-5.0) g/dL 11/26/23 Range/Units 19:06 WBC (3.8-10.6) k/uL RBC (3.80-5.40) m/uL Hgb (11.4-16.0) gm/dL Hct (34.0-46.0) % MCV (80.0-100.0) fL MCH (25.0-35.0) pg MCHC (31.0-37.0) g/dL RDW (11.5-15.5) % Plt Count (150-450) k/uL MPV Neutrophils % % Lymphocytes % % Monocytes % % Eosinophils % % Basophils % % Neutrophils # (1.3-7.7) k/uL Lymphocytes # (1.0-4.8) k/uL Monocytes # (0-1.0) k/uL Eosinophils # (0-0.7) k/uL Basophils # (0-0.2) k/uL PT (10.0-12.5) sec INR (<1.2) APTT (22.0-30.0) sec D-Dimer (<0.60) mg/L FEU Sodium (137-145) mmol/L Potassium (3.5-5.1) mmol/L Chloride (98-107) mmol/L Carbon Dioxide (22-30) mmol/L Anion Gap mmol/L BUN (7-17) mg/dL Creatinine (0.52-1.04) mg/dL Est GFR (CKD-EPI)AfAm (>60 ml/min/1.73 sqM) Est GFR (CKD-EPI)NonAf (>60 ml/min/1.73 sqM) Glucose (74-99) mg/dL Calcium (8.4-10.2) mg/dL Magnesium (1.6-2.3) mg/dL Total Bilirubin (0.2-1.3) mg/dL AST (14-36) U/L ALT (4-34) U/L Alkaline Phosphatase (38-126) U/L Troponin I <0.012 (0.000-0.034) ng/mL Total Protein (6.3-8.2) g/dL Albumin (3.5-5.0) g/dL Disposition Clinical Impression: Atypical chest pain, Chest wall pain Disposition: HOME SELF-CARE Condition: Fair Instructions (If sedation given, give patient instructions): Chest Pain (ED), Costochondritis (ED) Is patient prescribed a controlled substance at d/c from ED?: No Referrals: Luis Enrique Arnold MD [Primary Care Provider] - 1-2 days Time of Disposition: 20:28
[2023-11-26 19:26] LABS: ALT 57 U/L (4-34); AST 83 U/L (14-36); African American GFR (CKD) 88 (>60 ml/min/1.73 sqM); Albumin 4.7 g/dL (3.5-5.0); Alkaline Phosphatase 83 U/L (38-126); Anion Gap 11 mmol/L; Blood Urea Nitrogen 25 mg/dL (7-17); Calcium 10.9 mg/dL (8.4-10.2); Carbon Dioxide 23 mmol/L (22-30); Chloride 110 mmol/L (98-107); Glucose 126 mg/dL (74-99); Magnesium 1.8 mg/dL (1.6-2.3); Non-African American GFR(CKD) 76 (>60 ml/min/1.73 sqM); Potassium 3.2 mmol/L (3.5-5.1); Sodium 144 mmol/L (137-145); Total Bilirubin 0.3 mg/dL (0.2-1.3); Total Protein 7.7 g/dL (6.3-8.2)
[2023-11-26 19:32] LABS: INR 0.9 (<1.2); Partial Thromboplastin Time 22.6 sec (22.0-30.0)
--- NOTE | 2023-11-26 19:53 | XR ---
EXAMINATION TYPE: XR chest 2V DATE OF EXAM: 11/26/2023 7:09 PM CLINICAL INDICATION:Female, 43 years old with history of Chest Pain; [facility] COMPARISON: Chest radiographs from 11/17/2023. TECHNIQUE: XR chest 2V Frontal and lateral views of the chest. FINDINGS: Lungs/Pleura: There is no evidence of pleural effusion, focal consolidation, or pneumothorax. Pulmonary vascularity: Unremarkable. Heart/mediastinum: Cardiomediastinal silhouette is unremarkable. Musculoskeletal: No acute osseous pathology. Other findings: None IMPRESSION: No acute cardiopulmonary disease/process.
[2023-11-26] MEDS: POTASSIUM CHLORIDE ER 20 MEQ TAB.ER PO STA (20:57)
[2023-11-26] MEDS: SODIUM CHLORIDE 0.9% 1,000 ML IV ONE (20:57)
[2023-11-26] MEDS: KETOROLAC 15 MG/ML 1 ML VIAL IVP STA (20:57)
[2023-11-26 21:46] VITALS: BP 166/111; PULSE 111; TEMP 98.2
== END 2023-11-26 21:18 | disposition home or self-care (01) ==
LOC: EC 18:19
DX: R07.89 Other chest pain (principal); R00.0 Tachycardia, unspecified; K21.9 Gastro-esophageal reflux disease without esophagitis; I10 Essential (primary) hypertension; F41.9 Anxiety disorder, unspecified; F17.200 Nicotine dependence, unspecified, uncomplicated; F12.90 Cannabis use, unspecified, uncomplicated; Z79.899 Other long term (current) drug therapy; Z88.5 Allergy status to narcotic agent
CPT/HCPCS: 36415; 93005; 85379; 80053; 83735; 84484; 85025; 85610; 85730; 71046; 99285; 96374; J1885

== ENCOUNTER 2023-12-15 15:21 | Inpatient (IN) | payer OTHER ==
--- NOTE | 2023-12-15 16:15 | ED ---
Abdominal Pain HPI - General Chief Complaint: Abdominal Pain Stated Complaint: Abd Pain Time Seen by Provider: 12/15/23 16:10 Source: patient Mode of arrival: ambulatory Limitations: no limitations - History of Present Illness Initial Comments: 43-year-old female presenting to the ED with a chief complaint of abdominal pain. Patient states for the past 3 days has had upper abdominal pain with some associated nausea and vomiting. Does report pain seems to be worsened with eating. Associated chills and subjective fever. Denies alcohol use. No chest pain or shortness of breath. Denies changes in bowel or bladder habits. No other complaints at this time. - Related Data Home Medications Medication Instructions Recorded Confirmed Pregabalin [Lyrica] 150 mg PO TID 07/09/21 08/31/23 Omeprazole 40 mg PO DAILY 07/09/22 08/31/23 HYDROcodone/APAP 7.5-325MG [[place] 1 tab PO BID PRN 07/20/22 08/31/23 7.5-325] Vortioxetine Hydrobromide 20 mg PO DAILY 07/20/22 08/31/23 [Trintellix] Rimegepant Sulfate [Nurtec Odt] 75 mg PO Q2D PRN 11/11/22 08/31/23 busPIRone HCl [Buspar] 10 mg PO BID PRN 08/17/23 08/31/23 Previous Rx's Medication Instructions Recorded Nicotine 21Mg/24Hr Patch [Habitrol] 1 patch TRANSDERM DAILY patch 08/18/23 amLODIPine [Norvasc] 5 mg PO DAILY #30 tab 08/18/23 lisinopriL [Zestril] 20 mg PO DAILY #30 tab 08/18/23 Aspirin 81 mg PO DAILY #0 tab 09/02/23 Thiamine [Vitamin B-1] 100 mg PO DAILY tab 09/02/23 levETIRAcetam [Keppra] 500 mg PO Q12HR #60 tab 09/02/23 Allergies Allergy/AdvReac Type Severity Reaction Status Date / Time tramadol AdvReac SEIZURE Verified 11/26/23 18:48 Review of Systems ROS Statement: Those systems with pertinent positive or pertinent negative responses have been documented in the HPI. ROS Other: All systems not noted in ROS Statement are negative. Past Medical History Past Medical History: GERD/Reflux, Hypertension, Seizure Disorder Additional Past Medical History / Comment(s): Migraines, kidney stones, chronic back pain, seizures related to tramadol interaction with medication, right rib fractures kidney stones History of Any Multi-Drug Resistant Organisms: None Reported Past Surgical History: Appendectomy, Section, Hysterectomy, Orthopedic Surgery Additional Past Surgical History / Comment(s): Carpal tunnel sx, stent for kidney stones/later removed, 07/03/21-lithotripsy/right ureteral stent placed/removed, pain clinic procedures, angiogram. Past Anesthesia/Blood Transfusion Reactions: No Reported Reaction Past Psychological History: Anxiety Smoking Status: Current every day smoker Past Alcohol Use History: Occasional Past Drug Use History: Marijuana - Past Family History Father Family Medical History: CVA/TIA, Hypertension Mother Family Medical History: No Reported History General Exam - General Exam Comments Initial Comments: Visual Physical Exam Vital signs reviewed General: Well-appearing, nontoxic, no acute distress. Head: Normocephalic, atraumatic Eyes: PERRLA, EOMI ENT: Airway patent Chest: Nonlabored breathing Skin: No visual rash, normal skin tone Neuro: Alert and oriented 3 Musculoskeletal: No gross abnormalities Limitations: no limitations General appearance: alert Eye exam: Present: normal appearance Neck exam: Present: normal inspection Respiratory exam: Present: normal lung sounds bilaterally Cardiovascular Exam: Present: regular rate, normal rhythm GI/Abdominal exam: Present: soft (Diffuse abdominal tenderness to palpation worse in the upper abdomen. No rebound guarding or rigidity.) Neurological exam: Present: alert, oriented X3 Skin exam: Present: warm, dry Course Vital Signs 12/15/23 12/15/23 16:04 19:21 Temperature 98.1 F 98.1 F Pulse Rate 120 H 107 H Respiratory 20 18 Rate Blood Pressure 94/62 125/78 O2 Sat by Pulse 99 96 Oximetry Medical Decision Making - Medical Decision Making Quicknote portion performed. Signed Juan Estevez PA-C Was pt. sent in by a medical professional or institution ([facility], [facility], urgent care, hospital, or shelter...) When possible be specific @ -No Did you speak to anyone other than the patient for history (EMS, parent, family, police, friend...)? What history was obtained from this source @ -No Did you review nursing and triage notes (agree or disagree)? Why? @ -I reviewed and agree with nursing and triage notes Were old charts reviewed (outside hosp., previous admission, EMS record, old EKG, old radiological studies, urgent care reports/EKG's, shelter records)? Report findings @ -No old charts were reviewed Differential Diagnosis (chest pain, altered mental status, abdominal pain women, abdominal pain men, vaginal bleeding, weakness, fever, dyspnea, syncope, headache, dizziness, GI bleed, back pain, seizure, CVA, palpatations, mental health, musculoskeletal)? @ -Differential Abdominal Pain Women: Appendicitis, Cholecystitis, diverticulosis, ischemic bowel, pancreatitis, hepatitis, UTI, gastroenteritis, AAA, incarcerated hernia, bowel obstruction, constipation, inflammatory bowel, hepatitis, peptic ulcer disease, splenic infarction, perforated viscus, vulvitis, ovarian torsion, PID, kidney stone, placenta abruption, this is not meant to be an all-inclusive list EKG interpreted by me (3pts min.). @ -None X-rays interpreted by me (1pt min.). @ -None done CT interpreted by me (1pt min.). @ -CT abdomen pelvis interpreted consistent with acute pancreatitis, no organizing fluid collection. U/S interpreted by me (1pt. min.). @ -Ultrasound abdomen showing no evidence of acute process. What testing was considered but not performed or refused? (CT, X-rays, U/S, labs)? Why? @ -None What meds were considered but not given or refused? Why? @ -None Did you discuss the management of the patient with other professionals (professionals i.e. , PA, [facility], lab, RT, psych nurse, manager social responsibility, cardiac cath tech, teacher, prison officer, case worker)? Give summary @ -Case discussed with Dr. Arnold, who accepts admission and agrees with plan of care. At this time advises holding off on antibiotics. Was smoking cessation discussed for >3mins.? @ -No Was critical care preformed (if so, how long)? @ -No Were there social determinants of health that impacted care today? How? (Homelessness, low income, unemployed, alcoholism, drug addiction, transportation, low edu. Level, literacy, decrease access to med. care, [place] [facility], rehab)? @ -No Was there de-escalation of care discussed even if they declined (Discuss DNR or withdrawal of care, Hospice)? DNR status @ -No What co-morbidities impacted this encounter? (DM, HTN, Smoking, COPD, CAD, Cancer, CVA, ARF, Chemo, Hep., AIDS, mental health diagnosis, sleep apnea, morbid obesity)? @ -None Was patient admitted / discharged? Hospital course, mention meds given and route, prescriptions, significant lab abnormalities, going to OR and other pertinent info. @ -Admission Patient initially seen by myself as a quick note in triage. 43-year-old female presenting to the ED with complaints of abdominal pain with some associated nausea and vomiting for the past few days. Laboratory studies reviewed. CBC shows an elevated white blood cell count 11.2, elevated neutrophils at 8.5. Chemistry panel significant for elevated BUN and creatinine at 24 and 1.81. Elevation in LFTs with AST 87, ALT 66. Amylase 205, lipase 1103, consistent with pancreatitis. Serum alcohol 18. Lactic acid within normal limits. Ultrasound of the gallbladder showed no acute process. CT abdomen pelvis showed findings consistent with acute pancreatitis. No organizing fluid collection at this time. Patient will be admitted n.p.o. with consult to gastroenterology. Undiagnosed new problem with uncertain prognosis? @ -No Drug Therapy requiring intensive monitoring for toxicity (Heparin, Nitro, Insulin, Cardizem)? @ -No Were any procedures done? @ -No Diagnosis/symptom? @ -Acute pancreatitis Acute, or Chronic, or Acute on Chronic? @ -Acute Uncomplicated (without systemic symptoms) or Complicated (systemic symptoms)? @ -Complicated Side effects of treatment? @ -No Exacerbation, Progression, or Severe Exacerbation? @ -No Poses a threat to life or bodily function? How? (Chest pain, USA, DC, pneumonia, PE, COPD, DKA, ARF, appy, cholecystitis, CVA, Diverticulitis, Homicidal, Suicidal, threat to staff... and all critical care pts) @ -Unlikely - Lab Data Result diagrams: 12/15/23 16:16 12/15/23 16:16 Lab Results 12/15/23 12/15/23 12/15/23 Range/Units 16:16 16:16 19:03 WBC 11.2 H (3.8-10.6) k/uL RBC 4.97 (3.80-5.40) m/uL Hgb 15.8 (11.4-16.0) gm/dL Hct 47.0 H (34.0-46.0) % MCV 94.5 (80.0-100.0) fL MCH 31.8 (25.0-35.0) pg MCHC 33.6 (31.0-37.0) g/dL RDW 13.5 (11.5-15.5) % Plt Count 334 (150-450) k/uL MPV 8.0 Neutrophils % 76 % Lymphocytes % 19 % Monocytes % 3 % Eosinophils % 1 % Basophils % 1 % Neutrophils # 8.5 H (1.3-7.7) k/uL Lymphocytes # 2.2 (1.0-4.8) k/uL Monocytes # 0.3 (0-1.0) k/uL Eosinophils # 0.1 (0-0.7) k/uL Basophils # 0.1 (0-0.2) k/uL Sodium 139 (137-145) mmol/L Potassium 2.9 L (3.5-5.1) mmol/L Chloride 106 (98-107) mmol/L Carbon Dioxide 14 L (22-30) mmol/L Anion Gap 19 mmol/L BUN 24 H (7-17) mg/dL Creatinine 1.81 H (0.52-1.04) mg/dL Est GFR (CKD-EPI)AfAm 38 (>60 ml/min/1.73 sqM) Est GFR (CKD-EPI)NonAf 33 (>60 ml/min/1.73 sqM) Glucose 126 H (74-99) mg/dL Plasma Lactic Acid [place] 1.8 (0.7-2.0) mmol/L Calcium 9.5 (8.4-10.2) mg/dL Total Bilirubin 0.7 (0.2-1.3) mg/dL AST 87 H (14-36) U/L ALT 66 H (4-34) U/L Alkaline Phosphatase 125 (38-126) U/L Total Protein 7.7 (6.3-8.2) g/dL Albumin 4.7 (3.5-5.0) g/dL Amylase 205 H (30-110) U/L Lipase 1103 H (23-300) U/L Serum Alcohol mg/dL 12/15/23 Range/Units 19:03 WBC (3.8-10.6) k/uL RBC (3.80-5.40) m/uL Hgb (11.4-16.0) gm/dL Hct (34.0-46.0) % MCV (80.0-100.0) fL MCH (25.0-35.0) pg MCHC (31.0-37.0) g/dL RDW (11.5-15.5) % Plt Count (150-450) k/uL MPV Neutrophils % % Lymphocytes % % Monocytes % % Eosinophils % % Basophils % % Neutrophils # (1.3-7.7) k/uL Lymphocytes # (1.0-4.8) k/uL Monocytes # (0-1.0) k/uL Eosinophils # (0-0.7) k/uL Basophils # (0-0.2) k/uL Sodium (137-145) mmol/L Potassium (3.5-5.1) mmol/L Chloride (98-107) mmol/L Carbon Dioxide (22-30) mmol/L Anion Gap mmol/L BUN (7-17) mg/dL Creatinine (0.52-1.04) mg/dL Est GFR (CKD-EPI)AfAm (>60 ml/min/1.73 sqM) Est GFR (CKD-EPI)NonAf (>60 ml/min/1.73 sqM) Glucose (74-99) mg/dL Plasma Lactic Acid [place] (0.7-2.0) mmol/L Calcium (8.4-10.2) mg/dL Total Bilirubin (0.2-1.3) mg/dL AST (14-36) U/L ALT (4-34) U/L Alkaline Phosphatase (38-126) U/L Total Protein (6.3-8.2) g/dL Albumin (3.5-5.0) g/dL Amylase (30-110) U/L Lipase (23-300) U/L Serum Alcohol 18 mg/dL Disposition Clinical Impression: Pancreatitis Disposition: ADMITTED IP TO THIS HOSP Condition: Good Referrals: Luis Enrique Arnold MD [Primary Care Provider] - 1-2 days Time of Disposition: 20:00
[2023-12-15 16:38] LABS: Basophils # (A) 0.1 k/uL (0-0.2); Basophils % (A) 1 %; Eosinophils # (A) 0.1 k/uL (0-0.7); Eosinophils % (A) 1 %; HGB 15.8 gm/dL (11.4-16.0); Lymphocytes # (A) 2.2 k/uL (1.0-4.8); Lymphocytes % (A) 19 %; MCH 31.8 pg (25.0-35.0); MCHC 33.6 g/dL (31.0-37.0); MCV 94.5 fL (80.0-100.0); Monocytes # (A) 0.3 k/uL (0-1.0); Monocytes % (A) 3 %; Neutrophils # (A) 8.5 k/uL (1.3-7.7); Neutrophils % (A) 76 %; Platelet Count 334 k/uL (150-450); RBC 4.97 m/uL (3.80-5.40); RDW 13.5 % (11.5-15.5); WBC 11.2 k/uL (3.8-10.6)
[2023-12-15 16:59] LABS: ALT 66 U/L (4-34); AST 87 U/L (14-36); African American GFR (CKD) 38 (>60 ml/min/1.73 sqM); Albumin 4.7 g/dL (3.5-5.0); Alkaline Phosphatase 125 U/L (38-126); Amylase 205 U/L (30-110); Anion Gap 19 mmol/L; Blood Urea Nitrogen 24 mg/dL (7-17); Calcium 9.5 mg/dL (8.4-10.2); Carbon Dioxide 14 mmol/L (22-30); Chloride 106 mmol/L (98-107); Glucose 126 mg/dL (74-99); Lipase 1103 U/L (23-300); Non-African American GFR(CKD) 33 (>60 ml/min/1.73 sqM); Potassium 2.9 mmol/L (3.5-5.1); Sodium 139 mmol/L (137-145); Total Bilirubin 0.7 mg/dL (0.2-1.3); Total Protein 7.7 g/dL (6.3-8.2)
[2023-12-15] MEDS: SODIUM CHLORIDE 0.9% 1,000 ML IV STA ×2 (17:32→18:07)
[2023-12-15] MEDS: HYDROmorphone 0.5 MG/0.5 ML SYRINGE IVP STA (18:07)
[2023-12-15] MEDS: ONDANSETRON 4 MG/2 ML VIAL IVP STA (18:07)
[2023-12-15] MEDS: SODIUM CHLORIDE 0.9% 2,000 ML IV STA (18:07)
--- NOTE | 2023-12-15 19:01 | US ---
EXAMINATION TYPE: US gallbladder DATE OF EXAM: 12/15/2023 COMPARISON: CT:11/17/23 CLINICAL INDICATION: Female, 43 years old with history of r/o cholecystitis /obstruction; Epigastric pain x 3 days. Lipase is 1103, amylase is 205 TECHNIQUE: Multiple sonographic images of the right upper quadrant are obtained. FINDINGS: EXAM MEASUREMENTS: Liver Length: 16.8 cm Gallbladder Wall: 0.2 cm CBD: 1.0 cm Right Kidney: 11.5 x 5.1 x 5.0 cm Pancreas: Duct measuring 3.4mm possibly dilated. Tail obscured by bowel gas Liver: Heterogeneous, no dilated ducts, masses or cystic structures. Gallbladder: Thin layer of sludge seen Evidence for sonographic Jones's sign: No CBD: Appears to be dilated Right Kidney: wnl IMPRESSION: 1. No evidence for acute process. 2. Hepatic steatosis.
[2023-12-15] MEDS: HYDROmorphone 1 MG/ML 1 ML SYRINGE IVP STA (19:23)
--- NOTE | 2023-12-15 19:40 | CT ---
EXAMINATION TYPE: CT abdomen pelvis wo con CT DLP: 421 mGycm, Automated exposure control for dose reduction was used. DATE OF EXAM: 12/15/2023 6:45 PM COMPARISON: CT abdomen pelvis most recent from CLINICAL INDICATION:Female, 43 years old with history of pancreatitis; R/O Pancreatitis. TECHNIQUE: Axial CT abdomen pelvis wo con;Sagittal and coronal reformats were created on a separate workstation. Contrast used: mL of , (none if empty) Oral contrast used: without Oral Contrast (none if empty) FINDINGS: LOWER CHEST: Unremarkable ABDOMEN LIVER: Diffusely hypoattenuating parenchyma. GALLBLADDER AND BILE DUCTS: Unremarkable. PANCREAS: Fat stranding changes around the pancreas predominantly the pancreatic uncinate process and head. No organizing collection collections identified. SPLEEN: Unremarkable. ADRENAL GLANDS: Unremarkable. KIDNEYS AND URETERS: Nonobstructing left renal calculus measuring 3 mm. No right renal calculi. No ob structive uropathy. PELVIS BLADDER: Unremarkable REPRODUCTIVE: Unremarkable. ABDOMEN & PELVIS STOMACH AND BOWEL: No evidence of bowel obstruction. PERITONEUM/RETROPERITONEUM: No evidence of pneumoperitoneum or free fluid. VASCULATURE: No evidence of aortic aneurysm. MUSCULOSKELETAL: No acute osseous abnormalities LYMPH NODES: No gross evidence for lymphadenopathy. SOFT TISSUE/ABDOMINAL WALL: Unremarkable IMPRESSION: 1. Acute pancreatitis. No organizing fluid collection at this time. 2. Hepatic steatosis. 3. Nonobstructing left renal calculus.
[2023-12-15] MEDS ORDERED: NALOXONE 0.4 MG/ML 1 ML VIAL IV PRN (20:09)
[2023-12-15 20:51] LABS: Appearance,Urine Cloudy (Clear); Bacteria,Urine Occasional /hpf; Bilirubin,Urine Negative (Negative); Blood,Urine Small (Negative); Color,Urine Yellow; Glucose,Urine (UA) Negative (Negative); Hyaline Casts,Urine 6 /lpf (0-2); Ketones,Urine Negative (Negative); Leukocyte Esterase,Urine Trace (Negative); Mucus,Urine Many /hpf; Nitrite,Urine Negative (Negative); Protein,Urine 2+ (Negative); RBC,Urine 2 /hpf (0-5); Specific Gravity,Urine 1.031 (1.001-1.035); Squamous Epithelial Cell,Urine 11 /hpf (0-4); Urobilinogen,Urine <2.0 mg/dL (<2.0); WBC,Urine 19 /hpf (0-5)
[2023-12-15] MEDS: HYDROmorphone 1 MG/ML 1 ML SYRINGE IVP PRN (23:13)
[2023-12-16] MEDS: HYDROmorphone 0.5 MG/0.5 ML SYRINGE IVP PRN (04:02)
[2023-12-16] MEDS ORDERED: LORazepam 2 MG/ML INJ IV PRN (09:35)
[2023-12-16 09:49] LABS: ALT 44 U/L (4-34); AST 53 U/L (14-36); African American GFR (CKD) >90 (>60 ml/min/1.73 sqM); Albumin 3.8 g/dL (3.5-5.0); Albumin/Globulin Ratio 1.5; Alkaline Phosphatase 92 U/L (38-126); Blood Urea Nitrogen 20 mg/dL (7-17); Calcium 8.7 mg/dL (8.4-10.2); Carbon Dioxide 23 mmol/L (22-30); Globulin 2.6 g/dL; Glucose 89 mg/dL (74-99); Lipase 203 U/L (23-300); Non-African American GFR(CKD) >90 (>60 ml/min/1.73 sqM); Total Protein 6.4 g/dL (6.3-8.2)
[2023-12-16 10:05] LABS: Anion Gap 8 mmol/L; Chloride 105 mmol/L (98-107); Potassium 2.8 mmol/L (3.5-5.1); Sodium 136 mmol/L (137-145)
--- NOTE | 2023-12-16 10:17 | P.CONS ---
History of Present Illness - Reason for Consult Consult date: 12/16/23 Pancreatitis Requesting physician: Juan Estevez - Chief Complaint Abdominal pain - History of Present Illness This is a pleasant 43-year-old female who presented to the emergency department with complaints of severe abdominal pain mostly in the epigastric region. Patient states pain started about 4 days ago and is associated with nausea and vomiting. Labs showed elevated amylase and lipase consistent with pancreatitis. She had a ultrasound of the gallbladder done that reported some sludge, liver heterogeneous, no CBD dilation and no acute findings in the gallbladder. CT abdomen pelvis shows uncomplicated pancreatitis. Gastroenterology was consulted for acute pancreatitis. Patient denies any previous history of pancreatitis, initially she denied any regular alcohol use but then stated that she has been drinking quite heavy over the last couple months duration since her mother . Denies any new medications. Today pain is maybe a little bit better, but not much. Mostly in the epigastric region. No further nausea or vomiting at this time. Labs WBC 11.2 hemoglobin 15.8 hematocrit 47 platelet count 334,000 sodium 139 potassium 2.9 BUN 24 creatinine 1.8 total bilirubin 0.7 AST 87 ALT 66 alkaline phosphatase 125 amylase 205 lipase 1103 serum alcohol 18 Review of Systems REVIEW OF SYSTEMS: CARDIOPULMONARY: No chest pain or shortness of breath. Gastrointestinal: Abdominal pain mostly in the epigastric region and right upper quadrant. No nausea or vomiting. No hematemesis, coffee-ground emesis. No rectal bleeding, or melena. GENITOURINARY: No dysuria or hematuria. MUSCULOSKELETAL: Reports normal range of motion. SKIN: No rashes. No jaundice. ENDOCRINE: No chills, fevers. No excessive weight gain or loss. No polydipsia or polyuria. PSYCHIATRIC: Unremarkable. NEUROLOGY: No change in mental status. Denies dizziness, headache. ENT: Vision unremarkable. CONSTITUTIONAL: No recent weight loss. No fever, chills, night sweats. Past Medical History Past Medical History: GERD/Reflux, Hypertension, Seizure Disorder Additional Past Medical History / Comment(s): Migraines, kidney stones, chronic back pain, seizures related to tramadol interaction with medication, right rib fractures kidney stones History of Any Multi-Drug Resistant Organisms: None Reported Past Surgical History: Appendectomy, Section, Hysterectomy, Orthopedic Surgery Additional Past Surgical History / Comment(s): Carpal tunnel sx, stent for kidney stones/later removed, 07/03/21-lithotripsy/right ureteral stent placed/removed, pain clinic procedures, angiogram. Past Anesthesia/Blood Transfusion Reactions: No Reported Reaction Past Psychological History: Anxiety Smoking Status: Current every day smoker Past Alcohol Use History: Occasional Past Drug Use History: Marijuana - Past Family History Father Family Medical History: CVA/TIA, Hypertension Mother Family Medical History: No Reported History Medications and Allergies Home Medications Medication Instructions Recorded Confirmed Type Pregabalin [Lyrica] 150 mg PO TID 07/09/21 12/15/23 History Omeprazole 40 mg PO DAILY 07/09/22 12/15/23 History Vortioxetine Hydrobromide 20 mg PO DAILY 07/20/22 12/15/23 History [Trintellix] Rimegepant Sulfate [Nurtec Odt] 75 mg PO Q48H 11/11/22 12/15/23 History busPIRone HCl [Buspar] 10 mg PO BID PRN 08/17/23 12/15/23 History Celecoxib [CeleBREX] 200 mg PO DAILY PRN 12/15/23 12/15/23 History lisinopriL [Zestril] 20 mg PO BID 12/15/23 12/15/23 History Allergies Allergy/AdvReac Type Severity Reaction Status Date / Time tramadol AdvReac SEIZURE Verified 12/15/23 22:23 Physical Exam Vitals: Vital Signs Temp Pulse Resp BP Pulse Ox 12/16/23 07:55 97.8 F 98 22 139/93 100 12/16/23 05:47 97.7 F 96 16 113/82 99 12/16/23 02:48 90 16 126/71 98 12/16/23 02:01 104 H 16 122/93 99 12/15/23 19:21 98.1 F 107 H 18 125/78 96 12/15/23 16:04 98.1 F 120 H 20 94/62 99 Intake and Output 12/15/23 12/16/23 12/16/23 22:59 06:59 14:59 Other: Weight 65.771 kg General appearance: The patient is alert, oriented, appears in no acute distress. Patient is very fidgety in bed, she is sweating and dabbing her forehead. HET: Head is normocephalic and atraumatic. Conjunctiva pink. Sclera anicteric. Neck: Supple without lymphadenopathy. Trachea midline. Heart: Regular. Lungs: Equal expansion, normal respiratory effort. Abdomen: Soft, right upper quadrant and epigastric tenderness. No guarding or rigidity. Skin: No rashes. No jaundice. Extremities: Normal skin color and turgor. No pedal edema. Neurological: No focal deficits. Alert and oriented x3. Results CBC & Chem 7: 12/15/23 16:16 12/15/23 16:16 Labs: Abnormal Lab Results - Last 24 Hours (Table) 12/15/23 12/15/23 12/15/23 Range/Units 16:16 16:16 16:16 WBC 11.2 H (3.8-10.6) k/uL Hct 47.0 H (34.0-46.0) % Neutrophils # 8.5 H (1.3-7.7) k/uL Potassium 2.9 L (3.5-5.1) mmol/L Carbon Dioxide 14 L (22-30) mmol/L BUN 24 H (7-17) mg/dL Creatinine 1.81 H (0.52-1.04) mg/dL Glucose 126 H (74-99) mg/dL AST 87 H (14-36) U/L ALT 66 H (4-34) U/L Amylase 205 H (30-110) U/L Lipase 1103 H (23-300) U/L Procalcitonin 0.27 H (0.02-0.09) ng/mL Urine Appearance (Clear) Urine Protein (Negative) Urine Blood (Negative) Ur Leukocyte Esterase (Negative) Urine WBC (0-5) /hpf Ur Squamous Epith Cells (0-4) /hpf Urine Bacteria (None) /hpf Hyaline Casts (0-2) /lpf Urine Mucus (None) /hpf 12/15/23 Range/Units 20:30 WBC (3.8-10.6) k/uL Hct (34.0-46.0) % Neutrophils # (1.3-7.7) k/uL Potassium (3.5-5.1) mmol/L Carbon Dioxide (22-30) mmol/L BUN (7-17) mg/dL Creatinine (0.52-1.04) mg/dL Glucose (74-99) mg/dL AST (14-36) U/L ALT (4-34) U/L Amylase (30-110) U/L Lipase (23-300) U/L Procalcitonin (0.02-0.09) ng/mL Urine Appearance Cloudy H (Clear) Urine Protein 2+ H (Negative) Urine Blood Small H (Negative) Ur Leukocyte Esterase Trace H (Negative) Urine WBC 19 H (0-5) /hpf Ur Squamous Epith Cells 11 H (0-4) /hpf Urine Bacteria Occasional H (None) /hpf Hyaline Casts 6 H (0-2) /lpf Urine Mucus Many H (None) /hpf Comments: Gallbladder ultrasound: No evidence for acute process, hepatic steatosis. CT abdomen pelvis with contrast reports acute pancreatitis. No organizing fluid collection at this time. Hepatic steatosis. Nonobstructing left renal calculus. Assessment and Plan (1) Acute pancreatitis Narrative/Plan: 43-year-old female presenting with 4 days of epigastric and right upper quadrant abdominal pain. Amylase and lipase consistent with pancreatitis as well as a CT abdomen pelvis showing uncomplicated acute pancreatitis. Patient reluctantly admitted to alcohol use that has been heavy over the last few months duration. Patient states this has been since her mother however patient's did come in the room and states that she has been drinking quite heavily however she did not allow him to talk any further. Likely were dealing with acute alcohol pancreatitis. Patient also has some evidence of underlying heterogeneous fatty liver which may be related to alcohol liver disease as well. Continue to treat symptomatically. Discussed with patient importance of alcohol abstinence. Current Visit: Yes Status: Acute Code(s): K85.90 - ACUTE PANCREATITIS WITHOUT NECROSIS OR INFECTION, UNSP SNOMED Code(s): 074220437 (2) Alcohol abuse Current Visit: Yes Status: Acute Code(s): F10.10 - ALCOHOL ABUSE, UNCOMPLICATED SNOMED Code(s): 60060710 Plan: 1. Continue symptomatic and supportive care 2. Aggressive IV hydration 3. Pain medication as needed 4. Antiemetics as needed, Protonix 40 mg daily GI prophylaxis 5. Keep n.p.o. with ice chips for now, advance as tolerated to clear liquid diet 6. Discussed with patient importance of alcohol abstinence Thank you for this consultation, we will continue to follow. Dr. Coby Hilario I agree with the dictator's note, documented as a scribe by Chantelle Reeves.
[2023-12-16] MEDS: THIAMINE 100 MG/ML 2 ML VIAL IM STA (10:19)
[2023-12-16] MEDS: PANTOPRAZOLE 40 MG/10 ML VIAL IVP SCH (13:10)
[2023-12-16] MEDS: POTASSIUM CHLORIDE ER 20 MEQ TAB.ER PO STA (15:38)
[2023-12-16 16:29] LABS: Cocaine Screen,Urine Not Detected (NotDetected); Opiate Screen,Urine Detected (NotDetected); Phencyclidine Screen,Urine Not Detected (NotDetected); Urn Cannabinoid Scrn Detected (NotDetected)
[2023-12-16 16:30] LABS: Amphetamine Screen,Urine Not Detected (NotDetected); Barbiturate Screen,Urine Not Detected (NotDetected); Benzodiazepines Screen,Urine Not Detected (NotDetected); Methadone Screen, Urine Not Detected (NotDetected); Oxycodone Screen, Urine Not Detected (NotDetected); Tricyclic Antidepressant,Urine Detected (NotDetected)
[2023-12-16] MEDS ORDERED: Potassium Replacement Protocol 1 EACH MISC MISCELLANE PRN (18:14)
[2023-12-16] MEDS ORDERED: Magnesium Replacement Protocol 1 EACH MISC MISCELLANE PRN (18:15)
--- NOTE | 2023-12-16 18:28 | P.HPIM ---
History of Present Illness H&P Date: 12/16/23 Chief Complaint: Abdominal pain This is a 43-year-old female with past medical history significant for alcohol abuse, chronic back pain, disc disease, bipolar disorder and multiple other medical issues presented to the ER with complaints of worsening mid epigastric abdominal pain accompanied by sleep deprivation, diaphoresis, hot flashes, chills, nausea, vomiting, diarrhea x 4 days. Denies chest pain or palpitations. staff reports, patient's mom approximately 2 months ago and patient's alcohol intake has increased as per .On presentation, vitals stable. Afebrile, WBC 11.2, procalcitonin elevated 0.27. Sodium 139, potassium 2.9, repeat levels /labs pending. Bicarb 14, BUN 24, creatinine 1.81, glucose 126, T. bili 0.7, AST 87, ALT 66, alk phos 125, amylase 205, lipase 1103. UA negative. Toxicology screen detected opiates tricyclics THC, serum alcohol level 18.Gallbladder ultrasound reported no evidence for acute process, no CBD dilation, hepatic steatosis. CT of abdomen pelvis reported acute pancreatitis, no organizing fluid collection at this time, hepatic steatosis, nonobstructing left renal calculus. Patient denies prior history of pancreatitis. Review of Systems ROS Statement: Those systems with pertinent positive or pertinent negative responses have been documented in the HPI. ROS Other: All systems not noted in ROS Statement are negative. Past Medical History Past Medical History: GERD/Reflux, Hypertension, Seizure Disorder Additional Past Medical History / Comment(s): Migraines, kidney stones, chronic back pain, seizures related to tramadol interaction with medication, right rib fractures kidney stones History of Any Multi-Drug Resistant Organisms: None Reported Past Surgical History: Appendectomy, Section, Hysterectomy, Orthopedic Surgery Additional Past Surgical History / Comment(s): Carpal tunnel sx, stent for kidney stones/later removed, 07/03/21-lithotripsy/right ureteral stent placed/removed, pain clinic procedures, angiogram. Past Anesthesia/Blood Transfusion Reactions: No Reported Reaction Past Psychological History: Anxiety Smoking Status: Current every day smoker Past Alcohol Use History: Occasional Past Drug Use History: Marijuana - Past Family History Father Family Medical History: CVA/TIA, Hypertension Mother Family Medical History: No Reported History Medications and Allergies Home Medications Medication Instructions Recorded Confirmed Type Pregabalin [Lyrica] 150 mg PO TID 07/09/21 12/15/23 History Omeprazole 40 mg PO DAILY 07/09/22 12/15/23 History Vortioxetine Hydrobromide 20 mg PO DAILY 07/20/22 12/15/23 History [Trintellix] Rimegepant Sulfate [Nurtec Odt] 75 mg PO Q48H 11/11/22 12/15/23 History busPIRone HCl [Buspar] 10 mg PO BID PRN 08/17/23 12/15/23 History Celecoxib [CeleBREX] 200 mg PO DAILY PRN 12/15/23 12/15/23 History lisinopriL [Zestril] 20 mg PO BID 12/15/23 12/15/23 History Allergies Allergy/AdvReac Type Severity Reaction Status Date / Time tramadol AdvReac SEIZURE Verified 12/15/23 22:23 Physical Exam Vitals: Vital Signs Temp Pulse Resp BP Pulse Ox 12/16/23 15:41 79 16 110/68 96 12/16/23 15:03 97 20 115/95 100 12/16/23 13:03 97 20 104/94 98 12/16/23 07:55 97.8 F 98 22 139/93 100 12/16/23 05:47 97.7 F 96 16 113/82 99 12/16/23 02:48 90 16 126/71 98 12/16/23 02:01 104 H 16 122/93 99 12/15/23 19:21 98.1 F 107 H 18 125/78 96 Gen: well developed, well nourished NAD, anxious, rocking herself HEENT: NC/AT, mmm Neck: supple, no JVD or thyromegaly CV: RRR, no pedal edema Lungs: CTAB Abd: soft, midepigastric tenderness, no guarding, no rigidity Neuro: AAOx3 no focal deficit Skin: warm and dry Results CBC & Chem 7: 12/15/23 16:16 12/16/23 09:24 Labs: Abnormal Lab Results - Last 24 Hours (Table) 12/15/23 12/15/23 12/16/23 Range/Units 16:16 20:30 09:24 Sodium 136 L (137-145) mmol/L Potassium 2.8 L (3.5-5.1) mmol/L BUN 20 H (7-17) mg/dL AST 53 H (14-36) U/L ALT 44 H (4-34) U/L Procalcitonin 0.27 H (0.02-0.09) ng/mL Urine Appearance Cloudy H (Clear) Urine Protein 2+ H (Negative) Urine Blood Small H (Negative) Ur Leukocyte Esterase Trace H (Negative) Urine WBC 19 H (0-5) /hpf Ur Squamous Epith Cells 11 H (0-4) /hpf Urine Bacteria Occasional H (None) /hpf Hyaline Casts 6 H (0-2) /lpf Urine Mucus Many H (None) /hpf Urine Opiates Screen (NotDetected) U Tricyclic Antidepress (NotDetected) U Marijuana (THC) Screen (NotDetected) 12/16/23 Range/Units 13:15 Sodium (137-145) mmol/L Potassium (3.5-5.1) mmol/L BUN (7-17) mg/dL AST (14-36) U/L ALT (4-34) U/L Procalcitonin (0.02-0.09) ng/mL Urine Appearance (Clear) Urine Protein (Negative) Urine Blood (Negative) Ur Leukocyte Esterase (Negative) Urine WBC (0-5) /hpf Ur Squamous Epith Cells (0-4) /hpf Urine Bacteria (None) /hpf Hyaline Casts (0-2) /lpf Urine Mucus (None) /hpf Urine Opiates Screen Detected H (NotDetected) U Tricyclic Antidepress Detected H (NotDetected) U Marijuana (THC) Screen Detected H (NotDetected) Assessment and Plan Assessment: Acute pancreatitis, possible acute alcohol pancreatitis Alcohol abuse, serum alcohol level 18 on admission Hepatic steatosis suspect secondary to the above Toxicology positive for opiates and tricyclic's and THC Bacterial infection, elevated procalcitonin, etiology unclear, empiric antibiotics initially Bipolar disorder Chronic back pain Hypokalemia Plan: Continue on current medication regimen ,monitoring and symptomatic treatment. CIWA protocol/seizure precautions initiated. IV fluids, antibiotics, antiemetics, PPI for GI prophylaxis and pain management. Labs pen ding with potassium replacement protocol ordered. Magnesium level added on with magnesium replacement protocol ordered. GI consult in place with recommendations pending. Alcohol abstinence reinforced. The impression and plan of care has been dictated as directed. : I performed a history and examination of this patient, discussed the same with the dictator. I agree with the dictator's note ,documented as a scribe. Any additional findings or plans will be noted.
[2023-12-16] MEDS ORDERED: ONDANSETRON 4 MG/2 ML VIAL IVP PRN (20:58)
[2023-12-16] MEDS: PREGABALIN 75 MG CAP PO SCH (21:12)
[2023-12-16] MEDS: ACETAMINOPHEN TAB 325 MG TAB PO PRN (21:18)
[2023-12-16] MEDS: NICOTINE 14MG/24HR PATCH TRANSDERM SCH (21:36)
[2023-12-17] MEDS: LORazepam 2 MG/ML INJ IV PRN (03:44)
[2023-12-17 08:38] LABS: Basophils # (A) 0.03 X 10*3/uL (0.00-0.10); Basophils % (A) 0.6 %; Eosinophils # (A) 0.08 X 10*3/uL (0.04-0.35); Eosinophils % (A) 1.5 %; HCT 31.9 % (37.2-46.3); HGB 10.6 g/dL (12.0-15.0); Lymphocytes # (A) 1.58 X 10*3/uL (0.90-5.00); Lymphocytes % (A) 29.6 %; MCH 30.8 pg (27.0-32.0); MCHC 33.2 g/dL (32.0-37.0); MCV 92.7 FL (80.0-97.0); Mean Platelet Volume 10.4 FL (9.5-12.2); Monocytes # (A) 0.37 X 10*3/uL (0.20-1.00); Monocytes % (A) 6.9 %; NRBC Per 100 WBC 0 X 10*3/uL (0.00-0.01); Neutrophils # (A) 3.26 X 10*3/uL (1.80-7.70); Neutrophils % (A) 61.2 %; Platelet Count 245 X 10*3/uL (140-440); RBC 3.44 X 10*6/uL (4.10-5.20); RDW 13.4 % (11.5-14.5); WBC 5.33 X 10*3/uL (4.50-10.00)
[2023-12-17 08:50] LABS: BUN/Creat Ratio 14.67 Ratio (12.00-20.00); Blood Urea Nitrogen 8.8 mg/dL (9.0-27.0); Calcium 8.8 mg/dL (8.7-10.3); Carbon Dioxide 24.9 mmol/L (21.6-31.8); Chloride 99 mmol/L (96-109); Glucose 87 mg/dL (70-110); Potassium 3.2 mmol/L (3.5-5.5); Sodium 135 mmol/L (135-145)
[2023-12-17] MEDS ORDERED: NON FORMULARY DRUG (Omeprazole [Omeprazole] 40 MG Capsule.Dr) PO SCH (09:00)
[2023-12-17] MEDS: THIAMINE 100 MG TAB PO SCH (09:09)
[2023-12-17] MEDS: VORTIOXETINE HYDROBROMIDE 20 MG TABLET PO SCH (09:09)
[2023-12-17] MEDS: ACETAMINOPHEN IV (For NPO) 1,000 MG in EMPTY BAG 1 BAG IVPB STA (10:46)
[2023-12-17] MEDS: POTASSIUM CHLORIDE ER 20 MEQ TAB.ER PO STA (10:47)
[2023-12-17] MEDS: POTASSIUM CHLORIDE ER 20 MEQ TAB.ER PO SCH (12:04)
[2023-12-17] MEDS: MAGNESIUM SULFATE-D5W PMX 1 GM in DEXTROSE/WATER 1 100ML.BAG IVPB ONE (12:05)
--- NOTE | 2023-12-17 12:28 | P.PN ---
Subjective Progress Note Date: 12/17/23 Principal diagnosis: Acute pancreatitis This is a pleasant 43-year-old female who presented to the emergency department with complaints of severe abdominal pain mostly in the epigastric region. Patient states pain started about 4 days ago and is associated with nausea and vomiting. Labs showed elevated amylase and lipase consistent with pancreatitis. She had a ultrasound of the gallbladder done that reported some sludge, liver heterogeneous, no CBD dilation and no acute findings in the gallbladder. CT abdomen pelvis shows uncomplicated pancreatitis. Gastroenterology was consulted for acute pancreatitis. Patient denies any previous history of pancreatitis, initially she denied any regular alcohol use but then stated that she has been drinking quite heavy over the last couple months duration since her mother . Denies any new medications. Today pain is maybe a little bit better, but not much. Mostly in the epigastric region. No further nausea or vomiting at this time. Labs WBC 11.2 hemoglobin 15.8 hematocrit 47 platelet count 334,000 sodium 139 potassi um 2.9 BUN 24 creatinine 1.8 total bilirubin 0.7 AST 87 ALT 66 alkaline phosphatase 125 amylase 205 lipase 1103 serum alcohol 18 12/17/2023 Patient seen and examined today as a follow-up. Abdominal pain has improved. Continues to have pain in the epigastric region however it is improved since yes terday. No nausea or vomiting. Today's repeat labs had trended down bilirubin 1.0 AST 53 ALT 44 alkaline phosphatase 92 lipase 203, triglycerides 138 Objective - Vital Signs Vital signs: Vital Signs Temp 98.9 F 12/17/23 07:44 Pulse 97 12/17/23 07:44 Resp 17 12/17/23 07:44 BP 132/87 12/17/23 07:44 Pulse Ox 97 12/17/23 07:44 FiO2 Intake & Output 12/16/23 12/17/23 12/17/23 18:59 06:59 18:59 Weight 65.771 kg Other: Voiding Method Toilet # Voids 4 - Exam General appearance: The patient is alert, oriented, appears in no acute distress. HET: Head is normocephalic and atraumatic. Conjunctiva pink. Sclera anicteric. Neck: Supple without lymphadenopathy. Abdomen: Soft, upper abdominal/epigastric tenderness, nondistended. Extremities: Normal skin color and turgor. No pedal edema Skin: No rashes, no jaundice Neurological: No focal deficits. Alert and oriented. - Labs CBC & Chem 7: 12/17/23 05:31 12/17/23 05:31 Labs: Abnormal Lab Results - Last 24 Hours (Table) 12/16/23 12/16/23 12/17/23 Range/Units 09:24 13:15 05:31 RBC (4.10-5.20) X 10*6/uL Hgb (12.0-15.0) g/dL Hct (37.2-46.3) % Sodium 136 L (137-145) mmol/L Potassium 2.8 L 3.2 L (3.5-5.1) mmol/L BUN 20 H 8.8 L (7-17) mg/dL AST 53 H (14-36) U/L ALT 44 H (4-34) U/L Urine Opiates Screen Detected H (NotDetected) U Tricyclic Antidepress Detected H (NotDetected) U Marijuana (THC) Screen Detected H (NotDetected) 12/17/23 Range/Units 05:31 RBC 3.44 L (4.10-5.20) X 10*6/uL Hgb 10.6 L (12.0-15.0) g/dL Hct 31.9 L (37.2-46.3) % Sodium (137-145) mmol/L Potassium (3.5-5.1) mmol/L BUN (7-17) mg/dL AST (14-36) U/L ALT (4-34) U/L Urine Opiates Screen (NotDetected) U Tricyclic Antidepress (NotDetected) U Marijuana (THC) Screen (NotDetected) Assessment and Plan (1) Acute pancreatitis Narrative/Plan: 43-year-old female presenting with 4 days of epigastric and right upper quadrant abdominal pain. Amylase and lipase consistent with pancreatitis as well as a CT abdomen pelvis showing uncomplicated acute pancreatitis. Patient reluctantly admitted to alcohol use that has been heavy over the last few months duration. Patient states this has been since her mother however patient's did come in the room and states that she has been drinking quite heavily however she did not allow him to talk any further. Likely were dealing with acute alcohol pancreatitis. Patient also has some evidence of underlying heterogeneous fatty liver which may be related to alcohol liver disease as well. Continue to treat symptomatically. Discussed with patient importance of alcohol abstinence. Current Visit: Yes Status: Acute Code(s): K85.90 - ACUTE PANCREATITIS WITHOUT NECROSIS OR INFECTION, UNSP SNOMED Code(s): 720694887 (2) Alcohol abuse Current Visit: Yes Status: Acute Code(s): F10.10 - ALCOHOL ABUSE, UNCOMPLICATED SNOMED Code(s): 08494906 Plan: 1. Continue symptomatic and supportive care 2. Aggressive IV hydration 3. Pain medication as needed 4. Antiemetics as needed, Protonix 40 mg daily GI prophylaxis 5. Advance to a low-fat diet, discussed with patient importance of small meals and moderation 6. Discussed with patient importance of alcohol abstinence 7. Anticipate discharge in the next 24 hours Thank you for this consultation, we will continue to follow. Dr. Coby Hilario I agree with the dictator's note, documented as a scribe by Chantelle Reeves.
--- NOTE | 2023-12-17 16:24 | P.DS ---
Providers Date of admission: 12/15/23 20:10 Expected date of discharge: 12/17/23 Attending physician: Luis Enrique Arnold MD Consults: 12/15/23 20:09 Consult Physician Urgent Consulting Provider: Trinh Hilario Consult Reason/Comments: Acute pancreatitis Do you want consulting provider notified?: Yes Primary care physician: Luis Enrique Arnold MD Hospital Course: Final Diagnoses: Acute pancreatitis, possible acute alcohol pancreatitis Alcohol abuse, serum alcohol level 18 on admission Hepatic steatosis suspect secondary to the above Toxicology positive for opiates and tricyclic's and THC Bacterial infection, elevated procalcitonin, etiology unclear, empiric antibiotics initially Bipolar disorder Chronic back pain Hypokalemia Hospital course:H&P Date: 12/16/23 Chief Complaint: Abdominal pain This is a 43-year-old female with past medical history significant for alcohol abuse, chronic back pain, disc disease, bipolar disorder and multiple other medical issues presented to the ER with complaints of worsening mid epigastric abdominal pain accompanied by sleep deprivation, diaphoresis, hot flashes, chills, nausea, vomiting, diarrhea x 4 days. Denies chest pain or palpitations. staff reports, patient's mom approximately 2 months ago and patient's alcohol intake has increased as per .On presentation, vitals stable. Afebrile, WBC 11.2, procalcitonin elevated 0.27. Sodium 139, potassium 2.9, repeat levels /labs pending. Bicarb 14, BUN 24, creatinine 1.81, glucose 126, T. bili 0.7, AST 87, ALT 66, alk phos 125, amylase 205, lipase 1103. UA negative. Toxicology screen detected opiates tricyclics THC, serum alcohol level 18.Gallbladder ultrasound reported no evidence for acute process, no CBD dilation, hepatic steatosis. CT of abdomen pelvis reported acute pancreatitis, no organizing fluid collection at this time, hepatic steatosis, nonobstructing left renal calculus. Patient denies prior history of pancreatitis. CIWA protocol/seizure precautions initiated. IV fluids, antibiotics, antiemetics, PPI for GI prophylaxis and pain management. Labs pending with potassium replacement protocol ordered. Magnesium level added on with magnesium replacement protocol ordered. GI consult in place with recommendations pending. Alcohol abstinence reinforced. Maintained on IV fluid hydration .evaluated by GI, diet advanced. Denies nausea vomiting or diarrhea, abdominal pain improved. LFTs trending down, bili 1.0, AST 53, ALT 44, alk phos 92, lipase 203, triglycerides 138. Potassium 3.2, supplemented. patient will be discharged home today pending patient tolerates diet advancement, final DC recommendations and clearance per GI. Alcohol abstinence reinforced. The impression and plan of care has been dictated as directed. : I performed a history and examination of this patient, discussed the same with the dictator. I agree with the dictator's note ,documented as a scribe. Any additional findings or plans will be noted. Patient Condition at Discharge: Stable Plan - Discharge Summary Discharge Rx Participant: No New Discharge Prescriptions: New Thiamine [Vitamin B-1] 100 mg PO DAILY tab Nicotine 14Mg/24Hr Patch [Habitrol] 1 patch TRANSDERM DAILY #0 patch Continue Pregabalin [Lyrica] 150 mg PO TID Omeprazole 40 mg PO DAILY Vortioxetine Hydrobromide [Trintellix] 20 mg PO DAILY Rimegepant Sulfate [Nurtec Odt] 75 mg PO Q48H Celecoxib [CeleBREX] 200 mg PO DAILY PRN PRN Reason: Pain lisinopriL [Zestril] 20 mg PO BID busPIRone HCl [Buspar] 10 mg PO BID PRN PRN Reason: Anxiety Discharge Medication List Pregabalin [Lyrica] 150 mg PO TID 07/09/21 [History] Omeprazole 40 mg PO DAILY 07/09/22 [History] Vortioxetine Hydrobromide [Trintellix] 20 mg PO DAILY 07/20/22 [History] Rimegepant Sulfate [Nurtec Odt] 75 mg PO Q48H 11/11/22 [History] busPIRone HCl [Buspar] 10 mg PO BID PRN 08/17/23 [History] Celecoxib [CeleBREX] 200 mg PO DAILY PRN 12/15/23 [History] lisinopriL [Zestril] 20 mg PO BID 12/15/23 [History] Nicotine 14Mg/24Hr Patch [Habitrol] 1 patch TRANSDERM DAILY #0 patch 12/17/23 [Rx] Thiamine [Vitamin B-1] 100 mg PO DAILY tab 12/17/23 [Rx] Follow up Appointment(s)/Referral(s): Luis Enrique Arnold MD [Primary Care Provider] - 12/22/23 1:30 pm (At [facility] in [place] With Nalini)
[2023-12-18] MEDS: LORazepam 2 MG/ML INJ IV PRN (08:48)
[2023-12-18] MEDS: HYDROcodone/APAP 10-325MG 1 EACH TAB PO PRN (10:24)
[2023-12-18] MEDS: HYDROmorphone 0.5 MG/0.5 ML SYRINGE IVP STA (10:37)
[2023-12-18] MEDS: cloNIDine HCL 0.1 MG TAB PO SCH (21:50)
[2023-12-19] MEDS: KETOROLAC 15 MG/ML 1 ML VIAL IVP SCH (08:55)
[2023-12-19 10:29] LABS: Basophils # (A) 0.03 X 10*3/uL (0.00-0.10); Basophils % (A) 0.7 %; Eosinophils # (A) 0.08 X 10*3/uL (0.04-0.35); Eosinophils % (A) 1.8 %; HCT 33.2 % (37.2-46.3); HGB 10.4 g/dL (12.0-15.0); Lymphocytes # (A) 1.38 X 10*3/uL (0.90-5.00); Lymphocytes % (A) 30.3 %; MCH 30.7 pg (27.0-32.0); MCHC 31.3 g/dL (32.0-37.0); MCV 97.9 FL (80.0-97.0); Mean Platelet Volume 10.4 FL (9.5-12.2); Monocytes # (A) 0.55 X 10*3/uL (0.20-1.00); Monocytes % (A) 12.1 %; NRBC Per 100 WBC 0 X 10*3/uL (0.00-0.01); Neutrophils % (A) 54.9 %; Platelet Count 328 X 10*3/uL (140-440); RBC 3.39 X 10*6/uL (4.10-5.20); RDW 13.8 % (11.5-14.5); WBC 4.55 X 10*3/uL (4.50-10.00)
[2023-12-19 10:39] LABS: Blood Urea Nitrogen 6.9 mg/dL (9.0-27.0); Calcium 9.5 mg/dL (8.7-10.3); Carbon Dioxide 30.9 mmol/L (21.6-31.8); Chloride 104 mmol/L (96-109); Glucose 102 mg/dL (70-110); Potassium 4.3 mmol/L (3.5-5.5); Sodium 144 mmol/L (135-145)
--- NOTE | 2023-12-19 14:11 | P.PN ---
Subjective Progress Note Date: 12/18/23 Principal diagnosis: Acute pancreatitis This is a pleasant 43-year-old female who presented to the emergency department with complaints of severe abdominal pain mostly in the epigastric region. Patient states pain started about 4 days ago and is associated with nausea and vomiting. Labs showed elevated amylase and lipase consistent with pancreatitis. She had a ultrasound of the gallbladder done that reported some sludge, liver heterogeneous, no CBD dilation and no acute findings in the gallbladder. CT abdomen pelvis shows uncomplicated pancreatitis. Gastroenterology was consulted for acute pancreatitis. Patient denies any previous history of pancreatitis, initially she denied any regular alcohol use but then stated that she has been drinking quite heavy over the last couple months duration since her mother . Denies any new medications. Today pain is maybe a little bit better, but not much. Mostly in the epigastric region. No further nausea or vomiting at this time. Labs WBC 11.2 hemoglobin 15.8 hematocrit 47 platelet count 334,000 sodium 139 potassi um 2.9 BUN 24 creatinine 1.8 total bilirubin 0.7 AST 87 ALT 66 alkaline phosphatase 125 amylase 205 lipase 1103 serum alcohol 18 12/17/2023 Patient seen and examined today as a follow-up. Abdominal pain has improved. Continues to have pain in the epigastric region however it is improved since yes terday. No nausea or vomiting. Today's repeat labs had trended down bilirubin 1.0 AST 53 ALT 44 alkaline phosphatase 92 lipase 203, triglycerides 138 12/18/2023 Patient seen and examined today as a follow-up. Patient states pain has worsened she rates her pain as a 9-10. She was advanced to a low-fat diet yesterday denied any nausea or vomiting but states pain is significantly worse. States she also has had a bowel movement. No nausea or vomiting. Objective - Vital Signs Vital signs: Vital Signs Temp 97.3 F L 12/17/23 18:31 Pulse 100 12/18/23 01:44 Resp 18 12/17/23 14:00 BP 146/95 12/18/23 01:44 Pulse Ox 97 12/18/23 01:44 FiO2 Intake & Output 12/17/23 12/17/23 12/18/23 06:59 18:59 06:59 Weight 65.771 kg Other: Voiding Method Toilet Toilet Toilet # Voids 4 3 6 - Exam General appearance: The patient is alert, oriented, appears in no acute distress. HET: Head is normocephalic and atraumatic. Conjunctiva pink. Sclera anicteric. Neck: Supple without lymphadenopathy. Abdomen: Soft, upper abdominal/epigastric tenderness, nondistended. Extremities: Normal skin color and turgor. No pedal edema Skin: No rashes, no jaundice Neurological: No focal deficits. Alert and oriented. - Labs CBC & Chem 7: 12/19/23 07:20 12/19/23 07:20 Labs: Abnormal Lab Results - Last 24 Hours (Table) 12/17/23 12/17/23 Range/Units 05:31 05:31 RBC 3.44 L (4.10-5.20) X 10*6/uL Hgb 10.6 L (12.0-15.0) g/dL Hct 31.9 L (37.2-46.3) % Potassium 3.2 L (3.5-5.5) mmol/L BUN 8.8 L (9.0-27.0) mg/dL Microbiology - Last 24 Hours (Table) 12/16/23 11:27 Blood Culture - Preliminary Blood 12/16/23 11:27 Blood Culture - Preliminary Blood Assessment and Plan (1) Acute pancreatitis Narrative/Plan: 43-year-old female presenting with 4 days of epigastric and right upper quadrant abdominal pain. Amylase and lipase consistent with pancreatitis as well as a CT abdomen pelvis showing uncomplicated acute pancreatitis. Patient reluctantly admitted to alcohol use that has been heavy over the last few months duration. Patient states this has been since her mother however patient's did come in the room and states that she has been drinking quite heavily however she did not allow him to talk any further. Likely were dealing with ac [place] alcohol pancreatitis. Patient also has some evidence of underlying heterogeneous fatty liver which may be related to alcohol liver disease as well. Continue to treat symptomatically. Discussed with patient importance of alcohol abstinence. Current Visit: Yes Status: Acute Code(s): K85.90 - ACUTE PANCREATITIS WITH OUT NECROSIS OR INFECTION, UNSP SNOMED Code(s): 067603175 (2) Alcohol abuse Current Visit: Yes Status: Acute Code(s): F10.10 - ALCOHOL ABUSE, UNCOMPLICATED SNOMED Code(s): 01278114 Plan: 1. Continue symptomatic and supportive care 2. Aggressive IV hydration 3. Pain medication as needed 4. Antiemetics as needed, Protonix 40 mg daily GI prophylaxis 5. Will switch patient back to clear liquid diet 6. Discussed with patient importance of alcohol abstinence 7. Recommend transitioning from IV pain medication to oral 8. Encourage ambulation 9. Recommend holding for another day Thank you for this consultation, we will continue to follow. Dr. Coby Hilario I agree with the dictator's note, documented as a scribe by Chantelle Reeves.
--- NOTE | 2023-12-19 14:18 | P.PN ---
Subjective Progress Note Date: 12/19/23 Principal diagnosis: Acute pancreatitis This is a pleasant 43-year-old female who presented to the emergency department with complaints of severe abdominal pain mostly in the epigastric region. Patient states pain started about 4 days ago and is associated with nausea and vomiting. Labs showed elevated amylase and lipase consistent with pancreatitis. She had a ultrasound of the gallbladder done that reported some sludge, liver heterogeneous, no CBD dilation and no acute findings in the gallbladder. CT abdomen pelvis shows uncomplicated pancreatitis. Gastroenterology was consulted for acute pancreatitis. Patient denies any previous history of pancreatitis, initially she denied any regular alcohol use but then stated that she has been drinking quite heavy over the last couple months duration since her mother . Denies any new medications. Today pain is maybe a little bit better, but not much. Mostly in the epigastric region. No further nausea or vomiting at this time. Labs WBC 11.2 hemoglobin 15.8 hematocrit 47 platelet count 334,000 sodium 139 potassi um 2.9 BUN 24 creatinine 1.8 total bilirubin 0.7 AST 87 ALT 66 alkaline phosphatase 125 amylase 205 lipase 1103 serum alcohol 18 12/17/2023 Patient seen and examined today as a follow-up. Abdominal pain has improved. Continues to have pain in the epigastric region however it is improved since yes terday. No nausea or vomiting. Today's repeat labs had trended down bilirubin 1.0 AST 53 ALT 44 alkaline phosphatase 92 lipase 203, triglycerides 138 12/18/2023 Patient seen and examined today as a follow-up. Patient states pain has worsened she rates her pain as a 9-10. She was advanced to a low-fat diet yesterday denied any nausea or vomiting but states pain is significantly worse. States she also has had a bowel movement. No nausea or vomiting. 12/19/2023 Patient seen and examined today as a follow-up. States that she has been in pain still rates it a 8-9. No nausea or vomiting. She has been on clear liquid diet but asking to eat more. States she had another bowel movement. Asking for more pain medication. Stating her pain medication is not enough. Patient was initially seen walking in the [place], appeared in no distress or pain. Objective - Vital Signs Vital signs: Vital Signs Temp 98.6 F 12/19/23 13:39 Pulse 92 12/19/23 13:38 Resp 18 12/19/23 06:47 BP 167/120 12/19/23 13:38 Pulse Ox 98 12/19/23 13:37 FiO2 Intake & Output 12/18/23 12/19/23 12/19/23 18:59 06:59 18:59 Intake Total 980 980 Balance 980 980 Intake: Oral 980 980 Other: Voiding Method Toilet Toilet Toilet # Voids 3 3 - Exam General appearance: The patient is alert, oriented, appears in no acute distress. HET: Head is normocephalic and atraumatic. Conjunctiva pink. Sclera anicteric. Neck: Supple without lymphadenopathy. Abdomen: Soft, upper abdominal/epigastric tenderness, nondistended. Extremities: Normal skin color and turgor. No pedal edema Skin: No rashes, no jaundice Neurological: No focal deficits. Alert and oriented. - Labs CBC & Chem 7: 12/19/23 07:20 12/19/23 07:20 Labs: Abnormal Lab Results - Last 24 Hours (Table) 12/19/23 12/19/23 Range/Units 07:20 07:20 RBC 3.39 L (4.10-5.20) X 10*6/uL Hgb 10.4 L (12.0-15.0) g/dL Hct 33.2 L (37.2-46.3) % MCV 97.9 H (80.0-97.0) FL MCHC 31.3 L (32.0-37.0) g/dL BUN 6.9 L (9.0-27.0) mg/dL BUN/Creatinine Ratio 11.50 L (12.00-20.00) Ratio Microbiology - Last 24 Hours (Table) 12/16/23 11:27 Blood Culture - Preliminary Blood 12/16/23 11:27 Blood Culture - Preliminary Blood Assessment and Plan (1) Acute pancreatitis Narrative/Plan: 43-year-old female presenting with 4 days of epigastric and right upper quadrant abdominal pain. Amylase and lipase consistent with pancreatitis as well as a CT abdomen pelvis showing uncomplicated acute pancreatitis. Patient reluctantly admitted to alcohol use that has been heavy over the last few months duration. Patient states this has been since her mother however patient's did come in the room and states that she has been drinking quite heavily however she did not allow him to talk any further. Likely were dealing with acute alcohol pancreatitis. Patient also has some evidence of underlying heterogeneous fatty liver which may be related to alcohol liver disease as well. Continue to treat symptomatically. Discussed with patient importance of alcohol abstinence. Current Visit: Yes Status: Acute Code(s): K85.90 - ACUTE PANCREATITIS WITHOUT NECROSIS OR INFECTION, UNSP SNOMED Code(s): 092462100 (2) Alcohol abuse Current Visit: Yes Status: Acute Code(s): F10.10 - ALCOHOL ABUSE, UN COMPLICATED SNOMED Code(s): 14899741 Plan: 1. Continue symptomatic and supportive care 2. Toradol added for pain relief 3. Pain medication as needed 4. Antiemetics as needed, Protonix 40 mg daily GI prophylaxis 5. May increase to low-fat diet 6. Discussed with patient importance of alcohol abstinence 7. Encourage ambulation 8. Patient is cleared by gastroenterology if she can tolerate diet. Follow-up with gastroenterology in 1 to 2 weeks. Thank you for this consultation, patient is cleared for discharge by gastroenterology if tolerating diet. We will sign off at this time. Dr. Coby Hilario I agree with the dictator's note, documented as a scribe by Chantelle Reeves.
[2023-12-19] MEDS: amLODIPine 10 MG TAB PO STA (14:20)
[2023-12-19] MEDS: LOSARTAN 50 MG TAB PO SCH (18:33)
[2023-12-20 09:52] VITALS: BMI 27.3
--- NOTE | 2023-12-20 13:08 | P.CRDCN ---
History of Present Illness Consult date: 12/20/23 Requesting physician: Luis Enrique Arnold Reason for Consult (text): chest pain, hypertension Chief complaint: Abdominal pain History of present illness: This is a pleasant 43-year-old female with a past history of alcohol abuse, hypertension, chronic pain, nicotine dependence. She presented initially with abdominal pain, nausea and vomiting and found to have evidence of pancreatitis. She is being followed by Dr. Trinh Bcukley. We have been asked to see the patient in consultation for chest pain and hypertension. Blood pressure has been elevated. She was resting and watching television yesterday developed some chest discomfort, left-sided, sharp and lasting a few minutes. She has had kallie st discomfort in the past but nothing recent except for this episode. She feels she is relatively stable and her physical activity. Blood pressure has been elevated. EKG shows sinus mechanism with no ST or T wave abnormalities. Troponin was negative. Upon examination she is resting comfortably in bed. She has no current complaints of chest discomfort. Her abdominal pain is somewhat better but persistent. Past Medical History Past Medical History: GERD/Reflux, Hypertension, Seizure Disorder Additional Past Medical History / Comment(s): Migraines, kidney stones, chronic back pain, seizures related to tramadol interaction with medication, right rib fractures kidney stones History of Any Multi-Drug Resistant Organisms: None Reported Past Surgical History: Appendectomy, Section, Hysterectomy, Orthopedic Surgery Additional Past Surgical History / Comment(s): Carpal tunnel sx, stent for kidney stones/later removed, 07/03/21-lithotripsy/right ureteral stent placed/removed, pain clinic procedures, angiogram. Past Anesthesia/Blood Transfusion Reactions: No Reported Reaction Smoking Status: Vaper - Past Family History Father Family Medical History: CVA/TIA, Hypertension Mother Family Medical History: No Reported History Medications and Allergies Home Medications Medication Instructions Recorded Confirmed Type Pregabalin [Lyrica] 150 mg PO TID 07/09/21 12/15/23 History Omeprazole 40 mg PO DAILY 07/09/22 12/15/23 History Vortioxetine Hydrobromide 20 mg PO DAILY 07/20/22 12/15/23 History [Trintellix] Rimegepant Sulfate [Nurtec Odt] 75 mg PO Q48H 11/11/22 12/15/23 History busPIRone HCl [Buspar] 10 mg PO BID PRN 08/17/23 12/15/23 History Celecoxib [CeleBREX] 200 mg PO DAILY PRN 12/15/23 12/15/23 History lisinopriL [Zestril] 20 mg PO BID 12/15/23 12/15/23 History Nicotine 14Mg/24Hr Patch [Habitrol] 1 patch TRANSDERM DAILY #0 patch 12/17/23 Rx Thiamine [Vitamin B-1] 100 mg PO DAILY tab 12/17/23 Rx HYDROcodone/APAP 10-325MG [[place] 1 tab PO Q6HR PRN 2 Days #8 tab 12/19/23 Rx 10-325] Allergies Allergy/AdvReac Type Severity Reaction Status Date / Time tramadol AdvReac SEIZURE Verified 12/15/23 22:23 Physical Exam Vitals: Vital Signs Temp Pulse Resp BP BP BP BP 12/20/23 07:30 97.5 F L 76 18 142/86 12/20/23 01:29 98.1 F 92 20 124/78 12/19/23 19:05 97.6 F 104 H 20 170/108 12/19/23 17:38 89 170/117 12/19/23 16:24 76 172/108 12/19/23 15:51 84 156/100 12/19/23 13:39 98.6 F 12/19/23 13:38 92 167/120 12/19/23 13:37 92 172/106 12/19/23 13:33 98.6 F 87 18 Pulse Ox 12/20/23 07:30 98 12/20/23 01:29 100 12/19/23 19:05 98 12/19/23 17:38 100 12/19/23 16:24 97 12/19/23 15:51 12/19/23 13:39 12/19/23 13:38 12/19/23 13:37 98 12/19/23 13:33 96 Intake and Output 12/19/23 12/20/23 12/20/23 22:59 06:59 14:59 Intake Total 1000 2000 Balance 1000 2000 Intake: Oral 1000 2000 Other: # Voids 4 Weight 65.771 kg PHYSICAL EXAMINATION: This is a 43-year-old female in no apparent distress at the time of my examination. VITAL SIGNS: Reviewed. HEENT: Head is atraumatic, normocephalic. Pupils are equal, round. Sclerae anict anuj. Conjunctivae are clear. Mucous membranes of the mouth are moist. Neck is supple. [There is no elevated jugular venous pressure]. No carotid bruit is heard. CHEST EXAMINATION:[ Clear to auscultation bilaterally. No wheezes rales or rhonchi. Respirations even and nonlabored.] HEART EXAMINATION: [ Heart regular, positive S1 and S2. No S3. No S4. No clicks, rubs or murmurs. ] ABDOMEN: Soft, epigastric tenderness to palpation. Bowel sounds are heard. No organomegaly noted. EXTREMITIES:[ 2+ peripheral pulses with no evidence of peripheral edema and no calf tenderness noted]. NEUROLOGIC EXAMINATION: Patient is awake, alert and oriented x3. Results 12/19/23 07:20 12/19/23 07:20 Cardiac Enzymes 12/19/23 Range/Units 16:15 Troponin I <0.012 (0.000-0.034) ng/mL Current Medications Generic Name Dose Route Start Last Admin Trade Name Freq PRN Reason Stop Dose Admin Acetaminophen 650 mg 12/15/23 20:09 12/19/23 00:42 Acetaminophen Tab 325 Mg Tab PO 650 mg Q6HR PRN Administration Mild Pain or Fever > 100.5 Hydrocodone Bitart/Acetaminophen 1 each 12/18/23 10:16 12/20/23 05:50 Hydrocodone/Apap 10-325mg 1 Each Tab PO 1 each Q6HR PRN Administration Pain Clonidine 0.1 mg 12/18/23 21:45 12/19/23 20:36 Clonidine Hcl 0.1 Mg Tab PO 0.1 mg HS GENTRY Administration Ceftriaxone Sodium 1 gm/ 50 mls @ 100 mls/hr 12/16/23 09:00 12/20/23 08:45 Sodium Chloride IVPB 100 mls/hr Q24HR GENTRY Administration Protocol Ketorolac Tromethamine 15 mg 12/19/23 08:30 12/20/23 05:50 Ketorolac 15 Mg/Ml 1 Ml Vial IVP 12/24/23 08:23 15 mg Q6HR GENTRY Administration Lorazepam 1 mg 12/16/23 09:35 12/19/23 00:31 Lorazepam 2 Mg/Ml Inj IV 1 mg Q1HR PRN Administration CIWA 10 to 15 Lorazepam 1 mg 12/16/23 09:35 12/20/23 09:10 Lorazepam 2 Mg/Ml Inj IV 1 mg Q2HR PRN Administration CIWA 8 or 9 Losartan Potassium 50 mg 12/19/23 18:00 12/20/23 08:46 Losartan 50 Mg Tab PO 50 mg DAILY GENTRY Administration Miscellaneous Information 1 each 12/16/23 18:14 Potassium Replacement Protocol 1 Each Misc MISCELLANE DAILY PRN Per Protocol Protocol Miscellaneous Information 1 each 12/16/23 18:15 Magnesium Replacement Protocol 1 Each Misc MISCELLANE DAILY PRN Per Protocol Protocol Naloxone HCl 0.2 mg 12/15/23 20:09 Naloxone 0.4 Mg/Ml 1 Ml Vial IV Q2M PRN Opioid Reversal Nicotine 1 patch 12/16/23 22:00 12/20/23 08:46 Nicotine 14mg/24hr Patch TRANSDERM 1 patch DAILY GENTRY Administration Ondansetron HCl 4 mg 12/16/23 20:58 Ondansetron 4 Mg/2 Ml Vial IVP Q6HR PRN Nausea And Vomiting Pantoprazole Sodium 40 mg 12/16/23 10:30 12/20/23 09:02 Pantoprazole 40 Mg/10 Ml Vial IVP 40 mg DAILY GENTRY Administration Pregabalin 150 mg 12/16/23 22:00 12/20/23 08:46 Pregabalin 75 Mg Cap PO 150 mg TID GENTRY Administration Thiamine HCl 100 mg 12/17/23 09:00 12/20/23 08:46 Thiamine 100 Mg Tab PO 100 mg DAILY GENTRY Administration Vortioxetine 20 mg 12/17/23 09:00 12/20/23 08:46 Vortioxetine Hydrobromide 20 Mg Tablet PO 20 mg DAILY GENTRY Administration Intake and Output 12/19/23 12/20/23 12/20/23 22:59 06:59 14:59 Intake Total 1000 2000 Balance 1000 2000 Intake: Oral 1000 1999 Other: # Voids 4 Weight 65.771 kg Patient Weight 12/21/23 06:59 Weight 65.771 kg 12/19/23 07:20 12/19/23 07:20 Assessment and Plan Assessment: #1 pancreatitis #2 hypertension #3 chest pain with no evidence of EKG abnormalities and troponin negative #4 nicotine dependence currently vaping Plan: From cardiology's perspective we will obtain a 2D echo with Doppler study to assess cardiac structure and function. If there are no significant abnormalities in the echocardiogram she may be discharged home. She will requ raine further cardiac workup as an outpatient. We will increase losartan to 100 mg daily. She will need to monitor the blood pressure daily at home. Discussed importance of nicotine cessation. AERIAL GUNNER SUPERINTENDENT note has been reviewed, I agree with a documented findings and plan of care. Patient was seen and examined.
--- NOTE | 2023-12-20 13:56 | P.PN ---
Subjective Progress Note Date: 12/20/23 43-year-old female who presented to the emergency department with complaints of severe abdominal pain mostly in the epigastric region. Patient states pain started about 4 days ago and is associated with nausea and vomiting. Labs showed elevated amylase and lipase consistent with pancreatitis. She had a ultrasound of the gallbladder done that reported some sludge, liver heterogeneous, no CBD dilation and no acute findings in the gallbladder. CT abdomen pelvis shows uncomplicated pancreatitis. Gastroenterology was consulted for acute pancreatitis. Patient denies any previous history of pancreatitis, initially she denied any regular alcohol use but then stated that she has been drinking quite heavy over the last couple months duration since her mother . Denies any new medications. Today pain is maybe a little bit better, but not much. Mostly in the epigastric region. No further nausea or vomiting at this time. --Patient has been reporting chest pain and has been evaluated by cardiology; recommending a 2D echo Patient reports persistent abdominal pain; requiring oral pain medications every 6 hours -- Able to tolerate diet well Will continue with current management/plan to discharge in next 24 hours if echocardiogram is stable Objective - Vital Signs Vital signs: Vital Signs Temp 97.5 F L 12/20/23 07:30 Pulse 76 12/20/23 07:30 Resp 18 12/20/23 07:30 BP 142/86 12/20/23 07:30 Pulse Ox 98 12/20/23 07:30 FiO2 Intake & Output 12/19/23 12/20/23 12/20/23 18:59 06:59 18:59 Intake Total 1000 2000 Balance 1000 2000 Weight 65.771 kg Intake: Oral 1000 1999 Other: Voiding Method Toilet # Voids 4 - Exam General appearance: The patient is alert, oriented, appears in no acute distress. HET: Head is normocephalic and atraumatic. Conjunctiva pink. Sclera anicteric. Neck: Supple without lymphadenopathy. Abdomen: Soft, upper abdominal/epigastric tenderness, nondistended. Extremities: Normal skin color and turgor. No pedal edema Skin: No rashes, no jaundice Neurological: No focal deficits. Alert and oriented. - Labs CBC & Chem 7: 12/19/23 07:20 12/19/23 07:20 Labs: Abnormal Lab Results - Last 24 Hours (Table) 12/19/23 12/19/23 Range/Units 07:20 07:20 RBC 3.39 L (4.10-5.20) X 10*6/uL Hgb 10.4 L (12.0-15.0) g/dL Hct 33.2 L (37.2-46.3) % MCV 97.9 H (80.0-97.0) FL MCHC 31.3 L (32.0-37.0) g/dL BUN 6.9 L (9.0-27.0) mg/dL BUN/Creatinine Ratio 11.50 L (12.00-20.00) Ratio Microbiology - Last 24 Hours (Table) 12/16/23 11:27 Blood Culture - Preliminary Blood 12/16/23 11:27 Blood Culture - Preliminary Blood Assessment and Plan Assessment: Acute pancreatitis, possible acute alcohol pancreatitis Alcohol abuse, serum alcohol level 18 on admission Hepatic steatosis suspect secondary to the above Toxicology positive for opiates and tricyclic's and THC Bacterial infection, elevated procalcitonin, etiology unclear, empiric antibiotics initially Bipolar disorder Chronic back pain Hypokalemia --Has been evaluated by cardiology; 2D echo with Doppler is recommended to evaluate for cardiac structure and function; no further inpatient cardiac workup needed if echocardiogram is stable; patient will be worked up further as an outpatient -- Losartan is increased up to 100 mg daily; patient is able to tolerate well
[2023-12-20] MEDS: LOSARTAN 50 MG TAB PO ONE (14:37)
--- NOTE | 2023-12-20 15:00 | CA ---
Transthoracic Echo Report Name: Elisa Portillo Age: 43 Gender: F : 1980 Exam Date: 12/20/2023 13:52 Exam Location: [facility] Ht (in): 61 Wt (lb): 145 Ordering Physician: Mimi Rasmussen Attending/Referring Phys: [id number], Grady Raw Silk Grader Mendy Slaughter RDCS Procedure CPT: Indications: Chest Pain Cardiac Hx: Technical Quality: Fair Contrast 1: Total Dose (mL): Contrast 2: Total Dose (mL): MEASUREMENTS (Male / Female) Normal Values 2D ECHO LV Diastolic Diameter PLAX 3.8 cm 4.2 - 5.9 / 3.9 - 5.3 cm LV Systolic Diameter PLAX 2.6 cm IVS Diastolic Thickness 1.4 cm 0.6 - 1.0 / 0.6 - 0.9 cm LVPW Diastolic Thickness 1.2 cm 0.6 - 1.0 / 0.6 - 0.9 cm LV Relative Wall Thickness 0.7 RV Internal Dim ED PLAX 2.7 cm LA Volume 56.0 cm??? 18 - 58 / 22 - 52 cm??? LA Volume Index 32.9 cm???/m??? 16 - 28 cm???/m??? M-MODE Aortic Root Diameter MM 3.0 cm LA Systolic Diameter MM 3.7 cm LA Ao Ratio MM 1.2 AV Cusp Separation MM 2.2 cm DOPPLER AV Peak Velocity 123.9 cm/s AV Peak Gradient 6.1 mmHg AV Mean Velocity 89.7 cm/s AV Mean Gradient 3.6 mmHg AV Velocity Time Integral 24.2 cm LVOT Peak Velocity 102.3 cm/s LVOT Peak Gradient 4.2 mmHg LVOT Velocity Time Integral 18.2 cm MV Area PHT 3.7 cm??? Mitral E Point Velocity 76.4 cm/s Mitral A Point Velocity 83.6 cm/s Mitral E to A Ratio 0.9 MV Deceleration Time 203.6 ms MV E' Velocity 5.9 cm/s Mitral E to MV E' Ratio 13.0 TR Peak Velocity 173.6 cm/s TR Peak Gradient 12.1 mmHg Right Ventricular Systolic Press 17.1 mmHg FINDINGS Left Ventricle Moderately increased left ventricular wall thickness. Left ventricular cavity size normal. Normal left ventricular systolic function with no obvious regional wall motion abnormalities. Left ventricular ejection fraction is estimated at 55-60 %. Grade 1 diastolic dysfunction. Right Ventricle Normal right ventricular size and function. Right ventricular systolic pressure within normal limits. Right Atrium Normal right atrial size. Left Atrium Mildly increased left atrial volume. Mitral Valve Structurally normal mitral valve. Mild mitral regurgitation. Aortic Valve Trileaflet aortic valve. No aortic valve stenosis or regurgitation. Tricuspid Valve Structurally normal tricuspid valve. Mild tricuspid regurgitation. Pulmonic Valve Structurally normal pulmonic valve. Pericardium No pericardial effusion. Aorta Normal size aortic root and proximal ascending aorta. CONCLUSIONS 1. Normal left ventricle size and systolic function 2. Mild mitral and tricuspid regurgitation with no evidence of pulmonary hypertension Previewed by: Dr. Ana Nueñz MD (Electronically Signed) Final Date: 20 December 2023 15:00
[2023-12-21] MEDS: LOSARTAN 50 MG TAB PO SCH (08:19)
[2023-12-21 08:57] VITALS: BP 162/106; PULSE 79; RESP 19; TEMP 98.1
[2023-12-21] MEDS: PANTOPRAZOLE 40 MG TABLET PO SCH (09:09)
--- NOTE | 2023-12-21 12:47 | P.PN ---
Subjective Progress Note Date: 12/21/23 This is a pleasant 43-year-old female with a past history of alcohol abuse, hypertension, chronic pain, nicotine dependence. She presented initially with abdominal pain, nausea and vomiting and found to have evidence of pancreatitis. She is being followed by Dr. Trinh Buckley. We have been asked to see the patient in consultation for chest pain and hypertension. Blood pressure has been elevated. She was resting and watching television yesterday developed some chest discomfort, left-sided, sharp and lasting a few minutes. She has had chest discomfort in the past but nothing recent except for this episode. She feels she is relatively stable and her physical activity. Blood pressure has been elevated. EKG shows sinus mechanism with no ST or T wave abnormalities. Troponin was negative. Upon examination she is resting comfortably in bed. She has no current complaints of chest discomfort. Her abdominal pain is somewhat better but persistent. 12/21/2023 The patient was seen and examined sitting up in bed. She is overall stable. She continues to complain of abdominal pain. She has had rare episodes of chest discomfort. Echocardiogram showed normal LV systolic function, no segmental wall motion abnormalities, mild MR mild TR. Objective - Vital Signs Vital signs: Vital Signs Temp 98.1 F 12/21/23 07:44 Pulse 79 12/21/23 07:44 Resp 19 12/21/23 07:44 BP 162/106 12/21/23 07:44 Pulse Ox 99 12/21/23 07:44 FiO2 Intake & Output 12/20/23 12/21/23 12/21/23 18:59 06:59 18:59 Intake Total 1400 Balance 1400 Weight 65.771 kg Intake: Oral 1400 Other: # Voids 4 4 # Bowel Movements 1 - Exam HEENT: Head is atraumatic, normocephalic. Pupils are equal, round. Sclerae anicteric. Conjunctivae are clear. Mucous membranes of the mouth are moist. Neck is supple. [There is no elevated jugular venous pressure]. No carotid bruit is heard. CHEST EXAMINATION:[ Clear to auscultation bilaterally. No wheezes rales or rhonchi. Respirations even and nonlabored.] HEART EXAMINATION: [ Heart regular, positive S1 and S2. No S3. No S4. No clicks, rubs or murmurs. ] ABDOMEN: Soft, epigastric tenderness to palpation. Bowel sounds are heard. No organomegaly noted. EXTREMITIES:[ 2+ peripheral pulses with no evidence of peripheral edema and no calf tenderness noted]. NEUROLOGIC EXAMINATION: Patient is awake, alert and oriented x3. - Labs CBC & Chem 7: 12/19/23 07:20 12/19/23 07:20 Assessment and Plan Assessment: #1 pancreatitis #2 hypertension #3 chest pain with no evidence of EKG abnormalities and troponin negative #4 nicotine dependence currently vaping Plan: From cardiology's perspective she may be discharged home. She will require further cardiac workup as an outpatient. She will need to monitor the blood pressure daily at home. Discussed importance of nicotine cessation. COUNSELLING PSYCHOLOGIST note has been reviewed, I agree with a documented findings and plan of care. Patient was seen and examined.
--- NOTE | 2023-12-21 15:46 | P.DS ---
Providers Date of admission: 12/15/23 20:10 Expected date of discharge: 12/21/23 Attending physician: Luis Enrique Arnold MD Consults: 12/15/23 20:09 Consult Physician Urgent Consulting Provider: Trinh iHlario Consult Reason/Comments: Acute pancreatitis Do you want consulting provider notified?: Yes 12/19/23 16:30 Consult Physician Routine Consulting Provider: Sundeep Orozco Consult Reason/Comments: chest pain,high blood pressure Do you want consulting provider notified?: Yes Primary care physician: Luis Enrique Arnold MD Hospital Course: 43-year-old female who presented to the emergency department with complaints of severe abdominal pain mostly in the epigastric region. Patient states pain started about 4 days ago and is associated with nausea and vomiting. Labs showed elevated amylase and lipase consistent with pancreatitis. She had a ultrasound of the gallbladder done that reported some sludge, liver heterogeneous, no CBD dilation and no acute findings in the gallbladder. CT abdomen pelvis shows uncomplicated pancreatitis. Gastroenterology was consulted for acute pancreatitis. Patient denies any previous history of pancreatitis, initially she denied any regular alcohol use but then stated that she has been drinking quite heavy over the last couple months duration since her mother . Denies any new medications. Today pain is maybe a little bit better, but not much. Mostly in the epigastric region. No further nausea or vomiting at this time. --Patient has been reporting chest pain and has been evaluated by cardiology; recommending a 2D echo Patient reports persistent abdominal pain; requiring oral pain medications every 6 hours -- Able to tolerate diet well Will continue with current management/plan to discharge in next 24 hours if echocardiogram is stable --Echocardiogram is unremarkable; cardiology cleared patient for discharge with recommendations for outpatient follow-up for further workup Patient Condition at Discharge: Stable Plan - Discharge Summary Discharge Rx Participant: No New Discharge Prescriptions: New Thiamine [Vitamin B-1] 100 mg PO DAILY tab cloNIDine HCL [Catapres] 0.1 mg PO BID 30 Days #60 tab Nicotine 14Mg/24Hr Patch [Habitrol] 1 patch TRANSDERM DAILY #0 patch HYDROcodone/APAP 10-325MG [[place] 10-325] 1 tab PO Q6HR PRN 2 Days #8 tab PRN Reason: Pain Continue Pregabalin [Lyrica] 150 mg PO TID Omeprazole 40 mg PO DAILY Vortioxetine Hydrobromide [Trintellix] 20 mg PO DAILY Rimegepant Sulfate [Nurtec Odt] 75 mg PO Q48H Celecoxib [CeleBREX] 200 mg PO DAILY PRN PRN Reason: Pain lisinopriL [Zestril] 20 mg PO BID busPIRone HCl [Buspar] 10 mg PO BID PRN PRN Reason: Anxiety Discharge Medication List Pregabalin [Lyrica] 150 mg PO TID 07/09/21 [History] Omeprazole 40 mg PO DAILY 07/09/22 [History] Vortioxetine Hydrobromide [Trintellix] 20 mg PO DAILY 07/20/22 [History] Rimegepant Sulfate [Nurtec Odt] 75 mg PO Q48H 11/11/22 [History] busPIRone HCl [Buspar] 10 mg PO BID PRN 08/17/23 [History] Celecoxib [CeleBREX] 200 mg PO DAILY PRN 12/15/23 [History] lisinopriL [Zestril] 20 mg PO BID 12/15/23 [History] Nicotine 14Mg/24Hr Patch [Habitrol] 1 patch TRANSDERM DAILY #0 patch 12/17/23 [Rx] Thiamine [Vitamin B-1] 100 mg PO DAILY tab 12/17/23 [Rx] HYDROcodone/APAP 10-325MG [[place] 10-325] 1 tab PO Q6HR PRN 2 Days #8 tab 12/19/23 [Rx] cloNIDine HCL [Catapres] 0.1 mg PO BID 30 Days #60 tab 12/21/23 [Rx] Follow up Appointment(s)/Referral(s): Luis Enrique Arnold MD [Primary Care Provider] - 12/22/23 1:30 pm (At [facility] in [place] With Nalini) Trinh Hilario MD [STAFF PHYSICIAN] - 1 Week (Call Friday to schedule appointment ) Patient Instructions/Handouts: Pancreatitis (DC), Low Fiber Diet (DC) Discharge Disposition: HOME SELF-CARE
[2023-12-21] MEDS ORDERED: cloNIDine HCL 0.1 MG TAB PO SCH (21:00)
== END 2023-12-21 12:41 | disposition home or self-care (01) | DRG 282 ==
LOC: EC 15:21 → 4SSUR 20:10
PROVIDERS: ADMIT Family Medicine; ATTEND Family Medicine
DX: K85.20 Alcohol induced acute pancreatitis without necrosis or infection (principal); K70.0 Alcoholic fatty liver; F10.10 Alcohol abuse, uncomplicated; F31.9 Bipolar disorder, unspecified; I10 Essential (primary) hypertension; E87.6 Hypokalemia; F17.210 Nicotine dependence, cigarettes, uncomplicated; G89.29 Other chronic pain; N20.0 Calculus of kidney; M54.9 Dorsalgia, unspecified; N95.1 Menopausal and female climacteric states; Y90.0 Blood alcohol level of less than 20 mg/100 ml; Z63.4 Disappearance and death of family member; Z72.820 Sleep deprivation; Z87.442 Personal history of urinary calculi; Z79.899 Other long term (current) drug therapy; Z79.1 Long term (current) use of non-steroidal anti-inflammatories (NSAID); Z88.5 Allergy status to narcotic agent; Z79.82 Long term (current) use of aspirin
CPT/HCPCS: 36415; 74176; 76705; 80048; 80053; 80306; 80320; 81001; 82150; 83605; 83690; 83735; 84132; 84145; 84478; 84484; 85025; 87040; 93005; 93306; 96361; 96365; 96372; 96375; 96376; 99285

== ENCOUNTER 2023-12-25 10:39 | Emergency (ER) | payer OTHER ==
--- NOTE | 2023-12-25 11:47 | ED ---
General Adult HPI - General Chief complaint: Abdominal Pain Stated complaint: abd pain Time Seen by Provider: 12/25/23 10:53 Source: patient Mode of arrival: ambulatory Limitations: no limitations - History of Present Illness Initial comments: Dictation was produced using [employer] dictation software. please excuse any grammatical, word or spelling errors. Chief Complaint: 43-year-old female recently admitted for pancreatitis presents to the ER for abdominal pain History of Present Illness: Patient is a 43-year-old female she was just discharged from the hospital 4 days ago. She was admitted for multiple days for pancreatitis. Patient states that while being in the emergency department symptoms improved. She was told that her pancreatitis was secondary to alcohol intake. States that she was doing fine until yesterday she states that her epi gastric pain returned. Denies any fever, chills or night sweats. No nausea or vomiting. The ROS documented in this emergency department record has been reviewed and confirmed by me. Those systems with pertinent positive or negative responses have been documented in the HPI. All other systems are other negative and/or noncontributory. - Related Data Home Medications Medication Instructions Recorded Confirmed Pregabalin [Lyrica] 150 mg PO TID 07/09/21 12/15/23 Omeprazole 40 mg PO DAILY 07/09/22 12/15/23 Vortioxetine Hydrobromide 20 mg PO DAILY 07/20/22 12/15/23 [Trintellix] Rimegepant Sulfate [Nurtec Odt] 75 mg PO Q48H 11/11/22 12/15/23 busPIRone HCl [Buspar] 10 mg PO BID PRN 08/17/23 12/15/23 Celecoxib [CeleBREX] 200 mg PO DAILY PRN 12/15/23 12/15/23 lisinopriL [Zestril] 20 mg PO BID 12/15/23 12/15/23 Previous Rx's Medication Instructions Recorded Nicotine 14Mg/24Hr Patch [Habitrol] 1 patch TRANSDERM DAILY #0 patch 12/17/23 Thiamine [Vitamin B-1] 100 mg PO DAILY tab 12/17/23 HYDROcodone/APAP 10-325MG [[employer] 1 tab PO Q6HR PRN 2 Days #8 tab 12/19/23 10-325] cloNIDine HCL [Catapres] 0.1 mg PO BID 30 Days #60 tab 12/21/23 HYDROcodone/APAP 5-325MG [[employer] 1 tab PO Q6HR PRN 3 Days #12 tab 12/25/23 5-325] Allergies Allergy/AdvReac Type Severity Reaction Status Date / Time tramadol AdvReac SEIZURE Verified 12/15/23 22:23 Review of Systems ROS Statement: Those systems with pertinent positive or pertinent negative responses have been documented in the HPI. ROS Other: All systems not noted in ROS Statement are negative. Past Medical History Past Medical History: GERD/Reflux, Hypertension, Seizure Disorder Additional Past Medical History / Comment(s): Migraines, kidney stones, chronic back pain, seizures related to tramadol interaction with medication, right rib fractures kidney stones, pancreatitis History of Any Multi-Drug Resistant Organisms: None Reported Past Surgical History: Appendectomy, Section, Hysterectomy, Orthopedic Surgery Additional Past Surgical History / Comment(s): Carpal tunnel sx, stent for kidney stones/later removed, 07/03/21-lithotripsy/right ureteral stent placed/removed, pain clinic procedures, angiogram. Past Anesthesia/Blood Transfusion Reactions: No Reported Reaction Past Psychological History: Anxiety Smoking Status: Vaper - Past Family History Father Family Medical History: CVA/TIA, Hypertension Mother Family Medical History: No Reported History General Exam - General Exam Comments Initial Comments: PHYSICAL EXAM: General Impression: Alert and oriented x3, not in acute distress HEENT: Normocephalic atraumatic, extra-ocular movements intact, pupils equal and reactive to light bilaterally, mucous membranes moist. Cardiovascular: Heart regular rate and rhythm Chest: Able to complete full sentences, no retractions, no tachypnea Abdomen: abdomen soft, palpatory tenderness to the epigastric abdomen, non- distended, no organomegaly Musculoskeletal: Pulses present and equal in all extremities, no peripheral edema Motor: no focal deficits noted Neurological: CN II-XII grossly intact, no focal motor or sensory deficits noted Skin: Intact with no visualized rashes Psych: Normal affect and mood Limitations: no limitations Course Vital Signs 12/25/23 10:51 Temperature 97.8 F Pulse Rate 108 H Respiratory 20 Rate Blood Pressure 184/104 O2 Sat by Pulse 98 Oximetry EKG Findings - EKG Comments: EKG Findings:: My EKG interpretation: Ventricular rate 99, sinus rhythm,. 127, QRS 85, QTc 388. No [place] prolongation, no QTC prolongation, no ST or T-wave changes noted. Overall, this EKG is unremarkable Medical Decision Making - Medical Decision Making Was pt. sent in by a medical professional or institution ([facility]HELLY Maher, [employer], urgent care, hospital, or [place] health care facility...) When possible be specific @ -No Did you speak to anyone other than the patient for history (EMS, parent, family, police, friend...)? What history was obtained from this source @ -No Did you review nursing and triage notes (agree or disagree)? Why? @ -I reviewed and agree with nursing and triage notes Were old charts reviewed (outside hosp., previous admission, EMS record, old EKG, old radiological studies, urgent care reports/EKG's, [place] health care facility records)? Report findings @ -No old charts were reviewed Differential Diagnosis (chest pain, altered mental status, abdominal pain women, abdominal pain men, vaginal bleeding, musculoskeletal, weakness, fever, dyspnea, syncope, headache, dizziness, GI bleed, back pain, seizure, CVA, palpatations, mental health)? @ -Differential Abdominal Pain Women: Appendicitis, Cholecystitis, diverticulosis, ischemic bowel, pancreatitis, hepatitis, UTI, gastroenteritis, AAA, incarcerated hernia, bowel obstruction, constipation, inflammatory bowel, hepatitis, peptic ulcer disease, splenic infarction, perforated viscus, vulvitis, ovarian torsion, PID, kidney stone, placenta abruption, this is not meant to be an all-inclusive list EKG interpreted by me (3pts min.). @ -See above X-rays interpreted by me (1pt min.). @ -None done CT interpreted by me (1pt min.). @ -None done U/S interpreted by me (1pt. min.). @ -None done What testing was considered but not performed or refused? (CT, X-rays, U/S, labs)? Why? @ -None What meds were considered but not given or refused? Why? @ -None Did you discuss the management of the patient with other professionals (professionals i.e. SHELLY Maher, [employer], lab, RT, psych nurse, sexual assault social worker, applications administrator, teacher, foreign service officer, therapeutic case manager)? Give summary @ -No Was smoking cessation discussed for >3mins.? @ -No Was critical care preformed (if so, how long)? @ -No Were there social determinants of health that impacted care today? How? (Homelessness, low income, unemployed, alcoholism, drug addiction, transportation, low edu. Level, literacy, decrease access to med. care, longterm, rehab)? @ -No Was there de-escalation of care discussed even if they declined (Discuss DNR or withdrawal of care, Hospice)? DNR status @ -No What co-morbidities impacted this encounter? (DM, HTN, Smoking, COPD, CAD, Cancer, CVA, ARF, Chemo, Hep., AIDS, mental health diagnosis, sleep apnea, morbid obesity)? @ -None Was patient admitted / discharged? Hospital course, mention meds given and route, prescriptions, significant lab abnormalities, going to OR and other pertinent info. @ -43-year-old female recently admitted for pancreatitis presents to the emergency department for epigastric abdominal pain. She is concerned that she is having a recurrence of her pancreatitis. Vital signs are stable. Laboratory evaluation is unremarkable. She does have some mild palpatory epigastric tenderness however she does not have a surgical abdomen. Belly is soft. Laboratory evaluation obtained. Labs are within acceptable limits. Lipase level is 88. Patient improved with analgesic medications. She is agreeable with discharge. Return precautions discussed. Started to seek medical attention if her symptoms acutely worsen. Otherwise she is satisfied with the plan. Undiagnosed new problem with uncertain prognosis? @ -No Drug Therapy requiring intensive monitoring for toxicity (Heparin, Nitro, Insulin, Cardizem)? @ -No Were any procedures done? @ -No Diagnosis/symptom? Acute, or Chronic, or Acute on Chronic? Uncomplicated (without systemic symptoms) or Complicated (systemic symptoms)? @ -Abdominal pain, no high risk features Side effects of treatment? @ -No Exacerbation, Progression, or Severe Exacerbation? @ -No Poses a threat to life or bodily function? How? (Chest pain, [place], [place], pneumonia, PE, COPD, DKA, ARF, appy, cholecystitis, CVA, Diverticulitis, Homicidal, Suicidal, threat to staff... and all critical care pts) @ -No - Lab Data Result diagrams: 12/25/23 11:50 12/25/23 11:50 Lab Results 12/25/23 12/25/23 Range/Units 11:50 11:50 WBC 10.4 (3.8-10.6) k/uL RBC 4.68 (3.80-5.40) m/uL Hgb 14.3 (11.4-16.0) gm/dL Hct 43.6 (34.0-46.0) % MCV 93.3 (80.0-100.0) fL MCH 30.6 (25.0-35.0) pg MCHC 32.8 (31.0-37.0) g/dL RDW 13.1 (11.5-15.5) % Plt Count 520 H (150-450) k/uL MPV 7.5 Neutrophils % 75 % Lymphocytes % 20 % Monocytes % 3 % Eosinophils % 0 % Basophils % 1 % Neutrophils # 7.8 H (1.3-7.7) k/uL Lymphocytes # 2.1 (1.0-4.8) k/uL Monocytes # 0.3 (0-1.0) k/uL Eosinophils # 0.0 (0-0.7) k/uL Basophils # 0.1 (0-0.2) k/uL Sodium 140 (137-145) mmol/L Potassium 4.0 (3.5-5.1) mmol/L Chloride 102 (98-107) mmol/L Carbon Dioxide 22 (22-30) mmol/L Anion Gap 16 mmol/L BUN 29 H (7-17) mg/dL Creatinine 0.71 (0.52-1.04) mg/dL Est GFR (CKD-EPI)AfAm >90 (>60 ml/min/1.73 sqM) Est GFR (CKD-EPI)NonAf >90 (>60 ml/min/1.73 sqM) Glucose 111 H (74-99) mg/dL Calcium 10.1 (8.4-10.2) mg/dL Total Bilirubin 0.7 (0.2-1.3) mg/dL Conjugated Bilirubin 0.0 (0.0-0.3) mg/dL Unconjugated Bilirubin 0.3 (0.0-1.1) mg/dL Delta Bilirubin 0.4 H (0.0-0.2) mg/dL AST 55 H (14-36) U/L ALT 48 H (4-34) U/L Alkaline Phosphatase 151 H (38-126) U/L Total Protein 8.1 (6.3-8.2) g/dL Albumin 4.9 (3.5-5.0) g/dL Lipase 88 (23-300) U/L Disposition Clinical Impression: Abdominal pain Disposition: HOME SELF-CARE Condition: Good Instructions (If sedation given, give patient instructions): Abdominal Pain (ED) Prescriptions: HYDROcodone/APAP 5-325MG [[employer] 5-325] 1 tab PO Q6HR PRN 3 Days #12 tab PRN Reason: Severe Pain Is patient prescribed a controlled substance at d/c from ED?: Yes If prescribed controlled substance>3 days was MAPS reviewed?: Prescribed <3 Days Referrals: Luis Enrique Arnold MD [Primary Care Provider] - 1-2 days Time of Disposition: 12:40
[2023-12-25] MEDS: SODIUM CHLORIDE 0.9% 1,000 ML IV STA (11:51)
[2023-12-25] MEDS: MORPHINE SULFATE 4 MG/ML SYRINGE IV STA ×2 (11:51→12:49)
[2023-12-25 12:05] LABS: Basophils # (A) 0.1 k/uL (0-0.2); Basophils % (A) 1 %; Eosinophils % (A) 0 %; HCT 43.6 % (34.0-46.0); HGB 14.3 gm/dL (11.4-16.0); Lymphocytes # (A) 2.1 k/uL (1.0-4.8); Lymphocytes % (A) 20 %; MCH 30.6 pg (25.0-35.0); MCHC 32.8 g/dL (31.0-37.0); MCV 93.3 fL (80.0-100.0); Mean Platelet Volume 7.5; Monocytes # (A) 0.3 k/uL (0-1.0); Monocytes % (A) 3 %; Neutrophils # (A) 7.8 k/uL (1.3-7.7); Neutrophils % (A) 75 %; Platelet Count 520 k/uL (150-450); RBC 4.68 m/uL (3.80-5.40); RDW 13.1 % (11.5-15.5); WBC 10.4 k/uL (3.8-10.6)
[2023-12-25 12:23] LABS: ALT 48 U/L (4-34); AST 55 U/L (14-36); African American GFR (CKD) >90 (>60 ml/min/1.73 sqM); Albumin 4.9 g/dL (3.5-5.0); Alkaline Phosphatase 151 U/L (38-126); Anion Gap 16 mmol/L; Bilirubin, Delta 0.4 mg/dL (0.0-0.2); Bilirubin,Unconjugated 0.3 mg/dL (0.0-1.1); Blood Urea Nitrogen 29 mg/dL (7-17); Calcium 10.1 mg/dL (8.4-10.2); Carbon Dioxide 22 mmol/L (22-30); Chloride 102 mmol/L (98-107); Glucose 111 mg/dL (74-99); Lipase 88 U/L (23-300); Non-African American GFR(CKD) >90 (>60 ml/min/1.73 sqM); Sodium 140 mmol/L (137-145); Total Bilirubin 0.7 mg/dL (0.2-1.3); Total Protein 8.1 g/dL (6.3-8.2)
[2023-12-25 13:18] VITALS: BP 210/120; PULSE 89; RESP 16; TEMP 98.9
== END 2023-12-25 13:07 | disposition home or self-care (01) ==
LOC: EC 10:39
DX: R10.13 Epigastric pain (principal); K21.9 Gastro-esophageal reflux disease without esophagitis; F17.290 Nicotine dependence, other tobacco product, uncomplicated; Z88.5 Allergy status to narcotic agent; Z79.899 Other long term (current) drug therapy
CPT/HCPCS: 36415; 93005; 80053; 82248; 83690; 85025; 99284; 96374; 96376; 96361; J2270

== ENCOUNTER 2024-01-07 21:41 | Emergency (ER) | payer OTHER ==
[2024-01-07] MEDS: ETOMIDATE 2 MG/ML 10 ML VIAL IVP STA (21:43)
[2024-01-07 21:47] LABS: Glucose,Whole Blood 156 mg/dL (70-110)
[2024-01-07] MEDS: ENALAPRILAT 1.25 MG/ML 1 ML VIAL IVP STA (21:54)
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
[2024-01-07 21:55] VITALS: BP 175/103; PULSE 75; RESP 20
[2024-01-07 21:59] LABS: Basophils # (A) 0.1 k/uL (0-0.2); Basophils % (A) 1 %; Eosinophils % (A) 1 %; HCT 39.6 % (34.0-46.0); HGB 12.4 gm/dL (11.4-16.0); Lymphocytes # (A) 2.5 k/uL (1.0-4.8); Lymphocytes % (A) 42 %; MCH 29.9 pg (25.0-35.0); MCHC 31.2 g/dL (31.0-37.0); MCV 95.9 fL (80.0-100.0); Mean Platelet Volume 7.7; Monocytes # (A) 0.1 k/uL (0-1.0); Monocytes % (A) 2 %; Neutrophils # (A) 3.2 k/uL (1.3-7.7); Neutrophils % (A) 52 %; Platelet Count 358 k/uL (150-450); RBC 4.13 m/uL (3.80-5.40); RDW 13.8 % (11.5-15.5); WBC 6.1 k/uL (3.8-10.6)
[2024-01-07] MEDS: levETIRAcetam IV 2,000 MG in SODIUM CHLORIDE 0.9% 250 ML IVPB ONE (22:00)
[2024-01-07] MEDS ORDERED: MANNITOL IV STA (22:01)
[2024-01-07 22:07] LABS: HCG,Qualitative Serum Not Detected
[2024-01-07 22:08] LABS: ALT 35 U/L (4-34); Acetaminophen <10.0 ug/mL; African American GFR (CKD) >90 (>60 ml/min/1.73 sqM); Albumin 4.4 g/dL (3.5-5.0); Alkaline Phosphatase 80 U/L (38-126); Anion Gap 18 mmol/L; Blood Urea Nitrogen 20 mg/dL (7-17); Calcium 9.3 mg/dL (8.4-10.2); Carbon Dioxide 15 mmol/L (22-30); Chloride 113 mmol/L (98-107); Glucose 162 mg/dL (74-99); Non-African American GFR(CKD) >90 (>60 ml/min/1.73 sqM); Salicylate <1.0 mg/dL; Sodium 146 mmol/L (137-145); Total Bilirubin 0.5 mg/dL (0.2-1.3); Total Protein 7.3 g/dL (6.3-8.2)
[2024-01-07] MEDS: MANNITOL IV STA (22:20)
[2024-01-07] MEDS: SALINE IV STA (22:20)
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
[2024-01-07] MEDS: CLEVIDIPINE BUTYRATE 25 MG in EMPTY BAG 1 BAG IV SCH (22:49)
--- NOTE | 2024-01-07 22:49 | XR ---
EXAM: XR Chest, 1 View CLINICAL HISTORY: ITS.[email or web address] XR Reason: tube placement TECHNIQUE: Frontal view of the chest. COMPARISON: Chest radiograph on 01/07/2024 at 2133 hrs. FINDINGS: Hardware: Endotracheal tube terminates approximately 2.4 cm above the milo. An enteric tube terminates in the region of the gastric body or antrum. Lungs/pleura: Normal. No focal consolidation. No pleural effusion or pneumothorax. Heart/mediastinum: Normal. No cardiomegaly. Soft tissues: Unremarkable. Bones: No acute fracture. Upper abdomen: Normal. IMPRESSION: Endotracheal tube terminates approximately 2.4 cm above the milo. An enteric tube terminates in the region of the gastric body or antrum.
--- NOTE | 2024-01-07 22:50 | XR ---
EXAM: XR Pelvis, 1 or 2 Views CLINICAL HISTORY: ITS.REASON XR Reason: Trauma TECHNIQUE: Frontal view of the pelvis. COMPARISON: None FINDINGS: Bones/joints: Unremarkable. No acute fracture or dislocation. Soft tissues: Unremarkable. IMPRESSION: No acute fracture or dislocation.
[2024-01-07 22:51] LABS: AST 53 U/L (14-36); Alcohol 274 mg/dL; Potassium 3.9 mmol/L (3.5-5.1)
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
[2024-01-07] MEDS: DIPH,PERTUS(ACELL)TETVAC-LF 0.5 ML VIAL IM ONE (23:29)
[2024-01-07 23:44] VITALS: TEMP 97.8
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
== END 2024-01-07 22:31 | disposition other institution (70) ==
LOC: EC 21:41
DX: S01.03XA Puncture wound without foreign body of scalp, initial encounter (principal); F17.290 Nicotine dependence, other tobacco product, uncomplicated; Z88.5 Allergy status to narcotic agent; W34.00XA Accidental discharge from unspecified firearms or gun, initial encounter
CPT/HCPCS: 36415; 94002; 93005; 86900; 86901; 80053; 84484; 85025; 86850; 84703; 80143; 80179; 72170; 71045; 72125; 70450; 31500; 99291; 96365; 96375 ×3; G0390; G0480; J0690; J1953; J2704; 80320